=== PATIENT | female | born 1965 | race Hispanic/Latino ===

== ENCOUNTER 2016-09-20 19:29 | Inpatient (IN) | payer MEDICAID ==
[2016-09-20] MEDS ORDERED: DUONEB 0.5 MG-3 MG/3 ML SOLN IH ONE (19:59)
[2016-09-20 21:13] LABS: Basophils % (Auto) 0.8 % (0.0-1.8); Eosinophils % (Auto) 1.1 % (0.0-4.3); Hematocrit 43.7 % (30.3-42.9); Hemoglobin 14.6 gm/dl (10.1-14.3); Mean Corpuscular HGB Conc 33 % (30-34); Mean Corpuscular Hemoglobin 31 pg (28-32); Mean Corpuscular Volume 92 fl (79-97); Platelet Count 194 K/mm3 (140-440); Red Blood Count 4.74 M/mm3 (3.65-5.03); Red Cell Distribution Width 13.8 % (13.2-15.2); White Blood Count 7.8 K/mm3 (4.5-11.0)
[2016-09-20 21:24] LABS: INR 1.07 (0.87-1.13); Partial Thromboplastin Time 26.2 Sec. (24.2-36.6)
[2016-09-20 21:31] LABS: Anion Gap 20 mmol/L; Blood Urea Nitrogen 8 mg/dL (7-17); Calcium 9.1 mg/dL (8.4-10.2); Carbon Dioxide 21 mmol/L (22-30); Chloride 106.7 mmol/L (98-107); Glucose 110 mg/dL (65-100); Potassium 3.6 mmol/L (3.6-5.0); Sodium 144 mmol/L (137-145)
[2016-09-20] MEDS ORDERED: ZOFRAN IV ONE (22:11)
[2016-09-20] MEDS ORDERED: MORPHINE IV ONE ×2 (22:11→22:53)
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
[2016-09-20] MEDS ORDERED: PLAVIX PO ONE (22:37)
[2016-09-20] MEDS ORDERED: MILK OF MAGNESIA PO PRN (23:40)
[2016-09-20] MEDS ORDERED: ZOFRAN IV PRN (23:40)
[2016-09-20] MEDS ORDERED: PROVENTIL IH PRN (23:40)
[2016-09-20] MEDS ORDERED: DULCOLAX PR PRN (23:40)
--- NOTE | 2016-09-20 23:44 | History and Physical Report ---
History of Present Illness Date of examination: 09/20/16 History of present illness: 51-year-old woman with a history of hypertension, coronary artery disease, CHF, COPD, bipolar, history of DVT, PE, seizure comes emergency room with complaints of chest pain pain is in the epigastric area which started yesterday which she describes a tightness, constant, intensity 7/10, radiating to the back, she cannot identify exacerbating or relieving factors. She admits to nausea vomiting, diaphoresis, shortness of breath or palpitation. Also complaining of right leg pain 2 days Patient denies cough, abdominal pain, hematochezia, dysuria, frequency, focal weakness, dysarthria, fever chills, polydipsia polyuria, hot or cold intolerance , easy bruisability, or rash or bleeding from mucosal membrane, rhinorrhea, epistaxis, earache, tinnitus, blurry vision, eye discharge, anxiety, depression. Other review of systems negative PAST SURGICAL HISTORY: Hysterectomy, bowel resection, cholecystectomy, surgery on right thumb and leg SOCIAL HISTORY: Tobacco abuse, no alcohol or drugs FAMILY HISTORY: Hypertension Medications and Allergies Allergies Allergy/AdvReac Type Severity Reaction Status Date / Time acetaminophen [From Vicodin] Allergy Hives Verified 09/20/16 19:50 hydrocodone bitartrate Allergy Hives Verified 09/20/16 19:50 [From Vicodin] metoclopramide HCl Allergy Anaphylaxis Verified 09/20/16 19:50 [From Reglan] Penicillins Allergy Swelling Verified 09/20/16 19:50 naproxen AdvReac Itching Verified 09/20/16 19:50 Home Medications Medication Instructions Recorded Confirmed Last Taken Type Lisinopril [Zestril TAB] 40 mg PO QDAY 03/30/13 09/20/16 09/20/16 History Furosemide [Lasix] 40 mg PO QDAY 06/16/13 09/20/16 09/20/16 History Cyanocobalamin [Vitamin B-12] 1,000 mcg IM 2XW 10/17/13 09/20/16 09/20/16 History Potassium Chloride [K-Dur] 10 meq PO BID 10/17/13 09/20/16 09/20/16 History Simvastatin [Zocor TAB] 40 mg PO QHS 10/17/13 09/20/16 09/20/16 History Fenofibrate [Tricor] 48 mg PO DAILY 03/27/14 09/20/16 09/20/16 History Gabapentin 200 mg PO BID 03/27/14 09/20/16 09/20/16 History Mometasone/Formoterol [Dulera 200 2 puff IH BID 03/27/14 09/20/16 09/20/16 History Mcg/5 Mcg Inhaler] QUEtiapine [SEROquel] 200 mg PO HS 03/27/14 09/20/16 09/20/16 History Albuterol Sulfate [Proventil HFA] 1 - 2 puff IH Q4H PRN #1 hfa.aer.ad 12/27/14 09/20/16 09/20/16 Rx Fluticasone [Flonase] 1 spray NS QDAY #1 bottle 12/27/14 09/20/16 09/20/16 Rx ALPRAZolam [Xanax TAB] 2 mg PO BID PRN 01/21/15 09/20/16 09/20/16 History Quetiapine Fumarate [Seroquel] 100 mg PO QAM 02/06/15 09/20/16 09/20/16 History Ipratropium/Albuterol Sulfate 1 ampul IH TIDRT #120 ampul.neb 03/28/16 09/20/16 09/20/16 Rx [Duoneb 0.5 mg-3 mg/3 ml Soln] Exam - Physical Exam Narrative exam: Gen. appearance: Patient lying in bed, no apparent distress HEENT: Normocephalic, atraumatic, pupils equally round and reactive to light, extraocular movement intact, and no sclericterus,. No JVD or thyromegaly or nodule,neck supple, no carotid bruit ,mucous membranes moist, no exudate or erythema Heart: S1, S2, regular rate and rhythm Lungs: Clear to auscultation bilaterally, breathing comfortable Abdomen: Positive bowel sounds, nontender, nondistended, no organomegaly Extremity: No edema, cyanosis, clubbing Skin: No rash, nodules, warm, dry Neuro: Oriented 3, cranial nerves II-12 intact, speech is fluent, motor and sensory intact - Constitutional Vitals: Temp Pulse Resp BP Pulse Ox 97.9 F 80 13 108/57 92 09/20/16 19:51 09/20/16 22:30 09/20/16 22:30 09/20/16 22:30 09/20/16 22:30 Results - Labs CBC & Chem 7: 09/20/16 20:49 09/20/16 20:49 Labs: Abnormal lab results 09/20/16 09/20/16 Range/Units 20:49 20:49 Hgb 14.6 H (10.1-14.3) gm/dl Hct 43.7 H (30.3-42.9) % [place] % (Auto) 8.2 H (0.0-7.3) % Carbon Dioxide 21 L (22-30) mmol/L Creatinine 0.4 L (0.7-1.2) mg/dL Glucose 110 H (65-100) mg/dL - Imaging and Cardiology EKG: image reviewed Chest x-ray: image reviewed Assessment and Plan Unstable angina Coronary artery disease Right leg pain Hypertension CHF, stable COPD Seizure Admits medicine Check cardiac enzymes, consult cardiology, check Doppler of the lower extremity Continue appropriate outpatient medication, start DVT prophylaxis, IV morphine for pain
--- NOTE | 2016-09-21 00:49 | Admit Criteria Form ---
Admission Criteria Documentation: CHEST PAIN Clinical Indications for Admission to Inpatient Care (Place 'X' for any and all applicable criteria): Admission is indicated for chest pain and ANY ONE of the following(1)(2)(3)(4)(5 ): [ ]I. Angina with acute coronary syndrome (Also use Myocardial Infarction or Angina guideline) [ ]II. Hemodynamic instability [ ]III. Angina needing acute intervention as indicated by ALL of the following( 11)(12): [ ]a) Unstable angina is present as indicated by angina that is ANY ONE of the following: [ ]i) New onset [ ]ii) Nocturnal [ ]iii) Prolonged at rest [ ]iv) Progressive [ ]b) Angina warrants acute intervention as indicated by ANY ONE of the following: [ ]i) Recurrent angina (e.g, not responding as previously to treatment) [ ]ii) Angina at rest or with low-level activities despite initial medical therapy [ ]iii) New or presumably new ST-segment depression on ECG [ ]iv) Signs or symptoms of heart failure (eg, dyspnea, pulmonary edema) [ ]v) New or worsening mitral regurgitation [ ]vi) Hemodynamic instability [ ]vii) Dangerous arrhythmia (eg, sustained ventricular tachycardia) [ ]viii) History of percutaneous coronary intervention within 6 months [ ]ix) History of coronary artery bypass graft surgery [ ]x) VIJI risk score of 2 or greater[A] [ ]xi) History of Diabetes(14) [ ]xii) High-risk cardiac ischemia findings on noninvasive testing (e.g, echocardiogram, treadmill testing, nuclear scan) [ ]xiii) Chronic renal insufficiency (ie, estimated GFR less than 60 mL/min/1.732m) [ ]xiv) Left ventricular ejection fraction less than 40% [ ]IV. Evidence of NV (eg, cardiac biomarkers positive, ST-segment elevation on ECG) also use Myocardial Infarction Criteria Form. [ ]V. Pulmonary edema [ ]. Respiratory distress [ ]VII. Chest pain indicative of serious diagnosis other than coronary artery disease (eg, aortic dissection) [ ]VIII. Contraindications and/or Inappropriate clinical situations for Observational Care in patients with Chest Pain, when ANY ONE of the following is required: [ ]a) Patient with risk factor for pulmonary embolism, acute coronary syndrome and myocardial infarction (18) [ ]b) Patient with Pulmonary embolism require an average LOS of 4.3 days, therefore emergency department observation management is inappropriate 18,23 [ ]c) Painful condition/s in the elderly, have the highest rate of recidivism after emergency department observation management (10.8%) 20,21,22 [ ]d) Elevated cardiac biomarker requires intensive and exhaustive care (19) [X ]IX. General contraindications and/or Inappropriate clinical situations for Observational Care in patients with Chest Pain, when ANY ONE of the following is required: [ X]a) Prediction of prolongation of LOS based on ANY ONE of the following may be considered as a contraindication for observational care 2, 3, 4, 5, 6, 7, 8, 9, 10, 11 [ ]i) Age > 65 yrs. [ ]ii) Patient arriving by ambulance [ ]iii) Patient with high acuity [ ]iv) Patient requiring vital sign monitoring [ X]v) Patient on IV medication [ ]b) Systolic blood pressures 180mmHg 3,12 [ ]c) Patient with altered mental status including delirium and other alteration of consciousness, (3) [ ]d) Patient whose discharge disposition will be to a jail home or rehabilitation home should not be managed in Emergency Department Observation Unit. CMS rule requires 3 days hospital stay before such placement. 3,13 [ ]e) Patient with failure to thrive due to broad array of etiologies 3,16,17 [ ]f) Inability to ambulate 3,14 Extended stay beyond goal length of stay may be needed for (1)(28): [ ]a) Specific condition diagnosed after evaluation (eg, pulmonary embolism, aortic dissection) [ ]b) Unstable angina [ ]c) Continued suspicion of acute coronary syndrome with inability to complete needed cardiac evaluation (eg, patient clinically unable to undergo stress testing) [ ]d) Myocardial infarction (Contents from ANGINA and CHEST PAIN clinical indications for admission to inpatient care have been integrated in this form) The original [email or web address] content created by [email or web address] has been revised. The portions of the content which have been revised are identified through the use of italic text or in bold, and [facility] [employer] has neither reviewed nor approved the modified material. All other unmodified content is copyright [facility] [employer] Please see references footnoted in the original [facility] edition 2016 Admission Criteria Met: Yes
[2016-09-21] MEDS ORDERED: XANAX ONE (00:59)
[2016-09-21] MEDS ORDERED: DILAUDID IV ONE (01:07)
[2016-09-21] MEDS ORDERED: DILAUDID ONE (01:09)
[2016-09-21] MEDS: XANAX PO PRN ×2 (01:09→08:50)
[2016-09-21 02:38] VITALS: BP 128/76
[2016-09-21] MEDS: MORPHINE IV PRN ×3 (04:43→13:30)
[2016-09-21 07:17] LABS: Basophils % (Auto) 0.9 % (0.0-1.8); Eosinophils % (Auto) 1.8 % (0.0-4.3); Hematocrit 41.2 % (30.3-42.9); Hemoglobin 13.7 gm/dl (10.1-14.3); Mean Corpuscular HGB Conc 33 % (30-34); Mean Corpuscular Hemoglobin 31 pg (28-32); Mean Corpuscular Volume 92 fl (79-97); Platelet Count 177 K/mm3 (140-440); Red Blood Count 4.47 M/mm3 (3.65-5.03); Red Cell Distribution Width 13.9 % (13.2-15.2); White Blood Count 7.4 K/mm3 (4.5-11.0)
[2016-09-21 07:35] LABS: Anion Gap 14 mmol/L; Blood Urea Nitrogen 8 mg/dL (7-17); Calcium 8.6 mg/dL (8.4-10.2); Carbon Dioxide 26 mmol/L (22-30); Chloride 105.6 mmol/L (98-107); Glucose 91 mg/dL (65-100); Potassium 3.5 mmol/L (3.6-5.0); Sodium 142 mmol/L (137-145)
[2016-09-21 07:41] LABS: Creatine Kinase 19 units/L (30-135)
[2016-09-21 07:45] LABS: Creatine Kinase MB < 1.0 ng/mL (0.0-4.0)
[2016-09-21] MEDS ORDERED: BROVANA NEBU IH SCH (08:00)
[2016-09-21] MEDS ORDERED: PULMICORT IH SCH (08:00)
--- NOTE | 2016-09-21 08:15 | XRay Report ---
CHEST ONE VIEW INDICATION: Chest pain, cough. COMPARISON: 03/27/2016. FINDINGS: Portable, single, frontal chest radiograph demonstrates stable cardiomediastinal silhouette. Well-expanded lungs with markings again slightly crowded towards the bases. Unremarkable bones. Extrinsic EKG leads. CONCLUSION: No acute disease in the chest. Thank you for the opportunity to participate in this patient's care.
[2016-09-21] MEDS: LOVENOX SUB-Q SCH ×2 (08:50→13:17)
[2016-09-21] MEDS: LASIX PO SCH ×3 (08:51→13:32)
[2016-09-21] MEDS: NEURONTIN PO SCH ×2 (08:51→13:18)
[2016-09-21 09:24] LABS: Creatine Kinase 21 units/L (30-135)
[2016-09-21 09:26] LABS: Creatine Kinase MB < 1.0 ng/mL (0.0-4.0)
[2016-09-21] MEDS ORDERED: NON-FORMULARY (Mometasone/Formoterol [Dulera 200 Mcg/5 Mcg Inhaler] 2 PUFF) IH SCH (10:00)
[2016-09-21] MEDS: ZESTRIL PO SCH ×2 (13:18→13:32)
[2016-09-21] MEDS: TRICOR PO SCH ×2 (13:18→13:32)
--- NOTE | 2016-09-21 14:45 | Discharge Summary ---
Providers - Providers Date of Admission: 09/20/16 23:41 Date of discharge: 09/21/16 Attending physician: CECILIO ELLIS Primary care physician: DOCUMENT CONTROL ASSISTANT Hospitalization Condition: Fair Disposition: DISCHARGED TO HOME OR SELFCARE Time spent for discharge: 35 min Exam - Constitutional Vitals: Temp Pulse Resp BP Pulse Ox 98.1 F 67 16 128/76 96 09/21/16 02:37 09/21/16 09:12 09/21/16 13:30 09/21/16 02:37 09/21/16 08:19 Plan Activity: advance as tolerated Diet: low cholesterol, low salt Additional Instructions: F/u with your mural painter Follow up with: PRIMARY CARE, [Primary Care Provider] - 3-5 Days
[2016-09-21] MEDS ORDERED: ZOCOR PO SCH (22:00)
== END 2016-09-21 15:21 | disposition home or self-care (01) | DRG 303 ==
LOC: ED 19:29 → 4A 23:41
PROVIDERS: ADMIT Internal Medicine; ATTEND Internal Medicine
DX: I25.110 Atherosclerotic heart disease of native coronary artery with unstable angina pectoris (principal); I50.9 Heart failure, unspecified; J44.9 Chronic obstructive pulmonary disease, unspecified; R56.9 Unspecified convulsions; F31.9 Bipolar disorder, unspecified; I11.0 Hypertensive heart disease with heart failure; F17.200 Nicotine dependence, unspecified, uncomplicated; J45.909 Unspecified asthma, uncomplicated; G89.29 Other chronic pain; M19.90 Unspecified osteoarthritis, unspecified site; Z86.718 Personal history of other venous thrombosis and embolism; Z86.711 Personal history of pulmonary embolism; Z90.49 Acquired absence of other specified parts of digestive tract; Z98.61 Coronary angioplasty status; Z90.710 Acquired absence of both cervix and uterus; Z86.14 Personal history of Methicillin resistant Staphylococcus aureus infection; Z82.49 Family history of ischemic heart disease and other diseases of the circulatory system; Z88.8 Allergy status to other drugs, medicaments and biological substances; Z88.0 Allergy status to penicillin
CPT/HCPCS: 36415; 71010; 80048; 82550; 82553; 83880; 84484; 85025; 85379; 85610; 85730; 93005; 93010; 94640; 96374; 96375; 96376; 99406; J1170; J1650; J2270; J2405

== ENCOUNTER 2016-10-18 12:26 | Emergency (ER) | payer MEDICAID ==
[2016-10-18 12:56] VITALS: BP 150/95
[2016-10-18 13:42] LABS: Eosinophils % (Auto) 1.3 % (0.0-4.3); Hematocrit 43.5 % (30.3-42.9); Hemoglobin 14.5 gm/dl (10.1-14.3); Mean Corpuscular HGB Conc 33 % (30-34); Mean Corpuscular Hemoglobin 31 pg (28-32); Mean Corpuscular Volume 93 fl (79-97); Platelet Count 234 K/mm3 (140-440); Red Blood Count 4.69 M/mm3 (3.65-5.03); Red Cell Distribution Width 13.9 % (13.2-15.2); White Blood Count 7.7 K/mm3 (4.5-11.0)
[2016-10-18 14:13] LABS: Anion Gap 21 mmol/L; Blood Urea Nitrogen 9 mg/dL (7-17); Calcium 9.3 mg/dL (8.4-10.2); Carbon Dioxide 20 mmol/L (22-30); Chloride 104.3 mmol/L (98-107); Glucose 101 mg/dL (65-100); Potassium 3.9 mmol/L (3.6-5.0); Sodium 141 mmol/L (137-145)
== END 2016-10-18 14:27 | disposition left against medical advice (07) ==
LOC: ED 12:26
DX: R07.9 Chest pain, unspecified (principal); Z53.21 Procedure and treatment not carried out due to patient leaving prior to being seen by health care provider
CPT/HCPCS: 36415; 80048; 82962; 84484; 85025; 93005; 93010

== ENCOUNTER 2016-12-19 12:51 | Outpatient (CLI) | payer MEDICAID ==
--- NOTE | 2016-12-19 13:56 | XRay Report ---
ROUTINE CHEST, TWO VIEWS: HISTORY: Cough, chest pain. The trachea, heart, mediastinal contour, lung watters and bony thorax are unremarkable. No significant change since 09/20/16. IMPRESSION: Unremarkable chest x-ray.
== END 2016-12-19 12:52 | disposition home or self-care (01) ==
LOC: XRAY 12:51
PROVIDERS: ATTEND Family Medicine
DX: J18.9 Pneumonia, unspecified organism (principal); R07.9 Chest pain, unspecified; I11.0 Hypertensive heart disease with heart failure; I50.9 Heart failure, unspecified; J44.9 Chronic obstructive pulmonary disease, unspecified; J45.909 Unspecified asthma, uncomplicated; D64.9 Anemia, unspecified; F17.200 Nicotine dependence, unspecified, uncomplicated; Z79.899 Other long term (current) drug therapy
CPT/HCPCS: 71020

== ENCOUNTER 2017-08-20 04:56 | Emergency (ER) | payer MEDICAID ==
[2017-08-20 05:37] VITALS: BP 153/84
[2017-08-20 05:56] LABS: Basophils % (Auto) 0.6 % (0.0-1.8); Eosinophils # (Auto) 0.1 K/mm3 (0.0-0.4); Eosinophils % (Auto) 1.5 % (0.0-4.3); Hematocrit 40.2 % (30.3-42.9); Hemoglobin 13.8 gm/dl (10.1-14.3); Lymphocytes # (Auto) 1.4 K/mm3 (1.2-5.4); Lymphocytes % (Auto) 30.8 % (13.4-35.0); Mean Corpuscular HGB Conc 34 % (30-34); Mean Corpuscular Hemoglobin 32 pg (28-32); Mean Corpuscular Volume 93 fl (79-97); Monocytes # (Auto) 0.7 K/mm3 (0.0-0.8); Monocytes % (Auto) 14.5 % (0.0-7.3); Platelet Count 151 K/mm3 (140-440); Red Blood Count 4.34 M/mm3 (3.65-5.03); Red Cell Distribution Width 13.1 % (13.2-15.2)
[2017-08-20 06:11] LABS: INR 0.98 (0.87-1.13)
[2017-08-20 06:12] LABS: BUN/Creatinine Ratio 13; Blood Urea Nitrogen 5 mg/dL (7-17); Calcium 8.8 mg/dL (8.4-10.2); Hemolysis Index 1; Partial Thromboplastin Time 28.3 Sec. (24.2-36.6)
[2017-08-20] MEDS ORDERED: MORPHINE IV ONE (07:02)
[2017-08-20] MEDS ORDERED: ZOFRAN IV ONE (07:02)
[2017-08-20] MEDS ORDERED: MORPHINE ONE (07:04)
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
--- NOTE | 2017-08-20 09:06 | XRay Report ---
AP CHEST :08/20/17 CLINICAL: Hypertension. COMPARISON:05/03/17 FINDINGS: The heart is normal size. Increased central vascular congestion compared to the last exam. The right hilum is prominent due to rotation but this is not significantly changed compared to the last exam. The lungs are relatively clear. No airspace disease or pleural effusion. No tubes or lines. IMPRESSION: Central vascular congestion but otherwise negative.
[2017-08-20] MEDS ORDERED: SODIUM CHLORIDE FLUSH SYRINGE 10 ML IV PRN (09:22)
--- NOTE | 2017-08-20 09:27 | History and Physical Report ---
History of Present Illness Date of examination: 08/20/17 Date of admission: 08/20/17 Chief complaint: chest pain History of present illness: Patient is 52 year old female with past medical hx of chronic pain syndrome, COPD, heart failure, DVT, Bipolar Disorder Presents with chest pain, states that it feels like a 80 pound gorilla on her chest. She proceeded to demand pain medications, stating that she needs something very strong. The patient initially said the pain was just on her chest and rated it a 10 out of 10 but later states that it radiates and is associated with deep breath. Despite multiple reassurances, the Patient decided to leave against medical advise. According to ER physician" She has been admitted to this facility several times for workup of chest pain. She states that she was "supposed to have a cardiac catheterization but never did". She has been admitted here also to rule out pulmonary embolism/DVT. Those tests have been recently negative. She is complaining of right leg pain today but not swelling. She states that she has been off anticoagulation for one year. She does not complain of nausea vomiting diaphoresis or acute dyspnea. She states that she has had chest pain for 2-3 days. This is her first contacted for evaluation thereof." Past Medical History: COPD, DVT, heart failure, hypertension, pulmonary embolism , other (CIRRHOSIS OF THE LIVER,ASTHMA,ANXIETY DISORDER,BIPOLAR DISEASE) Past Surgical History: cholecystectomy, hysterectomy, bowel surgery, Other ( STENT PLACEMENT,RIGHT LEG SURGERY,RIGHT THUMB) Social history: smoking Family history: no significant family history Medications and Allergies Allergies Allergy/AdvReac Type Severity Reaction Status Date / Time acetaminophen [From Vicodin] Allergy Hives Verified 09/20/16 19:50 hydrocodone bitartrate Allergy Hives Verified 09/20/16 19:50 [From Vicodin] metoclopramide HCl Allergy Anaphylaxis Verified 05/03/17 15:25 [From Reglan] Penicillins Allergy Swelling Verified 05/03/17 15:25 naproxen AdvReac Itching Verified 05/03/17 15:25 Home Medications Medication Instructions Recorded Confirmed Last Taken Type Albuterol Sulfate [Ventolin HFA] 2 puff IH QDAY PRN 08/20/17 08/20/17 Unknown History Cyanocobalamin (Vitamin B-12) 250 mcg PO DAILY 08/20/17 08/20/17 Unknown History [Vitamin B-12] Cyanocobalamin [Vitamin B-12] 1,000 mcg IM 2XW 08/20/17 08/20/17 Unknown History Folic Acid [Folvite] 1 mg PO QDAY 08/20/17 08/20/17 Unknown History Furosemide [Lasix] 40 mg PO QDAY 08/20/17 08/20/17 Unknown History Gabapentin [Neurontin] 300 mg PO Q8HR 08/20/17 08/20/17 Unknown History Lisinopril [Zestril] 40 mg PO QDAY 08/20/17 08/20/17 Unknown History Mometasone/Formoterol [Dulera 200 2 puff IH BID 08/20/17 08/20/17 Unknown History Mcg/5 Mcg Inhaler] Naproxen [Naprosyn] 500 mg PO BID 08/20/17 08/20/17 Unknown History Oxycodone HCl [oxyCODONE TAB] 20 mg PO Q6H PRN 08/20/17 08/20/17 Unknown History Promethazine [Phenergan TAB] 25 mg PO Q6HR PRN 08/20/17 08/20/17 Unknown History QUEtiapine [SEROquel] 200 mg PO QHS 08/20/17 08/20/17 Unknown History Simvastatin 40 mg PO QDAY 08/20/17 08/20/17 Unknown History Valacyclovir HCl [Valtrex] 1,000 mg PO QDAY 08/20/17 08/20/17 Unknown History Vitamin D3/Folic Acid [Folixapure 5,000 unit PO QDAY 08/20/17 08/20/17 Unknown History Tablet] Active Meds: Active Medications Nitroglycerin (Nitrostat) 0.4 mg SL Q5M PRN PRN Reason: Chest Pain Sodium Chloride (Sodium Chloride Flush Syringe 10 Ml) 10 ml IV PRN PRN PRN Reason: LINE FLUSH Review of Systems All systems: negative Cardiovascular: chest pain, shortness of breath Respiratory: shortness of breath, dyspnea on exertion Exam - Constitutional Vitals: Temp Pulse Resp BP Pulse Ox 98.3 F 78 20 153/84 94 08/20/17 05:32 08/20/17 05:32 08/20/17 07:10 08/20/17 05:32 08/20/17 05:32 General appearance: Present: mild distress, obese (MORBID) - EENT Eyes: Present: PERRL, EOM intact ENT: clear oral mucosa - Neck Neck: Present: supple, normal ROM - Respiratory Respiratory effort: normal Respiratory: bilateral: CTA - Cardiovascular Rhythm: regular Heart Sounds: Present: S1 & S2 - Extremities Extremities: no ischemia, pulses intact, pulses symmetrical, No edema, normal temperature, normal color, Full ROM Peripheral Pulses: within normal limits - Abdominal General gastrointestinal: Present: soft, non-tender, non-distended, normal bowel sounds - Integumentary Integumentary: Present: clear, warm, dry - Musculoskeletal Musculoskeletal: strength equal bilaterally - Psychiatric Psychiatric: appropriate mood/affect, intact judgment & insight - Neurologic Neurologic: CNII-XII intact, moves all extremities - Allied Health Allied health notes reviewed: nursing Results - Labs CBC & Chem 7: 08/20/17 05:44 08/20/17 09:34 Labs: Laboratory Last Values WBC 4.6 K/mm3 (4.5-11.0) 08/20/17 05:44 RBC 4.34 M/mm3 (3.65-5.03) 08/20/17 05:44 Hgb 13.8 gm/dl (10.1-14.3) 08/20/17 05:44 Hct 40.2 % (30.3-42.9) 08/20/17 05:44 MCV 93 fl (79-97) 08/20/17 05:44 MCH 32 pg (28-32) 08/20/17 05:44 MCHC 34 % (30-34) 08/20/17 05:44 RDW 13.1 % (13.2-15.2) L 08/20/17 05:44 Plt Count 151 K/mm3 (140-440) 08/20/17 05:44 Lymph % (Auto) 30.8 % (13.4-35.0) 08/20/17 05:44 [place] % (Auto) 14.5 % (0.0-7.3) H 08/20/17 05:44 Eos % (Auto) 1.5 % (0.0-4.3) 08/20/17 05:44 Baso % (Auto) 0.6 % (0.0-1.8) 08/20/17 05:44 Lymph # 1.4 K/mm3 (1.2-5.4) 08/20/17 05:44 [place] # 0.7 K/mm3 (0.0-0.8) 08/20/17 05:44 Eos # 0.1 K/mm3 (0.0-0.4) 08/20/17 05:44 Baso # 0.0 K/mm3 (0.0-0.1) 08/20/17 05:44 Seg Neutrophils % 52.6 % (40.0-70.0) 08/20/17 05:44 Seg Neutrophils # 2.4 K/mm3 (1.8-7.7) 08/20/17 05:44 PT 13.5 Sec. (12.2-14.9) 08/20/17 05:44 INR 0.98 (0.87-1.13) 08/20/17 05:44 APTT 28.3 Sec. (24.2-36.6) 08/20/17 05:44 D-Dimer 273.34 ng/mlDDU (0-234) H 08/20/17 05:44 Sodium 142 mmol/L (137-145) 08/20/17 05:44 Potassium 4.2 mmol/L (3.6-5.0) 08/20/17 05:44 Chloride 102.5 mmol/L (98-107) 08/20/17 05:44 Carbon Dioxide 27 mmol/L (22-30) 08/20/17 05:44 Anion Gap 17 mmol/L 08/20/17 05:44 BUN 5 mg/dL (7-17) L 08/20/17 05:44 Creatinine 0.4 mg/dL (0.7-1.2) L 08/20/17 05:44 Estimated GFR > 60 ml/min 08/20/17 05:44 BUN/Creatinine Ratio 13 % 08/20/17 05:44 Glucose 114 mg/dL (65-100) H 08/20/17 05:44 Calcium 8.8 mg/dL (8.4-10.2) 08/20/17 05:44 Troponin T < 0.010 ng/mL (0.00-0.029) 08/20/17 05:44 - Imaging and Cardiology Chest x-ray: image reviewed (Vascular congestion) Assessment and Plan Assessment and plan: Patient is 52 year old female with past medical hx of chronic pain syndrome, COPD, heart failure, DVT, Bipolar Disorder Presents with chest pain, states that it feels like a 80 pound gorilla on her chest. She proceeded to demand pain medications, stating that she needs something very strong. The patient initially said the pain was just on her chest and rated it a 10 out of 10 but later states that it radiates and is associated with deep breath. Despite multiple reassurances, the Patient decided to leave against medical advise. According to ER physician" She has been admitted to this facility several times for workup of chest pain. She states that she was "supposed to have a cardiac catheterization but never did". She has been admitted here also to rule out pulmonary embolism/DVT. Those tests have been recently negative. She is complaining of right leg pain today but not swelling. She states that she has been off anticoagulation for one year. She does not complain of nausea vomiting diaphoresis or acute dyspnea. She states that she has had chest pain for 2-3 days. This is her first contacted for evaluation thereof." Atypical chest pain COPD with acute exacerbation Acute Diastolic Congestive Heart failure Tobacco Use disorder CHRONIC OPIOID DEPENDANCE Morbid obesity Plan patient was admitted, stress test ordered, chest pain protocol started. CT chest with angio was negavtive for PE. Doppler of lower ext was obtained, result pending and appropriate pain medication was ordered but the patient left against medical advise. Advance Directives: Yes Plan of care discussed with patient/family: Yes
[2017-08-20] MEDS ORDERED: NACL ONE (09:31)
[2017-08-20 10:03] LABS: BUN/Creatinine Ratio 13; Blood Urea Nitrogen 5 mg/dL (7-17); Calcium 8.9 mg/dL (8.4-10.2); Hemolysis Index 4
[2017-08-20 10:07] LABS: Chol/HDL Ratio 3.17 %
[2017-08-20] MEDS ORDERED: NITROSTAT SL PRN (10:30)
--- NOTE | 2017-08-20 12:01 | Cat Scan Report ---
CTA CHEST: HISTORY: Pulmonary embolus. COMPARISON: 05/03/17. TECHNIQUE: Helical CT in 1.25mm intervals following IV contrast. Pulmonary embolus protocol. Sagittal and coronal reformatted images. Rotational MIP images. FINDINGS: Contrast bolus is satisfactory. No pulmonary embolus is identified. Thyroid gland: Normal. Tracheobronchial tree: Normal. Esophagus: Normal. Heart: Normal. Pericardium: Normal. Mediastinum: Normal. Lung [place]: normal. Pleural Spaces: Normal. Musculoskeletal: Normal. IMPRESSION: No evidence for pulmonary embolus. Unremarkable CT chest with contrast.
[2017-08-20 12:29] LABS: Creatine Kinase MB < 1.0 ng/mL (0.0-4.0)
[2017-08-20] MEDS ORDERED: PROAIR IH PRN (14:19)
[2017-08-20] MEDS ORDERED: PHENERGAN PO PRN (14:19)
[2017-08-20] MEDS ORDERED: OXYCODONE HCL 20 MG PO PRN (14:19)
[2017-08-20] MEDS ORDERED: PROVENTIL IH PRN (14:27)
[2017-08-20] MEDS ORDERED: ROXICODONE PO PRN (14:59)
[2017-08-20] MEDS ORDERED: PULMICORT IH SCH (20:00)
[2017-08-20] MEDS ORDERED: BROVANA NEBU IH SCH (20:00)
[2017-08-20] MEDS ORDERED: NON-FORMULARY (Mometasone/Formoterol [Dulera 200 Mcg/5 Mcg Inhaler] 2 PUFF) IH SCH (22:00)
[2017-08-20] MEDS ORDERED: NAPROSYN PO SCH (22:00)
[2017-08-20] MEDS ORDERED: NEURONTIN PO SCH (22:00)
[2017-08-20] MEDS ORDERED: PRAVACHOL PO SCH (22:00)
[2017-08-21] MEDS ORDERED: NON-FORMULARY (Simvastatin [Simvastatin] 40 MG) PO SCH (10:00)
[2017-08-21] MEDS ORDERED: ZESTRIL PO SCH (10:00)
[2017-08-21] MEDS ORDERED: FOLVITE PO SCH (10:00)
[2017-08-21] MEDS ORDERED: NON-FORMULARY (Valacyclovir Hcl [Valtrex] 1,000 MG) PO SCH (10:00)
[2017-08-21] MEDS ORDERED: VALTREX PO SCH (10:00)
[2017-08-21] MEDS ORDERED: VITAMIN B-12 PO SCH (10:00)
[2017-08-21] MEDS ORDERED: LASIX PO SCH (10:00)
[2017-08-21] MEDS ORDERED: CYANOCOBALAMIN 250 MCG PO SCH (10:00)
[2017-08-22] MEDS ORDERED: VITAMIN B-12 IM SCH (10:00)
--- NOTE | 2017-08-25 15:11 | Vascular Lab Report ---
LOWER EXTREMITY VENOUS DUPLEX: REASON FOR EXAM: Deep venous thrombosis. COMMENTS ON THE RIGHT: All veins visualized are freely compressible without evidence of internal echogenicity. Flow is spontaneous and phasic throughout. COMMENTS ON THE LEFT: All veins visualized are freely compressible without evidence of internal echogenicity. Flow is spontaneous and phasic throughout. IMPRESSION: No evidence of acute or chronic deep venous thrombosis in either lower extremity.
== END 2017-08-20 18:00 | disposition admitted as inpatient to this hospital (09) ==
LOC: ED 04:56
DX: R07.9 Chest pain, unspecified (principal); M79.604 Pain in right leg; I11.0 Hypertensive heart disease with heart failure; I50.9 Heart failure, unspecified; M19.90 Unspecified osteoarthritis, unspecified site; J44.9 Chronic obstructive pulmonary disease, unspecified; F17.200 Nicotine dependence, unspecified, uncomplicated; Z79.82 Long term (current) use of aspirin; Z88.0 Allergy status to penicillin; Z88.8 Allergy status to other drugs, medicaments and biological substances
CPT/HCPCS: 36415; 71045; 71275; 80048; 80061; 82550; 82553; 84484; 85025; 85379; 85610; 85730; 93005; 93010; 93970; 96374; 96375; 99285; J2270; J2405; Q9967; A9270-GY

== ENCOUNTER 2017-09-09 23:13 | Emergency (ER) | payer MEDICAID ==
[2017-09-09] MEDS ORDERED: ATIVAN ONE (23:32)
[2017-09-09] MEDS ORDERED: ATIVAN IV ONE (23:34)
[2017-09-09] MEDS ORDERED: PROVENTIL IH ONE (23:40)
[2017-09-09] MEDS ORDERED: ATROVENT IH ONE (23:41)
--- NOTE | 2017-09-10 00:06 | XRay Report ---
FINAL REPORT PROCEDURE: XR CHEST 1V AP TECHNIQUE: Chest radiograph anteroposterior view. CPT 41973 HISTORY: difficulty in breathing COMPARISON: 07/08/2015 FINDINGS: Heart: Normal. Mediastinum/Vessels: Normal. Lungs/Pleural space: Normal. Bony thorax: No acute osseous abnormality. Life support devices: None. IMPRESSION: No acute cardiopulmonary abnormality.
[2017-09-10 00:09] LABS: BUN/Creatinine Ratio 13; Blood Urea Nitrogen 4 mg/dL (7-17); Calcium 8.9 mg/dL (8.4-10.2); Hemolysis Index 5
[2017-09-10 00:14] LABS: Basophils % (Auto) 0.5 % (0.0-1.8); Eosinophils # (Auto) 0.1 K/mm3 (0.0-0.4); Eosinophils % (Auto) 0.9 % (0.0-4.3); Hematocrit 40.9 % (30.3-42.9); Hemoglobin 13.7 gm/dl (10.1-14.3); Lymphocytes # (Auto) 1.6 K/mm3 (1.2-5.4); Lymphocytes % (Auto) 19.8 % (13.4-35.0); Mean Corpuscular HGB Conc 33 % (30-34); Mean Corpuscular Hemoglobin 31 pg (28-32); Mean Corpuscular Volume 94 fl (79-97); Monocytes # (Auto) 0.7 K/mm3 (0.0-0.8); Monocytes % (Auto) 8.5 % (0.0-7.3); Platelet Count 209 K/mm3 (140-440); Red Blood Count 4.35 M/mm3 (3.65-5.03); Red Cell Distribution Width 13.2 % (13.2-15.2)
[2017-09-10] MEDS ORDERED: ASPIRIN PO ONE (00:15)
[2017-09-10] MEDS ORDERED: ATIVAN IV ONE (03:39)
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
--- NOTE | 2017-09-10 04:48 | Cat Scan Report ---
FINAL REPORT PROCEDURE: CT ANGIO CHEST TECHNIQUE: Computerized tomographic angiography of the chest was performed after the IV injection of iodinated nonionic contrast including image processing. The image data was postprocessed using 2-dimensional multiplanar reformatted (MPR) and 3-dimensional (MIP and/or volume rendered) techniques. HISTORY: cp COMPARISON: 08/20/2017 FINDINGS: Heart and pericardium: Normal. Thoracic aorta: Normal. Pulmonary vasculature: Normal. Lymph nodes: No enlarged thoracic lymph nodes. Lungs: Normal. Pleural space: No effusion, thickening, or pneumothorax. Musculoskeletal structures: No significant abnormality. Upper abdominal structures: No significant abnormality. IMPRESSION: There is no evidence of pulmonary arterial emboli. The lungs are clear without infiltrate, effusion or pneumothorax
[2017-09-10 05:53] VITALS: BP 150/77
== END 2017-09-10 05:53 | disposition home or self-care (01) ==
LOC: ED 23:13
DX: J44.9 Chronic obstructive pulmonary disease, unspecified (principal); F41.9 Anxiety disorder, unspecified; I11.0 Hypertensive heart disease with heart failure; I50.9 Heart failure, unspecified; I25.2 Old myocardial infarction; M19.90 Unspecified osteoarthritis, unspecified site; F31.9 Bipolar disorder, unspecified; F17.200 Nicotine dependence, unspecified, uncomplicated; G89.29 Other chronic pain; Z95.818 Presence of other cardiac implants and grafts; Z90.49 Acquired absence of other specified parts of digestive tract; Z90.710 Acquired absence of both cervix and uterus; Z88.6 Allergy status to analgesic agent; Z88.5 Allergy status to narcotic agent; Z88.8 Allergy status to other drugs, medicaments and biological substances; Z86.718 Personal history of other venous thrombosis and embolism; Z86.711 Personal history of pulmonary embolism
CPT/HCPCS: 36415; 71045; 71275; 80048; 82803; 85025; 93005; 93010; 94640; 96374; 96376; 99285; J2060; Q9967

== ENCOUNTER 2017-09-15 12:42 | Inpatient (IN) | payer MEDICAID ==
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
[2017-09-15 14:03] LABS: Basophils # (Auto) 0.1 K/mm3 (0.0-0.1); Basophils % (Auto) 0.6 % (0.0-1.8); Eosinophils # (Auto) 0.2 K/mm3 (0.0-0.4); Eosinophils % (Auto) 1.6 % (0.0-4.3); Hematocrit 46.1 % (30.3-42.9); Hemoglobin 15.3 gm/dl (10.1-14.3); Lymphocytes # (Auto) 3.1 K/mm3 (1.2-5.4); Mean Corpuscular HGB Conc 33 % (30-34); Mean Corpuscular Hemoglobin 31 pg (28-32); Mean Corpuscular Volume 94 fl (79-97); Monocytes # (Auto) 0.8 K/mm3 (0.0-0.8); Monocytes % (Auto) 6.4 % (0.0-7.3); Platelet Count 262 K/mm3 (140-440); Red Blood Count 4.91 M/mm3 (3.65-5.03); Red Cell Distribution Width 13.2 % (13.2-15.2)
[2017-09-15 14:11] LABS: INR 0.98 (0.87-1.13)
[2017-09-15 14:12] LABS: Partial Thromboplastin Time 26.2 Sec. (24.2-36.6)
[2017-09-15 14:21] LABS: Creatine Kinase MB 1.2 ng/mL (0.0-4.0)
[2017-09-15] MEDS ORDERED: PERCOCET 5/325 PO ONE (14:23)
[2017-09-15 14:24] LABS: Alanine Aminotransferase 16 units/L (7-56); Albumin 3.7 g/dL (3.9-5); BUN/Creatinine Ratio 37; Blood Urea Nitrogen 11 mg/dL (7-17); Calcium 8.8 mg/dL (8.4-10.2); Hemolysis Index 14
[2017-09-15] MEDS ORDERED: SUBLIMAZE IV ONE (14:24)
--- NOTE | 2017-09-15 15:13 | History and Physical Report ---
History of Present Illness Chief complaint: My chest hurts History of present illness: 52 YO Female with HTN, CA, Diastolic CHF, History of DVT/PE, OA, Seizure DO, Bipolar DO, Asthma, COPD, CAD S/P Stent Placement, Nicotine Dependence, Fibromyalgia, Chronic Pain presents to ED for evaluation. Pt states that she has experienced pain in her chest over the past 1 day with persistent symptoms over the same time period. Pt states that pain is 6-8/10, Constant, Substernal, associated with shortness of breath, nonradiating, not worsened with exertion or relieved with rest. Pt seen and evaluated in ED and found to have symptoms consistent with CHF decompendation. Pt admitted to telemtry. Cardiology consulted in ED. Psychiatry consulted in ED. Pt denies fever, chills, palpitations, NVD, Syncope, trauma, unintentional weight loss, night sweats, productive cough, or recent ill contacts. Past History Past Medical History: acute CA, arthritis, COPD, DVT, heart failure, hypertension, pulmonary embolism, seizures, other (Bipolar DO) Past Surgical History: cholecystectomy, hysterectomy, bowel surgery, Other ( Stent Placement) Social history: , lives with family, smoking, prescription drug abuse. denies: alcohol abuse Family history: CAD, hypertension Medications and Allergies Allergies Allergy/AdvReac Type Severity Reaction Status Date / Time acetaminophen [From Vicodin] Allergy Hives Verified 09/20/16 19:50 hydrocodone bitartrate Allergy Hives Verified 09/20/16 19:50 [From Vicodin] metoclopramide HCl Allergy Anaphylaxis Verified 05/03/17 15:25 [From Reglan] Penicillins Allergy Swelling Verified 05/03/17 15:25 naproxen AdvReac Itching Verified 05/03/17 15:25 Home Medications Medication Instructions Recorded Confirmed Last Taken Type Albuterol Sulfate [Ventolin HFA] 2 puff IH QDAY PRN 08/20/17 08/20/17 Unknown History Cyanocobalamin (Vitamin B-12) 250 mcg PO DAILY 08/20/17 08/20/17 Unknown History [Vitamin B-12] Cyanocobalamin [Vitamin B-12] 1,000 mcg IM 2XW 08/20/17 08/20/17 Unknown History Folic Acid [Folvite] 1 mg PO QDAY 08/20/17 08/20/17 Unknown History Furosemide [Lasix] 40 mg PO QDAY 08/20/17 08/20/17 Unknown History Gabapentin [Neurontin] 300 mg PO Q8HR 08/20/17 08/20/17 Unknown History Lisinopril [Zestril] 40 mg PO QDAY 08/20/17 08/20/17 Unknown History Mometasone/Formoterol [Dulera 200 2 puff IH BID 08/20/17 08/20/17 Unknown History Mcg/5 Mcg Inhaler] Naproxen [Naprosyn] 500 mg PO BID 08/20/17 08/20/17 Unknown History Oxycodone HCl [oxyCODONE TAB] 20 mg PO Q6H PRN 08/20/17 08/20/17 Unknown History Promethazine [Phenergan TAB] 25 mg PO Q6HR PRN 08/20/17 08/20/17 Unknown History QUEtiapine [SEROquel] 200 mg PO QHS 08/20/17 08/20/17 Unknown History Simvastatin 40 mg PO QDAY 08/20/17 08/20/17 Unknown History Valacyclovir HCl [Valtrex] 1,000 mg PO QDAY 08/20/17 08/20/17 Unknown History Vitamin D3/Folic Acid [Folixapure 5,000 unit PO QDAY 08/20/17 08/20/17 Unknown History Tablet] ALBUTEROL Inhaler [ProAir HFA 2 puff IH QID PRN #1 inhalation 09/10/17 Unknown Rx Inhaler] Doxycycline [Vibramycin CAP] 100 mg PO Q12HR #14 capsule 09/10/17 Unknown Rx predniSONE [Deltasone] 50 mg PO QDAY #5 tab 09/10/17 Unknown Rx Review of Systems Constitutional: no weight loss, no weight gain, no fever, no chills, no sweats Ears, nose, mouth and throat: no ear pain, no ear discharge, no tinnitis, no decreased hearing, no nose pain, no nasal congestion, no nasal discharge, no sinus pressure Breasts: no change in shape Cardiovascular: chest pain, no orthopnea, no palpitations, no rapid/irregular heart beat, no edema Respiratory: no cough, no cough with sputum, no excessive sputum, no hemoptysis Gastrointestinal: no abdominal pain, no nausea, no vomiting, no diarrhea Exam - Constitutional Vitals: Temp Pulse Resp BP Pulse Ox 98.7 F 74 22 152/91 97 09/15/17 13:00 09/15/17 13:00 09/15/17 13:00 09/15/17 13:00 09/15/17 13:00 General appearance: Present: mild distress - EENT Eyes: Present: PERRL ENT: hearing intact, clear oral mucosa - Neck Neck: Present: supple, normal ROM - Respiratory Respiratory effort: normal Respiratory: bilateral: CTA - Cardiovascular Heart Sounds: Present: S1 & S2. Absent: rub, click - Extremities Extremities: pulses symmetrical, No edema Peripheral Pulses: within normal limits - Abdominal General gastrointestinal: Present: soft, non-tender, non-distended, normal bowel sounds Female genitourinary: Present: normal - Integumentary Integumentary: Present: clear, warm, dry - Musculoskeletal Musculoskeletal: gait normal, strength equal bilaterally - Psychiatric Psychiatric: appropriate mood/affect, intact judgment & insight - Neurologic Neurologic: CNII-XII intact, moves all extremities Results - Labs CBC & Chem 7: 09/15/17 13:20 09/15/17 13:20 Labs: Abnormal lab results 09/15/17 09/15/17 Range/Units 13:20 13:20 WBC 12.7 H (4.5-11.0) K/mm3 Hgb 15.3 H (10.1-14.3) gm/dl Hct 46.1 H (30.3-42.9) % Seg Neutrophils # 8.5 H (1.8-7.7) K/mm3 Sodium 136 L (137-145) mmol/L Chloride 97.4 L (98-107) mmol/L Creatinine 0.3 L (0.7-1.2) mg/dL Glucose 104 H (65-100) mg/dL Total Creatine Kinase 19 L (30-135) units/L CK-MB (CK-2) Rel Index 6.3 H (0-4) Albumin 3.7 L (3.9-5) g/dL Assessment and Plan - Patient Problems (1) COPD exacerbation Current Visit: No Status: Acute Plan to address problem: Supplemental oxygen, nebulizer therapy, IV steroids, incentive spirometry, IV antibiotics, (2) CHF (congestive heart failure) Current Visit: No Status: Acute Qualifiers: Heart failure type: diastolic Heart failure chronicity: acute Qualified Code(s): I50.31 - Acute diastolic (congestive) heart failure Plan to address problem: Strict I/O, Telemetry monitoring, serial ekg, afterload reduction, supplemental oxygen, cardiology consulted, Echo,monitor uop q shift (3) ACS (acute coronary syndrome) Current Visit: Yes Status: Acute Plan to address problem: Serial cardiac enzymes, ekg, telemetry, echo, morphine, supplemental oxygen, aspirin, nitro tabs. (4) Bipolar 1 disorder Current Visit: No Status: Acute Plan to address problem: Psychiatry consulted, (5) Respiratory failure Current Visit: Yes Status: Acute Qualifiers: Chronicity: acute Respiratory failure complication: hypoxia Qualified Code(s): J96.01 - Acute respiratory failure with hypoxia Plan to address problem: supplemental oxygen, nebulizer therapy, pulse oximetry, Chest X ray, (6) HTN (hypertension) Current Visit: No Status: Chronic Qualifiers: Hypertension type: essential hypertension Qualified Code(s): I10 - Essential (primary) hypertension Plan to address problem: Monitor BP q shift, IV hydralazine PRN (7) DVT prophylaxis Current Visit: No Status: Acute
--- NOTE | 2017-09-15 15:19 | XRay Report ---
FINAL REPORT EXAM: XR CHEST 1V AP HISTORY: Dyspnea TECHNIQUE: Frontal chest radiograph. PRIORS: 09/09/2017. FINDINGS: The cardiac silhouette appears mildly prominent in size. The pulmonary yuridia appear mildly prominent. No focal consolidation. No pleural effusion. No pneumothorax. No acute osseous abnormality. IMPRESSION: Probable mild cardiomegaly. Prominent pulmonary yuridia can be seen in pulmonary arterial hypertension versus lymphadenopathy. Consider further evaluation with chest CT.
[2017-09-15] MEDS ORDERED: MORPHINE IV PRN (15:21)
[2017-09-15] MEDS ORDERED: TYLENOL PO PRN (15:21)
[2017-09-15] MEDS ORDERED: NITROSTAT SL PRN (15:21)
[2017-09-15] MEDS ORDERED: SODIUM CHLORIDE FLUSH SYRINGE 10 ML IV PRN ×2 (15:21)
[2017-09-15] MEDS ORDERED: ZOFRAN IV PRN (15:21)
[2017-09-15] MEDS ORDERED: OXYCODONE HCL 20 MG PO PRN (15:24)
[2017-09-15] MEDS ORDERED: PHENERGAN PO PRN (15:24)
[2017-09-15] MEDS ORDERED: BABY ASPIRIN PO STA (15:30)
[2017-09-15] MEDS ORDERED: CARAFATE PO ONE (16:00)
[2017-09-15 16:03] LABS: Bilirubin,Urine NEG (Negative); Blood,Urine NEG (Negative); Color,Urine Yellow (Yellow); Protein,Urine <15 mg/dL mg/dL (Negative); Urobilinogen,Urine < 2.0 mg/dL (<2.0)
[2017-09-15 17:41] LABS: Basophils # (Auto) 0.1 K/mm3 (0.0-0.1); Basophils % (Auto) 0.8 % (0.0-1.8); Eosinophils # (Auto) 0.1 K/mm3 (0.0-0.4); Eosinophils % (Auto) 0.6 % (0.0-4.3); Hematocrit 44.7 % (30.3-42.9); Hemoglobin 15.1 gm/dl (10.1-14.3); Lymphocytes # (Auto) 1.3 K/mm3 (1.2-5.4); Lymphocytes % (Auto) 11.4 % (13.4-35.0); Mean Corpuscular HGB Conc 34 % (30-34); Mean Corpuscular Hemoglobin 31 pg (28-32); Mean Corpuscular Volume 92 fl (79-97); Monocytes # (Auto) 0.3 K/mm3 (0.0-0.8); Monocytes % (Auto) 2.3 % (0.0-7.3); Platelet Count 232 K/mm3 (140-440); Red Blood Count 4.86 M/mm3 (3.65-5.03); Red Cell Distribution Width 13.3 % (13.2-15.2)
[2017-09-15 17:56] LABS: BUN/Creatinine Ratio 50; Blood Urea Nitrogen 10 mg/dL (7-17); Calcium 8.5 mg/dL (8.4-10.2); Hemolysis Index 5
[2017-09-15 18:16] LABS: Chol/HDL Ratio 2.71 %
[2017-09-15] MEDS: ROXICODONE PO PRN (20:20)
[2017-09-15] MEDS ORDERED: NON-FORMULARY (Mometasone/Formoterol [Dulera 200 Mcg/5 Mcg Inhaler] 2 PUFF) IH SCH (22:00)
[2017-09-15] MEDS: BROVANA NEBU IH SCH (22:14)
[2017-09-15] MEDS: PULMICORT IH SCH (22:14)
[2017-09-15] MEDS: NAPROSYN PO SCH (22:35)
[2017-09-15] MEDS: PEPCID PO SCH (22:35)
[2017-09-15] MEDS: SODIUM CHLORIDE FLUSH SYRINGE 10 ML IV SCH (22:35)
[2017-09-15] MEDS: NEURONTIN PO SCH (22:36)
[2017-09-15] MEDS: ZITHROMAX 500 MG in NACL 0.9% 250ML 250 ML IV SCH (22:36)
[2017-09-16] MEDS: ROXICODONE PO PRN ×4 (02:04→21:05)
[2017-09-16] MEDS: PROVENTIL IH PRN (04:25)
[2017-09-16] MEDS: NEURONTIN PO SCH ×4 (07:03→21:06)
[2017-09-16] MEDS: NAPROSYN PO SCH ×2 (09:12→21:05)
[2017-09-16] MEDS: PEPCID PO SCH ×2 (09:12→21:06)
[2017-09-16] MEDS: ZESTRIL PO SCH (09:12)
[2017-09-16] MEDS: FOLVITE PO SCH (09:13)
[2017-09-16] MEDS: VALTREX PO SCH (09:13)
[2017-09-16] MEDS: VITAMIN B-12 IM SCH (09:14)
[2017-09-16] MEDS: SODIUM CHLORIDE FLUSH SYRINGE 10 ML IV SCH ×2 (09:14→23:16)
[2017-09-16] MEDS ORDERED: NON-FORMULARY (Valacyclovir Hcl [Valtrex] 1,000 MG) PO SCH (10:00)
[2017-09-16] MEDS ORDERED: DELTASONE PO SCH (10:00)
[2017-09-16] MEDS ORDERED: FOLIC ACID PO SCH (10:00)
[2017-09-16] MEDS ORDERED: VITAMIN D3 PO SCH (10:00)
[2017-09-16] MEDS ORDERED: NON-FORMULARY (Simvastatin [Simvastatin] 40 MG) PO SCH (10:00)
[2017-09-16] MEDS ORDERED: CYANOCOBALAMIN 250 MCG PO SCH (10:00)
--- NOTE | 2017-09-16 11:22 | Progress Note ---
Assessment and Plan Assessment and plan: (1) COPD exacerbation Current Visit: No Status: Acute Plan to address problem: Supplemental oxygen, nebulizer therapy, IV steroids, incentive spirometry, IV antibiotics, (2) CHF (congestive heart failure) no acute cardiac issues, cardiology input appreicated acs ruled out had normal MPI in 05/11 (4) Bipolar 1 disorder Current Visit: No Status: Acute Plan to address problem: Psychiatry consulted, (5) acute hypoxic Respiratory failure Current Visit: Yes Status: Acute Qualifiers: Chronicity: acute Respiratory failure complication: hypoxia Qualified Code(s): J96.01 - Acute respiratory failure with hypoxia Plan to address problem: supplemental oxygen, nebulizer therapy, pulse oximetry, Chest X ray, (6) HTN (hypertension) Current Visit: No Status: Chronic Qualifiers: Hypertension type: essential hypertension Qualified Code(s): I10 - Essential (primary) hypertension Plan to address problem: Monitor BP q shift, IV hydralazine PRN (7) DVT prophylaxis Current Visit: No Status: Acute Anxiety disorder/bipolar and schizophrenia resume psych meds, psych consult History Interval history: she is still c/o sob and wheezing she is c/o anxiety and cp no fever, no vomiting, no chills, no seizure, no sputum production Hospitalist Physical - Constitutional Vitals: Temp Pulse Resp BP Pulse Ox 98.4 F 90 22 120/64 96 09/16/17 08:53 09/16/17 09:12 09/16/17 08:53 09/16/17 08:53 09/16/17 08:53 General appearance: Present: mild distress - EENT Eyes: Present: PERRL ENT: hearing intact, clear oral mucosa - Neck Neck: Present: supple - Respiratory Respiratory effort: labored Respiratory: bilateral: diminished, wheezing - Cardiovascular Rhythm: regular Heart Sounds: Present: S1 & S2 - Extremities Extremities: no ischemia Peripheral Pulses: within normal limits - Abdominal General gastrointestinal: soft, non-tender, non-distended, normal bowel sounds - Integumentary Integumentary: Present: clear, warm, dry - Psychiatric Psychiatric: other (anxious) - Neurologic Neurologic: CNII-XII intact, no focal deficits, moves all extremities Results - Labs CBC & Chem 7: 09/15/17 17:30 09/15/17 17:16 Labs: Laboratory Last Values WBC 11.3 K/mm3 (4.5-11.0) H 09/15/17 17:30 RBC 4.86 M/mm3 (3.65-5.03) 09/15/17 17:30 Hgb 15.1 gm/dl (10.1-14.3) H 09/15/17 17:30 Hct 44.7 % (30.3-42.9) H 09/15/17 17:30 MCV 92 fl (79-97) 09/15/17 17:30 MCH 31 pg (28-32) 09/15/17 17:30 MCHC 34 % (30-34) 09/15/17 17:30 RDW 13.3 % (13.2-15.2) 09/15/17 17:30 Plt Count 232 K/mm3 (140-440) 09/15/17 17:30 Lymph % (Auto) 11.4 % (13.4-35.0) L 09/15/17 17:30 [place] % (Auto) 2.3 % (0.0-7.3) 09/15/17 17:30 Eos % (Auto) 0.6 % (0.0-4.3) 09/15/17 17:30 Baso % (Auto) 0.8 % (0.0-1.8) 09/15/17 17:30 Lymph # 1.3 K/mm3 (1.2-5.4) 09/15/17 17:30 [place] # 0.3 K/mm3 (0.0-0.8) 09/15/17 17:30 Eos # 0.1 K/mm3 (0.0-0.4) 09/15/17 17:30 Baso # 0.1 K/mm3 (0.0-0.1) 09/15/17 17:30 Seg Neutrophils % 84.9 % (40.0-70.0) H 09/15/17 17:30 Seg Neutrophils # 9.6 K/mm3 (1.8-7.7) H 09/15/17 17:30 PT 13.5 Sec. (12.2-14.9) 09/15/17 13:20 INR 0.98 (0.87-1.13) 09/15/17 13:20 APTT 26.2 Sec. (24.2-36.6) 09/15/17 13:20 D-Dimer 189.04 ng/mlDDU (0-234) 09/15/17 13:20 Sodium 134 mmol/L (137-145) L 09/15/17 17:16 Potassium 4.0 mmol/L (3.6-5.0) 09/15/17 17:16 Chloride 96.7 mmol/L (98-107) L 09/15/17 17:16 Carbon Dioxide 27 mmol/L (22-30) 09/15/17 17:16 Anion Gap 14 mmol/L 09/15/17 17:16 BUN 10 mg/dL (7-17) 09/15/17 17:16 Creatinine 0.2 mg/dL (0.7-1.2) L 09/15/17 17:16 Estimated GFR > 60 ml/min 09/15/17 17:16 BUN/Creatinine Ratio 50 % 09/15/17 17:16 Glucose 152 mg/dL (65-100) H 09/15/17 17:16 Hemoglobin A1c 5.5 % (4-6) 09/15/17 13:20 Calcium 8.5 mg/dL (8.4-10.2) 09/15/17 17:16 Total Bilirubin 0.40 mg/dL (0.1-1.2) 09/15/17 13:20 AST 15 units/L (5-40) 09/15/17 13:20 ALT 16 units/L (7-56) 09/15/17 13:20 Alkaline Phosphatase 75 units/L (35-129) 09/15/17 13:20 Total Creatine Kinase 19 units/L (30-135) L 09/15/17 13:20 CK-MB (CK-2) 1.2 ng/mL (0.0-4.0) 09/15/17 13:20 CK-MB (CK-2) Rel Index 6.3 (0-4) H 09/15/17 13:20 Troponin T < 0.010 ng/mL (0.00-0.029) 09/15/17 21:50 Total Protein 7.2 g/dL (6.3-8.2) 09/15/17 13:20 Albumin 3.7 g/dL (3.9-5) L 09/15/17 13:20 Albumin/Globulin Ratio 1.1 % 09/15/17 13:20 Triglycerides 102 mg/dL (2-149) 09/15/17 17:30 Cholesterol 144 mg/dL (50-199) 09/15/17 17:30 LDL Cholesterol Direct 76 mg/dL (50-130) 09/15/17 17:30 HDL Cholesterol 53 mg/dL (40-59) 09/15/17 17:30 Cholesterol/HDL Ratio 2.71 % 09/15/17 17:30 Urine Color Yellow (Yellow) 09/15/17 15:45 Urine Turbidity Clear (Clear) 09/15/17 15:45 Urine pH 6.0 (5.0-7.0) 09/15/17 15:45 Ur Specific [place] 1.010 (1.003-1.030) 09/15/17 15:45 Urine Protein <15 mg/dl mg/dL (Negative) 09/15/17 15:45 Urine Glucose (UA) Neg mg/dL (Negative) 09/15/17 15:45 Urine Ketones Neg mg/dL (Negative) 09/15/17 15:45 Urine Blood Neg (Negative) 09/15/17 15:45 Urine Nitrite Neg (Negative) 09/15/17 15:45 Urine Bilirubin Neg (Negative) 09/15/17 15:45 Urine Urobilinogen < 2.0 mg/dL (<2.0) 09/15/17 15:45 Ur Leukocyte Esterase Tr (Negative) 09/15/17 15:45 Urine WBC (Auto) 1.0 /HPF (0.0-6.0) 09/15/17 15:45 Urine RBC (Auto) 2.0 /HPF (0.0-6.0) 09/15/17 15:45 U Epithel Cells (Auto) 2.0 /HPF (0-13.0) 09/15/17 15:45
--- NOTE | 2017-09-16 13:15 | Consultation ---
History of Present Illness Consult date: 09/16/17 Consult reason: shortness of breath History of present illness: The patient is a 52-year-old woman with a history of COPD and chronic asthmatic , who continues to smoke 2 packs of cigarettes a day. She also reports a remote history of pulmonary embolism for which she was on Coumadin in the past. In addition, she has bipolar disease and states that she has been off her medications for several months. She presented to the emergency room at this time with cough and shortness of breath and "congestion". Cardiac consultation was requested for evaluation of possible "CHF". The patient has no anginal chest pain, no lower extremity edema. EKG is normal sinus rhythm with early repolarization changes. Chest x- ray reveals normal cardiac silhouette, with clear lung watters, no evidence of edema or heart failure. On exam, she has scattered rhonchi and wheezes. She has had extensive prior cardiac invasive workup with at least 2 previous heart catheterizations, most recently a year and a half ago in October 2015. I reviewed her angiograms which demonstrated angiographically normal coronary arteries, with normal left ventricle systolic function with ejection fraction 55 -60%. Past History Past Medical History: arthritis, COPD, DVT, hypertension, pulmonary embolism, seizures, other (Bipolar DO) Past Surgical History: cholecystectomy, hysterectomy, bowel surgery, Other ( Stent Placement) Social history: , lives with family, smoking, prescription drug abuse. denies: alcohol abuse Family history: hypertension Medications and Allergies Allergies Allergy/AdvReac Type Severity Reaction Status Date / Time acetaminophen [From Vicodin] Allergy Hives Verified 09/20/16 19:50 hydrocodone bitartrate Allergy Hives Verified 09/20/16 19:50 [From Vicodin] metoclopramide HCl Allergy Anaphylaxis Verified 05/03/17 15:25 [From Reglan] Penicillins Allergy Swelling Verified 05/03/17 15:25 naproxen AdvReac Itching Verified 05/03/17 15:25 Home Medications Medication Instructions Recorded Confirmed Last Taken Type Albuterol Sulfate [Ventolin HFA] 2 puff IH QDAY PRN 08/20/17 08/20/17 Unknown History Cyanocobalamin (Vitamin B-12) 250 mcg PO DAILY 08/20/17 08/20/17 Unknown History [Vitamin B-12] Cyanocobalamin [Vitamin B-12] 1,000 mcg IM 2XW 08/20/17 08/20/17 Unknown History Folic Acid [Folvite] 1 mg PO QDAY 08/20/17 08/20/17 Unknown History Furosemide [Lasix] 40 mg PO QDAY 08/20/17 08/20/17 Unknown History Gabapentin [Neurontin] 300 mg PO Q8HR 08/20/17 08/20/17 Unknown History Lisinopril [Zestril] 40 mg PO QDAY 08/20/17 08/20/17 Unknown History Mometasone/Formoterol [Dulera 200 2 puff IH BID 08/20/17 08/20/17 Unknown History Mcg/5 Mcg Inhaler] Naproxen [Naprosyn] 500 mg PO BID 08/20/17 08/20/17 Unknown History Oxycodone HCl [oxyCODONE TAB] 20 mg PO Q6H PRN 08/20/17 08/20/17 Unknown History Promethazine [Phenergan TAB] 25 mg PO Q6HR PRN 08/20/17 08/20/17 Unknown History QUEtiapine [SEROquel] 200 mg PO QHS 08/20/17 08/20/17 Unknown History Simvastatin 40 mg PO QDAY 08/20/17 08/20/17 Unknown History Valacyclovir HCl [Valtrex] 1,000 mg PO QDAY 08/20/17 08/20/17 Unknown History Vitamin D3/Folic Acid [Folixapure 5,000 unit PO QDAY 08/20/17 08/20/17 Unknown History Tablet] ALBUTEROL Inhaler [ProAir HFA 2 puff IH QID PRN #1 inhalation 09/10/17 Unknown Rx Inhaler] Doxycycline [Vibramycin CAP] 100 mg PO Q12HR #14 capsule 09/10/17 Unknown Rx predniSONE [Deltasone] 50 mg PO QDAY #5 tab 09/10/17 Unknown Rx Active Meds: Active Medications Acetaminophen (Tylenol) 650 mg PO Q4H PRN PRN Reason: Pain MILD(1-3)/Fever >100.5/[place] Albuterol (Proventil) 2.5 mg IH Q4HRT PRN PRN Reason: Shortness Of Breath Last Admin: 09/16/17 04:25 Dose: 2.5 mg Arformoterol Tartrate (Brovana Nebu) 15 mcg IH Q12HRT REPLACED BY [facility] Last Admin: 09/15/17 22:14 Dose: 15 mcg Budesonide (Pulmicort) 1 mg IH Q12HRT REPLACED BY [facility] Last Admin: 09/15/17 22:14 Dose: 1 mg Cyanocobalamin (Vitamin B-12) 1,000 mcg IM SuWe REPLACED BY [facility] Last Admin: 09/16/17 09:14 Dose: 1,000 mcg Famotidine (Pepcid) 10 mg PO BID REPLACED BY [facility] Last Admin: 09/16/17 09:12 Dose: 10 mg Folic Acid (Folvite) 1 mg PO QDAY REPLACED BY [facility] Last Admin: 09/16/17 09:13 Dose: 1 mg Gabapentin (Neurontin) 300 mg PO Q8HR REPLACED BY [facility] Last Admin: 09/16/17 07:04 Dose: Not Given Azithromycin 500 mg/ Sodium (Chloride) 250 mls @ 250 mls/hr IV Q24H REPLACED BY [facility] Last Admin: 09/15/17 22:36 Dose: 250 mls/hr Lisinopril (Zestril) 40 mg PO QDAY REPLACED BY [facility] Last Admin: 09/16/17 09:12 Dose: 40 mg Methylprednisolone Sodium Succinate (Solu-Medrol) 20 mg IV Q24HR REPLACED BY [facility] Last Admin: 09/16/17 09:13 Dose: 20 mg Miscellaneous Medication (Vitamin D3/Folic Acid [Folixapure Tablet]) 5,000 unit PO QDAY REPLACED BY [facility] Morphine Sulfate (Morphine) 2 mg IV Q4H PRN PRN Reason: Pain, Moderate (4-6) Last Admin: 09/15/17 17:06 Dose: 2 mg Naproxen (Naprosyn) 500 mg PO BID REPLACED BY [facility] Last Admin: 09/16/17 09:12 Dose: 500 mg Nitroglycerin (Nitrostat) 0.4 mg SL Q5M PRN PRN Reason: Chest Pain Ondansetron HCl (Zofran) 4 mg IV Q8H PRN PRN Reason: Nausea And Vomiting Oxycodone HCl (Roxicodone) 20 mg PO Q6H PRN PRN Reason: Pain, Moderate (4-6) Last Admin: 09/16/17 09:13 Dose: 20 mg Pravastatin Sodium (Pravachol) 80 mg PO QHS REPLACED BY [facility] Prednisone (Deltasone) 50 mg PO QDAY REPLACED BY [facility] Promethazine HCl (Phenergan) 25 mg PO Q6HR PRN PRN Reason: Nausea Quetiapine Fumarate (Seroquel) 200 mg PO QHS REPLACED BY [facility] Last Admin: 09/15/17 22:36 Dose: 200 mg Sodium Chloride (Sodium Chloride Flush Syringe 10 Ml) 10 ml IV BID REPLACED BY [facility] Last Admin: 09/16/17 09:14 Dose: 10 ml Sodium Chloride (Sodium Chloride Flush Syringe 10 Ml) 10 ml IV PRN PRN PRN Reason: LINE FLUSH Valacyclovir HCl (Valtrex) 1,000 mg PO QDAY REPLACED BY [facility] Last Admin: 09/16/17 09:13 Dose: 1,000 mg Review of Systems Cardiovascular: shortness of breath, no chest pain, no orthopnea, no palpitations, no rapid/irregular heart beat, no edema, no syncope, no lightheadedness Respiratory: cough Physical Examination Vital Signs Pulse Resp Pulse Ox 74 23 97 09/15/17 12:57 09/15/17 12:57 09/15/17 12:57 General appearance: no acute distress HEENT: Positive: PERRL Neck: Positive: neck supple Cardiac: Positive: Reg Rate and Rhythm Lungs: Positive: Decreased Breath Sounds, Wheezes, Rhonchi Neuro: Positive: Grossly Intact Abdomen: Positive: Soft Female genitourinary: deferred Skin: Positive: Clear Extremities: Absent: edema Results 09/15/17 17:30 09/15/17 17:16 Cardiac Enzymes 09/15/17 Range/Units 13:20 AST 15 (5-40) units/L CK-MB (CK-2) 1.2 (0.0-4.0) ng/mL Coagulation 09/15/17 Range/Units 13:20 PT 13.5 (12.2-14.9) Sec. INR 0.98 (0.87-1.13) APTT 26.2 (24.2-36.6) Sec. Lipids 09/15/17 Range/Units 17:30 Triglycerides 102 (2-149) mg/dL Cholesterol 144 (50-199) mg/dL HDL Cholesterol 53 (40-59) mg/dL Cholesterol/HDL Ratio 2.71 % CBC 09/15/17 09/15/17 Range/Units 13:20 17:30 WBC 12.7 H 11.3 H (4.5-11.0) K/mm3 RBC 4.91 4.86 (3.65-5.03) M/mm3 Hgb 15.3 H 15.1 H (10.1-14.3) gm/dl Hct 46.1 H 44.7 H (30.3-42.9) % Plt Count 262 232 (140-440) K/mm3 Lymph # 3.1 1.3 (1.2-5.4) K/mm3 [place] # 0.8 0.3 (0.0-0.8) K/mm3 Eos # 0.2 0.1 (0.0-0.4) K/mm3 Baso # 0.1 0.1 (0.0-0.1) K/mm3 Comprehensive Metabolic Panel 09/15/17 09/15/17 Range/Units 13:20 17:16 Sodium 136 L 134 L (137-145) mmol/L Potassium 3.8 4.0 (3.6-5.0) mmol/L Chloride 97.4 L 96.7 L (98-107) mmol/L Carbon Dioxide 26 27 (22-30) mmol/L BUN 11 10 (7-17) mg/dL Creatinine 0.3 L 0.2 L (0.7-1.2) mg/dL Glucose 104 H 152 H (65-100) mg/dL Calcium 8.8 8.5 (8.4-10.2) mg/dL AST 15 (5-40) units/L ALT 16 (7-56) units/L Alkaline Phosphatase 75 (35-129) units/L Total Protein 7.2 (6.3-8.2) g/dL Albumin 3.7 L (3.9-5) g/dL EKG interpretations - Telemetry EKG Rhythm: Sinus Rhythm Assessment and Plan - Patient Problems (1) Shortness of breath Current Visit: Yes Status: Acute Plan to address problem: Patient's presentation with shortness of breath, history of asthma, chronic tobacco use and clinical findings are consistent with exacerbation of COPD. Recommend pulmonary evaluation and management of COPD exacerbation. Strongly recommend smoking cessation. There are no active cardiac issues at this time. A cardiac catheterization in October 2015 demonstrated angiographically normal coronary arteries and normal left ventricular systolic function. No further cardiac workup is indicated.
[2017-09-16] MEDS: ROBITUSSIN AC PO PRN ×2 (14:53→23:10)
[2017-09-16] MEDS: HABITROL TD SCH ×2 (14:55→16:46)
[2017-09-16] MEDS: XANAX PO PRN ×2 (14:55→21:06)
[2017-09-16] MEDS: BROVANA NEBU IH SCH ×2 (16:45→21:31)
[2017-09-16] MEDS: PULMICORT IH SCH ×2 (16:46→21:29)
[2017-09-16] MEDS: DUONEB *Not for PRN Use IH SCH ×2 (18:23→21:36)
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
[2017-09-16] MEDS: PRAVACHOL PO SCH (21:06)
[2017-09-16] MEDS: ZITHROMAX 500 MG in NACL 0.9% 250ML 250 ML IV SCH (23:11)
[2017-09-17] MEDS: DUONEB *Not for PRN Use IH SCH ×4 (03:16→21:54)
[2017-09-17] MEDS: ROXICODONE PO PRN ×3 (06:29→18:46)
[2017-09-17] MEDS: NEURONTIN PO SCH ×3 (06:30→22:47)
[2017-09-17] MEDS: PULMICORT IH SCH ×2 (07:31→21:53)
[2017-09-17] MEDS: BROVANA NEBU IH SCH ×2 (07:31→21:53)
[2017-09-17] MEDS: XANAX PO PRN ×2 (08:00→18:46)
[2017-09-17] MEDS: ROBITUSSIN AC PO PRN ×4 (08:00→22:48)
--- NOTE | 2017-09-17 08:41 | Cat Scan Report ---
CTA CHEST: HISTORY: chest pain. COMPARISON: 09/10/17. TECHNIQUE: Helical CT in 1.25mm intervals following IV contrast. Pulmonary embolus protocol. Sagittal and coronal reformatted images. Rotational MIP images. FINDINGS: Contrast bolus is satisfactory. No pulmonary embolus is identified. Thyroid gland: Normal. Tracheobronchial tree: Normal. Esophagus: Normal. Heart: Normal. Pericardium: Normal. Mediastinum: Normal. Lung [place]: There were minimal groundglass opacities in the upper lobes and right lower lobe on the previous exam which have resolved. The lung parenchyma is unremarkable. Pleural Spaces: Normal. Musculoskeletal: Mild thoracic spondylosis. No fracture or bone lesion identified. IMPRESSION: No evidence for pulmonary embolus. Unremarkable CT chest with contrast.
--- NOTE | 2017-09-17 11:42 | Progress Note ---
Subjective - Reason for Consult Consult date: 09/17/17 Reason for consult: Psychiatry Follow-up - Chief Complaint Chief complaint: "I want to " 52 year old female presented to the hospital for chest pain. She was seen for psychiatric evaluation on the medical floor. She reports dealing with bipolar and PTSD since childhood. Today the patient is calm and cooperative during the assessment. She stated that she got "rest" last night for the first time in days. She stated that her PCP manage her medication for Bipolar DO. I recommended [facility] to the patient since she resides near that facility for outpatient psy services. She denies SI/HI's and AVH's. She denies any side effects of her medications. Mental Status Exam - Vital signs Last Vital Signs Temp 98.2 F 09/17/17 06:52 Pulse 82 09/17/17 06:52 Resp 22 09/17/17 00:47 BP 138/64 09/17/17 06:52 Pulse Ox 96 09/17/17 00:47 - Exam Narrative exam: MSE: Appearance: calm, cooperative Behavior: regular eye contact Speech: regular rate and tone Mood: "okay" Affect: congruent to mood Thought Process: linear Thought Content: denies SI/HI's and AVH's Motor Activity: sitting up in bed Cognition: A/O x3 Insight: fair Judgment: fair Assessment and Plan Impression: Hx of PTSD and Bipolar DO. Today the patient is calm and cooperative during the assessment. Recommendation/Plan: Continue Seroquel 100mg qam and 200mg hs for bipolar do and this can reduce hyperarousal symptoms. The medical team has continued Xanax. Discontinuing it may precipitate withdrawal. The patient was given outpatient psy services for [facility]. Discusses possible metabolic side effects of Seroquel with patient.
[2017-09-17] MEDS: ZESTRIL PO SCH (11:45)
[2017-09-17] MEDS: FOLVITE PO SCH (11:45)
[2017-09-17] MEDS: PEPCID PO SCH ×2 (11:45→22:46)
[2017-09-17] MEDS: NAPROSYN PO SCH ×2 (11:46→22:47)
[2017-09-17] MEDS: VALTREX PO SCH (11:46)
[2017-09-17] MEDS: SODIUM CHLORIDE FLUSH SYRINGE 10 ML IV SCH ×2 (11:47→22:53)
--- NOTE | 2017-09-17 14:01 | Progress Note ---
Assessment and Plan - Patient Problems (1) Shortness of breath Current Visit: Yes Status: Acute Plan to address problem: Patient's presentation with shortness of breath, history of asthma, chronic tobacco use and clinical findings are consistent with exacerbation of COPD. Recommend pulmonary evaluation and management of COPD exacerbation. Strongly recommend smoking cessation. There are no active cardiac issues at this time. A cardiac catheterization in October 2015 demonstrated angiographically normal coronary arteries and normal left ventricular systolic function. No further cardiac workup is indicated. Subjective Date of service: 09/17/17 Interval history: Patient has no cardiac complaints, and her shortness of breath has improved on pulmonary therapy. Objective Vital Signs Temp Pulse Pulse Resp Resp BP BP 09/17/17 11:41 97.7 F 18 155/78 09/17/17 07:35 97.6 F 76 18 152/85 09/17/17 07:31 09/17/17 06:52 98.2 F 82 138/64 09/17/17 00:47 -98.1 F L 22 09/17/17 00:22 22 127/59 09/16/17 22:05 87 18 09/16/17 22:00 20 09/16/17 21:33 09/16/17 19:44 98.1 F 78 22 139/74 09/16/17 18:27 60 16 09/16/17 18:21 09/16/17 18:19 69 17 09/16/17 16:42 98.4 F 76 22 149/83 Pulse Ox 09/17/17 11:41 09/17/17 07:35 95 09/17/17 07:31 93 09/17/17 06:52 09/17/17 00:47 96 09/17/17 00:22 09/16/17 22:05 09/16/17 22:00 09/16/17 21:33 97 09/16/17 19:44 95 09/16/17 18:27 09/16/17 18:21 96 09/16/17 18:19 09/16/17 16:42 93 - Physical Examination General: No Apparent Distress HEENT: Positive: PERRL Neck: Positive: neck supple Cardiac: Positive: Reg Rate and Rhythm Lungs: Positive: Decreased Breath Sounds Neuro: Positive: Grossly Intact Abdomen: Positive: Soft Skin: Positive: Clear Extremities: Absent: edema
[2017-09-17] MEDS: ZITHROMAX PO SCH (14:44)
--- NOTE | 2017-09-17 17:29 | Progress Note ---
Assessment and Plan Assessment and plan: (1) COPD exacerbation Current Visit: No Status: Acute Plan to address problem: Supplemental oxygen, nebulizer therapy, IV steroids, incentive spirometry, IV antibiotics, (2) CHF (congestive heart failure), chronic no acute cardiac issues, cardiology input appreicated acs ruled out had normal MPI in 05/11 (4) Bipolar 1 disorder and ALCIDES Current Visit: No Status: Acute Plan to address problem: Psychiatry consulted, continue home meds continue xanax as needed (5) acute hypoxic Respiratory failure Current Visit: Yes Status: Acute Qualifiers: Chronicity: acute Respiratory failure complication: hypoxia Qualified Code(s): J96.01 - Acute respiratory failure with hypoxia Plan to address problem: supplemental oxygen, nebulizer therapy, pulse oximetry, Chest X ray, (6) HTN (hypertension) Current Visit: No Status: Chronic Qualifiers: Hypertension type: essential hypertension Qualified Code(s): I10 - Essential (primary) hypertension Plan to address problem: Monitor BP q shift, IV hydralazine PRN (7) DVT prophylaxis Current Visit: No Status: Acute Chronic pain syndrome continue home dose of roxicodone History Interval history: she is still c/o sob and wheezing she is c/o anxiety and cp no fever, no vomiting, no chills, no seizure, no sputum production Hospitalist Physical - Physical exam Narrative exam: General appearance: Present: mild distress - EENT Eyes: Present: PERRL ENT: hearing intact, clear oral mucosa - Neck Neck: Present: supple - Respiratory Respiratory effort: labored Respiratory: bilateral: diminished, wheezing - Cardiovascular Rhythm: regular Heart Sounds: Present: S1 & S2 - Extremities Extremities: no ischemia Peripheral Pulses: within normal limits - Abdominal General gastrointestinal: soft, non-tender, non-distended, normal bowel sounds - Integumentary Integumentary: Present: clear, warm, dry - Psychiatric Psychiatric: other (anxious) - Neurologic Neurologic: CNII-XII intact, no focal deficits, moves all extremities - Constitutional Vitals: Temp Pulse Resp BP Pulse Ox 98.3 F 86 18 144/69 95 09/17/17 17:06 09/17/17 17:06 09/17/17 17:06 09/17/17 17:06 09/17/17 17:06 General appearance: Present: mild distress Results - Labs CBC & Chem 7: 09/15/17 17:30 09/15/17 17:16 Labs: Laboratory Last Values WBC 11.3 K/mm3 (4.5-11.0) H 09/15/17 17:30 RBC 4.86 M/mm3 (3.65-5.03) 09/15/17 17:30 Hgb 15.1 gm/dl (10.1-14.3) H 09/15/17 17:30 Hct 44.7 % (30.3-42.9) H 09/15/17 17:30 MCV 92 fl (79-97) 09/15/17 17:30 MCH 31 pg (28-32) 09/15/17 17:30 MCHC 34 % (30-34) 09/15/17 17:30 RDW 13.3 % (13.2-15.2) 09/15/17 17:30 Plt Count 232 K/mm3 (140-440) 09/15/17 17:30 Lymph % (Auto) 11.4 % (13.4-35.0) L 09/15/17 17:30 [place] % (Auto) 2.3 % (0.0-7.3) 09/15/17 17:30 Eos % (Auto) 0.6 % (0.0-4.3) 09/15/17 17:30 Baso % (Auto) 0.8 % (0.0-1.8) 09/15/17 17:30 Lymph # 1.3 K/mm3 (1.2-5.4) 09/15/17 17:30 [place] # 0.3 K/mm3 (0.0-0.8) 09/15/17 17:30 Eos # 0.1 K/mm3 (0.0-0.4) 09/15/17 17:30 Baso # 0.1 K/mm3 (0.0-0.1) 09/15/17 17:30 Seg Neutrophils % 84.9 % (40.0-70.0) H 09/15/17 17:30 Seg Neutrophils # 9.6 K/mm3 (1.8-7.7) H 09/15/17 17:30 PT 13.5 Sec. (12.2-14.9) 09/15/17 13:20 INR 0.98 (0.87-1.13) 09/15/17 13:20 APTT 26.2 Sec. (24.2-36.6) 09/15/17 13:20 D-Dimer 189.04 ng/mlDDU (0-234) 09/15/17 13:20 Sodium 134 mmol/L (137-145) L 09/15/17 17:16 Potassium 4.0 mmol/L (3.6-5.0) 09/15/17 17:16 Chloride 96.7 mmol/L (98-107) L 09/15/17 17:16 Carbon Dioxide 27 mmol/L (22-30) 09/15/17 17:16 Anion Gap 14 mmol/L 09/15/17 17:16 BUN 10 mg/dL (7-17) 09/15/17 17:16 Creatinine 0.2 mg/dL (0.7-1.2) L 09/15/17 17:16 Estimated GFR > 60 ml/min 09/15/17 17:16 BUN/Creatinine Ratio 50 % 09/15/17 17:16 Glucose 152 mg/dL (65-100) H 09/15/17 17:16 POC Glucose 115 (70-105) H 09/17/17 06:19 Hemoglobin A1c 5.5 % (4-6) 09/15/17 13:20 Calcium 8.5 mg/dL (8.4-10.2) 09/15/17 17:16 Total Bilirubin 0.40 mg/dL (0.1-1.2) 09/15/17 13:20 AST 15 units/L (5-40) 09/15/17 13:20 ALT 16 units/L (7-56) 09/15/17 13:20 Alkaline Phosphatase 75 units/L (35-129) 09/15/17 13:20 Total Creatine Kinase 19 units/L (30-135) L 09/15/17 13:20 CK-MB (CK-2) 1.2 ng/mL (0.0-4.0) 09/15/17 13:20 CK-MB (CK-2) Rel Index 6.3 (0-4) H 09/15/17 13:20 Troponin T < 0.010 ng/mL (0.00-0.029) 09/15/17 21:50 Total Protein 7.2 g/dL (6.3-8.2) 09/15/17 13:20 Albumin 3.7 g/dL (3.9-5) L 09/15/17 13:20 Albumin/Globulin Ratio 1.1 % 09/15/17 13:20 Triglycerides 102 mg/dL (2-149) 09/15/17 17:30 Cholesterol 144 mg/dL (50-199) 09/15/17 17:30 LDL Cholesterol Direct 76 mg/dL (50-130) 09/15/17 17:30 HDL Cholesterol 53 mg/dL (40-59) 09/15/17 17:30 Cholesterol/HDL Ratio 2.71 % 09/15/17 17:30 Urine Color Yellow (Yellow) 09/15/17 15:45 Urine Turbidity Clear (Clear) 09/15/17 15:45 Urine pH 6.0 (5.0-7.0) 09/15/17 15:45 Ur Specific [place] 1.010 (1.003-1.030) 09/15/17 15:45 Urine Protein <15 mg/dl mg/dL (Negative) 09/15/17 15:45 Urine Glucose (UA) Neg mg/dL (Negative) 09/15/17 15:45 Urine Ketones Neg mg/dL (Negative) 09/15/17 15:45 Urine Blood Neg (Negative) 09/15/17 15:45 Urine Nitrite Neg (Negative) 09/15/17 15:45 Urine Bilirubin Neg (Negative) 09/15/17 15:45 Urine Urobilinogen < 2.0 mg/dL (<2.0) 09/15/17 15:45 Ur Leukocyte Esterase Tr (Negative) 09/15/17 15:45 Urine WBC (Auto) 1.0 /HPF (0.0-6.0) 09/15/17 15:45 Urine RBC (Auto) 2.0 /HPF (0.0-6.0) 09/15/17 15:45 U Epithel Cells (Auto) 2.0 /HPF (0-13.0) 09/15/17 15:45
[2017-09-17] MEDS ORDERED: XANAX PO PRN (17:48)
[2017-09-17] MEDS: HABITROL TD SCH (18:46)
[2017-09-17] MEDS: PRAVACHOL PO SCH (22:47)
[2017-09-18] MEDS: XANAX PO PRN ×4 (00:44→18:33)
[2017-09-18] MEDS: ROXICODONE PO PRN ×4 (00:44→18:33)
[2017-09-18] MEDS: DUONEB *Not for PRN Use IH SCH ×4 (02:38→19:50)
[2017-09-18] MEDS: ROBITUSSIN AC PO PRN ×4 (04:31→23:18)
[2017-09-18] MEDS: PROVENTIL IH PRN (04:47)
[2017-09-18] MEDS: NEURONTIN PO SCH ×3 (06:25→23:06)
[2017-09-18] MEDS: BROVANA NEBU IH SCH ×2 (07:48→19:50)
[2017-09-18] MEDS: PULMICORT IH SCH ×2 (07:48→19:50)
[2017-09-18] MEDS: PEPCID PO SCH ×2 (09:14→23:09)
[2017-09-18] MEDS: VALTREX PO SCH (09:14)
[2017-09-18] MEDS: FOLVITE PO SCH (09:15)
[2017-09-18] MEDS: NAPROSYN PO SCH ×2 (09:15→23:06)
[2017-09-18] MEDS: ZITHROMAX PO SCH (09:15)
[2017-09-18] MEDS: ZESTRIL PO SCH (09:15)
[2017-09-18] MEDS: SODIUM CHLORIDE FLUSH SYRINGE 10 ML IV SCH ×2 (09:16→23:08)
--- NOTE | 2017-09-18 09:37 | Progress Note ---
Assessment and Plan COPD exacerbation History of asthma Chronic tobacco use Cardiac catheterization in October 2015 demonstrated angiographically normal coronary arteries and normal left ventricular systolic function. Normal MPI 04/2017. Normal LV systolic function, EF 50-55% on echocardiogram this admission. Recommendations: Pulmonary evaluation and management of COPD exacerbation. Strongly recommend smoking cessation. Otherwise, conservative cardiac management. Subjective Date of service: 09/18/17 Interval history: Patient is still with shortness of breath on minimal exertion. Objective Vital Signs Temp Pulse Pulse Resp Resp BP Pulse Ox 09/18/17 09:15 78 137/67 09/18/17 07:52 94 09/18/17 07:51 81 18 09/18/17 07:50 78 18 09/18/17 07:28 97.3 F L 78 22 137/67 94 09/18/17 05:05 94 H 20 09/18/17 04:48 85 20 09/18/17 04:18 97.2 F L 73 24 134/45 94 09/17/17 23:53 97.9 F 89 21 129/69 87 09/17/17 22:00 74 22 09/17/17 21:57 96 09/17/17 21:55 95 H 17 09/17/17 19:38 97.4 F L 81 24 151/60 95 09/17/17 17:06 98.3 F 86 18 144/69 95 09/17/17 14:25 91 H 20 09/17/17 14:15 92 H 20 09/17/17 11:41 97.7 F 18 155/78 09/17/17 10:00 86 - Physical Examination General: No Apparent Distress HEENT: Positive: PERRL Neck: Positive: trachea midline Cardiac: Positive: Reg Rate and Rhythm Lungs: Positive: Decreased Breath Sounds Neuro: Positive: Grossly Intact Extremities: Absent: edema
--- NOTE | 2017-09-18 10:42 | Progress Note ---
Subjective - Reason for Consult Consult date: 09/18/17 Reason for consult: Psychiatry Follow-up - Chief Complaint Chief complaint: "I got sleep last night" 52 year old female presented to the hospital for chest pain. She was seen for psychiatric evaluation on the medical floor. She reports dealing with bipolar and PTSD since childhood. Today the patient is calm and cooperative during the assessment. She stated getting sleep last night. She is concerned about having a good psychiatrist and therapist for outpatient psy services. She stated that she plan to be compliant with her appts. She stated that she is ready to be discharged, but is aware that she need treatment for her current medical concerns. She denies SI/HI's and AVH's. She denies any side effects of her medication. Mental Status Exam - Vital signs Last Vital Signs Temp 97.3 F L 09/18/17 07:28 Pulse 78 09/18/17 09:15 Resp 18 09/18/17 07:51 BP 137/67 09/18/17 09:15 Pulse Ox 94 09/18/17 07:52 - Exam Narrative exam: MSE: Appearance: calm, cooperative Behavior: regular eye contact Speech: regular rate and tone Mood: "okay" Affect: congruent to mood Thought Process: linear Thought Content: denies SI/HI's and AVH's Motor Activity: sitting up in bed Cognition: A/O x3 Insight: fair Judgment: fair Assessment and Plan Impression: Hx of PTSD and Bipolar DO. Today the patient is calm and cooperative during the assessment. Recommendation/Plan: Continue Seroquel 100mg qam and 200mg hs for bipolar do and this can reduce hyperarousal symptoms. The medical team has continued Xanax. Discontinuing it may precipitate withdrawal. The patient was given outpatient psy services for [facility]. Discusses possible metabolic side effects of Seroquel with patient.
[2017-09-18] MEDS ORDERED: MORPHINE IV PRN (11:23)
[2017-09-18] MEDS: ACYCLOVIR TP SCH ×3 (13:21→23:08)
--- NOTE | 2017-09-18 14:49 | Consultation ---
History of Present Illness Consult date: 09/18/17 Requesting physician: BISI RASCON Past History Past Medical History: COPD, other (She reports having PEs and CHF) Past Surgical History: Other (see internal med note. multiple surgeries and medical diagnoses) Social history: other (lives in a motel.) Family history: hypertension Medications and Allergies Allergies Allergy/AdvReac Type Severity Reaction Status Date / Time acetaminophen [From Vicodin] Allergy Hives Verified 09/20/16 19:50 hydrocodone bitartrate Allergy Hives Verified 09/20/16 19:50 [From Vicodin] metoclopramide HCl Allergy Anaphylaxis Verified 05/03/17 15:25 [From Reglan] Penicillins Allergy Swelling Verified 05/03/17 15:25 naproxen AdvReac Itching Verified 05/03/17 15:25 Home Medications Medication Instructions Recorded Confirmed Last Taken Type Albuterol Sulfate [Ventolin HFA] 2 puff IH QDAY PRN 08/20/17 09/16/17 1 Day Ago History ~09/15/17 Cyanocobalamin [Vitamin B-12] 1,000 mcg IM 2XW 08/20/17 09/16/17 Unknown History Folic Acid [Folvite] 1 mg PO QDAY 08/20/17 09/16/17 1 Day Ago History ~09/15/17 Furosemide [Lasix] 40 mg PO QDAY 08/20/17 09/16/17 Unknown History Gabapentin [Neurontin] 300 mg PO Q8HR 08/20/17 09/16/17 1 Day Ago History ~09/15/17 Lisinopril [Zestril] 40 mg PO QDAY 08/20/17 09/16/17 1 Day Ago History ~09/15/17 Mometasone/Formoterol [Dulera 200 2 puff IH BID 08/20/17 09/16/17 1 Day Ago History Mcg/5 Mcg Inhaler] ~09/15/17 Naproxen [Naprosyn] 500 mg PO BID 08/20/17 09/16/17 1 Day Ago History ~09/15/17 Oxycodone HCl [oxyCODONE TAB] 20 mg PO Q6H PRN 08/20/17 09/16/17 1 Day Ago History ~09/15/17 Promethazine [Phenergan TAB] 25 mg PO Q6HR PRN 08/20/17 09/16/17 Unknown History QUEtiapine [SEROquel] 200 mg PO QHS 08/20/17 09/16/17 1 Day Ago History ~09/15/17 Simvastatin 40 mg PO QDAY 08/20/17 09/16/17 Unknown History Valacyclovir HCl [Valtrex] 1,000 mg PO QDAY 08/20/17 09/16/17 Unknown History ALBUTEROL Inhaler [ProAir HFA 2 puff IH QID PRN #1 inhalation 09/10/17 09/16/17 1 Day Ago Rx Inhaler] ~09/15/17 Active Meds: Active Medications Acetaminophen (Tylenol) 650 mg PO Q4H PRN PRN Reason: Pain MILD(1-3)/Fever >100.5/[place] Last Admin: 09/17/17 22:47 Dose: 650 mg Acyclovir (Acyclovir) 1 applic TP 5XD [facility] Last Admin: 09/18/17 13:21 Dose: 1 applic Albuterol (Proventil) 2.5 mg IH Q4HRT PRN PRN Reason: Shortness Of Breath Last Admin: 09/18/17 04:47 Dose: 2.5 mg Albuterol/Ipratropium (Duoneb *Not For Prn Use*) 1 ampul IH Q6HRT [facility] Last Admin: 09/18/17 07:48 Dose: 1 ampul Alprazolam (Xanax) 1 mg PO Q6H PRN PRN Reason: Anxiety Last Admin: 09/18/17 13:01 Dose: 1 mg Arformoterol Tartrate (Brovana Nebu) 15 mcg IH Q12HRT [facility] Last Admin: 09/18/17 07:48 Dose: 15 mcg Azithromycin (Zithromax) 500 mg PO DAILY [facility] Last Admin: 09/18/17 09:15 Dose: 500 mg Budesonide (Pulmicort) 1 mg IH Q12HRT [facility] Last Admin: 09/18/17 07:48 Dose: 0.5 mg Cyanocobalamin (Vitamin B-12) 1,000 mcg IM SuWe [facility] Last Admin: 09/16/17 09:14 Dose: 1,000 mcg Famotidine (Pepcid) 10 mg PO BID [facility] Last Admin: 09/18/17 09:14 Dose: 10 mg Folic Acid (Folvite) 1 mg PO QDAY [facility] Last Admin: 09/18/17 09:15 Dose: 1 mg Gabapentin (Neurontin) 300 mg PO Q8HR [facility] Last Admin: 09/18/17 13:22 Dose: 300 mg Lisinopril (Zestril) 40 mg PO QDAY [facility] Last Admin: 09/18/17 09:15 Dose: 40 mg Methylprednisolone Sodium Succinate (Solu-Medrol) 125 mg IV Q6H [facility] Last Admin: 09/18/17 11:55 Dose: 125 mg Miconazole (Monistat) 100 mg VG QHS [facility] Stop: 09/24/17 22:01 Morphine Sulfate (Morphine) 2 mg IV Q4H PRN PRN Reason: Pain, Moderate (4-6) Naproxen (Naprosyn) 500 mg PO BID [facility] Last Admin: 09/18/17 09:15 Dose: 500 mg Nicotine (Habitrol) 21 mg TD Q24H [facility] Last Admin: 09/17/17 18:46 Dose: 21 mg Nitroglycerin (Nitrostat) 0.4 mg SL Q5M PRN PRN Reason: Chest Pain Ondansetron HCl (Zofran) 4 mg IV Q8H PRN PRN Reason: Nausea And Vomiting Oxycodone HCl (Roxicodone) 20 mg PO Q6H PRN PRN Reason: Pain, Moderate (4-6) Last Admin: 09/18/17 13:01 Dose: 20 mg Pravastatin Sodium (Pravachol) 80 mg PO QHS [facility] Last Admin: 09/17/17 22:47 Dose: 80 mg Promethazine HCl (Phenergan) 25 mg PO Q6HR PRN PRN Reason: Nausea Last Admin: 09/16/17 14:54 Dose: 25 mg Pseudoephedrine/Acetam/Chlorphenir (Robitussin Ac) 10 ml PO Q4H PRN PRN Reason: Cough Last Admin: 09/18/17 13:38 Dose: 10 ml Quetiapine Fumarate (Seroquel) 200 mg PO QHS [facility] Last Admin: 09/17/17 22:47 Dose: 200 mg Quetiapine Fumarate (Seroquel) 100 mg PO DAILY [facility] Last Admin: 09/18/17 09:15 Dose: 100 mg Sodium Chloride (Sodium Chloride Flush Syringe 10 Ml) 10 ml IV BID [facility] Last Admin: 09/18/17 09:16 Dose: 10 ml Sodium Chloride (Sodium Chloride Flush Syringe 10 Ml) 10 ml IV PRN PRN PRN Reason: LINE FLUSH Valacyclovir HCl (Valtrex) 1,000 mg PO QDAY [facility] Last Admin: 09/18/17 09:14 Dose: 1,000 mg Physical Examination Vital signs: Vital Signs Pulse Resp Pulse Ox 74 23 97 09/15/17 12:57 09/15/17 12:57 09/15/17 12:57 Results - Laboratory Findings CBC and BMP: 09/15/17 17:30 09/15/17 17:16 PT/INR, D-dimer PT 13.5 Sec. (12.2-14.9) 09/15/17 13:20 INR 0.98 (0.87-1.13) 09/15/17 13:20 D-Dimer 189.04 ng/mlDDU (0-234) 09/15/17 13:20 Abnormal lab findings: Abnormal Labs 09/15/17 09/15/17 09/15/17 13:20 13:20 17:16 WBC 12.7 H Hgb 15.3 H Hct 46.1 H Lymph % (Auto) Seg Neutrophils % Seg Neutrophils # 8.5 H Sodium 136 L 134 L Chloride 97.4 L 96.7 L Creatinine 0.3 L 0.2 L Glucose 104 H 152 H POC Glucose Total Creatine Kinase 19 L CK-MB (CK-2) Rel Index 6.3 H Albumin 3.7 L 09/15/17 09/17/17 09/18/17 17:30 06:19 08:16 WBC 11.3 H Hgb 15.1 H Hct 44.7 H Lymph % (Auto) 11.4 L Seg Neutrophils % 84.9 H Seg Neutrophils # 9.6 H Sodium Chloride Creatinine Glucose POC Glucose 115 H 157 H Total Creatine Kinase CK-MB (CK-2) Rel Index Albumin
[2017-09-18] MEDS: HABITROL TD SCH (16:05)
--- NOTE | 2017-09-18 20:31 | Progress Note ---
Assessment and Plan Assessment and plan: (1) COPD exacerbation Current Visit: No Status: Acute Plan to address problem: Supplemental oxygen, nebulizer therapy, IV steroids, incentive spirometry, IV antibiotics, (2) CHF (congestive heart failure), chronic no acute cardiac issues, cardiology input appreicated acs ruled out had normal MPI in 05/11 (4) Bipolar 1 disorder and ALCIDES Current Visit: No Status: Acute Plan to address problem: Psychiatry consulted, continue home meds continue xanax as needed (5) acute hypoxic Respiratory failure Current Visit: Yes Status: Acute Qualifiers: Chronicity: acute Respiratory failure complication: hypoxia Qualified Code(s): J96.01 - Acute respiratory failure with hypoxia Plan to address problem: supplemental oxygen, nebulizer therapy, pulse oximetry, Chest X ray, (6) HTN (hypertension) Current Visit: No Status: Chronic Qualifiers: Hypertension type: essential hypertension Qualified Code(s): I10 - Essential (primary) hypertension Plan to address problem: Monitor BP q shift, IV hydralazine PRN (7) DVT prophylaxis Current Visit: No Status: Acute Chronic pain syndrome continue home dose of roxicodone History Interval history: she is still c/o sob and wheezing she is c/o anxiety and cp no fever, no vomiting, no chills, no seizure, no sputum production Hospitalist Physical - Physical exam Narrative exam: General appearance: Present: mild distress - EENT Eyes: Present: PERRL ENT: hearing intact, clear oral mucosa - Neck Neck: Present: supple - Respiratory Respiratory effort: labored Respiratory: bilateral: diminished, wheezing - Cardiovascular Rhythm: regular Heart Sounds: Present: S1 & S2 - Extremities Extremities: no ischemia Peripheral Pulses: within normal limits - Abdominal General gastrointestinal: soft, non-tender, non-distended, normal bowel sounds - Integumentary Integumentary: Present: clear, warm, dry - Psychiatric Psychiatric: other (anxious) - Neurologic Neurologic: CNII-XII intact, no focal deficits, moves all extremities - Constitutional Vitals: Temp Pulse Resp BP Pulse Ox 98.1 F 92 H 20 155/89 95 09/18/17 15:58 09/18/17 15:58 09/18/17 15:58 09/18/17 15:58 09/18/17 15:58 General appearance: Present: mild distress Results - Labs CBC & Chem 7: 09/15/17 17:30 03/24/18 17:16 Labs: Laboratory Last Values WBC 11.3 K/mm3 (4.5-11.0) H 09/15/17 17:30 RBC 4.86 M/mm3 (3.65-5.03) 09/15/17 17:30 Hgb 15.1 gm/dl (10.1-14.3) H 09/15/17 17:30 Hct 44.7 % (30.3-42.9) H 09/15/17 17:30 MCV 92 fl (79-97) 09/15/17 17:30 MCH 31 pg (28-32) 09/15/17 17:30 MCHC 34 % (30-34) 09/15/17 17:30 RDW 13.3 % (13.2-15.2) 09/15/17 17:30 Plt Count 232 K/mm3 (140-440) 09/15/17 17:30 Lymph % (Auto) 11.4 % (13.4-35.0) L 09/15/17 17:30 [place] % (Auto) 2.3 % (0.0-7.3) 09/15/17 17:30 Eos % (Auto) 0.6 % (0.0-4.3) 09/15/17 17:30 Baso % (Auto) 0.8 % (0.0-1.8) 09/15/17 17:30 Lymph # 1.3 K/mm3 (1.2-5.4) 09/15/17 17:30 [place] # 0.3 K/mm3 (0.0-0.8) 09/15/17 17:30 Eos # 0.1 K/mm3 (0.0-0.4) 09/15/17 17:30 Baso # 0.1 K/mm3 (0.0-0.1) 09/15/17 17:30 Seg Neutrophils % 84.9 % (40.0-70.0) H 09/15/17 17:30 Seg Neutrophils # 9.6 K/mm3 (1.8-7.7) H 09/15/17 17:30 PT 13.5 Sec. (12.2-14.9) 09/15/17 13:20 INR 0.98 (0.87-1.13) 09/15/17 13:20 APTT 26.2 Sec. (24.2-36.6) 09/15/17 13:20 D-Dimer 189.04 ng/mlDDU (0-234) 09/15/17 13:20 Sodium 134 mmol/L (137-145) L 09/15/17 17:16 Potassium 4.0 mmol/L (3.6-5.0) 09/15/17 17:16 Chloride 96.7 mmol/L (98-107) L 09/15/17 17:16 Carbon Dioxide 27 mmol/L (22-30) 09/15/17 17:16 Anion Gap 14 mmol/L 09/15/17 17:16 BUN 10 mg/dL (7-17) 09/15/17 17:16 Creatinine 0.2 mg/dL (0.7-1.2) L 09/15/17 17:16 Estimated GFR > 60 ml/min 09/15/17 17:16 BUN/Creatinine Ratio 50 % 09/15/17 17:16 Glucose 152 mg/dL (65-100) H 09/15/17 17:16 POC Glucose 168 (70-105) H 09/18/17 16:05 Hemoglobin A1c 5.5 % (4-6) 09/15/17 13:20 Calcium 8.5 mg/dL (8.4-10.2) 09/15/17 17:16 Total Bilirubin 0.40 mg/dL (0.1-1.2) 09/15/17 13:20 AST 15 units/L (5-40) 09/15/17 13:20 ALT 16 units/L (7-56) 09/15/17 13:20 Alkaline Phosphatase 75 units/L (35-129) 09/15/17 13:20 Total Creatine Kinase 19 units/L (30-135) L 09/15/17 13:20 CK-MB (CK-2) 1.2 ng/mL (0.0-4.0) 09/15/17 13:20 CK-MB (CK-2) Rel Index 6.3 (0-4) H 09/15/17 13:20 Troponin T < 0.010 ng/mL (0.00-0.029) 09/15/17 21:50 Total Protein 7.2 g/dL (6.3-8.2) 09/15/17 13:20 Albumin 3.7 g/dL (3.9-5) L 09/15/17 13:20 Albumin/Globulin Ratio 1.1 % 09/15/17 13:20 Triglycerides 102 mg/dL (2-149) 09/15/17 17:30 Cholesterol 144 mg/dL (50-199) 09/15/17 17:30 LDL Cholesterol Direct 76 mg/dL (50-130) 09/15/17 17:30 HDL Cholesterol 53 mg/dL (40-59) 09/15/17 17:30 Cholesterol/HDL Ratio 2.71 % 09/15/17 17:30 Urine Color Yellow (Yellow) 09/15/17 15:45 Urine Turbidity Clear (Clear) 09/15/17 15:45 Urine pH 6.0 (5.0-7.0) 09/15/17 15:45 Ur Specific [place] 1.010 (1.003-1.030) 09/15/17 15:45 Urine Protein <15 mg/dl mg/dL (Negative) 09/15/17 15:45 Urine Glucose (UA) Neg mg/dL (Negative) 09/15/17 15:45 Urine Ketones Neg mg/dL (Negative) 09/15/17 15:45 Urine Blood Neg (Negative) 09/15/17 15:45 Urine Nitrite Neg (Negative) 09/15/17 15:45 Urine Bilirubin Neg (Negative) 09/15/17 15:45 Urine Urobilinogen < 2.0 mg/dL (<2.0) 09/15/17 15:45 Ur Leukocyte Esterase Tr (Negative) 09/15/17 15:45 Urine WBC (Auto) 1.0 /HPF (0.0-6.0) 09/15/17 15:45 Urine RBC (Auto) 2.0 /HPF (0.0-6.0) 09/15/17 15:45 U Epithel Cells (Auto) 2.0 /HPF (0-13.0) 09/15/17 15:45
[2017-09-18] MEDS ORDERED: MONISTAT VG SCH (22:00)
[2017-09-18] MEDS: PRAVACHOL PO SCH (23:06)
[2017-09-19] MEDS: XANAX PO PRN ×3 (00:41→16:10)
[2017-09-19] MEDS: ROXICODONE PO PRN ×4 (00:41→19:51)
[2017-09-19] MEDS: DUONEB *Not for PRN Use IH SCH ×3 (02:32→15:09)
[2017-09-19] MEDS: ACYCLOVIR TP SCH ×4 (06:05→17:00)
[2017-09-19] MEDS: NEURONTIN PO SCH ×2 (06:05→14:30)
[2017-09-19] MEDS: ROBITUSSIN AC PO PRN ×2 (06:48→16:10)
[2017-09-19] MEDS: PULMICORT IH SCH ×2 (09:26→19:57)
[2017-09-19] MEDS: BROVANA NEBU IH SCH ×2 (09:26→19:57)
[2017-09-19] MEDS: ZESTRIL PO SCH (10:13)
[2017-09-19] MEDS: VALTREX PO SCH (10:13)
[2017-09-19] MEDS: ZITHROMAX PO SCH (10:13)
[2017-09-19] MEDS: FOLVITE PO SCH (10:13)
[2017-09-19] MEDS: NAPROSYN PO SCH (10:13)
[2017-09-19] MEDS: PEPCID PO SCH (10:13)
[2017-09-19] MEDS: SODIUM CHLORIDE FLUSH SYRINGE 10 ML IV SCH (10:14)
[2017-09-19] MEDS: VITAMIN B-12 IM SCH (10:16)
--- NOTE | 2017-09-19 12:51 | Discharge Summary ---
Providers - Providers Date of Admission: 09/15/17 15:21 Date of discharge: 09/19/17 Attending physician: KADE GARCIA MD 09/15/17 Consult to Cardiac Rehabilitation [CONS] Routine Reason For Exam: Phase I 09/15/17 16:26 psychiatry consult [Consult to Mental Health] [CONS] Routine Reason For Exam: bipolar disorder Place consult to:: psych Notified:: Dara DORINDA Phone number called:: Was contact made?: Yes If yes, spoke with:: Carlos-mental health Time called:: 16:51 09/17/17 17:21 Consult to Physician [CONS] Routine Comment: Consulting Provider: ABDIAS PALOMINO Physician Instructions: Reason For Exam: copd Primary care physician: [employer] Hospitalization Reason for admission: COPD exacerbation, acute on chronic respiratory failure Condition: Stable Pertinent studies: CTA negative for PE Hospital course: History of present illness: 52 YO Female with HTN, [place], Diastolic CHF, History of DVT/PE, OA, Seizure DO, Bipolar DO, Asthma, COPD, CAD S/P Stent Placement, Nicotine Dependence, Fibromyalgia, Chronic Pain presents to ED for evaluation. Pt states that she has experienced pain in her chest over the past 1 day with persistent symptoms over the same time period. Pt states that pain is 6-8/10, Constant, Substernal, associated with shortness of breath, nonradiating, not worsened with exertion or relieved with rest. Pt seen and evaluated in ED and found to have symptoms consistent with CHF decompendation. Pt admitted to telemtry. Cardiology consulted in ED. Psychiatry consulted in ED. Pt denies fever, chills, palpitations, NVD, Syncope, trauma, unintentional weight loss, night sweats, productive cough, or recent ill contacts. Patient was admitted to the floor and was monitored for acute on chronic hypoxic/hypercapnic respiratory failure and noted to COPD exacerbation. Cardiology consulted and recommended no further cardiac workup at this time. CTA was done and managed for PE. Home O2 evaluation was done and patient was saturating well at rest and on ambulation without oxygen. Patient's main concern was to get pain medicine and benzos for anxiety. Patient was recently given a month's supply of [place] so the patient should have enough supply this time and I didn't give her. Patient was given few xanax pills until she see her PCP to prevent withdrawal seizure. All other medications were refilled. Patient still continue to smoke and I have extensively counseled about cessation of smoking. Patient was given nicotine patch at the time of discharge. Disposition: DC-01 TO HOME OR SELFCARE Time spent for discharge: 31 minutes - Discharge Diagnoses (1) COPD exacerbation Status: Acute (2) Respiratory failure Status: Acute Qualifiers: Chronicity: acute Respiratory failure complication: hypoxia Qualified Code(s): J96.01 - Acute respiratory failure with hypoxia (3) Anxiety Status: Chronic (4) HTN (hypertension) Status: Chronic Qualifiers: Hypertension type: essential hypertension Qualified Code(s): I10 - Essential (primary) hypertension (5) Acute exacerbation of chronic obstructive pulmonary disease (COPD) Status: Acute Core Measure Documentation - Palliative Care Palliative Care/ Comfort Measures: Not Applicable - Core Measures Any of the following diagnoses?: history only (PE) Exam - Physical Exam Narrative exam: Not in cardiopulmonary distress. The patient is morbidly obese. Vital signs as documented. Head exam is unremarkable. No scleral icterus . Neck is without jugular venous distension, thyromegaly, or carotid bruits. Lungs scattered wheezing all over the chest, good air entry. Cardiac exam reveals regular rate and Rhythm. First and second heart sounds normal. No murmurs, rubs or gallops. Abdominal exam reveals normal bowel sounds, no masses, no organomegaly and no aortic enlargement. Extremities are nonedematous and both femoral and pedal pulses are normal. SALT MAKER: Alert and oriented 3. No focal weakness. - Constitutional Vitals: Temp Pulse Resp BP Pulse Ox 97.6 F 96 H 20 145/79 96 09/19/17 09:37 09/19/17 10:00 09/19/17 10:00 09/19/17 09:37 09/19/17 10:00 Plan Activity: no restrictions Weight Bearing Status: Full Weight Bearing Diet: low cholesterol, low salt Follow up with: PRIMARY CAREMD [Primary Care Provider] - 7 Days Forms: Discharge Signature Page Prescriptions: QUEtiapine [SEROquel] 200 mg PO QHS #10 tablet ALBUTEROL Inhaler [ProAir HFA Inhaler] 2 puff IH QID PRN #1 inhalation PRN Reason: Shortness Of Breath ALPRAZolam [Xanax TAB] 1 mg PO BID PRN #6 tablet PRN Reason: Anxiety Arformoterol Nebu [Brovana Nebu] 15 mcg IH Q12HRT #5 ml Furosemide [Lasix] 40 mg PO QDAY #60 tablet Gabapentin [Neurontin] 300 mg PO Q8HR #30 capsule Lisinopril [Zestril] 40 mg PO QDAY #30 tablet Mometasone/Formoterol [Dulera 200 Mcg/5 Mcg Inhaler] 2 puff IH BID #1 hfa.aer.ad Nicotine [Habitrol] 21 mg TD Q24H #7 patch Prednisone [predniSONE 10 mg (6-Day Pack, 21 Tabs)] 10 mg PO .TAPER #1 tab.ds.pk Promethazine [Phenergan TAB] 25 mg PO Q6HR PRN #15 tablet PRN Reason: Nausea Simvastatin 40 mg PO QDAY #30 tablet
--- NOTE | 2017-09-19 13:12 | Progress Note ---
Assessment and Plan Acute Hypoxemic Respiratory Failure Acute COPD exacerbation H/O CHF Bipolar Disorder HTN - taper off systemic steroids - continue bronchodilators with pulmonary hygiene per RT - supplemental oxygen to keep sats > 90% - VTE w/up negative - prn anxiolytics and analgesics per attending ...d/c planning ok respiratory-shanks Subjective Date of service: 09/19/17 Principal diagnosis: Acute Hypoxemic Respiratory Failure; Acute COPD exacerbation Interval history: Patient seen today for: Acute Hypoxemic Respiratory Failure; Acute COPD exacerbation Seen and examined at bedside; 24-hour events reviewed; nursing and respiratory care staff consulted; no adverse overnight events reported to me; resting peacefully; pain control better; denies acute chest pains or increased SOB Objective Vital Signs - 12hr 09/19/17 09/19/17 09/19/17 02:30 02:42 06:06 Temperature 97.6 F Pulse Rate 96 H Pulse Rate [ 78 80 Anterior Bilateral Throughout] Respiratory 22 Rate Respiratory 20 16 Rate [Anterior Bilateral Throughout] Blood Pressure 146/87 O2 Sat by Pulse 94 Oximetry 09/19/17 09/19/17 09/19/17 09:28 09:35 09:37 Temperature 97.6 F Pulse Rate 102 H Pulse Rate [ 96 H Anterior Bilateral Throughout] Respiratory 26 H Rate Respiratory 18 Rate [Anterior Bilateral Throughout] Blood Pressure 145/79 O2 Sat by Pulse 98 94 Oximetry 09/19/17 09/19/17 09:38 10:00 Temperature Pulse Rate 96 H Pulse Rate [ 94 H Anterior Bilateral Throughout] Respiratory 20 Rate Respiratory 20 Rate [Anterior Bilateral Throughout] Blood Pressure O2 Sat by Pulse 96 Oximetry Constitutional: no acute distress, alert Eyes: non-icteric ENT: oropharynx moist Neck: supple, no lymphadenopathy, no JVD Effort: normal Ascultation: Bilateral: clear, diminished breath sounds Percussion: Bilateral: not dull Cardiovascular: regular rate and rhythm Gastrointestinal: normoactive bowel sounds, soft, non-tender, non-distended Integumentary: normal Extremities: no cyanosis, no edema, pulses normal, no ischemia or petechiae Neurologic: normal mental status, non-focal exam, pupils equal and round, motor strength normal and Psychiatric: mood appropriate, affect normal CBC and BMP: 09/15/17 17:30 09/15/17 17:16 ABG, PT/INR, D-dimer: PT/INR, D-dimer PT 13.5 Sec. (12.2-14.9) 09/15/17 13:20 INR 0.98 (0.87-1.13) 09/15/17 13:20 D-Dimer 189.04 ng/mlDDU (0-234) 09/15/17 13:20 Abnormal lab findings: Abnormal Labs 09/15/17 09/15/17 09/15/17 13:20 13:20 17:16 WBC 12.7 H Hgb 15.3 H Hct 46.1 H Lymph % (Auto) Seg Neutrophils % Seg Neutrophils # 8.5 H Sodium 136 L 134 L Chloride 97.4 L 96.7 L Creatinine 0.3 L 0.2 L Glucose 104 H 152 H POC Glucose Total Creatine Kinase 19 L CK-MB (CK-2) Rel Index 6.3 H Albumin 3.7 L 09/15/17 09/17/17 09/18/17 17:30 06:19 08:16 WBC 11.3 H Hgb 15.1 H Hct 44.7 H Lymph % (Auto) 11.4 L Seg Neutrophils % 84.9 H Seg Neutrophils # 9.6 H Sodium Chloride Creatinine Glucose POC Glucose 115 H 157 H Total Creatine Kinase CK-MB (CK-2) Rel Index Albumin 09/18/17 09/18/17 09/19/17 16:05 22:25 06:12 WBC Hgb Hct Lymph % (Auto) Seg Neutrophils % Seg Neutrophils # Sodium Chloride Creatinine Glucose POC Glucose 168 H 161 H 167 H Total Creatine Kinase CK-MB (CK-2) Rel Index Albumin CT scan - chest: image reviewed Allied health notes reviewed: nursing
[2017-09-19] MEDS: HABITROL TD SCH (17:01)
[2017-09-19 20:12] VITALS: BP 145/80
== END 2017-09-19 20:50 | disposition home or self-care (01) | DRG 291 ==
LOC: ED 12:42 → 4A 15:21
PROVIDERS: ADMIT Internal Medicine; ATTEND Internal Medicine
DX: I11.0 Hypertensive heart disease with heart failure (principal); J96.21 Acute and chronic respiratory failure with hypoxia; J96.22 Acute and chronic respiratory failure with hypercapnia; J44.1 Chronic obstructive pulmonary disease with (acute) exacerbation; I50.33 Acute on chronic diastolic (congestive) heart failure; F41.9 Anxiety disorder, unspecified; I25.2 Old myocardial infarction; Z86.718 Personal history of other venous thrombosis and embolism; Z86.711 Personal history of pulmonary embolism; M19.90 Unspecified osteoarthritis, unspecified site; G40.909 Epilepsy, unspecified, not intractable, without status epilepticus; J45.909 Unspecified asthma, uncomplicated; I25.10 Atherosclerotic heart disease of native coronary artery without angina pectoris; Z95.5 Presence of coronary angioplasty implant and graft; M79.7 Fibromyalgia; G89.29 Other chronic pain; Z71.6 Tobacco abuse counseling; Z90.49 Acquired absence of other specified parts of digestive tract; Z90.710 Acquired absence of both cervix and uterus; Z82.49 Family history of ischemic heart disease and other diseases of the circulatory system; Z88.6 Allergy status to analgesic agent; Z88.0 Allergy status to penicillin; Z79.899 Other long term (current) drug therapy; I24.9 Acute ischemic heart disease, unspecified; F17.210 Nicotine dependence, cigarettes, uncomplicated; F43.10 Post-traumatic stress disorder, unspecified; F31.2 Bipolar disorder, current episode manic severe with psychotic features; R45.851 Suicidal ideations
CPT/HCPCS: 36415; 71045; 71275; 80048; 80053; 80061; 81001; 82550; 82553; 82962; 83036; 84484; 85025; 85379; 85610; 85730; 93005; 93010; 93306; 94640; 94760; 96374; 96375; 99406; A9270-GY; J0456; J2270; J2920; J2930; J3010; J3420; J7050; J7512; Q0169; Q9967

== ENCOUNTER 2017-11-23 18:52 | Emergency (ER) | payer MEDICAID ==
[2017-11-23] MEDS ORDERED: ASPIRIN PO ONE (19:48)
[2017-11-23 20:16] LABS: Basophils # (Auto) 0.1 K/mm3 (0.0-0.1); Basophils % (Auto) 0.6 % (0.0-1.8); Eosinophils # (Auto) 0.1 K/mm3 (0.0-0.4); Eosinophils % (Auto) 1.5 % (0.0-4.3); Hematocrit 40.5 % (30.3-42.9); Hemoglobin 13.9 gm/dl (10.1-14.3); Lymphocytes # (Auto) 1.9 K/mm3 (1.2-5.4); Lymphocytes % (Auto) 20.2 % (13.4-35.0); Mean Corpuscular HGB Conc 34 % (30-34); Mean Corpuscular Hemoglobin 31 pg (28-32); Mean Corpuscular Volume 91 fl (79-97); Monocytes # (Auto) 1.1 K/mm3 (0.0-0.8); Monocytes % (Auto) 11.7 % (0.0-7.3); Platelet Count 265 K/mm3 (140-440); Red Blood Count 4.48 M/mm3 (3.65-5.03); Red Cell Distribution Width 14.4 % (13.2-15.2)
[2017-11-23 20:25] LABS: BUN/Creatinine Ratio 43; Blood Urea Nitrogen 13 mg/dL (7-17); Calcium 9.2 mg/dL (8.4-10.2); Hemolysis Index 4
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
[2017-11-23] MEDS ORDERED: ULTRAM PO ONE (20:55)
[2017-11-23] MEDS ORDERED: PERCOCET 5/325 PO ONE (23:13)
[2017-11-23] MEDS ORDERED: ZOFRAN ODT PO ONE (23:14)
[2017-11-23] MEDS ORDERED: ZITHROMAX PO ONE (23:16)
[2017-11-24 00:25] VITALS: BP 118/60
--- NOTE | 2017-11-26 14:25 | XRay Report ---
FINAL REPORT EXAM: XR CHEST 1V AP HISTORY: productive yellowish green sputum TECHNIQUE: Single, portable chest x-ray. PRIORS: 15 Nov 2017. FINDINGS: Cardiac silhouette prominent, which may be due in part to portable technique, but stable. Lungs are normally expanded, with probable bibasilar atelectasis or scarring. No significant vascular congestion, focal consolidation or apparent pneumothorax. Bony thorax grossly unremarkable. IMPRESSION: 1. No acute consolidation.
== END 2017-11-24 00:28 | disposition home or self-care (01) ==
LOC: ED 18:52
DX: J41.8 Mixed simple and mucopurulent chronic bronchitis (principal); F17.200 Nicotine dependence, unspecified, uncomplicated; I10 Essential (primary) hypertension
CPT/HCPCS: 36415; 71045; 80048; 84484; 84703; 85025; 93005; 93010; Q0162

== ENCOUNTER 2017-12-11 00:12 | Emergency (ER) | payer MEDICAID ==
[2017-12-11 01:17] VITALS: BP 137/87
[2017-12-11] MEDS ORDERED: ASPIRIN PO ONE (01:17)
[2017-12-11 02:07] LABS: Basophils # (Auto) 0.1 K/mm3 (0.0-0.1); Basophils % (Auto) 1.2 % (0.0-1.8); Eosinophils # (Auto) 0.1 K/mm3 (0.0-0.4); Eosinophils % (Auto) 1.4 % (0.0-4.3); Hematocrit 40.3 % (30.3-42.9); Hemoglobin 13.3 gm/dl (10.1-14.3); Lymphocytes # (Auto) 1.9 K/mm3 (1.2-5.4); Lymphocytes % (Auto) 34.2 % (13.4-35.0); Mean Corpuscular HGB Conc 33 % (30-34); Mean Corpuscular Hemoglobin 31 pg (28-32); Mean Corpuscular Volume 93 fl (79-97); Monocytes # (Auto) 0.5 K/mm3 (0.0-0.8); Monocytes % (Auto) 9.8 % (0.0-7.3); Platelet Count 200 K/mm3 (140-440); Red Blood Count 4.32 M/mm3 (3.65-5.03); Red Cell Distribution Width 14.5 % (13.2-15.2)
[2017-12-11 04:55] LABS: BUN/Creatinine Ratio 17; Blood Urea Nitrogen 5 mg/dL (7-17); Calcium 9.1 mg/dL (8.4-10.2); Hemolysis Index 3
== END 2017-12-11 04:20 | disposition other institution (70) ==
LOC: ED 00:12
DX: R07.9 Chest pain, unspecified (principal); Z53.21 Procedure and treatment not carried out due to patient leaving prior to being seen by health care provider
CPT/HCPCS: 36415; 80048; 84484; 85025; 93005; 93010

== ENCOUNTER 2017-12-16 15:48 | Emergency (ER) | payer MEDICAID ==
[2017-12-16] MEDS ORDERED: ASPIRIN PO ONE (16:34)
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
[2017-12-16] MEDS ORDERED: DUONEB *Not for PRN Use IH ONE (16:50)
[2017-12-16] MEDS ORDERED: MORPHINE IV ONE (16:53)
[2017-12-16] MEDS ORDERED: ZOFRAN IV ONE (16:53)
[2017-12-16 16:59] LABS: Basophils # (Auto) 0.1 K/mm3 (0.0-0.1); Basophils % (Auto) 0.9 % (0.0-1.8); Eosinophils % (Auto) 0.7 % (0.0-4.3); Hematocrit 38.9 % (30.3-42.9); Lymphocytes # (Auto) 1.9 K/mm3 (1.2-5.4); Lymphocytes % (Auto) 31.4 % (13.4-35.0); Mean Corpuscular HGB Conc 34 % (30-34); Mean Corpuscular Hemoglobin 31 pg (28-32); Mean Corpuscular Volume 93 fl (79-97); Monocytes # (Auto) 0.6 K/mm3 (0.0-0.8); Monocytes % (Auto) 9.9 % (0.0-7.3); Platelet Count 176 K/mm3 (140-440); Red Blood Count 4.19 M/mm3 (3.65-5.03); Red Cell Distribution Width 14.7 % (13.2-15.2)
[2017-12-16 17:04] LABS: BUN/Creatinine Ratio 20; Blood Urea Nitrogen 8 mg/dL (7-17); Hemolysis Index 4
--- NOTE | 2017-12-16 18:11 | XRay Report ---
FINAL REPORT EXAM: XR CHEST 1V AP HISTORY: cp COMPARISON: November 23, 2017. FINDINGS: Frontal view(s) of the chest obtained. Heart upper limits of normal in size. No gross consolidation or effusion. No pneumothorax. IMPRESSION: No grossly acute findings.
[2017-12-16] MEDS ORDERED: NITRO-BID 2% TP ONE (18:24)
[2017-12-16] MEDS ORDERED: ATIVAN IV ONE (18:24)
[2017-12-16 20:32] VITALS: BP 120/61
--- NOTE | 2017-12-16 21:13 | Event Note ---
Date: 12/16/17 Chest pain similar to past ones Extensive work up done Recent Cath and MPI normal Old records reviewed. Dx Costochondritis Percocet 5/325 po bid prn #14
== END 2017-12-16 21:30 | disposition admitted as inpatient to this hospital (09) ==
LOC: ED 15:48
DX: R07.89 Other chest pain (principal); I10 Essential (primary) hypertension; I50.9 Heart failure, unspecified; M19.90 Unspecified osteoarthritis, unspecified site; F31.9 Bipolar disorder, unspecified; F41.9 Anxiety disorder, unspecified; J45.909 Unspecified asthma, uncomplicated; G89.29 Other chronic pain; F17.200 Nicotine dependence, unspecified, uncomplicated; Z90.710 Acquired absence of both cervix and uterus; Z88.0 Allergy status to penicillin; Z86.711 Personal history of pulmonary embolism; Z88.8 Allergy status to other drugs, medicaments and biological substances
CPT/HCPCS: 36415; 71045; 80048; 83880; 84484; 85025; 85379; 93005; 93010; 94640; 96374; 96375; 99285; J2060; J2270; J2405

== ENCOUNTER 2017-12-20 12:47 | Emergency (ER) | payer MEDICAID ==
[2017-12-20 13:18] VITALS: BP 167/101
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
[2017-12-20] MEDS ORDERED: PERCOCET 5/325 PO ONE (16:04)
[2017-12-20] MEDS ORDERED: CLEOCIN PO ONE (16:06)
== END 2017-12-20 16:28 | disposition home or self-care (01) ==
LOC: ED 12:47
DX: K02.9 Dental caries, unspecified (principal); K04.7 Periapical abscess without sinus; I10 Essential (primary) hypertension; I50.9 Heart failure, unspecified; M19.90 Unspecified osteoarthritis, unspecified site; F31.9 Bipolar disorder, unspecified; J44.9 Chronic obstructive pulmonary disease, unspecified; G89.29 Other chronic pain; F17.200 Nicotine dependence, unspecified, uncomplicated; Z86.718 Personal history of other venous thrombosis and embolism; Z86.711 Personal history of pulmonary embolism; Z90.710 Acquired absence of both cervix and uterus; Z90.49 Acquired absence of other specified parts of digestive tract; Z88.0 Allergy status to penicillin; Z88.8 Allergy status to other drugs, medicaments and biological substances
CPT/HCPCS: 99282

== ENCOUNTER 2018-07-09 14:00 | Inpatient (IN) | payer MEDICAID, SELFPAY ==
[2018-07-09] MEDS ORDERED: NACL 0.9% 1000 ML IV ONE (15:08)
[2018-07-09] MEDS ORDERED: MORPHINE IV ONE ×2 (15:13→16:28)
[2018-07-09] MEDS ORDERED: ZOFRAN IV ONE (15:13)
[2018-07-09 15:25] LABS: Basophils # (Auto) 0.1 K/mm3 (0.0-0.1); Basophils % (Auto) 0.8 % (0.0-1.8); Eosinophils # (Auto) 0.1 K/mm3 (0.0-0.4); Eosinophils % (Auto) 1.1 % (0.0-4.3); Hematocrit 44.1 % (30.3-42.9); Hemoglobin 14.9 gm/dl (10.1-14.3); Lymphocytes # (Auto) 1.9 K/mm3 (1.2-5.4); Lymphocytes % (Auto) 16.9 % (13.4-35.0); Mean Corpuscular HGB Conc 34 % (30-34); Mean Corpuscular Volume 94 fl (79-97); Monocytes # (Auto) 1.1 K/mm3 (0.0-0.8); Monocytes % (Auto) 9.6 % (0.0-7.3); Platelet Count 168 K/mm3 (140-440); Red Blood Count 4.68 M/mm3 (3.65-5.03); Red Cell Distribution Width 13.3 % (13.2-15.2)
[2018-07-09] MEDS ORDERED: NACL 0.9% 500 ML 0 ML ONE (15:26)
[2018-07-09] MEDS ORDERED: NACL 0.9% 1000 ML 1,000 ML IV ONE (15:32)
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
[2018-07-09 15:36] LABS: INR 1.11 (0.87-1.13); Partial Thromboplastin Time 24.6 Sec. (24.2-36.6)
[2018-07-09] MEDS ORDERED: LIDOCAINE VISCOUS 2% PO ONE (15:41)
[2018-07-09] MEDS ORDERED: ALUM-MAG HYDROX-SIMETH 200-200-20MG/5ML PO ONE (15:42)
[2018-07-09 15:48] LABS: Creatine Kinase MB 1.3 ng/mL (0.0-4.0)
[2018-07-09 15:50] LABS: Alanine Aminotransferase 36 units/L (7-56); Albumin 3.8 g/dL (3.9-5); BUN/Creatinine Ratio 15; Blood Urea Nitrogen 6 mg/dL (7-17); Calcium 9.3 mg/dL (8.4-10.2); Hemolysis Index 66
[2018-07-09 15:54] LABS: Bilirubin,Direct < 0.2 mg/dL (0-0.2)
--- NOTE | 2018-07-09 15:57 | XRay Report ---
FINAL REPORT EXAM: XR CHEST 1V AP HISTORY: HTN COMPARISON: Chest radiograph performed on 03/13/2018 TECHNIQUE: Single frontal view of the chest FINDINGS: The cardiomediastinal silhouette is normal in appearance. The lungs are clear without focal consolidation. There is no pleural effusion or pneumothorax. There is no acute soft tissue or osseous abnormality. IMPRESSION: No acute cardiopulmonary disease.
[2018-07-09] MEDS ORDERED: VANCOMYCIN PHARMACY TO DOSE IV SCH (16:00)
[2018-07-09] MEDS ORDERED: VANCOMYCIN 2,000 MG in NACL 0.9% 500 ML 500 ML IV ONE (16:00)
[2018-07-09] MEDS ORDERED: MORPHINE IV PRN (16:49)
[2018-07-09 17:09] LABS: Bilirubin,Urine NEG (Negative); Blood,Urine NEG (Negative); Color,Urine Yellow (Yellow); Mucus,Urine FEW /HPF; Protein,Urine <15 mg/dL mg/dL (Negative)
[2018-07-09 17:30] LABS: Amphetamine Screen,Urine PRESUMPTIVE NEGATIVE; Benzodiazepines Screen,Urine PRESUMPTIVE NEGATIVE; Cocaine Screen,Urine PRESUMPTIVE NEGATIVE; Methadone Screen,Urine PRESUMPTIVE NEGATIVE; Opiate Screen,Urine PRESUMPTIVE NEGATIVE
[2018-07-09 17:51] LABS: Cannabinoid Screen,Urine PRESUMPTIVE POSITIVE
[2018-07-09] MEDS ORDERED: DILAUDID IV ONE (18:39)
[2018-07-09] MEDS ORDERED: BENADRYL IV ONE (18:40)
[2018-07-09] MEDS ORDERED: DILAUDID ONE (18:43)
[2018-07-09] MEDS ORDERED: BENADRYL ONE (19:28)
[2018-07-09] MEDS: HABITROL TD SCH (22:32)
[2018-07-09] MEDS: DILAUDID IV PRN (22:37)
[2018-07-09] MEDS ORDERED: SODIUM CHLORIDE FLUSH SYRINGE 10 ML IV PRN (22:47)
[2018-07-09] MEDS ORDERED: ZOFRAN IV PRN (22:47)
[2018-07-09] MEDS ORDERED: TYLENOL PO PRN (22:47)
[2018-07-09] MEDS ORDERED: PHENERGAN PO PRN (22:49)
[2018-07-09] MEDS ORDERED: PROAIR IH PRN (22:49)
[2018-07-09] MEDS ORDERED: ZOFRAN ODT PO PRN (22:49)
[2018-07-09] MEDS ORDERED: PROVENTIL IH PRN (23:10)
[2018-07-10] MEDS ORDERED: UNASYN/NS 3 GM/100 ML 3 GM/100 ML BAG IV SCH
[2018-07-10 04:19] LABS: Basophils % (Auto) 0.2 % (0.0-1.8); Eosinophils # (Auto) 0.2 K/mm3 (0.0-0.4); Eosinophils % (Auto) 2.8 % (0.0-4.3); Hematocrit 39.5 % (30.3-42.9); Hemoglobin 13.4 gm/dl (10.1-14.3); Lymphocytes % (Auto) 24.1 % (13.4-35.0); Mean Corpuscular HGB Conc 34 % (30-34); Mean Corpuscular Volume 95 fl (79-97); Monocytes # (Auto) 0.9 K/mm3 (0.0-0.8); Monocytes % (Auto) 11.1 % (0.0-7.3); Platelet Count 150 K/mm3 (140-440); Red Blood Count 4.18 M/mm3 (3.65-5.03); Red Cell Distribution Width 13.6 % (13.2-15.2)
[2018-07-10 04:38] LABS: Alanine Aminotransferase 27 units/L (7-56); Albumin 3.5 g/dL (3.9-5); BUN/Creatinine Ratio 17; Blood Urea Nitrogen 5 mg/dL (7-17); Calcium 8.4 mg/dL (8.4-10.2); Hemolysis Index 21
[2018-07-10] MEDS: NEURONTIN PO SCH ×3 (06:04→21:31)
[2018-07-10] MEDS: PERCOCET 5/325 PO PRN ×2 (06:04→21:03)
[2018-07-10] MEDS: VANCOMYCIN 1,500 MG in NACL 0.9% 500 ML 500 ML IV SCH ×2 (06:07→18:40)
--- NOTE | 2018-07-10 06:45 | Event Note ---
Date: 07/09/18 See dictated H/p in reports Cellulitis/Abscess l upper thigh
[2018-07-10] MEDS: BROVANA NEBU IH SCH ×2 (08:04→21:29)
[2018-07-10] MEDS: PULMICORT IH SCH ×2 (08:04→21:29)
[2018-07-10] MEDS: FOLVITE PO SCH (09:08)
[2018-07-10] MEDS: ZESTRIL PO SCH (09:08)
[2018-07-10] MEDS: DILAUDID IV PRN ×2 (09:09→18:37)
[2018-07-10] MEDS: PEPCID IV SCH ×2 (09:09→21:31)
[2018-07-10] MEDS: LASIX PO SCH (09:11)
[2018-07-10] MEDS: SODIUM CHLORIDE FLUSH SYRINGE 10 ML IV SCH ×2 (09:12→21:32)
--- NOTE | 2018-07-10 09:17 | History and Physical Report ---
CHIEF COMPLAINT: Left thigh redness and swelling and pain. HISTORY OF PRESENT ILLNESS: A 53-year-old female comes in for left groin and left upper thigh redness and swelling and pain. Also, low-grade fever and some chills. Pain is about 10 on a scale of 1-10. No precipitating factors. PAST MEDICAL HISTORY: Significant for hypertension, coronary artery disease, 4 stents. Deep vein thrombosis, congestive heart failure, arthritis, seizures as a child, bipolar disorder, COPD. Apparent cardiac arrest in the hospital 10 days ago. PAST SURGICAL HISTORY: Coronary stents, cholecystectomy, right thumb surgery, right leg surgery in 1985, hysterectomy, bowel resection, neck surgery. SOCIAL HISTORY: Smokes over a pack a day. FAMILY HISTORY: Hypertension. CURRENT MEDICATIONS: On chart. PHYSICAL EXAMINATION: GENERAL: Middle-aged female, obese. VITAL SIGNS: Blood pressure is 144/87, temperature is 97.7, pulse is 76, respirations 20. HEENT: Unremarkable. Pupils equal and reactive. NECK: Supple, no lymphadenopathy, no thyromegaly. LUNGS: Clear to auscultation and percussion. Good air entry. CARDIOVASCULAR: S1, S2 heard. No gallop, no murmur, no rub. Apical impulse in left fifth intercostal space and midclavicular line. ABDOMEN: Soft and benign. No hepatosplenomegaly. No guarding, no rigidity. Hernial orifices are normal. EXTREMITIES: Good pedal pulses. No pedal edema. Has severe swelling of the left upper thigh and groin present, about 12 x 12 cm redness, fluctuance, and swelling. CENTRAL NERVOUS SYSTEM: Alert and oriented x 4, nonfocal exam. LABORATORY DATA: Significant for white count of 11,600, hemoglobin of 14.9, hematocrit of 44.1, platelet count of 168,000. Sodium is 136, potassium is 4.0, BUN and creatinine 6 and 0.4, glucose is 119. Urine wbc's 38. Urine drug screen is positive for marijuana. IMAGING: Chest x-ray shows no acute cardiopulmonary process. ASSESSMENT AND PLAN: 1. Left lower extremity cellulitis/abscess present, in the upper thigh region. Induration present. Left fluctuation present. The patient initiated on Unasyn and vancomycin. Also, Surgery consult requested. Wound care initiated. 2. Hypertension. Continue lisinopril. 3. Nicotine dependence. Continue Nicoderm patch. 4. Bipolar disorder. Continue Seroquel. 5. Peripheral neuropathy. Continue gabapentin. 6. Coronary artery disease. Continue aspirin and simvastatin. 7. Chronic pain. Continue Percocet at 5 mg q. 12. 8. Deep venous thrombosis prophylaxis, Lovenox 40 mg subcutaneous daily. JOB# [id number] VSM/NTS MTDD
[2018-07-10] MEDS ORDERED: NON-FORMULARY (Mometasone/Formoterol [Dulera 200 Mcg/5 Mcg Inhaler] 2 PUFF) IH SCH (10:00)
[2018-07-10] MEDS: XANAX PO PRN ×2 (10:59→19:39)
[2018-07-10] MEDS ORDERED: XYLOCAINE 1% 20 mL INFILTRATI ONE (12:44)
[2018-07-10] MEDS ORDERED: ATIVAN IV ONE ×2 (13:06→21:40)
[2018-07-10] MEDS ORDERED: DILAUDID IV ONE (13:07)
--- NOTE | 2018-07-10 15:54 | Procedure Note ---
Date of procedure: 07/10/18 Pre-op diagnosis: left groin abscess Post-op diagnosis: same Procedure: incision and drainage of left groin abscess Findings: Consent obtained. Time out performed. The skin was prepped with betadine. Local anesthetic was injected into the skin and subcutaneous tissue over the site of fluctuance. An incision was made using an 11 blade an the cavity probed with a cotton tip applicator. There was drainage of pus. Cultures obtained. All loculations were broken up using blunt dissection with a cotton tip applicator and gloved finger. The abscess cavity probed to 6 cm deep. Once all purulent fluid was expressed, the wound was irrigated with saline. The wound was packed with one piece of mesalt packing. This was covered with 4x4 gauze and coversite dressing The patient tolerated the procedure well. All sharps were disposed of appropriately. Anesthesia: local Surgeon: OMAIRA GATICA Estimated blood loss: minimal Pathology: list (wound cultures) Specimen disposition: to lab Condition: stable Disposition: floor
--- NOTE | 2018-07-10 16:01 | Consultation ---
History of Present Illness Consult date: 07/10/18 Chief complaint: abscess - History of present illness History of present illness: 53 yo F with hx of bipolar disorder and remote hx of MRSA infection in buttock wound presents to hospital with 4 days of left groin pain. This started as a small boil and quickly spread and became a large area of redness. No drainage. She had subjective fevers. She states the pain radiates from the groin to the back and to the thigh. She has not been feeling well overall. Several years ago she had a boil of her buttock lanced and states she had a staph infection. Past History Past Medical History: other (bipolar d/o, chronic neck and back pain, narcotic dependence) Past Surgical History: bowel surgery, Other (L wrist surgery, R leg surgery, I&D buttock abscess) Social history: no significant social history Family history: no significant family history Medications and Allergies Allergies Allergy/AdvReac Type Severity Reaction Status Date / Time acetaminophen [From Vicodin] Allergy Hives Verified 09/20/16 19:50 hydrocodone bitartrate Allergy Hives Verified 09/20/16 19:50 [From Vicodin] metoclopramide HCl Allergy Anaphylaxis Verified 05/03/17 15:25 [From Reglan] Penicillins Allergy Swelling Verified 05/03/17 15:25 naproxen AdvReac Itching Verified 05/03/17 15:25 Home Medications Medication Instructions Recorded Confirmed Last Taken Type Cyanocobalamin [Vitamin B-12] 1,000 mcg IM 2XW 08/20/17 03/14/18 1 Day Ago History ~11/07/17 Folic Acid [Folvite] 1 mg PO QDAY 08/20/17 03/14/18 1 Day Ago History ~11/07/17 Naproxen [Naprosyn TAB] 500 mg PO BID 08/20/17 03/14/18 1 Day Ago History ~09/15/17 Valacyclovir HCl [Valtrex] 1,000 mg PO QDAY 08/20/17 03/14/18 1 Day Ago History ~11/07/17 Furosemide [Lasix] 40 mg PO QDAY #60 tablet 09/19/17 03/14/18 1 Day Ago Rx ~11/07/17 Gabapentin [Neurontin] 300 mg PO Q8HR #30 capsule 09/19/17 03/14/18 1 Day Ago Rx ~11/07/17 Lisinopril [Zestril] 40 mg PO QDAY #30 tablet 09/19/17 03/14/18 1 Day Ago Rx ~11/07/17 Promethazine [Phenergan TAB] 25 mg PO Q6HR PRN #15 tablet 09/19/17 03/14/18 Unknown Rx Simvastatin 40 mg PO QDAY #30 tablet 09/19/17 03/14/18 1 Day Ago Rx ~11/07/17 Ondansetron [Zofran ODT TAB] 8 mg PO Q8HR PRN #10 tab.rapdis 11/23/17 03/14/18 Unknown Rx oxyCODONE /ACETAMINOPHEN [Percocet 1 tab PO Q12H PRN #14 tablet 12/16/17 03/14/18 Unknown Rx 5/325 mg] ALPRAZolam [Xanax TAB] 1 mg PO BID PRN #6 tablet 03/15/18 Unknown Rx Albuterol Sulfate [Ventolin HFA] 2 puff IH QDAY PRN #1 hfa.aer.ad 03/15/18 Unknown Rx Arformoterol Nebu [Brovana Nebu] 15 mcg IH Q12HRT #60 neb 03/15/18 Unknown Rx Mometasone/Formoterol [Dulera 200 2 puff IH BID #1 hfa.aer.ad 03/15/18 Unknown Rx Mcg/5 Mcg Inhaler] Nicotine [Habitrol] 21 mg TD Q24H #30 patch 03/15/18 Unknown Rx Pantoprazole [Protonix] 40 mg PO QDAY #30 tablet 03/15/18 Unknown Rx QUEtiapine [SEROquel] 200 mg PO QHS #30 tablet 03/15/18 Unknown Rx Active Meds: Active Medications Acetaminophen (Tylenol) 650 mg PO Q4H PRN PRN Reason: Pain MILD(1-3)/Fever >100.5/[place] Last Admin: 07/10/18 14:52 Dose: 650 mg Documented by: Albuterol (Proventil) 2.5 mg IH QDAY PRN PRN Reason: Shortness Of Breath Alprazolam (Xanax) 1 mg PO BID PRN PRN Reason: Anxiety Last Admin: 07/10/18 10:59 Dose: 1 mg Documented by: Arformoterol Tartrate (Brovana Nebu) 15 mcg IH Q12HRT [facility] Last Admin: 07/10/18 08:04 Dose: Not Given Documented by: Budesonide (Pulmicort) 1 mg IH Q12HRT [facility] Last Admin: 07/10/18 08:04 Dose: Not Given Documented by: Famotidine (Pepcid) 20 mg IV BID [facility] Last Admin: 07/10/18 09:09 Dose: 20 mg Documented by: Folic Acid (Folvite) 1 mg PO QDAY [facility] Last Admin: 07/10/18 09:08 Dose: 1 mg Documented by: Furosemide (Lasix) 40 mg PO QDAY [facility] Last Admin: 07/10/18 09:11 Dose: Not Given Documented by: Gabapentin (Neurontin) 300 mg PO Q8HR [facility] Last Admin: 07/10/18 06:04 Dose: 300 mg Documented by: Hydromorphone HCl (Dilaudid) 1 mg IV Q3H PRN PRN Reason: Pain , Severe (7-10) Last Admin: 07/10/18 09:09 Dose: 1 mg Documented by: Vancomycin HCl 1,500 mg/ (Sodium Chloride) 530 mls @ 333.333 mls/hr IV Q12H [facility] Last Admin: 07/10/18 06:07 Dose: 333.333 mls/hr Documented by: Lisinopril (Zestril) 40 mg PO QDAY [facility] Last Admin: 07/10/18 09:08 Dose: Not Given Documented by: Morphine Sulfate (Morphine) 2 mg IV ONCE.ED PRN PRN Reason: Pain , Severe (7-10) Nicotine (Habitrol) 21 mg TD Q24HR [facility] Last Admin: 07/09/18 22:32 Dose: 21 mg Documented by: Ondansetron HCl (Zofran) 4 mg IV Q8H PRN PRN Reason: Nausea And Vomiting Ondansetron HCl (Zofran Odt) 8 mg PO Q8H PRN PRN Reason: Nausea Oxycodone/Acetaminophen (Percocet 5/325) 1 tab PO Q6H PRN PRN Reason: Pain, Moderate (4-6) Last Admin: 07/10/18 06:04 Dose: 1 tab Documented by: Promethazine HCl (Phenergan) 25 mg PO Q6HR PRN PRN Reason: Nausea Quetiapine Fumarate (Seroquel) 200 mg PO QHS [facility] Last Admin: 07/09/18 22:31 Dose: 200 mg Documented by: Sodium Chloride (Sodium Chloride Flush Syringe 10 Ml) 10 ml IV BID [facility] Last Admin: 07/10/18 09:12 Dose: 10 ml Documented by: Sodium Chloride (Sodium Chloride Flush Syringe 10 Ml) 10 ml IV PRN PRN PRN Reason: LINE FLUSH Review of Systems All systems: negative (10 pt ROS performed and neg except for that listed in HPI) Exam Vital Signs Temp Pulse Resp BP Pulse Ox 98 F 97 H 16 155/90 97 07/09/18 14:06 07/09/18 14:06 07/09/18 14:06 07/09/18 14:06 07/09/18 14:06 Narrative exam: Gen: AAOx3. NAD CV: s1, S2+ resp: even and unlabored Abd: soft Ext: large area of cellulitis of left groin with area of fluctuance and induration. No drainage Results - Labs 07/10/18 04:04 07/10/18 04:04 Abnormal lab results 07/09/18 07/10/18 07/10/18 Range/Units 16:40 04:04 04:04 Haskell % (Auto) 11.1 H (0.0-7.3) % [place] # 0.9 H (0.0-0.8) K/mm3 Chloride 107.7 H (98-107) mmol/L BUN 5 L (7-17) mg/dL Creatinine 0.3 L (0.7-1.2) mg/dL Glucose 105 H (65-100) mg/dL Total Protein 5.5 L D (6.3-8.2) g/dL Albumin 3.5 L (3.9-5) g/dL Urine WBC (Auto) 38.0 H (0.0-6.0) /HPF Diabetes panel 07/09/18 07/10/18 Range/Units 23:05 04:04 Sodium 141 (137-145) mmol/L Potassium 3.8 (3.6-5.0) mmol/L Chloride 107.7 H (98-107) mmol/L Carbon Dioxide 24 (22-30) mmol/L BUN 5 L (7-17) mg/dL Creatinine 0.3 L (0.7-1.2) mg/dL Glucose 105 H (65-100) mg/dL Hemoglobin A1c 5.7 (4-6) % Calcium 8.4 (8.4-10.2) mg/dL AST 19 (5-40) units/L ALT 27 (7-56) units/L Alkaline Phosphatase 64 (35-129) units/L Total Protein 5.5 L D (6.3-8.2) g/dL Albumin 3.5 L (3.9-5) g/dL Calcium panel 07/10/18 Range/Units 04:04 Calcium 8.4 (8.4-10.2) mg/dL Albumin 3.5 L (3.9-5) g/dL Pituitary panel 07/10/18 Range/Units 04:04 Sodium 141 (137-145) mmol/L Potassium 3.8 (3.6-5.0) mmol/L Chloride 107.7 H (98-107) mmol/L Carbon Dioxide 24 (22-30) mmol/L BUN 5 L (7-17) mg/dL Creatinine 0.3 L (0.7-1.2) mg/dL Glucose 105 H (65-100) mg/dL Calcium 8.4 (8.4-10.2) mg/dL Adrenal panel 07/10/18 Range/Units 04:04 Sodium 141 (137-145) mmol/L Potassium 3.8 (3.6-5.0) mmol/L Chloride 107.7 H (98-107) mmol/L Carbon Dioxide 24 (22-30) mmol/L BUN 5 L (7-17) mg/dL Creatinine 0.3 L (0.7-1.2) mg/dL Glucose 105 H (65-100) mg/dL Calcium 8.4 (8.4-10.2) mg/dL Total Bilirubin 0.40 (0.1-1.2) mg/dL AST 19 (5-40) units/L ALT 27 (7-56) units/L Alkaline Phosphatase 64 (35-129) units/L Total Protein 5.5 L D (6.3-8.2) g/dL Albumin 3.5 L (3.9-5) g/dL Assessment and Plan 53 yo F with left groin abscess, cellulitis Plan: 1. will need incision and drainage of left groin abscess, consent obtained. See separate procedure note 2. wound cultures pending 3. c/w IV abx per 1' 4. wound care consult - d/w personnel security assistant. Dressing will be changed by personnel security assistant tomorrow 5. patient to follow up in wound care center as outpatient Will s/o. Thank you, please call with questions. D/W Dr. Rodriges
--- NOTE | 2018-07-10 17:39 | Progress Note ---
Assessment and Plan Assessment and plan: Patient is 53 yo White Woman with a history of bipolar disorder who presents with left groin pains and found to have cellulitis with abscess -Left groin cellulitis and abscess: s/p excisional I-n-D by GS, follow ctx, continue abx -Sepsis, suspected early sepsis due to the above -Bipolar disorder: continue home medication History Interval history: Patient was seen and examined. Follow-up on current diagnosis of severe left groin pains, still present. Overnight uneventful. Patient denies any chest pain, shortness breath, nausea/vomiting or severe headaches. Imaging, nursing note, ch art, labs and old chart reviewed. Discussed with patient. Hospitalist Physical - Physical exam Narrative exam: Gen: WDWN, NAD, Awake, Alert, Orientated x 3, bmi 41.1 HEENT: NCAT, EOMI, PERRL, OP Clear Neck: supple, no adenopathy, no thyromegaly, no JVD CVS/Heart: RRR, normal S1S2, pulses present bilaterally Chest/Lungs: CTA B, Symmetrical chest expansion, good air entry bilaterally GI/Abdomen: soft, NTND, good bowel sounds, no guarding or rebound /Bladder: no suprapubic tenderness, no CVA or paraspinal tenderness Extermity/Skin: left inner thigh near groin is large red, tender, warm erythematous area with moveable mass MSK: FROM x 4 Neuro: CN 2-12 grossly intact, no new focal deficits Psych: calm - Constitutional Vitals: Temp Pulse Resp BP Pulse Ox 97.7 F 78 18 134/75 93 07/10/18 11:01 07/10/18 11:01 07/10/18 11:01 07/10/18 11:01 07/10/18 11:01 Results - Labs CBC & Chem 7: 07/10/18 04:04 07/10/18 04:04 Labs: Laboratory Last Values WBC 8.2 K/mm3 (4.5-11.0) 07/10/18 04:04 RBC 4.18 M/mm3 (3.65-5.03) 07/10/18 04:04 Hgb 13.4 gm/dl (10.1-14.3) 07/10/18 04:04 Hct 39.5 % (30.3-42.9) 07/10/18 04:04 MCV 95 fl (79-97) 07/10/18 04:04 MCH 32 pg (28-32) 07/10/18 04:04 MCHC 34 % (30-34) 07/10/18 04:04 RDW 13.6 % (13.2-15.2) 07/10/18 04:04 Plt Count 150 K/mm3 (140-440) 07/10/18 04:04 Lymph % (Auto) 24.1 % (13.4-35.0) 07/10/18 04:04 [place] % (Auto) 11.1 % (0.0-7.3) H 07/10/18 04:04 Eos % (Auto) 2.8 % (0.0-4.3) 07/10/18 04:04 Baso % (Auto) 0.2 % (0.0-1.8) 07/10/18 04:04 Lymph # 2.0 K/mm3 (1.2-5.4) 07/10/18 04:04 [place] # 0.9 K/mm3 (0.0-0.8) H 07/10/18 04:04 Eos # 0.2 K/mm3 (0.0-0.4) 07/10/18 04:04 Baso # 0.0 K/mm3 (0.0-0.1) 07/10/18 04:04 Seg Neutrophils % 61.8 % (40.0-70.0) 07/10/18 04:04 Seg Neutrophils # 5.0 K/mm3 (1.8-7.7) 07/10/18 04:04 PT 14.7 Sec. (12.2-14.9) 07/09/18 15:14 INR 1.11 (0.87-1.13) 07/09/18 15:14 APTT 24.6 Sec. (24.2-36.6) 07/09/18 15:14 Sodium 141 mmol/L (137-145) 07/10/18 04:04 Potassium 3.8 mmol/L (3.6-5.0) 07/10/18 04:04 Chloride 107.7 mmol/L (98-107) H 07/10/18 04:04 Carbon Dioxide 24 mmol/L (22-30) 07/10/18 04:04 Anion Gap 13 mmol/L 07/10/18 04:04 BUN 5 mg/dL (7-17) L 07/10/18 04:04 Creatinine 0.3 mg/dL (0.7-1.2) L 07/10/18 04:04 Estimated GFR > 60 ml/min 07/10/18 04:04 BUN/Creatinine Ratio 17 % 07/10/18 04:04 Glucose 105 mg/dL (65-100) H 07/10/18 04:04 Hemoglobin A1c 5.7 % (4-6) 07/09/18 23:05 Lactic Acid 0.70 mmol/L (0.7-2.0) 07/09/18 17:54 Calcium 8.4 mg/dL (8.4-10.2) 07/10/18 04:04 Total Bilirubin 0.40 mg/dL (0.1-1.2) 07/10/18 04:04 Direct Bilirubin < 0.2 mg/dL (0-0.2) 07/09/18 15:14 Indirect Bilirubin 0.5 mg/dL 07/09/18 15:14 AST 19 units/L (5-40) 07/10/18 04:04 ALT 27 units/L (7-56) 07/10/18 04:04 Alkaline Phosphatase 64 units/L (35-129) 07/10/18 04:04 Total Creatine Kinase 29 units/L (30-135) L 07/09/18 15:14 CK-MB (CK-2) 1.3 ng/mL (0.0-4.0) 07/09/18 15:14 CK-MB (CK-2) Rel Index 4.4 (0-4) H 07/09/18 15:14 NT-Pro-B Natriuret Pep 120.0 pg/mL (0-900) 07/09/18 15:14 Total Protein 5.5 g/dL (6.3-8.2) L D 07/10/18 04:04 Albumin 3.5 g/dL (3.9-5) L 07/10/18 04:04 Albumin/Globulin Ratio 1.8 % 07/10/18 04:04 Urine Color Yellow (Yellow) 07/09/18 16:40 Urine Turbidity Clear (Clear) 07/09/18 16:40 Urine pH 7.0 (5.0-7.0) 07/09/18 16:40 Ur Specific [place] 1.012 (1.003-1.030) 07/09/18 16:40 Urine Protein <15 mg/dl mg/dL (Negative) 07/09/18 16:40 Urine Glucose (UA) Neg mg/dL (Negative) 07/09/18 16:40 Urine Ketones Neg mg/dL (Negative) 07/09/18 16:40 Urine Blood Neg (Negative) 07/09/18 16:40 Urine Nitrite Neg (Negative) 07/09/18 16:40 Urine Bilirubin Neg (Negative) 07/09/18 16:40 Urine Urobilinogen 2.0 mg/dL (<2.0) 07/09/18 16:40 Ur Leukocyte Esterase Lg (Negative) 07/09/18 16:40 Urine WBC (Auto) 38.0 /HPF (0.0-6.0) H 07/09/18 16:40 Urine RBC (Auto) 11.0 /HPF (0.0-6.0) 07/09/18 16:40 U Epithel Cells (Auto) 7.0 /HPF (0-13.0) 07/09/18 16:40 Urine Mucus Few /HPF 07/09/18 16:40 Urine Yeast (Budding) 1+ /HPF 07/09/18 16:40 Urine Opiates Screen Presumptive negative 07/09/18 16:40 Urine Methadone Screen Presumptive negative 07/09/18 16:40 Ur Barbiturates Screen Presumptive negative 07/09/18 16:40 Ur Phencyclidine Scrn Presumptive negative 07/09/18 16:40 Ur Amphetamines Screen Presumptive negative 07/09/18 16:40 U Benzodiazepines Scrn Presumptive negative 07/09/18 16:40 Urine Cocaine Screen Presumptive negative 07/09/18 16:40 U Marijuana (THC) Screen Presumptive positive 07/09/18 16:40 Drugs of Abuse Note Disclamer 07/09/18 16:40 Nutrition/Malnutrition Assess - Dietary Evaluation Nutrition/Malnutrition Findings: Nutrition Notes Start: 07/10/18 14:17 Freq: Status: Active Protocol: Document 07/10/18 14:17 LM (Rec: 07/10/18 14:36 LM [id number]) Co-Sign 07/10/18 14:17 OL Nutrition Notes Need for Assessment generated from: senior sql server developer Initial or Follow up Brief Note Current Diagnosis COPD Hypertension Heart Failure Other Pertinent Diagnosis Thigh abcess/cellulitis, DVT, PE Current Diet Consistent CHO/cardiac Subjective/Other Information Consult for skin risk. No eunice score in chart. Attempted to vist pt twice but pt unavailable for each visit . Nutrition Intervention Follow-Up By: 07/11/18 Additional Comments F/U for assessment
[2018-07-10] MEDS: HABITROL TD SCH (21:04)
[2018-07-11] MEDS: VANCOMYCIN 1,500 MG in NACL 0.9% 500 ML 500 ML IV SCH ×2 (05:31→19:33)
[2018-07-11] MEDS: NEURONTIN PO SCH ×3 (05:50→21:05)
[2018-07-11] MEDS: BROVANA NEBU IH SCH ×2 (08:06→20:25)
[2018-07-11] MEDS: PULMICORT IH SCH ×2 (08:07→20:25)
[2018-07-11] MEDS: DILAUDID IV PRN ×5 (08:42→23:44)
[2018-07-11] MEDS: LASIX PO SCH (10:03)
[2018-07-11] MEDS: ZESTRIL PO SCH (10:03)
[2018-07-11] MEDS: FOLVITE PO SCH (10:03)
[2018-07-11] MEDS: PEPCID IV SCH ×2 (10:04→21:05)
[2018-07-11] MEDS: PERCOCET 5/325 PO PRN (10:04)
[2018-07-11] MEDS: HABITROL TD SCH (10:05)
[2018-07-11] MEDS: XANAX PO PRN ×2 (10:05→17:22)
[2018-07-11] MEDS: SODIUM CHLORIDE FLUSH SYRINGE 10 ML IV SCH ×2 (10:09→21:06)
--- NOTE | 2018-07-11 12:27 | Query- General ---
Kajal Duncan Felix Date:___07/11/18 Taker Off Braker Machine/CDS:___tena Phone#:____[phone] Exercise your independent professional judgment when responding to this query. Questions asked do not imply a particular answer is desired or expected. We greatly appreciate your clarification on this issue. Clinical Documentation States: Date of procedure: 07/10/18 Pre-op diagnosis: left groin abscess Post-op diagnosis: same Procedure: incision and drainage of left groin abscess Surgeon: OMAIRA GATICA Clinical Findings Show (include reference to source document): Given the above clinical scenario can you please provide an appropriate diagnosis based on your knowledge of the patient: PHYSICIAN RESPONSE: Please can you clarify the approach and depth of the incision and drainage Approach [ x ] Open [ ] Percutaneous Depth [ ] Skin [ x] Subcutaneous tissue [ ] Fascia Present on Admission: [x ] Yes (Y) [ ] Clinically undeterminable (W) [ ]No(N) Please also document response in your Progress Notes and/or Discharge Summary and indicate if the condition was present on admission. MTDD
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
[2018-07-11] MEDS ORDERED: BENADRYL IV PRN (13:25)
[2018-07-12] MEDS: NEURONTIN PO SCH ×2 (05:13→14:34)
[2018-07-12] MEDS: DILAUDID IV PRN ×3 (05:14→12:41)
[2018-07-12] MEDS: VANCOMYCIN 1,500 MG in NACL 0.9% 500 ML 500 ML IV SCH (05:16)
[2018-07-12] MEDS: XANAX PO PRN ×2 (05:38→12:40)
[2018-07-12 06:16] LABS: Hematocrit 37.4 % (30.3-42.9); Hemoglobin 12.5 gm/dl (10.1-14.3); Mean Corpuscular HGB Conc 33 % (30-34); Mean Corpuscular Volume 95 fl (79-97); Platelet Count 171 K/mm3 (140-440); Red Blood Count 3.93 M/mm3 (3.65-5.03); Red Cell Distribution Width 13.1 % (13.2-15.2)
[2018-07-12] MEDS: BROVANA NEBU IH SCH (07:27)
[2018-07-12] MEDS: PULMICORT IH SCH (07:27)
[2018-07-12 07:40] LABS: BUN/Creatinine Ratio 23; Blood Urea Nitrogen 7 mg/dL (7-17); Calcium 8.9 mg/dL (8.4-10.2); Hemolysis Index 7
[2018-07-12] MEDS: ZESTRIL PO SCH (09:21)
[2018-07-12] MEDS: LASIX PO SCH (09:21)
[2018-07-12] MEDS: HABITROL TD SCH (09:21)
[2018-07-12] MEDS: FOLVITE PO SCH (09:21)
[2018-07-12] MEDS: PEPCID IV SCH (09:23)
[2018-07-12 11:54] VITALS: BP 140/90
--- NOTE | 2018-07-12 12:12 | Consultation ---
History of Present Illness - Reason for Consult Consult date: 07/12/18 Reason for consult: Mental Health Evaluation Requesting physician: MACK GALE - Chief Complaint Chief complaint: "I'm okay today"" - History of Present Psychiatric Illness 53 yo white female who presented to the ER for groin pain. Psychiatry was consulted to see the patient for medication mgmt (Bipolar DO). Today the patient is calm and cooperative during the assessment. She stated that she has a hx of Bipolar DO/Anxiety and take Seroquel and Xanax PRN. She stated that her PCP manage her mental health, but would like to see a psychiatrist for outpatient psy services. She stated that she is compliant with her medications. She denies SI/HI's and AVH's. She denies any manic episodes recently. She denies alcohol cosnumption (etoh), but acknowledged smoking marijuana. Medications and Allergies Allergies Allergy/AdvReac Type Severity Reaction Status Date / Time acetaminophen [From Vicodin] Allergy Hives Verified 09/20/16 19:50 hydrocodone bitartrate Allergy Hives Verified 09/20/16 19:50 [From Vicodin] metoclopramide HCl Allergy Anaphylaxis Verified 05/03/17 15:25 [From Reglan] Penicillins Allergy Swelling Verified 05/03/17 15:25 naproxen AdvReac Itching Verified 05/03/17 15:25 Home Medications Medication Instructions Recorded Confirmed Last Taken Type Cyanocobalamin [Vitamin B-12] 1,000 mcg IM 2XW 08/20/17 03/14/18 1 Day Ago History ~11/07/17 Folic Acid [Folvite] 1 mg PO QDAY 08/20/17 03/14/18 1 Day Ago History ~11/07/17 Valacyclovir HCl [Valtrex] 1,000 mg PO QDAY 08/20/17 03/14/18 1 Day Ago History ~11/07/17 Gabapentin [Neurontin] 300 mg PO Q8HR #30 capsule 09/19/17 03/14/18 1 Day Ago Rx ~11/07/17 Simvastatin 40 mg PO QDAY #30 tablet 09/19/17 03/14/18 1 Day Ago Rx ~11/07/17 Ondansetron [Zofran ODT TAB] 8 mg PO Q8HR PRN #10 tab.rapdis 11/23/17 03/14/18 Unknown Rx Mometasone/Formoterol [Dulera 200 2 puff IH BID #1 hfa.aer.ad 03/15/18 Unknown Rx Mcg/5 Mcg Inhaler] Pantoprazole [Protonix TAB] 40 mg PO QDAY #30 tablet 03/15/18 Unknown Rx ALPRAZolam [Xanax TAB] 1 mg PO BID PRN #6 tablet 07/12/18 Unknown Rx Albuterol Sulfate [Ventolin HFA] 2 puff IH QDAY PRN #1 hfa.aer.ad 07/12/18 Unknown Rx Furosemide [Lasix] 40 mg PO QDAY #60 tablet 07/12/18 Unknown Rx Lisinopril [Zestril] 40 mg PO QDAY #30 tablet 07/12/18 Unknown Rx Nicotine [Habitrol] 21 mg TD Q24H #30 patch 07/12/18 Unknown Rx QUEtiapine [SEROquel] 200 mg PO QHS #30 tablet 07/12/18 Unknown Rx Sulfamethoxazole/Trimethoprim 1 each PO BID #14 tablet 07/12/18 Unknown Rx [Bactrim Ds Tablet] Active Meds: Active Medications Acetaminophen (Tylenol) 650 mg PO Q4H PRN PRN Reason: Pain MILD(1-3)/Fever >100.5/FETNON Last Admin: 07/10/18 14:52 Dose: 650 mg Documented by: Albuterol (Proventil) 2.5 mg IH QDAY PRN PRN Reason: Shortness Of Breath Alprazolam (Xanax) 1 mg PO BID PRN PRN Reason: Anxiety Last Admin: 07/12/18 05:38 Dose: 1 mg Documented by: Arformoterol Tartrate (Brovana Nebu) 15 mcg IH Q12HRT [facility] Last Admin: 07/12/18 07:27 Dose: Not Given Documented by: Budesonide (Pulmicort) 1 mg IH Q12HRT [facility] Last Admin: 07/12/18 07:27 Dose: Not Given Documented by: Diphenhydramine HCl (Benadryl) 25 mg IV Q6H PRN PRN Reason: Itching Last Admin: 07/11/18 23:43 Dose: 25 mg Documented by: Famotidine (Pepcid) 20 mg IV BID [facility] Last Admin: 07/12/18 09:23 Dose: 20 mg Documented by: Folic Acid (Folvite) 1 mg PO QDAY [facility] Last Admin: 07/12/18 09:21 Dose: 1 mg Documented by: Furosemide (Lasix) 40 mg PO QDAY [facility] Last Admin: 07/12/18 09:21 Dose: 40 mg Documented by: Gabapentin (Neurontin) 300 mg PO Q8HR [facility] Last Admin: 07/12/18 05:13 Dose: 300 mg Documented by: Hydromorphone HCl (Dilaudid) 1 mg IV Q3H PRN PRN Reason: Pain , Severe (7-10) Last Admin: 07/12/18 09:22 Dose: 1 mg Documented by: Vancomycin HCl 1,500 mg/ (Sodium Chloride) 530 mls @ 333.333 mls/hr IV Q12H [facility] Last Admin: 07/12/18 05:16 Dose: 333.333 mls/hr Documented by: Lisinopril (Zestril) 40 mg PO QDAY [facility] Last Admin: 07/12/18 09:21 Dose: 40 mg Documented by: Nicotine (Habitrol) 21 mg TD Q24HR [facility] Last Admin: 07/12/18 09:21 Dose: 21 mg Documented by: Ondansetron HCl (Zofran) 4 mg IV Q8H PRN PRN Reason: Nausea And Vomiting Last Admin: 07/12/18 09:22 Dose: 4 mg Documented by: Ondansetron HCl (Zofran Odt) 8 mg PO Q8H PRN PRN Reason: Nausea Last Admin: 07/11/18 23:46 Dose: 8 mg Documented by: Oxycodone/Acetaminophen (Percocet 5/325) 1 tab PO Q6H PRN PRN Reason: Pain, Moderate (4-6) Last Admin: 07/11/18 10:04 Dose: 1 tab Documented by: Promethazine HCl (Phenergan) 25 mg PO Q6HR PRN PRN Reason: Nausea Quetiapine Fumarate (Seroquel) 200 mg PO QHS [facility] Last Admin: 07/11/18 21:05 Dose: 200 mg Documented by: Sodium Chloride (Sodium Chloride Flush Syringe 10 Ml) 10 ml IV BID [facility] Last Admin: 07/11/18 21:06 Dose: 10 ml Documented by: Sodium Chloride (Sodium Chloride Flush Syringe 10 Ml) 10 ml IV PRN PRN PRN Reason: LINE FLUSH Mental Status Exam - Vital signs Last Vital Signs Temp 98.1 F 07/12/18 11:52 Pulse 90 07/12/18 11:52 Resp 20 07/12/18 11:52 BP 140/90 07/12/18 11:52 Pulse Ox 90 07/12/18 11:53 - Exam Narrative exam: MSE: Appearance: calm, cooperative Behavior: regular eye contact Speech: regular rate and tone Mood: "okay" Affect: Congruent to mood Thought Process: circumstantial Thought Content: denies SI/HI's and AVH's Motor Activity: sitting up in bed Cognition: A/O x3 Insight: appropriate Judgment: appropriate Results Result Diagrams: 07/12/18 05:38 07/12/18 05:38 Abnormal lab results 07/12/18 07/12/18 Range/Units 05:38 05:38 WBC 4.1 L (4.5-11.0) K/mm3 RDW 13.1 L (13.2-15.2) % Creatinine 0.3 L (0.7-1.2) mg/dL Glucose 116 H (65-100) mg/dL All other labs normal. Assessment and Plan Assessment and plan: Impression: Hx of Bipolar DO and Anxiety. Cannabis Use DO. Today the patient is calm and cooperative during the assessment. Recommendation/Plan: Continue Seroquel 200 mg PO HS for mood and Xanax 1 mg PO BID PRN for acute anxiety. Discussed SSRI's treatment for anxiety, the patient declined. Discussed possible metabolic side effects of Seroquel with the patient. Psy sign off. Dipso: The patient can follow up with her PCP or [facility] for outpatient psy services. Will staff with Dr Wallace.
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
--- NOTE | 2018-07-12 12:30 | Discharge Summary ---
Providers - Providers Date of Admission: 07/09/18 17:03 Date of discharge: 07/12/18 Attending physician: MACK GALE 07/09/18 17:05 Consult to Physician [CONS] Routine Comment: Consulting Provider: OMAIRA GATICA Physician Instructions: Reason For Exam: thigh abscess 07/10/18 13:43 Consult to Wound/ET Nurse [CONS] Routine Reason For Exam: left groin wound, s/p I&D 07/11/18 13:52 Consult to Mental Health [CONS] Urgent Reason For Exam: psych Place consult to:: retail advertising sales manager energy consultant Notified:: awaiting call back Comment:: fax to [phone] 07/12/18 11:18 Physical Therapy Evaluation and Treat [CONS] Routine Comment: Reason For Exam: difficulty in ambulation Primary care physician: DRYWALL INSTALLER Hospitalization Condition: Stable Hospital course: Patient is 53 yo White Woman with a history of bipolar disorder and chronic pain syndrome who presents with left groin pains and found to have cellulitis with abscess -Left groin MRSA cellulitis and abscess: s/p excisional I-n-D by GS, follow ctx(see below), continue abx -Sepsis, suspected early sepsis due to the above -Bipolar disorder: continue home medication, psych consulted, continue seroquel -Tobacco dependency: advise to stop, offered nicotine patch Disposition: wound culture growing st. aureus, MRSA but already on vanc and in mrsa isolation thanks to the fortuitous thinking of Dr. Gaitca==>home with bactrim [employer] aware: patient received 120 tablets of oxycontin on 07/10/[address] Michell Almonte. Disposition: [id number] HOME UNDER HOME HLTH Time spent for discharge: 35 mintues Core Measure Documentation - Palliative Care Palliative Care/ Comfort Measures: Not Applicable - Core Measures Any of the following diagnoses?: none - VTE Discharge Requirements Deep Vein Thrombosis/Pulmonary Embolism Present on Admission: No Has pt received <5 days of overlap therapy or INR<2.0: No Anticoagulant overlap therapy prescribed at discharge: No Contraindication No Overlap Therapy order at DC: Not Indicated Exam - Physical Exam Narrative exam: Gen: WDWN, NAD, Awake, Alert, Orientated x 3, bmi 41.1 HEENT: NCAT, EOMI, PERRL, OP Clear Neck: supple, no adenopathy, no thyromegaly, no JVD CVS/Heart: RRR, normal S1S2, pulses present bilaterally Chest/Lungs: CTA B, Symmetrical chest expansion, good air entry bilaterally GI/Abdomen: soft, NTND, good bowel sounds, no guarding or rebound /Bladder: no suprapubic tenderness, no CVA or paraspinal tenderness Extermity/Skin: left inner thigh near incision is draining, surrounding erythema is resolving, pt refuses my advise for baths. MSK: FROM x 4 Neuro: CN 2-12 grossly intact, no new focal deficits Psych: calm - Constitutional Vitals: Temp Pulse Resp BP Pulse Ox 98.1 F 90 20 140/90 90 07/12/18 11:52 07/12/18 11:52 07/12/18 11:52 07/12/18 11:52 07/12/18 11:53 Plan Activity: other (no strenous acitivity) Diet: low salt Wound: change dressing, per your surgeon's advice, per wound nurse instructions (CLEANSED WITH WOUND CLEANSER. PACKED WITH MESALT ROPE. COVERED WITH ADHESIVE FOAM. ) Special Instructions: record daily BP diary, smoking cessation, home health RN Additional Instructions: Restart Lisinopril after Bactrim, keep track of bp daily, call PCP if systolic (top) number over 180 Follow up with: PRIMARY CARE,MD [Primary Care Provider] - 3-5 Days OMAIRA GATICA DO [Staff Physician] - 7 Days [facility] Facility [Other] - 3 Days Prescriptions: QUEtiapine [SEROquel] 200 mg PO QHS #30 tablet Albuterol Sulfate [Ventolin HFA] 2 puff IH QDAY PRN #1 hfa.aer.ad PRN Reason: Shortness Of Breath ALPRAZolam [Xanax TAB] 1 mg PO BID PRN #6 tablet PRN Reason: Anxiety Nicotine [Habitrol] 21 mg TD Q24H #30 patch Sulfamethoxazole/Trimethoprim [Bactrim Ds Tablet] 1 each PO BID #14 tablet
[2018-07-12] MEDS: SODIUM CHLORIDE FLUSH SYRINGE 10 ML IV SCH (13:52)
[2018-07-12] MEDS: PERCOCET 5/325 PO PRN (14:34)
[2018-07-12] MEDS ORDERED: VANCOMYCIN 1,500 MG in NACL 0.9% 500 ML 500 ML IV SCH (16:00)
== END 2018-07-12 15:00 | disposition home health service (06) | DRG 854 ==
LOC: ED 14:00 → 3A 17:03
PROVIDERS: ADMIT Internal Medicine; ATTEND Internal Medicine
PROC: 0J9C0ZZ Drainage of Pelvic Region Subcutaneous Tissue and Fascia, Open Approach (ICD-10-PCS; principal; 2018-07-10)
DX: A41.9 Sepsis, unspecified organism (principal); L03.116 Cellulitis of left lower limb; Z68.41 Body mass index [BMI] 40.0-44.9, adult; L02.416 Cutaneous abscess of left lower limb; L02.214 Cutaneous abscess of groin; E66.01 Morbid (severe) obesity due to excess calories; F31.9 Bipolar disorder, unspecified; I10 Essential (primary) hypertension; J44.9 Chronic obstructive pulmonary disease, unspecified; F17.210 Nicotine dependence, cigarettes, uncomplicated; I25.2 Old myocardial infarction; M19.90 Unspecified osteoarthritis, unspecified site; F12.90 Cannabis use, unspecified, uncomplicated; G89.4 Chronic pain syndrome; Z88.0 Allergy status to penicillin; Z95.5 Presence of coronary angioplasty implant and graft; Z90.49 Acquired absence of other specified parts of digestive tract; Z90.710 Acquired absence of both cervix and uterus; Z86.718 Personal history of other venous thrombosis and embolism; Z86.711 Personal history of pulmonary embolism; Z88.8 Allergy status to other drugs, medicaments and biological substances
CPT/HCPCS: 36415; 71045; 80048; 80053; 80076; 80202; 80307; 81001; 82140; 82550; 82553; 83036; 83880; 85025; 85027; 85610; 85730; 87040; 87076; 87086; 87116; 87186; 93005; 93010; 96361; 96374; 96375; 96376; G0378; J1170; J1200; J2060; J2270; J2405; J3370; J7030; J7040; Q0162

== ENCOUNTER 2018-07-15 08:08 | Outpatient (CLI) | payer MEDICAID ==
[2018-07-15] MEDS ORDERED: XYLOCAINE TOPICAL 4% TP ONE (08:11)
== END 2018-07-15 08:09 | disposition home or self-care (01) ==
LOC: WOUND 08:08
PROVIDERS: ATTEND Surgery
DX: S31.104A Unspecified open wound of abdominal wall, left lower quadrant without penetration into peritoneal cavity, initial encounter (principal); L03.314 Cellulitis of groin; I11.0 Hypertensive heart disease with heart failure; I50.9 Heart failure, unspecified; K21.9 Gastro-esophageal reflux disease without esophagitis; J43.9 Emphysema, unspecified; F20.9 Schizophrenia, unspecified; X58.XXXA Exposure to other specified factors, initial encounter; Y93.89 Activity, other specified; Y92.89 Other specified places as the place of occurrence of the external cause; Y99.8 Other external cause status
CPT/HCPCS: 99215; G0463

== ENCOUNTER 2018-08-01 13:11 | Emergency (ER) | payer MEDICAID ==
--- NOTE | 2018-08-01 13:22 | Emergency Department Report ---
Blank Doc - Documentation Documentation: This is a 53-year-old female chest pain in left side radiates to left arm and back. Patient also stated has SOB. Started yesterday. PMH includes NH x2 in 2018, PE, DVT, CHF, asthma, bronchitis Labs, EKG, CXR to be ordered Aspirin given in EMT Sent to Main ED for further evaluation and treatment
--- NOTE | 2018-08-01 13:59 | XRay Report ---
ROUTINE CHEST, TWO VIEWS: HISTORY: chest pain. The trachea, heart, mediastinal contour, lung watters and bony thorax are unremarkable. No significant change since 07/09/18. IMPRESSION: Unremarkable chest x-ray.
[2018-08-01 14:00] LABS: Basophils # (Auto) 0.1 K/mm3 (0.0-0.1); Eosinophils # (Auto) 0.1 K/mm3 (0.0-0.4); Eosinophils % (Auto) 1.8 % (0.0-4.3); Lymphocytes % (Auto) 24.4 % (13.4-35.0); Mean Corpuscular HGB Conc 34 % (30-34); Mean Corpuscular Volume 94 fl (79-97); Monocytes # (Auto) 0.7 K/mm3 (0.0-0.8); Monocytes % (Auto) 8.3 % (0.0-7.3); Platelet Count 233 K/mm3 (140-440); Red Blood Count 4.67 M/mm3 (3.65-5.03); Red Cell Distribution Width 13.4 % (13.2-15.2)
[2018-08-01 14:11] LABS: INR 0.93 (0.87-1.13); Partial Thromboplastin Time 24.7 Sec. (24.2-36.6)
[2018-08-01 14:21] LABS: BUN/Creatinine Ratio 30; Blood Urea Nitrogen 9 mg/dL (7-17); Calcium 9.3 mg/dL (8.4-10.2); Hemolysis Index 8
[2018-08-01] MEDS ORDERED: MORPHINE IV ONE (14:33)
[2018-08-01 15:12] VITALS: BP 120/92
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
[2018-08-01] MEDS ORDERED: DILAUDID IV PRN (15:31)
--- NOTE | 2018-08-01 15:31 | Event Note ---
Date: 08/01/18 Chest pain similar to past ones Extensive work up done Recent Cath and MPI normal Old records reviewed. Chest wall tenderness present Had rtecent fall 5 weeks ago Pain Rt Hip Dx Costochondritis Percocet 7.5/325 po bid prn #14
[2018-08-01] MEDS ORDERED: DILAUDID ONE (15:43)
== END 2018-08-01 15:49 | disposition admitted as inpatient to this hospital (09) ==
LOC: ED 13:11
DX: R07.89 Other chest pain (principal); R06.02 Shortness of breath; I11.0 Hypertensive heart disease with heart failure; I50.9 Heart failure, unspecified; I25.2 Old myocardial infarction; M19.90 Unspecified osteoarthritis, unspecified site; F31.9 Bipolar disorder, unspecified; J44.9 Chronic obstructive pulmonary disease, unspecified; G89.29 Other chronic pain; Z86.718 Personal history of other venous thrombosis and embolism; Z86.711 Personal history of pulmonary embolism; Z90.49 Acquired absence of other specified parts of digestive tract; Z95.5 Presence of coronary angioplasty implant and graft; Z79.899 Other long term (current) drug therapy; Z88.0 Allergy status to penicillin; Z88.1 Allergy status to other antibiotic agents; Z88.6 Allergy status to analgesic agent; Z88.8 Allergy status to other drugs, medicaments and biological substances
CPT/HCPCS: 36415; 71046; 80048; 84484; 85025; 85379; 85610; 85730; 93005; 93010; 96374; 96375; 99284; J1170; J2270

== ENCOUNTER 2018-09-01 11:31 | Inpatient (IN) | payer MEDICAID ==
[2018-09-01] MEDS ORDERED: ASPIRIN PO ONE (12:09)
[2018-09-01] MEDS ORDERED: ZOFRAN IV ONE (12:23)
[2018-09-01] MEDS ORDERED: SUBLIMAZE IV ONE ×2 (12:23→13:18)
[2018-09-01] MEDS ORDERED: NITRO-BID 2% TP ONE (12:23)
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
[2018-09-01] MEDS ORDERED: BENADRYL ONE (12:37)
[2018-09-01 12:52] LABS: Basophils % (Auto) 0.6 % (0.0-1.8); Eosinophils # (Auto) 0.1 K/mm3 (0.0-0.4); Eosinophils % (Auto) 1.4 % (0.0-4.3); Hematocrit 41.3 % (30.3-42.9); Hemoglobin 14.2 gm/dl (10.1-14.3); Lymphocytes # (Auto) 1.6 K/mm3 (1.2-5.4); Lymphocytes % (Auto) 26.7 % (13.4-35.0); Mean Corpuscular HGB Conc 34 % (30-34); Mean Corpuscular Volume 94 fl (79-97); Monocytes # (Auto) 0.5 K/mm3 (0.0-0.8); Platelet Count 195 K/mm3 (140-440); Red Cell Distribution Width 13.7 % (13.2-15.2)
--- NOTE | 2018-09-01 13:01 | XRay Report ---
EXAM: XR CHEST 1V AP HISTORY: Chest Pain TECHNIQUE: AP chest x-ray dated 09/01/2018 at 12:28 PM. COMPARISON: Chest x-ray dated 08/01/2018 FINDINGS: The heart size and mediastinum are within normal limits. The lung watters and costophrenic angles are clear. There is no acute parenchymal infiltrate, pleural effusion, or pneumothorax seen. The visua lized bony structures are within normal limits. IMPRESSION: 1. No evidence for acute cardiopulmonary disease seen. 2. No significant interval change from the previous exam. This document is electronically signed by Gavin Cline MD., September 01 2018 12:59:08 PM ET
[2018-09-01 13:07] LABS: BUN/Creatinine Ratio 30; Blood Urea Nitrogen 9 mg/dL (7-17); Calcium 9.4 mg/dL (8.4-10.2); Hemolysis Index 7
--- NOTE | 2018-09-01 13:19 | History and Physical Report ---
History of Present Illness Chief complaint: Im having pain in my chest History of present illness: 53 YO Female with HTN, MD, Diastolic CHF, DVT/PE not currently on Therapeutic Anticoagulation, OA, Obesity, Seizure DO, Bipolar DO, Asthma, COPD, CAD S/P Stent Placement, Nicotine Dependence, Fibromyalgia, Chronic Pain presents to ED for evaluation. Pt states that she has experienced pain in her chest over the past 1 day with persistent symptoms over the same time period. Pt states that pain is 10/10, Constant, Substernal, Sharp, associated with shortness of breath, associated with nausea and diaphoresis, nonradiating, not worsened with exertion or relieved with rest. Pt acknowledges Orthopnea/PND, Decreased exercise tolerance, Dypsnea on exertion. Pt seen and evaluated in ED and found to have symptoms consistent with CHF Decompensation. Pt admitted to telemetry. Cardiology consulted in ED. Pt denies fever, chills, palpitations, NVD, Syncope, trauma, unintentional weight loss, night sweats, productive cough, or recent ill contacts, prolonged travel/immobility, hemoptysis, or skin rash. Past History Past Medical History: acute MD, arthritis, CAD, COPD, DVT, heart failure, hypertension, pulmonary embolism Past Surgical History: cholecystectomy, hysterectomy, bowel surgery, Other ((Stent Placement)) Social history: single. denies: smoking, alcohol abuse, prescription drug abuse Family history: CAD, diabetes, hypertension Medications and Allergies Allergies Allergy/AdvReac Type Severity Reaction Status Date / Time acetaminophen [From Vicodin] Allergy Hives Verified 08/01/18 13:12 hydrocodone bitartrate Allergy Hives Verified 08/01/18 13:12 [From Vicodin] metoclopramide HCl Allergy Anaphylaxis Verified 08/01/18 13:12 [From Reglan] Penicillins Allergy Swelling Verified 08/01/18 13:12 hydrocodone AdvReac Itching Verified 09/01/18 12:08 naproxen AdvReac Itching Verified 08/01/18 13:12 Home Medications Medication Instructions Recorded Confirmed Last Taken Type Cyanocobalamin [Vitamin B-12] 1,000 mcg IM 2XW 08/20/17 09/01/18 09/01/18 History Folic Acid [Folvite] 1 mg PO DAILY 08/20/17 09/01/18 09/01/18 History Valacyclovir HCl [Valtrex] 1,000 mg PO DAILY 08/20/17 09/01/18 09/01/18 History Gabapentin [Neurontin] 300 mg PO Q8HR #30 capsule 09/19/17 09/01/18 09/01/18 Rx Simvastatin 40 mg PO QDAY #30 tablet 09/19/17 09/01/18 09/01/18 Rx Ondansetron [Zofran ODT TAB] 8 mg PO Q8HR PRN #10 tab.rapdis 11/23/17 09/01/18 09/01/18 Rx Mometasone/Formoterol [Dulera 200 2 puff IH BID #1 hfa.aer.ad 03/15/18 09/01/18 09/01/18 Rx Mcg/5 Mcg Inhaler] ALPRAZolam [Xanax TAB] 1 mg PO BID PRN #6 tablet 07/12/18 09/01/18 09/01/18 Rx Nicotine [Habitrol] 21 mg TD Q24H #30 patch 07/12/18 09/01/18 09/01/18 Rx QUEtiapine [SEROquel] 200 mg PO QHS #30 tablet 07/12/18 09/01/18 09/01/18 Rx Albuterol Sulfate [Ventolin HFA] 2 puff IH DAILY PRN 08/01/18 09/01/18 09/01/18 History Furosemide [Lasix] 40 mg PO DAILY 08/01/18 09/01/18 09/01/18 History Lisinopril [Zestril] 40 mg PO DAILY 08/01/18 09/01/18 09/01/18 History Oxycodone HCl/Acetaminophen 1 each PO Q12H PRN #14 tablet 08/01/18 09/01/18 09/01/18 Rx [Percocet 7.5/325 mg] Pantoprazole [Protonix TAB] 40 mg PO DAILY 08/01/18 09/01/18 09/01/18 History Active Meds: Active Medications Fentanyl (Sublimaze) 50 mcg IV ONCE ONE Stop: 09/01/18 13:19 Review of Systems Cardiovascular: chest pain, orthopnea, shortness of breath, dyspnea on exertion, paroxysmal nocturnal dyspnea, decreased exercise tolerance Respiratory: no cough, no cough with sputum, no excessive sputum, no hemoptysis Gastrointestinal: no abdominal pain, no nausea, no vomiting, no diarrhea Genitourinary Female: no pelvic pain, no flank pain, no menorrhagia, no dysuria, no urinary frequency Rectal: no pain, no incontinence, no bleeding Musculoskeletal: no neck stiffness, no neck pain, no shooting arm pain, no arm numbness/tingling, no low back pain, no shooting leg pain Integumentary: no rash, no pruritis, no redness, no sores, no wounds Neurological: no head injury, no transient paralysis, no paralysis, no weakness, no parathesias, no numbness, no tingling Psychiatric: no anxiety, no memory loss, no change in sleep habits, no sleep dis turbances, no insomnia, no hypersomnia, no change in appetite Endocrine: no cold intolerance, no heat intolerance, no polyphagia, no excessive thirst, no polydipsia, no polyuria Hematologic/Lymphatic: no easy bruising, no easy bleeding, no lymphadenopathy, no lymphedema Allergic/Immunologic: no urticaria, no allergic rhinitis, no wheezing, no persistent infections, no anaphylaxis, no angioedema Exam - Constitutional Vitals: Temp Pulse Resp BP Pulse Ox 98.4 F 102 H 18 153/115 100 09/01/18 12:37 09/01/18 13:02 09/01/18 13:03 09/01/18 13:02 09/01/18 12:37 General appearance: Present: mild distress, obese - EENT Eyes: Present: PERRL ENT: hearing intact, clear oral mucosa - Neck Neck: Present: supple, normal ROM - Respiratory Respiratory effort: labored Respiratory: bilateral: diminished, rhonchi - Cardiovascular Heart Sounds: Present: S1 & S2. Absent: rub, click - Extremities Extremity abnormal: edema Peripheral Pulses: within normal limits - Abdominal General gastrointestinal: Present: soft, non-tender, non-distended, normal bowel sounds Female genitourinary: Present: normal - Integumentary Integumentary: Present: clear, warm, dry - Musculoskeletal Musculoskeletal: gait normal, strength equal bilaterally - Psychiatric Psychiatric: appropriate mood/affect, intact judgment & insight - Neurologic Neurologic: CNII-XII intact, moves all extremities Results - Labs CBC & Chem 7: 09/01/18 12:41 09/01/18 12:41 Labs: Abnormal lab results 09/01/18 09/01/18 Range/Units 12:41 12:41 [place] % (Auto) 9.0 H (0.0-7.3) % Creatinine 0.3 L (0.7-1.2) mg/dL Assessment and Plan - Patient Problems (1) CHF (congestive heart failure) Current Visit: No Status: Acute Qualifiers: Heart failure type: diastolic Heart failure chronicity: acute Qualified Code(s): I50.31 - Acute diastolic (congestive) heart failure Plan to address problem: Admit to telemetry, thyroid panel, strict I/O, daily weight, monitor uop q shift, afterload reduction, monitor bp q shift, chest x ray, bnp, d dimer, cardiology consulted. (2) CAD (coronary artery disease) Current Visit: Yes Status: Acute Qualifiers: Associated angina: with stable angina Plan to address problem: Lipid panel, low cholesterol diet, risk factor reduction, statin therapy (3) Bipolar 1 disorder Current Visit: No Status: Acute Plan to address problem: continue current therapy, supportive care, mental health consult. (4) HTN (hypertension) Current Visit: Yes Status: Acute Qualifiers: Hypertension type: essential hypertension Qualified Code(s): I10 - Essential (primary) hypertension Plan to address problem: Monitor bp q shift, continue medical management. (5) COPD (chronic obstructive pulmonary disease) Current Visit: Yes Status: Acute Plan to address problem: supplemental oxygen, nebulizer therapy, pulse oximetry, early ambulation (6) DVT prophylaxis Current Visit: No Status: Acute Plan to address problem: SCD to BLE while in bed.
[2018-09-01] MEDS ORDERED: NITROSTAT SL PRN (13:21)
[2018-09-01] MEDS ORDERED: TYLENOL PO PRN (13:21)
[2018-09-01] MEDS ORDERED: SODIUM CHLORIDE FLUSH SYRINGE 10 ML IV PRN ×2 (13:21)
[2018-09-01] MEDS ORDERED: ZOFRAN IV PRN (13:21)
[2018-09-01] MEDS ORDERED: BABY ASPIRIN PO STA (13:21)
[2018-09-01] MEDS ORDERED: PROVENTIL IH PRN (13:21)
[2018-09-01 14:02] LABS: Chol/HDL Ratio 3.15 %
[2018-09-01] MEDS ORDERED: BENADRYL IV ONE (15:00)
[2018-09-01] MEDS ORDERED: DILAUDID ONE (15:22)
[2018-09-01] MEDS ORDERED: DILAUDID IV ONE (16:03)
[2018-09-01] MEDS: MORPHINE IV PRN (21:06)
[2018-09-01] MEDS ORDERED: SODIUM CHLORIDE FLUSH SYRINGE 10 ML IV SCH (22:00)
[2018-09-02] MEDS: MORPHINE IV PRN ×2 (01:57→06:55)
[2018-09-02 06:31] LABS: BUN/Creatinine Ratio 37; Blood Urea Nitrogen 11 mg/dL (7-17); Calcium 8.9 mg/dL (8.4-10.2); Hemolysis Index 5
--- NOTE | 2018-09-02 08:01 | Progress Note ---
Assessment and Plan (1) CHF (congestive heart failure) Current Visit: No Status: Acute Qualifiers: Heart failure type: diastolic Heart failure chronicity: acute Qualified Code(s): I50.31 - Acute diastolic (congestive) heart failure Plan to address problem: Continue with strict I/O, daily weight, monitor uop q shift, afterload reduction, monitor bp q shift, chest x ray, bnp, d dimer, Follow-up with TSH cardiology consulted. (2) CAD (coronary artery disease) Current Visit: Yes Status: Acute Qualifiers: Associated angina: with stable angina Plan to address problem: Lipid panel, low cholesterol diet, risk factor reduction, statin therapy (3) Bipolar 1 disorder Current Visit: No Status: Acute Plan to address problem: continue current therapy, supportive care, mental health consult. (4) HTN (hypertension) Current Visit: Yes Status: Acute Qualifiers: Hypertension type: essential hypertension Qualified Code(s): I10 - Essential (primary) hypertension Plan to address problem: Monitor bp q shift, continue medical management. (5) COPD (chronic obstructive pulmonary disease) Current Visit: Yes Status: Acute Plan to address problem: supplemental oxygen, nebulizer therapy, pulse oximetry, early ambulation (6) DVT prophylaxis Current Visit: No Status: Acute Plan to address problem: SCD to BLE while in bed. [employer] Subjective Date of service: 09/02/18 Principal diagnosis: acute on chronic systolic heart failure, COPD exacerbation, CAD, HTN. Interval history: Patient seen and examined. Complains of occasional chest shortness of breath Objective - Exam Narrative Exam: Constitutional: Well-nourished well-developed. In no distress Head: Normocephalic atraumatic Eyes: Pupils are equal round and reactive to light Nose: No enlarged turbinates, no septal deviation. Mouth: Moist mucous membranes. Neck: Supple no thyromegaly. No bruit. No JVD Heart: Regular rate and rhythm, S1-S2 normal. No rubs murmurs or gallop Lungs: Decreased breath sounds bilaterally. no rales or rhonchi Abdomen: Soft, nontender. Bowel sound are present. Extremities: No edema, no cyanosis, no clubbing. Neuro: Alert oriented Oriented x3. No focal sensory or motor deficit. Skin: No rashes or hyperpigmented spots Musculoskeletal system: No joint pain or swelling Hematological: No petechia or subcutanous hemorrhages. Immunological: No multiple septic spots on the skin Lymphatic: No generalized lymphadenopathy Psychiatry: Euthymic. Calm. - Constitutional Vitals: Vital Signs - 12hr 09/01/18 09/01/18 09/01/18 22:00 23:05 23:21 Temperature 97.5 F L Pulse Rate 76 Respiratory 20 18 Rate Blood Pressure 100/52 O2 Sat by Pulse 98 97 95 Oximetry 09/02/18 09/02/18 04:10 04:11 Temperature 97.7 F Pulse Rate 73 77 Respiratory 18 Rate Blood Pressure 131/69 O2 Sat by Pulse 93 Oximetry - Labs CBC & Chem 7: 09/01/18 12:41 09/02/18 05:02 Labs: Abnormal lab results 09/01/18 09/01/18 09/02/18 Range/Units 12:41 12:41 05:02 [place] % (Auto) 9.0 H (0.0-7.3) % Creatinine 0.3 L 0.3 L (0.7-1.2) mg/dL Glucose 107 H (65-100) mg/dL
[2018-09-02 08:28] VITALS: BP 119/59
--- NOTE | 2018-09-02 10:12 | Consultation ---
History of Present Illness Consult date: 09/02/18 Consult reason: chest pain History of present illness: Patient is a 53 year old woman who is admitted with atypical chest pain. Chest x-ray is negative. Cardiac enzymes are normal and her ECG is benign. Patient has had extensive cardiac workup in the past including 2 cardiac cath in 2010 and in 2015 showing normal coronaries. April 2017, she underwent a thallium stress test that documents a normal myocardial perfusion. An echocardiogram a year ago showed a normal left ventricular systolic function with an ejection fraction 55- 60%. Past History Social history: single. denies: smoking, alcohol abuse, prescription drug abuse Family history: CAD, diabetes, hypertension Medications and Allergies Allergies Allergy/AdvReac Type Severity Reaction Status Date / Time acetaminophen [From Vicodin] Allergy Hives Verified 08/01/18 13:12 hydrocodone bitartrate Allergy Hives Verified 08/01/18 13:12 [From Vicodin] metoclopramide HCl Allergy Anaphylaxis Verified 08/01/18 13:12 [From Reglan] Penicillins Allergy Swelling Verified 08/01/18 13:12 hydrocodone AdvReac Itching Verified 09/01/18 12:08 naproxen AdvReac Itching Verified 08/01/18 13:12 Home Medications Medication Instructions Recorded Confirmed Last Taken Type Cyanocobalamin [Vitamin B-12] 1,000 mcg IM 2XW 08/20/17 09/01/18 09/01/18 History Folic Acid [Folvite] 1 mg PO DAILY 08/20/17 09/01/18 09/01/18 History Valacyclovir HCl [Valtrex] 1,000 mg PO DAILY 08/20/17 09/01/18 09/01/18 History Gabapentin [Neurontin] 300 mg PO Q8HR #30 capsule 09/19/17 09/01/18 09/01/18 Rx Simvastatin 40 mg PO QDAY #30 tablet 09/19/17 09/01/18 09/01/18 Rx Ondansetron [Zofran ODT TAB] 8 mg PO Q8HR PRN #10 tab.rapdis 11/23/17 09/01/18 09/01/18 Rx Mometasone/Formoterol [Dulera 200 2 puff IH BID #1 hfa.aer.ad 03/15/18 09/01/18 09/01/18 Rx Mcg/5 Mcg Inhaler] ALPRAZolam [Xanax TAB] 1 mg PO BID PRN #6 tablet 07/12/18 09/01/18 09/01/18 Rx Nicotine [Habitrol] 21 mg TD Q24H #30 patch 07/12/18 09/01/18 09/01/18 Rx QUEtiapine [SEROquel] 200 mg PO QHS #30 tablet 07/12/18 09/01/18 09/01/18 Rx Albuterol Sulfate [Ventolin HFA] 2 puff IH DAILY PRN 08/01/18 09/01/18 09/01/18 History Furosemide [Lasix] 40 mg PO DAILY 08/01/18 09/01/18 09/01/18 History Lisinopril [Zestril] 40 mg PO DAILY 08/01/18 09/01/18 09/01/18 History Oxycodone HCl/Acetaminophen 1 each PO Q12H PRN #14 tablet 08/01/18 09/01/18 09/01/18 Rx [Percocet 7.5/325 mg] Pantoprazole [Protonix TAB] 40 mg PO DAILY 08/01/18 09/01/18 09/01/18 History Active Meds: Active Medications Acetaminophen (Tylenol) 650 mg PO Q4H PRN PRN Reason: Pain MILD(1-3)/Fever >100.5/[place] Last Admin: 09/02/18 04:49 Dose: 650 mg Documented by: Albuterol (Proventil) 2.5 mg IH Q4HRT PRN PRN Reason: Shortness Of Breath Enoxaparin Sodium (Lovenox) 40 mg SUB-Q QDAY@2200 [facility] Morphine Sulfate (Morphine) 2 mg IV Q4H PRN PRN Reason: Pain, Moderate (4-6) Last Admin: 09/02/18 06:55 Dose: 2 mg Documented by: Nitroglycerin (Nitrostat) 0.4 mg SL Q5M PRN PRN Reason: Chest Pain Ondansetron HCl (Zofran) 4 mg IV Q8H PRN PRN Reason: Nausea And Vomiting Sodium Chloride (Sodium Chloride Flush Syringe 10 Ml) 10 ml IV BID [facility] Last Admin: 09/01/18 21:08 Dose: 10 ml Documented by: Sodium Chloride (Sodium Chloride Flush Syringe 10 Ml) 10 ml IV PRN PRN PRN Reason: LINE FLUSH Sodium Chloride (Sodium Chloride Flush Syringe 10 Ml) 10 ml IV PRN PRN PRN Reason: LINE FLUSH Physical Examination Vital Signs Temp Pulse Resp BP Pulse Ox 98.4 F 102 H 18 153/115 100 09/01/18 12:37 09/01/18 12:37 09/01/18 12:37 09/01/18 12:37 09/01/18 12:37 Results 09/01/18 12:41 09/02/18 05:02 Lipids 09/01/18 Range/Units 12:41 Triglycerides 90 (2-149) mg/dL Cholesterol 142 (50-199) mg/dL HDL Cholesterol 45 (40-59) mg/dL Cholesterol/HDL Ratio 3.15 % CBC 09/01/18 Range/Units 12:41 WBC 5.9 (4.5-11.0) K/mm3 RBC 4.40 (3.65-5.03) M/mm3 Hgb 14.2 (10.1-14.3) gm/dl Hct 41.3 (30.3-42.9) % Plt Count 195 (140-440) K/mm3 Lymph # 1.6 (1.2-5.4) K/mm3 [place] # 0.5 (0.0-0.8) K/mm3 Eos # 0.1 (0.0-0.4) K/mm3 Baso # 0.0 (0.0-0.1) K/mm3 Comprehensive Metabolic Panel 09/01/18 09/02/18 Range/Units 12:41 05:02 Sodium 139 140 (137-145) mmol/L Potassium 4.2 4.2 (3.6-5.0) mmol/L Chloride 101.5 102.4 (98-107) mmol/L Carbon Dioxide 25 24 (22-30) mmol/L BUN 9 11 (7-17) mg/dL Creatinine 0.3 L 0.3 L (0.7-1.2) mg/dL Glucose 92 107 H (65-100) mg/dL Calcium 9.4 8.9 (8.4-10.2) mg/dL Assessment and Plan Atypical chest pain COPD
[2018-09-02] MEDS ORDERED: LOVENOX SUB-Q SCH (22:00)
--- NOTE | 2018-11-01 15:43 | Discharge Summary ---
Date of leaving against medical advice was 09/02/2018. HISTORY OF PRESENT ILLNESS: The patient is a 53-year-old female, who has a history of diastolic heart failure, hypertension, myocardial infarction, DVT, PE and has been off anticoagulation; osteoarthritis, obesity, seizure disorder, bipolar disorder, asthma, COPD, coronary artery disease, status post stents placement, nicotine dependence, fibromyalgia, and chronic pain, presented to the Emergency Department on 09/01/2018, for chest pain of 1 day duration. The pain was noted to be a 10/10. On admission, the patient was commenced oxygen, nitroglycerin, aspirin, and morphine. Serial cardiac enzymes were ordered. The report was 2 sets were normal. Chest x-ray and EKG were unremarkable for any acute event. The patient was scheduled for stress test given her past history. However, the patient left against medical advice from the Emergency Department. DIAGNOSES: At time of discharge and has left against medical advice were: 1. Diastolic heart failure. 2. Coronary artery disease. 3. Bipolar disorder. 4. Hypertension. 5. Chronic obstructive pulmonary disease. JOB# [id number] OO/NTS
== END 2018-09-02 08:00 | disposition home or self-care (01) | DRG 292 ==
LOC: ED 11:31 → 4A 14:51
PROVIDERS: ADMIT Internal Medicine; ATTEND Family Medicine
DX: I11.0 Hypertensive heart disease with heart failure (principal); Z68.41 Body mass index [BMI] 40.0-44.9, adult; I50.31 Acute diastolic (congestive) heart failure; I25.118 Atherosclerotic heart disease of native coronary artery with other forms of angina pectoris; F31.9 Bipolar disorder, unspecified; J44.9 Chronic obstructive pulmonary disease, unspecified; M19.90 Unspecified osteoarthritis, unspecified site; E66.9 Obesity, unspecified; G40.909 Epilepsy, unspecified, not intractable, without status epilepticus; M79.7 Fibromyalgia; G89.29 Other chronic pain; I25.2 Old myocardial infarction; Z86.718 Personal history of other venous thrombosis and embolism; Z86.711 Personal history of pulmonary embolism; Z95.5 Presence of coronary angioplasty implant and graft; Z90.710 Acquired absence of both cervix and uterus; Z90.49 Acquired absence of other specified parts of digestive tract; Z83.3 Family history of diabetes mellitus; Z82.49 Family history of ischemic heart disease and other diseases of the circulatory system; Z88.0 Allergy status to penicillin; Z88.5 Allergy status to narcotic agent; Z79.899 Other long term (current) drug therapy
CPT/HCPCS: 36415; 71045; 80048; 80061; 83880; 84484; 85025; 85379; 93005; 93010; 96374; 96375; 99285; G0378; J1170; J1200; J2270; J2405; J3010

== ENCOUNTER 2018-10-15 10:56 | Emergency (ER) | payer MEDICAID ==
[2018-10-15] MEDS ORDERED: DUONEB *Not for PRN Use IH ONE ×2 (13:07→15:54)
--- NOTE | 2018-10-15 13:36 | XRay Report ---
AP CHEST: HISTORY: Dyspnea Borderline heart size and central pulmonary veins are identified. The lungs are clear. No evidence for pneumonia, CHF or pneumothorax. The bony structures are grossly intact. IMPRESSION: Borderline heart size and pulmonary vessels.
[2018-10-15 13:45] LABS: Basophils % (Auto) 0.6 % (0.0-1.8); Eosinophils # (Auto) 0.1 K/mm3 (0.0-0.4); Eosinophils % (Auto) 2.2 % (0.0-4.3); Hematocrit 41.1 % (30.3-42.9); Hemoglobin 13.7 gm/dl (10.1-14.3); Lymphocytes # (Auto) 1.2 K/mm3 (1.2-5.4); Lymphocytes % (Auto) 22.4 % (13.4-35.0); Mean Corpuscular HGB Conc 33 % (30-34); Mean Corpuscular Volume 96 fl (79-97); Monocytes # (Auto) 0.4 K/mm3 (0.0-0.8); Monocytes % (Auto) 7.4 % (0.0-7.3); Platelet Count 191 K/mm3 (140-440); Red Blood Count 4.28 M/mm3 (3.65-5.03); Red Cell Distribution Width 13.8 % (13.2-15.2)
[2018-10-15 14:08] LABS: Alanine Aminotransferase 37 units/L (7-56); Albumin 3.5 g/dL (3.9-5); BUN/Creatinine Ratio 37; Blood Urea Nitrogen 11 mg/dL (7-17); Calcium 9.1 mg/dL (8.4-10.2); Hemolysis Index 56
[2018-10-15] MEDS ORDERED: KIONEX PR ONE (14:22)
[2018-10-15] MEDS ORDERED: HumuLIN R IV ONE (14:22)
[2018-10-15] MEDS ORDERED: D50W (25GM) Syringe IV ONE (14:23)
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
[2018-10-15] MEDS ORDERED: MORPHINE ONE (14:45)
[2018-10-15] MEDS ORDERED: MORPHINE IV ONE (14:45)
[2018-10-15] MEDS ORDERED: CALCIUM GLUCONATE 1,000 MG in NACL 0.9% 100 ML IV ONE (15:22)
[2018-10-15 16:30] VITALS: BP 155/84
== END 2018-10-15 16:25 | disposition home or self-care (01) ==
LOC: ED 10:56
DX: J40 Bronchitis, not specified as acute or chronic (principal); E87.5 Hyperkalemia; I11.0 Hypertensive heart disease with heart failure; I50.9 Heart failure, unspecified; M19.90 Unspecified osteoarthritis, unspecified site; F31.9 Bipolar disorder, unspecified; F41.9 Anxiety disorder, unspecified; G89.29 Other chronic pain; J44.9 Chronic obstructive pulmonary disease, unspecified; F17.200 Nicotine dependence, unspecified, uncomplicated; Z86.718 Personal history of other venous thrombosis and embolism; Z86.711 Personal history of pulmonary embolism; Z95.5 Presence of coronary angioplasty implant and graft; Z90.49 Acquired absence of other specified parts of digestive tract; Z98.890 Other specified postprocedural states; Z90.710 Acquired absence of both cervix and uterus; Z88.6 Allergy status to analgesic agent; Z88.5 Allergy status to narcotic agent; Z88.8 Allergy status to other drugs, medicaments and biological substances; Z88.0 Allergy status to penicillin
CPT/HCPCS: 36415; 71045; 80053; 84132; 85025; 93005; 93010; 96374; 96375; 99285; J0610; J2270; J1815

== ENCOUNTER 2018-11-24 12:43 | Inpatient (IN) | payer MEDICAID ==
[2018-11-24] MEDS ORDERED: NACL 0.9% 250ML 250 ML IV ONE (13:20)
[2018-11-24] MEDS ORDERED: HALDOL IM ONE (13:20)
[2018-11-24] MEDS ORDERED: HALDOL ONE (13:22)
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
[2018-11-24 13:37] LABS: BUN/Creatinine Ratio 30; Blood Urea Nitrogen 9 mg/dL (7-17); Calcium 9.6 mg/dL (8.4-10.2); Hemolysis Index 7
[2018-11-24] MEDS ORDERED: DILAUDID IM ONE (13:45)
--- NOTE | 2018-11-24 14:01 | XRay Report ---
PROCEDURE: XR CHEST 1V AP TECHNIQUE: Frontal chest radiograph. HISTORY: Chest Pain COMPARISONS: 10/13/2018. FINDINGS: The cardiomediastinal silhouette is normal. No consolidation. No pleural effusion. No pneumothorax. No acute osseous abnormality. IMPRESSION: No acute process in the chest. This document is electronically signed by Swati Pittman., November 24 2018 02:58:22 PM ET
[2018-11-24 14:03] LABS: Basophils # (Auto) 0.1 K/mm3 (0.0-0.1); Basophils % (Auto) 0.7 % (0.0-1.8); Eosinophils % (Auto) 0.1 % (0.0-4.3); Hematocrit 43.2 % (30.3-42.9); Hemoglobin 14.7 gm/dl (10.1-14.3); Lymphocytes # (Auto) 1.4 K/mm3 (1.2-5.4); Lymphocytes % (Auto) 8.6 % (13.4-35.0); Mean Corpuscular HGB Conc 34 % (30-34); Mean Corpuscular Volume 94 fl (79-97); Monocytes # (Auto) 1.3 K/mm3 (0.0-0.8); Platelet Count 247 K/mm3 (140-440); Red Cell Distribution Width 13.5 % (13.2-15.2)
[2018-11-24 14:12] LABS: INR 1.05 (0.87-1.13)
[2018-11-24 14:13] LABS: Partial Thromboplastin Time 26.8 Sec. (24.2-36.6)
[2018-11-24] MEDS ORDERED: NACL 0.9% 1000 ML IV ONE (14:29)
[2018-11-24] MEDS ORDERED: GEODON IM ONE ×2 (14:43→14:50)
[2018-11-24] MEDS ORDERED: DILAUDID IV ONE (14:57)
[2018-11-24] MEDS ORDERED: CLEOCIN 600 MG/50 mL 600 MG/50 ML BAG IV SCH (15:00)
--- NOTE | 2018-11-24 15:10 | Vascular Lab Report ---
PROCEDURE: VL VENOUS DUPLEX UE LT TECHNIQUE: Duplex Doppler sonography of the left upper extremity . Calero scale imaging with and witho ut compression, spectral waveform analysis with and without augmentation, and color flow Doppler were employed. HISTORY: lue pain swelling COMPARISONS: None FINDINGS: Today's study is limited due to motion artifact. Patient was unable to cooperate fully with the exam. Deep Venous Thrombus: None Superficial Venous Thrombus: None Venous valvular incompetence: None Soft tissue abnormality: None IMPRESSION: No evidence of deep venous thrombosis This document is electronically signed by Angel Murillo MD., November 24 2018 04:08:11 PM ET
--- NOTE | 2018-11-24 15:16 | XRay Report ---
PROCEDURE: XR FOREARM LT, XR HUMERUS 2+V LT TECHNIQUE: 2 views left humerus. 2 views left forearm. Combined dictation. HISTORY: left arm pain include elbow COMPARISONS: None FINDINGS: Glenohumeral joint demonstrates normal alignment. Humerus is intact without acute abnormality. No fracture. No periosteal reaction Elbow demonstrates normal joint space. Normal alignment. The radius and ulna are intact without acute abnormality No radiopaque foreign body. No soft tissue gas IMPRESSION: No acute bony abnormality No soft tissue radiopaque foreign body or gas.. This document is electronically signed by Reji Reyna MD., November 24 2018 04:14:27 PM ET
[2018-11-24] MEDS ORDERED: CARAFATE PO ONE (16:31)
[2018-11-24] MEDS ORDERED: TORADOL IV ONE (16:39)
[2018-11-24] MEDS ORDERED: BENTYL PO ONE (17:00)
[2018-11-24] MEDS ORDERED: LIDODERM 5% TD STA (18:30)
--- NOTE | 2018-11-24 21:29 | Cat Scan Report ---
PROCEDURE: CT ABDOMEN PELVIS W CON TECHNIQUE: Computerized axial tomography of the abdomen and pelvis was performed after the IV inject ion of iodinated nonionic contrast. CT DOSE LENGTH PRODUCT: 3088.1 mGycm HISTORY: abd pain n/v/d COMPARISONS: None . FINDINGS: Visualized lower thorax: No significant abnormality. Liver: Normal size and attenuation. Spleen: Normal size and attenuation. Gallbladder and biliary system: There has been a cholecystectomy. The common bile duct is dilated.. Pancreas: Normal. Adrenals: Normal. Kidneys: Normal. GI tract: There is no bowel obstruction, colitis or enteritis. The appendix is not identified. There is no indirect evidence of appendicitis. . Lymph nodes and mesentery: Normal. Vasculature: There is calcified plaque in the abdominal aorta. There is no aneurysm.. Bladder: Normal. Reproductive organs: There has been a hysterectomy. Peritoneum: There is no ascites or free air, abscess or adenopathy. There has been ventral hernia repair surgery. There is a residual or recurrent hernia without bowel i ncarceration. The hernia mesh is intact. Musculoskeletal structures: No significant abnormality. IMPRESSION: There has been a cholecystectomy. The common bile duct is dilated. There is no bowel obstruction, colitis or enteritis. The appendix is not identified. There is no tian rect evidence of appendicitis. There has been a hysterectomy. There is no ascites or free air, abscess or adenopathy. There has been ventral hernia repair surgery. There is a residual or recurrent hernia without bowel i ncarceration. The hernia mesh is intact. This document is electronically signed by Shaka Smith MD., November 24 2018 10:27:09 PM ET
--- NOTE | 2018-11-24 21:34 | Cat Scan Report ---
PROCEDURE: CT UPPER EXTREMITY WITH AND WITHOUT CONTRAST TECHNIQUE: Computerized axial tomography was performed of the LEFT upper extremity before and after the IV injection of iodinated nonionic contrast. Automated exposure control, adjustment of mA and/or kV according to patient size, or iterative reconstruction dose optimization techniques were utilized . CPT G9637, 27426 HISTORY: Pain and swelling COMPARISONS: None . FINDINGS: Bony structures including marrow spaces: Normal . Neurovascular structures: Normal . Soft tissues: There is nonspecific subcutaneous induration of the proximal and distal portions of th e extremity suggesting cellulitis. There is swelling of the muscles of the upper arm which could be d ue to myositis. There is no discrete subcutaneous or intramuscular mass or fluid collection to sugges t hematoma or abscess. . IMPRESSION: There is nonspecific subcutaneous induration of the proximal and distal portions of the extremity sug gesting cellulitis. There is swelling of the muscles of the upper arm which could be due to myositis. There is no discrete subcutaneous or intramuscular mass or fluid collection to suggest hematoma or a bscess. . There is no bony or vascular abnormality.. This document is electronically signed by Shaka Smith MD., November 24 2018 10:32:19 PM ET
[2018-11-24] MEDS: PERCOCET 5/325 PO PRN (22:25)
[2018-11-24] MEDS ORDERED: ZOFRAN IV PRN (22:50)
[2018-11-24] MEDS ORDERED: TYLENOL PO PRN (22:50)
[2018-11-24] MEDS ORDERED: PROVENTIL IH PRN (22:50)
--- NOTE | 2018-11-24 22:50 | History and Physical Report ---
History of Present Illness Chief complaint: My arm hurts History of present illness: 53 YO Female with HTN, MD, Diastolic CHF, DVT/PE not currently on Therapeutic Anticoagulation, OA, Obesity, Seizure DO, Bipolar DO, Asthma, COPD, CAD S/P Stent Placement, Nicotine Dependence, Fibromyalgia, Chronic Pain presents to ED for evaluation. Pt states that she has experienced redness, and pain to her left arm over the past 1 day with persistent symptoms over the same time period. Pt states that pain is 10/10, Constant, worsened with movement, and palpation. EMS notified, and upon arrival the patient found to be in distress. Pt transported to [facility]. Pt seen and evaluated in ED and found to have symptoms LUE Cellulitis co mplicated by SIRS. Pt admitted to medical floor and initiated on IV antibiotic therapy. Pt denies fever, chills, palpitations, NVD, Syncope, trauma, unintentional weight loss, night sweats, productive cough, or recent ill contacts, prolonged travel/immobility, hemoptysis, or skin rash. Prior admission on 10/02/18 reviewed. All listed medication reconciled at time of admission. Past History Past Medical History: acute MD, arthritis, CAD, COPD, DVT, hypertension, pulmonary embolism Past Surgical History: hysterectomy, bowel surgery, Other (Right Thumb, Right Leg) Social history: single, smoking. denies: alcohol abuse, prescription drug abuse Family history: CAD, hypertension Medications and Allergies Allergies Allergy/AdvReac Type Severity Reaction Status Date / Time hydrocodone bitartrate Allergy Hives Verified 08/01/18 13:12 [From Vicodin] metoclopramide HCl Allergy Anaphylaxis Verified 08/01/18 13:12 [From Reglan] Penicillins Allergy Swelling Verified 08/01/18 13:12 hydrocodone AdvReac Itching Verified 09/01/18 12:08 naproxen AdvReac Itching Verified 08/01/18 13:12 Home Medications Medication Instructions Recorded Confirmed Last Taken Type Gabapentin [Neurontin] 300 mg PO Q8HR #30 capsule 09/19/17 11/25/18 09/01/18 Rx Simvastatin 40 mg PO QDAY #30 tablet 09/19/17 11/25/18 09/01/18 Rx Nicotine [Habitrol] 21 mg TD Q24H #30 patch 07/12/18 11/25/18 09/01/18 Rx ALBUTEROL Inhaler (OR & NICU) 2 puff IH Q4HR PRN #1 inhalation 10/15/18 11/25/18 Unknown Rx [ProAir HFA Inhaler] Benzonatate [Tessalon Perles] 100 mg PO Q8HR PRN #20 capsule 10/15/18 11/25/18 Unknown Rx Fluticasone [Flonase] 1 spray NS QDAY #1 bottle 10/15/18 11/25/18 Unknown Rx Ondansetron [Zofran Odt] 4 mg PO Q8HR PRN #20 tab.rapdis 11/24/18 Unknown Rx ALBUTEROL NEB's [Proventil 0.083% 2.5 mg IH Q4HRT PRN #15 nebu 11/30/18 Unknown Rx NEBS] ALPRAZolam [Xanax TAB] 1 mg PO TID PRN #15 tablet 11/30/18 Unknown Rx Cyanocobalamin [Vitamin B-12] 1,000 mcg IM Fr #4 vial 11/30/18 Unknown Rx Doxycycline Monohydrate 100 mg PO BID #10 capsule 11/30/18 Unknown Rx [Doxycycline Monohydrate CAP] Folic Acid [Folvite] 1 mg PO DAILY #30 11/30/18 11/25/18 09/01/18 Rx Furosemide [Lasix TAB] 40 mg PO DAILY #30 tablet 11/30/18 Unknown Rx Lisinopril [Zestril TAB] 40 mg PO DAILY #30 tablet 11/30/18 Unknown Rx Melatonin [Melatonin 5MG TAB] 5 mg PO QHS PRN #30 tablet 11/30/18 Unknown Rx Mometasone/Formoterol [Dulera 200 2 puff IH BID #1 hfa.aer.ad 11/30/18 Unknown Rx Mcg/5 Mcg Inhaler] Nystatin Oint [Mycostatin Oint] 1 applic TP TID 7 Days #1 tube 11/30/18 Unknown Rx Pantoprazole [Protonix TAB] 40 mg PO DAILY #30 11/30/18 11/25/18 09/01/18 Rx QUEtiapine [SEROquel] 200 mg PO QHS #30 tablet 11/30/18 Unknown Rx Valacyclovir HCl [Valtrex] 1,000 mg PO DAILY #30 06/08/19 06/03/19 03/10/19 Rx Warfarin [Coumadin] 5 mg PO DAILY@1700 #30 tablet 11/30/18 Unknown Rx buPROPion SR [Wellbutrin SR] 150 mg PO DAILY #30 tablet 11/30/18 Unknown Rx cephALEXin [Keflex] 500 mg PO QID #20 capsule 11/30/18 Unknown Rx oxyCODONE /ACETAMINOPHEN [Percocet 2 tab PO Q4H PRN #4 tablet 11/30/18 Unknown Rx 5/325 mg] Active Meds: Active Medications Oxycodone/Acetaminophen (Percocet 5/325) 1 tab PO Q6H PRN PRN Reason: Pain, Moderate (4-6) Last Admin: 11/24/18 22:25 Dose: 1 tab Documented by: Review of Systems Constitutional: no weight loss, no weight gain, no fever, no chills Ears, nose, mouth and throat: no ear pain, no ear discharge, no tinnitis, no decreased hearing, no nose pain, no nasal congestion, no sinus pressure Breasts: no change in shape, no swelling, no mass Cardiovascular: no chest pain, no orthopnea, no rapid/irregular heart beat Respiratory: no cough, no cough with sputum, no excessive sputum, no hemoptysis, no shortness of breath Gastrointestinal: no abdominal pain, no nausea, no vomiting, no diarrhea, no constipation, no hematemesis Genitourinary Female: no pelvic pain, no flank pain, no menorrhagia, no dysuria, no urinary frequency Rectal: no pain, no incontinence, no bleeding Musculoskeletal: no neck stiffness, no neck pain, no shooting arm pain, no arm numbness/tingling, no low back pain, no shooting leg pain Integumentary: no rash, no pruritis, no sores, no wounds, no jaundice Neurological: no head injury, no paralysis, no weakness, no parathesias, no numbness, no tingling, no seizures, no tremors Psychiatric: no anxiety, no hypersomnia, no change in libido, no disorientation, no hallucinations Endocrine: no cold intolerance, no heat intolerance, no polyphagia, no excessive thirst, no nocturia Hematologic/Lymphatic: no easy bruising, no easy bleeding Allergic/Immunologic: no urticaria, no allergic rhinitis, no wheezing Exam - Constitutional Vitals: Temp Pulse Resp BP Pulse Ox 99.5 F 103 H 14 157/97 95 06/02/19 12:55 11/24/18 20:30 11/24/18 20:30 11/24/18 20:30 11/24/18 20:30 General appearance: Present: mild distress, obese - EENT Eyes: Present: PERRL ENT: hearing intact, clear oral mucosa - Neck Neck: Present: supple, normal ROM - Respiratory Respiratory effort: normal Respiratory: bilateral: CTA - Cardiovascular Heart Sounds: Present: S1 & S2. Absent: rub, click - Extremities Extremities: pulses symmetrical, No edema Peripheral Pulses: within normal limits - Abdominal General gastrointestinal: Present: soft, non-tender, non-distended, normal bowel sounds Female genitourinary: Present: normal - Integumentary Integumentary: Present: warm, erythema (LUE) - Musculoskeletal Musculoskeletal: gait normal, strength equal bilaterally - Psychiatric Psychiatric: appropriate mood/affect, intact judgment & insight, agitated, depressed - Neurologic Neurologic: CNII-XII intact, moves all extremities Results - Labs CBC & Chem 7: 11/27/18 Unknown 11/27/18 Unknown Labs: Abnormal lab results 11/24/18 11/24/18 Range/Units 13:05 13:05 WBC 16.5 H (4.5-11.0) K/mm3 Hgb 14.7 H (10.1-14.3) gm/dl Hct 43.2 H (30.3-42.9) % Lymph % (Auto) 8.6 L (13.4-35.0) % [place] % (Auto) 8.0 H (0.0-7.3) % [place] # 1.3 H (0.0-0.8) K/mm3 Seg Neutrophils % 82.6 H (40.0-70.0) % Seg Neutrophils # 13.6 H (1.8-7.7) K/mm3 Creatinine 0.3 L (0.7-1.2) mg/dL Glucose 153 H (65-100) mg/dL Assessment and Plan - Patient Problems (1) Left arm cellulitis Status: Acute Plan to address problem: IV antibiotic therpay, CBC, CT LUE, pain control, (2) SIRS (systemic inflammatory response syndrome) Status: Acute Plan to address problem: IV antibiotic therapy, CBC, CMP, Urinalysis, chest x ray, IVF resuscitation therapy. (3) Psychosis Status: Acute Qualifiers: Schizoaffective disorder type: bipolar Plan to address problem: Mental health consulted, (4) History of DVT (deep vein thrombosis) Status: Acute Plan to address problem: Continue therapeutic anticoagulation. Pt noncompliant with coumadin therapy. (5) Bipolar 1 disorder Status: Acute (6) DVT prophylaxis Status: Acute Plan to address problem: SCD to BLE while in bed, therapeutic anticoagulation
[2018-11-24] MEDS ORDERED: XANAX PO PRN (22:52)
[2018-11-24] MEDS ORDERED: TESSALON PERLES PO PRN (22:52)
[2018-11-24] MEDS ORDERED: ZOFRAN ODT PO PRN ×2 (22:52→23:45)
[2018-11-24] MEDS: HABITROL TD SCH (23:00)
[2018-11-25] MEDS: PERCOCET 5/325 PO PRN ×5 (04:31→23:16)
[2018-11-25] MEDS: IBUPROFEN PO PRN ×2 (05:08→16:38)
[2018-11-25] MEDS: NEURONTIN PO SCH ×3 (05:08→22:04)
[2018-11-25] MEDS: CLEOCIN 300 MG/50 mL 300 MG/50 ML BAG IV SCH ×2 (05:09)
[2018-11-25 06:29] LABS: Basophils # (Auto) 0.1 K/mm3 (0.0-0.1); Basophils % (Auto) 0.4 % (0.0-1.8); Eosinophils % (Auto) 0.2 % (0.0-4.3); Hemoglobin 13.7 gm/dl (10.1-14.3); Lymphocytes # (Auto) 1.3 K/mm3 (1.2-5.4); Lymphocytes % (Auto) 6.7 % (13.4-35.0); Mean Corpuscular HGB Conc 34 % (30-34); Mean Corpuscular Volume 94 fl (79-97); Monocytes # (Auto) 1.2 K/mm3 (0.0-0.8); Monocytes % (Auto) 6.3 % (0.0-7.3); Platelet Count 189 K/mm3 (140-440); Red Blood Count 4.24 M/mm3 (3.65-5.03); Red Cell Distribution Width 13.6 % (13.2-15.2)
[2018-11-25 06:50] LABS: Alanine Aminotransferase 17 units/L (7-56); Albumin 3.5 g/dL (3.9-5); BUN/Creatinine Ratio 20; Blood Urea Nitrogen 6 mg/dL (7-17); Calcium 8.7 mg/dL (8.4-10.2); Hemolysis Index 14
--- NOTE | 2018-11-25 09:03 | Progress Note ---
Assessment and Plan Assessment and plan: Sepsis. Patient meets criteria given the leukocytosis, tachycardia and diagnosis of cellulitis. Continue IV antibiotics and follow-up blood cultures. Left arm cellulitis. CT scan of the left upper extremity reveals subcutaneous induration of the proximal and distal portions of the left extremity suggesting cellulitis. There is swelling of the muscles of the upper arm which could be due to myositis. There is no discrete subcutaneous or intramuscular mass or fluid collection to suggest hematoma or abscess. Upper extremity Doppler negative for DVT. Continue IV antibiotics and consider ID consultation. Psychosis/bipolar 1 disorder. Mental health evaluation pending. History of DVT/PE. Continue anticoagulation. Patient has been noncompliant with Coumadin therapy. Patient was started on Lovenox twice a day on admission. Coumadin per pharmacy. Obesity. Patient will need to be counseled on diet and exercise prior to discharge. Seizure disorder. Seizure precautions. History CAD status post stent placement. Diastolic CHF. Compensated. Continue lisinopril and Lasix. History Interval history: No new issues overnight. Hospitalist Physical - Constitutional Vitals: Temp Pulse Resp BP Pulse Ox 98.5 F 89 22 128/69 96 11/25/18 06:31 11/25/18 06:31 11/25/18 06:31 11/25/18 06:31 11/25/18 08:05 General appearance: Present: no acute distress, obese - EENT Eyes: Present: PERRL, EOM intact ENT: hearing intact, clear oral mucosa, dentition normal - Neck Neck: Present: supple, normal ROM - Respiratory Respiratory effort: normal Respiratory: bilateral: CTA - Cardiovascular Rhythm: regular Heart Sounds: Present: S1 & S2. Absent: gallop, rub - Extremities Extremities: no ischemia, Full ROM Extremity abnormal: edema (left upper extremity), erythema (left upper extremity), tenderness (left upper extremity) - Abdominal General gastrointestinal: soft, non-tender, non-distended, normal bowel sounds - Integumentary Integumentary: Present: clear, warm, dry - Neurologic Neurologic: CNII-XII intact, moves all extremities Results - Labs CBC & Chem 7: 11/25/18 06:02 11/25/18 06:02 Labs: Laboratory Last Values WBC 19.3 K/mm3 (4.5-11.0) H 11/25/18 06:02 RBC 4.24 M/mm3 (3.65-5.03) 11/25/18 06:02 Hgb 13.7 gm/dl (10.1-14.3) 11/25/18 06:02 Hct 40.0 % (30.3-42.9) 11/25/18 06:02 MCV 94 fl (79-97) 11/25/18 06:02 MCH 32 pg (28-32) 11/25/18 06:02 MCHC 34 % (30-34) 11/25/18 06:02 RDW 13.6 % (13.2-15.2) 11/25/18 06:02 Plt Count 189 K/mm3 (140-440) 11/25/18 06:02 Lymph % (Auto) 6.7 % (13.4-35.0) L 11/25/18 06:02 [place] % (Auto) 6.3 % (0.0-7.3) 11/25/18 06:02 Eos % (Auto) 0.2 % (0.0-4.3) 11/25/18 06:02 Baso % (Auto) 0.4 % (0.0-1.8) 11/25/18 06:02 Lymph # 1.3 K/mm3 (1.2-5.4) 11/25/18 06:02 [place] # 1.2 K/mm3 (0.0-0.8) H 11/25/18 06:02 Eos # 0.0 K/mm3 (0.0-0.4) 11/25/18 06:02 Baso # 0.1 K/mm3 (0.0-0.1) 11/25/18 06:02 Seg Neutrophils % 86.4 % (40.0-70.0) H 11/25/18 06:02 Seg Neutrophils # 16.7 K/mm3 (1.8-7.7) H 11/25/18 06:02 PT 14.4 Sec. (12.2-14.9) 11/24/18 13:05 INR 1.05 (0.87-1.13) 11/24/18 13:05 APTT 26.8 Sec. (24.2-36.6) 11/24/18 13:05 193.21 ng/mlDDU (0-234) 11/24/18 13:05 Sodium 141 mmol/L (137-145) 11/25/18 06:02 Potassium 3.7 mmol/L (3.6-5.0) 11/25/18 06:02 Chloride 105.1 mmol/L (98-107) 11/25/18 06:02 Carbon Dioxide 24 mmol/L (22-30) 11/25/18 06:02 16 mmol/L 11/25/18 06:02 BUN 6 mg/dL (7-17) L 11/25/18 06:02 0.3 mg/dL (0.7-1.2) L 11/25/18 06:02 Estimated GFR > 60 ml/min 11/25/18 06:02 20 % 11/25/18 06:02 Glucose 170 mg/dL (65-100) H 11/25/18 06:02 Lactic Acid 1.80 mmol/L (0.7-2.0) 11/24/18 17:05 Calcium 8.7 mg/dL (8.4-10.2) 11/25/18 06:02 1.00 mg/dL (0.1-1.2) 11/25/18 06:02 AST 16 units/L (5-40) 11/25/18 06:02 ALT 17 units/L (7-56) 11/25/18 06:02 82 units/L (35-129) 11/25/18 06:02 40 units/L (30-135) 11/24/18 13:26 < 0.010 ng/mL (0.00-0.029) 11/24/18 17:05 6.7 g/dL (6.3-8.2) 11/25/18 06:02 3.5 g/dL (3.9-5) L 11/25/18 06:02 1.1 % 11/25/18 06:02 Active Medications - Current Medications Current Medications: Generic Name Dose Route Start Last Admin Trade Name Freq PRN Reason Stop Dose Admin Acetaminophen 650 mg 11/24/18 22:50 Tylenol PO Q4H PRN Pain MILD(1-3)/Fever >100.5/[place] Albuterol 2.5 mg 11/24/18 22:50 Proventil IH Q4HRT PRN Shortness Of Breath Alprazolam 1 mg 11/24/18 22:52 Xanax PO BID PRN Anxiety Benzonatate 100 mg 11/24/18 22:52 Tessalon Perles PO Q8H PRN Cough Cyanocobalamin 1,000 mcg 11/26/18 10:00 Vitamin B-12 IM Tu [facility] Cyanocobalamin 1,000 mcg 11/29/18 10:00 Vitamin B-12 IM Fr [facility] Enoxaparin Sodium 80 mg 11/25/18 10:00 Lovenox SUB-Q Q12HR [place] Enoxaparin Sodium 30 mg 11/25/18 10:00 Lovenox SUB-Q Q12HR [facility] Fluticasone Propionate 50 mcg 11/25/18 10:00 Flonase NS QDAY [facility] Folic Acid 1 mg 11/25/18 10:00 Folvite PO DAILY [facility] Furosemide 40 mg 11/25/18 10:00 Lasix PO DAILY [facility] Gabapentin 300 mg 11/25/18 06:00 11/25/18 05:08 Neurontin PO 300 mg Q8HR [facility] Administration Clindamycin HCl 300 mg in 50 mls @ 100 mls/hr 11/25/18 00:00 11/25/18 05:09 Cleocin 300 Mg/50 Ml IV 100 mls/hr Q6HR [facility] Administration Protocol Ibuprofen 800 mg 11/24/18 22:52 11/25/18 05:08 Ibuprofen PO 800 mg Q8H PRN Administration Pain (1-3) Lisinopril 40 mg 11/25/18 10:00 Zestril PO DAILY [facility] Nicotine 21 mg 11/24/18 23:00 11/24/18 23:00 Habitrol TD 21 mg Q24H [facility] Administration Ondansetron HCl 4 mg 11/24/18 22:50 Zofran IV Q8H PRN Nausea And Vomiting Ondansetron HCl 8 mg 11/24/18 23:45 Zofran Odt PO Q8H PRN Nausea Oxycodone/Acetaminophen 1 tab 11/24/18 22:15 11/25/18 04:31 Percocet 5/325 PO 1 tab Q6H PRN Administration Pain, Moderate (4-6) Pantoprazole Sodium 40 mg 11/25/18 10:00 Protonix PO DAILY [facility] Pravastatin Sodium 80 mg 11/25/18 22:00 Pravachol PO QHS [facility] Quetiapine Fumarate 200 mg 11/25/18 22:00 Seroquel PO QHS [facility] Quetiapine Fumarate 100 mg 11/25/18 22:00 Seroquel PO QHS [facility] Sodium Chloride 10 ml 11/25/18 10:00 Sodium Chloride Flush Syringe 10 Ml IV BID [facility] Sodium Chloride 10 ml 11/24/18 22:50 Sodium Chloride Flush Syringe 10 Ml IV PRN PRN LINE FLUSH Valacyclovir HCl 1,000 mg 11/25/18 10:00 Valtrex PO DAILY [facility] Warfarin Sodium 5 mg 11/25/18 17:00 Coumadin PO QDAY@1700 [facility] Protocol
[2018-11-25] MEDS: LOVENOX SUB-Q SCH ×4 (09:35→22:04)
[2018-11-25] MEDS: ZESTRIL PO SCH (09:35)
[2018-11-25] MEDS: PROTONIX PO SCH (09:35)
[2018-11-25] MEDS: VALTREX PO SCH (09:35)
[2018-11-25] MEDS: FOLVITE PO SCH (09:36)
[2018-11-25] MEDS: SODIUM CHLORIDE FLUSH SYRINGE 10 ML IV SCH ×2 (09:36→22:39)
[2018-11-25] MEDS: LASIX PO SCH (09:36)
[2018-11-25] MEDS: CLEOCIN 600 MG/50 mL 600 MG/50 ML BAG IV SCH ×2 (13:44→22:03)
--- NOTE | 2018-11-25 14:59 | Consultation ---
History of Present Illness - Reason for Consult Consult date: 11/25/18 Reason for consult: Mental Health EValuation Requesting physician: LINH QUEEN - Chief Complaint Chief complaint: "I will be okay" - History of Present Psychiatric Illness 53 y.o. white female who presented to the ER for several complaints. Psychiatry was consulted to see the patient for possible psychosis. Today the patient is calm and cooperative during the assessment. She stated that her daughter was murdered last month and its been tough for her. She denies being depressed, but stated that its really hard dealing with her daughter's' . She stated that she do not have a psychiatrist nor a therapist at this time. She stated that she was dx with a mood dx in the past. She stated that her PCP manage her Seroquel and Xanax. She stated that she take 6 mg of Xanax a day. She was asked if she would like to be detoxed off Xanax, she declined. She denies SI/HI's and AVH's. She denies erratic sleep and a poor appetite. She denies recreational drug use and alcohol consumption (etoh). Medications and Allergies Allergies Allergy/AdvReac Type Severity Reaction Status Date / Time hydrocodone bitartrate Allergy Hives Verified 08/01/18 13:12 [From Vicodin] metoclopramide HCl Allergy Anaphylaxis Verified 08/01/18 13:12 [From Reglan] Penicillins Allergy Swelling Verified 08/01/18 13:12 hydrocodone AdvReac Itching Verified 09/01/18 12:08 naproxen AdvReac Itching Verified 08/01/18 13:12 Home Medications Medication Instructions Recorded Confirmed Last Taken Type Cyanocobalamin [Vitamin B-12] 1,000 mcg IM 2XW 08/20/17 11/25/18 09/01/18 History Folic Acid [Folvite] 1 mg PO DAILY 08/20/17 11/25/18 09/01/18 History Valacyclovir HCl [Valtrex] 1,000 mg PO DAILY 08/20/17 11/25/18 09/01/18 History Gabapentin [Neurontin] 300 mg PO Q8HR #30 capsule 09/19/17 11/25/18 09/01/18 Rx Simvastatin 40 mg PO QDAY #30 tablet 09/19/17 11/25/18 09/01/18 Rx Ondansetron [Zofran ODT TAB] 8 mg PO Q8HR PRN #10 tab.rapdis 11/23/17 11/25/18 09/01/18 Rx Mometasone/Formoterol [Dulera 200 2 puff IH BID #1 hfa.aer.ad 03/15/18 11/25/18 09/01/18 Rx Mcg/5 Mcg Inhaler] ALPRAZolam [Xanax TAB] 1 mg PO BID PRN #6 tablet 07/12/18 11/25/18 09/01/18 Rx Nicotine [Habitrol] 21 mg TD Q24H #30 patch 07/12/18 11/25/18 09/01/18 Rx Albuterol Sulfate [Ventolin HFA] 2 puff IH DAILY PRN 08/01/18 11/25/18 09/01/18 History Furosemide [Lasix] 40 mg PO DAILY 08/01/18 11/25/18 09/01/18 History Lisinopril [Zestril] 40 mg PO DAILY 08/01/18 11/25/18 09/01/18 History Oxycodone HCl/Acetaminophen 1 each PO Q12H PRN #14 tablet 08/01/18 11/25/18 09/01/18 Rx [Percocet 7.5/325 mg] Pantoprazole [Protonix TAB] 40 mg PO DAILY 08/01/18 11/25/18 09/01/18 History QUEtiapine [SEROquel] 300 mg PO QHS 10/10/18 11/25/18 Unknown History Warfarin [Coumadin] 5 mg PO QDAY 10/10/18 11/25/18 Unknown History ALBUTEROL Inhaler (OR & NICU) 2 puff IH Q4HR PRN #1 inhalation 10/15/18 11/25/18 Unknown Rx [ProAir HFA Inhaler] Azithromycin [Zithromax Z-LUCIO] 250 mg PO DAILY #6 tablet 10/15/18 11/25/18 Unknown Rx Benzonatate [Tessalon Perles] 100 mg PO Q8HR PRN #20 capsule 10/15/18 11/25/18 Unknown Rx Fluticasone [Flonase] 1 spray NS QDAY #1 bottle 10/15/18 11/25/18 Unknown Rx Ibuprofen [Motrin] 800 mg PO Q8HR PRN #30 tablet 10/15/18 11/25/18 Unknown Rx Clindamycin [Clindamycin CAP] 300 mg PO Q6H #28 capsule 11/24/18 Unknown Rx Ibuprofen [Motrin] 600 mg PO Q8H PRN #30 tablet 11/24/18 Unknown Rx Ondansetron [Zofran Odt] 4 mg PO Q8HR PRN #20 tab.rapdis 11/24/18 Unknown Rx Active Meds: Active Medications Acetaminophen (Tylenol) 650 mg PO Q4H PRN PRN Reason: Pain MILD(1-3)/Fever >100.5/[place] Albuterol (Proventil) 2.5 mg IH Q4HRT PRN PRN Reason: Shortness Of Breath Alprazolam (Xanax) 1 mg PO TID [facility] Benzonatate (Tessalon Perles) 100 mg PO Q8H PRN PRN Reason: Cough Cyanocobalamin (Vitamin B-12) 1,000 mcg IM Tu [facility] Cyanocobalamin (Vitamin B-12) 1,000 mcg IM Fr [facility] Enoxaparin Sodium (Lovenox) 80 mg SUB-Q Q12HR [facility] Last Admin: 11/25/18 09:35 Dose: 80 mg Documented by: Enoxaparin Sodium (Lovenox) 30 mg SUB-Q Q12HR [facility] Last Admin: 11/25/18 09:35 Dose: 30 mg Documented by: Fluticasone Propionate (Flonase) 50 mcg NS QDAY [facility] Folic Acid (Folvite) 1 mg PO DAILY [facility] Last Admin: 11/25/18 09:36 Dose: 1 mg Documented by: Furosemide (Lasix) 40 mg PO DAILY [facility] Last Admin: 11/25/18 09:36 Dose: 40 mg Documented by: Gabapentin (Neurontin) 300 mg PO Q8HR [facility] Last Admin: 11/25/18 13:37 Dose: 300 mg Documented by: Clindamycin HCl (Cleocin 600 Mg/50 Ml) 600 mg in 50 mls @ 100 mls/hr IV Q8HR [facility] Last Admin: 11/25/18 13:44 Dose: 100 mls/hr Documented by: Ibuprofen (Ibuprofen) 800 mg PO Q8H PRN PRN Reason: Pain (1-3) Last Admin: 11/25/18 05:08 Dose: 800 mg Documented by: Lisinopril (Zestril) 40 mg PO DAILY [facility] Last Admin: 11/25/18 09:35 Dose: 40 mg Documented by: Nicotine (Habitrol) 21 mg TD Q24H [facility] Last Admin: 11/24/18 23:00 Dose: 21 mg Documented by: Ondansetron HCl (Zofran) 4 mg IV Q8H PRN PRN Reason: Nausea And Vomiting Ondansetron HCl (Zofran Odt) 8 mg PO Q8H PRN PRN Reason: Nausea Oxycodone/Acetaminophen (Percocet 5/325) 1 tab PO Q4H PRN PRN Reason: Pain, Moderate (4-6) Last Admin: 11/25/18 13:37 Dose: 1 tab Documented by: Pantoprazole Sodium (Protonix) 40 mg PO DAILY [facility] Last Admin: 11/25/18 09:35 Dose: 40 mg Documented by: Pravastatin Sodium (Pravachol) 80 mg PO QHS [facility] Quetiapine Fumarate (Seroquel) 200 mg PO QHS [facility] Sodium Chloride (Sodium Chloride Flush Syringe 10 Ml) 10 ml IV BID [facility] Last Admin: 11/25/18 09:36 Dose: 10 ml Documented by: Sodium Chloride (Sodium Chloride Flush Syringe 10 Ml) 10 ml IV PRN PRN PRN Reason: LINE FLUSH Valacyclovir HCl (Valtrex) 1,000 mg PO DAILY [facility] Last Admin: 11/25/18 09:35 Dose: 1,000 mg Documented by: Warfarin Sodium (Coumadin) 7.5 mg PO DAILY@1700 [facility] Past psychiatric history - Past Medical History Past Medical History: COPD, DVT Past Surgical History: cholecystectomy, Other (Coronary stents) - past Psychiatric treatment and history psychiatric treatment history: Hx of Mood DO. denies a fam psy hx. - Social History Social history: lives with family Mental Status Exam - Vital signs Last Vital Signs Temp 98.2 F 11/25/18 12:16 Pulse 100 H 11/25/18 12:16 Resp 20 11/25/18 12:16 BP 138/78 11/25/18 12:16 Pulse Ox 93 11/25/18 12:16 - Exam Narrative exam: MSE: Appearance: duglas, cooperative Behavior: poor eye contact Speech: regular rate and tone Mood: "okay" Affect: congruent to mood Thought Process: linear Thought Content: denies SI/HI's and AVH's Motor Activity: sitting up in bed Cognition: A/O x3 Insight: appropriate Judgment: appropriate Results Result Diagrams: 11/26/18 06:40 11/25/18 06:02 Abnormal lab results 11/25/18 11/25/18 Range/Units 06:02 06:02 WBC 19.3 H (4.5-11.0) K/mm3 Lymph % (Auto) 6.7 L (13.4-35.0) % [place] # 1.2 H (0.0-0.8) K/mm3 Seg Neutrophils % 86.4 H (40.0-70.0) % Seg Neutrophils # 16.7 H (1.8-7.7) K/mm3 BUN 6 L (7-17) mg/dL Creatinine 0.3 L (0.7-1.2) mg/dL Glucose 170 H (65-100) mg/dL Albumin 3.5 L (3.9-5) g/dL All other labs normal. Assessment and Plan Assessment and plan: Impression: No overt psychosis with the patient. Adjustment DO. Unspecified Anxiety DO. Hx of Mood DO. Today the patient was calm and cooperative during the assessment. DDx: R/O MDD Recommendation/Plan: Modified home medications Seroquel and Xanax. Start Seroquel 200 mg PO HS for mood and Xanax 1 mg PO TID for anxiety. Discussed possible metabolic side effects of Seroquel with the patient. she verbalized understanding. Educated the patient on risks/benefits of benzos, she verbalized understanding. Do not admin Xanax and Percocet concurrently. Will follow up with the patient in 24 hours. Dispo: The patient can follow up with [facility] for outpatient psy services when discharged. Staffed with Dr Felicita Donaldson.
[2018-11-25] MEDS: FLONASE NS SCH (15:57)
[2018-11-25] MEDS: COUMADIN PO SCH (16:39)
[2018-11-25] MEDS ORDERED: COUMADIN PO SCH (17:00)
[2018-11-25] MEDS: PRAVACHOL PO SCH (22:06)
[2018-11-25] MEDS: HABITROL TD SCH (22:38)
[2018-11-25] MEDS: XANAX PO SCH (22:38)
[2018-11-26] MEDS: CLEOCIN 600 MG/50 mL 600 MG/50 ML BAG IV SCH ×2 (05:59→14:30)
[2018-11-26] MEDS: NEURONTIN PO SCH ×3 (05:59→22:40)
[2018-11-26] MEDS: PERCOCET 5/325 PO PRN ×4 (06:03→20:23)
[2018-11-26] MEDS: XANAX PO SCH ×3 (07:00→20:23)
[2018-11-26 07:21] LABS: Basophils # (Auto) 0.1 K/mm3 (0.0-0.1); Basophils % (Auto) 1.1 % (0.0-1.8); Eosinophils # (Auto) 0.3 K/mm3 (0.0-0.4); Eosinophils % (Auto) 2.8 % (0.0-4.3); Hematocrit 37.9 % (30.3-42.9); Hemoglobin 12.8 gm/dl (10.1-14.3); Lymphocytes # (Auto) 1.5 K/mm3 (1.2-5.4); Lymphocytes % (Auto) 13.7 % (13.4-35.0); Mean Corpuscular HGB Conc 34 % (30-34); Mean Corpuscular Volume 95 fl (79-97); Monocytes # (Auto) 0.8 K/mm3 (0.0-0.8); Monocytes % (Auto) 7.8 % (0.0-7.3); Platelet Count 178 K/mm3 (140-440); Red Blood Count 4.01 M/mm3 (3.65-5.03); Red Cell Distribution Width 13.7 % (13.2-15.2)
[2018-11-26 07:31] LABS: INR 1.22 (0.87-1.13)
[2018-11-26 07:46] LABS: BUN/Creatinine Ratio 20; Blood Urea Nitrogen 8 mg/dL (7-17); Calcium 8.3 mg/dL (8.4-10.2); Hemolysis Index 0
[2018-11-26] MEDS: VITAMIN B-12 IM SCH (09:25)
[2018-11-26] MEDS: LOVENOX SUB-Q SCH ×4 (09:26→22:39)
[2018-11-26] MEDS: VALTREX PO SCH (09:27)
[2018-11-26] MEDS: ZESTRIL PO SCH (09:27)
[2018-11-26] MEDS: SODIUM CHLORIDE FLUSH SYRINGE 10 ML IV SCH ×2 (09:27→22:40)
[2018-11-26] MEDS: FOLVITE PO SCH (09:27)
[2018-11-26] MEDS: LASIX PO SCH (09:27)
[2018-11-26] MEDS: PROTONIX PO SCH (09:27)
[2018-11-26] MEDS: FLONASE NS SCH (10:00)
[2018-11-26] MEDS ORDERED: VANCOMYCIN PHARMACY TO DOSE IV SCH (10:00)
[2018-11-26] MEDS ORDERED: VANCOMYCIN 2,000 MG in NACL 0.9% 500 ML 500 ML IV ONE (11:30)
--- NOTE | 2018-11-26 13:51 | Progress Note ---
Subjective - Reason for Consult Consult date: 11/26/18 Reason for consult: Psychiatry Follow-up - Chief Complaint Chief complaint: "I am depressed" 53 y.o. white female who presented to the ER for several complaints. Psychiatry was consulted to see the patient for possible psychosis. Today the patient is calm and cooperative during the assessment. She stated that she is "depressed" about the the of her daughter. Also, she stated that she lack "energy." She rate her depression 6/10, with 10 being the worse. She denies SI/HI's and AVH's. She denies any side effects of medications. Mental Status Exam - Vital signs Last Vital Signs Temp 99.0 F 11/26/18 12:21 Pulse 92 H 11/26/18 12:21 Resp 16 11/26/18 12:21 BP 114/60 11/26/18 12:21 Pulse Ox 91 11/26/18 12:21 - Exam Narrative exam: MSE: Appearance: calm, cooperative Behavior: regular eye contact Speech: regular rate and tone Mood: "sad, depressed" Affect: congruent to mood Thought Process: linear Thought Content: denies SI/HI's and AVH's Motor Activity: sitting up in bed Cognition: A/O x3 Insight: appropriate Judgment: appropriate Assessment and Plan Impression: Unspecified Anxiety DO. Hx of Mood DO. Today the patient was calm and cooperative during the assessment. DDx: MDD Recommendation/Plan: Continue home medications Seroquel 200 mg PO HS for mood and Xanax 1 mg PO TID for anxiety. Start Wellbutrin 150 mg POO daily for depression. Discussed possible metabolic side effects of Seroquel with the patient. she verbalized understanding. Discussed possible suicidality/medication induiced emery with the patient reference Wellbutrin, she verbalized understandi ng. Educated the patient on risks/benefits of benzos, she verbalized understanding. Do not admin Xanax and Percocet concurrently. Will follow up with the patient in 24 hours. Dispo: The patient can follow up with [facility] for outpatient psy services when discharged. Staffed with Dr Felicita Donaldson.
--- NOTE | 2018-11-26 15:05 | Progress Note ---
Assessment and Plan Assessment and plan: Patient is a 53 yo woman with a history of HTN, MA, Diastolic CHF, DVT/PE not currently on Therapeutic Anticoagulation, OA, Obesity, Seizure DO, Bipolar DO, Asthma, COPD, CAD S/P Stent Placement, Nicotine Dependence, Fibromyalgia, Chronic Pain presents to ED with left arm cellulitis. Sepsis, poa. Patient meets criteria given the leukocytosis, tachycardia and diagnosis of cellulitis. Continue IV antibiotics and follow-up blood cultures. Left arm cellulitis. CT scan of the left upper extremity reveals subcutaneous induration of the proximal and distal portions of the left extremity suggesting cellulitis. There is swelling of the muscles of the upper arm which could be due to myositis. There is no discrete subcutaneous or intramuscular mass or fluid collection to suggest hematoma or abscess. Upper extremity Doppler negative for DVT. Continue IV antibiotics and consider ID consultation. Not improving, change iv clinda to iv vancomycin and consult ID Psychosis/bipolar 1 disorder. Mental health evaluation pending. History of DVT/PE. Continue anticoagulation. Patient has been noncompliant with Coumadin therapy. Patient was started on Lovenox twice a day on admission. Coumadin per pharmacy. Obesity. Patient will need to be counseled on diet and exercise prior to discharge. Seizure disorder. Seizure precautions. History CAD status post stent placement. Diastolic CHF. Compensated. Continue lisinopril and Lasix. History Interval history: Patient was seen and examined. Follow-up on current diagnosis of Left Upper cellulitis. No overnight events reported to me. Patient denies any chest pain, shortness breath, nausea/vomiting or severe headaches. Imaging, nursing note, chart, labs and old chart reviewed. Discussed with patient. Hospitalist Physical - Physical exam Narrative exam: Gen: WDWN, NAD, Awake, Alert, Orientated x 3, BMI 40.3 HEENT: NCAT, EOMI, PERRL, OP Clear Neck: supple, no adenopathy, no thyromegaly, no JVD CVS/Heart: RRR, normal S1S2, pulses present bilaterally Chest/Lungs: CTA B, Symmetrical chest exddfpansion, good air entry bilaterally GI/Abdomen: soft, NTND, good bowel sounds, no guarding or rebound /Bladder: no suprapubic tenderness, no CVA or paraspinal tenderness Extermity/Skin: left circumferential bicep to wrist red, tender, warm and erythematous MSK: FROM x 4 Neuro: CN 2-12 grossly intact, no new focal deficits Psych: calm - Constitutional Vitals: Temp Pulse Resp BP Pulse Ox 99.0 F 92 H 16 114/60 91 11/26/18 12:21 11/26/18 12:21 11/26/18 12:21 11/26/18 12:21 11/26/18 12:21 General appearance: Present: no acute distress, obese Results - Labs CBC & Chem 7: 11/26/18 06:40 11/26/18 06:40 Labs: Laboratory Last Values WBC 10.8 K/mm3 (4.5-11.0) 11/26/18 06:40 RBC 4.01 M/mm3 (3.65-5.03) 11/26/18 06:40 Hgb 12.8 gm/dl (10.1-14.3) 11/26/18 06:40 Hct 37.9 % (30.3-42.9) 11/26/18 06:40 MCV 95 fl (79-97) 11/26/18 06:40 MCH 32 pg (28-32) 11/26/18 06:40 MCHC 34 % (30-34) 11/26/18 06:40 RDW 13.7 % (13.2-15.2) 11/26/18 06:40 Plt Count 178 K/mm3 (140-440) 11/26/18 06:40 Lymph % (Auto) 13.7 % (13.4-35.0) 11/26/18 06:40 [place] % (Auto) 7.8 % (0.0-7.3) H 11/26/18 06:40 Eos % (Auto) 2.8 % (0.0-4.3) 11/26/18 06:40 Baso % (Auto) 1.1 % (0.0-1.8) 11/26/18 06:40 Lymph # 1.5 K/mm3 (1.2-5.4) 11/26/18 06:40 [place] # 0.8 K/mm3 (0.0-0.8) 11/26/18 06:40 Eos # 0.3 K/mm3 (0.0-0.4) 11/26/18 06:40 Baso # 0.1 K/mm3 (0.0-0.1) 11/26/18 06:40 Seg Neutrophils % 74.6 % (40.0-70.0) H 11/26/18 06:40 Seg Neutrophils # 8.0 K/mm3 (1.8-7.7) H 11/26/18 06:40 PT 16.2 Sec. (12.2-14.9) H 11/26/18 06:40 INR 1.22 (0.87-1.13) H 11/26/18 06:40 APTT 26.8 Sec. (24.2-36.6) 11/24/18 13:05 193.21 ng/mlDDU (0-234) 11/24/18 13:05 Sodium 138 mmol/L (137-145) 11/26/18 06:40 Potassium 3.1 mmol/L (3.6-5.0) L 11/26/18 06:40 Chloride 102.8 mmol/L (98-107) 11/26/18 06:40 Carbon Dioxide 22 mmol/L (22-30) 11/26/18 06:40 16 mmol/L 11/26/18 06:40 BUN 8 mg/dL (7-17) 11/26/18 06:40 0.4 mg/dL (0.7-1.2) L 11/26/18 06:40 Estimated GFR > 60 ml/min 11/26/18 06:40 20 % 11/26/18 06:40 Glucose 188 mg/dL (65-100) H 11/26/18 06:40 Lactic Acid 1.80 mmol/L (0.7-2.0) 11/24/18 17:05 Calcium 8.3 mg/dL (8.4-10.2) L 11/26/18 06:40 1.00 mg/dL (0.1-1.2) 11/25/18 06:02 AST 16 units/L (5-40) 11/25/18 06:02 ALT 17 units/L (7-56) 11/25/18 06:02 82 units/L (35-129) 11/25/18 06:02 40 units/L (30-135) 11/24/18 13:26 < 0.010 ng/mL (0.00-0.029) 11/24/18 17:05 6.7 g/dL (6.3-8.2) 11/25/18 06:02 3.5 g/dL (3.9-5) L 11/25/18 06:02 1.1 % 11/25/18 06:02 Active Medications - Current Medications Current Medications: Generic Name Dose Route Start Last Admin Trade Name Freq PRN Reason Stop Dose Admin Albuterol 2.5 mg 11/24/18 22:50 Proventil IH Q4HRT PRN Shortness Of Breath Alprazolam 1 mg 11/25/18 22:00 11/26/18 14:33 Xanax PO 1 mg TID ANGELINA Administration Benzonatate 100 mg 11/24/18 22:52 Tessalon Perles PO Q8H PRN Cough Bupropion HCl 150 mg 11/26/18 15:30 Wellbutrin Sr PO DAILY ANGELINA Cyanocobalamin 1,000 mcg 11/26/18 10:00 11/26/18 09:25 Vitamin B-12 IM 1,000 mcg Tu ANGELINA Administration Cyanocobalamin 1,000 mcg 11/29/18 10:00 Vitamin B-12 IM [facility] Enoxaparin Sodium 80 mg 11/25/18 10:00 11/26/18 09:28 Lovenox SUB-Q 80 mg Q12HR ANGELINA Administration Enoxaparin Sodium 30 mg 11/25/18 10:00 11/26/18 09:26 Lovenox SUB-Q 30 mg Q12HR ANGELINA Administration Fluticasone Propionate 50 mcg 11/25/18 10:00 11/26/18 10:00 Flonase NS 50 mcg QDAY ANGELINA Administration Folic Acid 1 mg 11/25/18 10:00 11/26/18 09:27 Folvite PO 1 mg DAILY ANGELINA Administration Furosemide 40 mg 11/25/18 10:00 11/26/18 09:27 Lasix PO 40 mg DAILY ANGELINA Administration Gabapentin 300 mg 11/25/18 06:00 11/26/18 14:33 Neurontin PO 300 mg Q8HR ANGELINA Administration Vancomycin HCl 1,500 mg/ 530 mls @ 333.333 mls/hr 11/27/18 00:00 Sodium Chloride IV Q12H ANGELINA Lisinopril 40 mg 11/25/18 10:00 11/26/18 09:27 Zestril PO 40 mg DAILY ANGELINA Administration Nicotine 21 mg 11/24/18 23:00 11/25/18 22:38 Habitrol TD 21 mg Q24H ANGELINA Administration Ondansetron HCl 4 mg 11/24/18 22:50 Zofran IV Q8H PRN Nausea And Vomiting Ondansetron HCl 8 mg 11/24/18 23:45 Zofran Odt PO Q8H PRN Nausea Pantoprazole Sodium 40 mg 11/25/18 10:00 11/26/18 09:27 Protonix PO 40 mg DAILY ANGELINA Administration Pravastatin Sodium 80 mg 11/25/18 22:00 11/25/18 22:06 Pravachol PO 80 mg QHS ANGELINA Administration Quetiapine Fumarate 200 mg 11/25/18 22:00 11/25/18 22:05 Seroquel PO 200 mg QHS ANGELINA Administration Sodium Chloride 10 ml 11/25/18 10:00 11/26/18 09:27 Sodium Chloride Flush Syringe 10 Ml IV 10 ml BID ANGELINA Administration Sodium Chloride 10 ml 11/24/18 22:50 Sodium Chloride Flush Syringe 10 Ml IV PRN PRN LINE FLUSH Valacyclovir HCl 1,000 mg 11/25/18 10:00 11/26/18 09:27 Valtrex PO 1,000 mg DAILY ANGELINA Administration Warfarin Sodium 7.5 mg 11/25/18 17:00 11/25/18 16:39 Coumadin PO 7.5 mg DAILY@1700 ANGELINA Administration Nutrition/Malnutrition Assess - Dietary Evaluation Nutrition/Malnutrition Findings: Nutrition Notes Start: 11/25/18 12:34 Freq: Status: Active Protocol: Document 11/25/18 12:34 LP (Rec: 11/25/18 12:36 LP [email or web address]) Nutrition Notes Initial or Follow up Brief Note Current Diagnosis COPD,Hypertension,Heart Failure Other Pertinent Diagnosis SIRS, Psychosis Current Diet No diet Pertinent Medications Coumadin Subjective/Other Information Screen for Coumadin. Pt states she has been on Coumadin and aware of diet. Wanted handout. Pt states eating well and denies wt changes. Nutrition Intervention Teaching Methods Handout Revisit per MD consult or patient Sign Off request:
[2018-11-26] MEDS: WELLBUTRIN SR PO SCH (15:56)
--- NOTE | 2018-11-26 16:29 | Consultation ---
History of Present Illness - Reason for Consult Consult date: 11/26/18 Left arm cellulitis Requesting physician: MACK RODRIGES - History of Present Illness The patient is a 53-year-old female with morbid obesity, hypertension, coronary artery disease status post stents, obstructive sleep apnea, seizure disorder, bipolar disorder, COPD, h/o DVT/PE but non compliant with anticoagulation presented to the hospital on 11/24/2018 with complaints of left arm pain and swe lling. Labs showed leukocytosis concerning for sepsis. CT was done on admission which showed findings consistent with cellulitis and possible myositis. Her chest diseases was consulted for additional recommendations. She was empirically started on IV clindamycin and later switched to IV vancomycin. She has otherwise been afebrile. Continues to complain of pain in her left arm. WBC has been trending down. Review of Systems: General: no fevers,chills or rigors HEENT: no new visual disturbance Respiratory: No cough, sputum, hemoptysis or shortness of breath Cardiovascular: No chest pain, syncope Gastrointestinal: No nausea, vomiting or diarrhea Genitourinary: No dysuria or hematuria Musculoskeletal: No new or worsening neck pain or back pain Neurologic: No headaches, seizures Hematologic: No easy bruising or bleeding Endocrine: No night sweats or acute weight loss Skin: negative for rash, jaundice Past History Past Medical History: COPD, DVT Past Surgical History: cholecystectomy, Other (Coronary stents) Social history: lives with family Family history: CAD, hypertension Medications and Allergies Allergies Allergy/AdvReac Type Severity Reaction Status Date / Time hydrocodone bitartrate Allergy Hives Verified 08/01/18 13:12 [From Vicodin] metoclopramide HCl Allergy Anaphylaxis Verified 08/01/18 13:12 [From Reglan] Penicillins Allergy Swelling Verified 08/01/18 13:12 hydrocodone AdvReac Itching Verified 09/01/18 12:08 naproxen AdvReac Itching Verified 08/01/18 13:12 Home Medications Medication Instructions Recorded Confirmed Last Taken Type Cyanocobalamin [Vitamin B-12] 1,000 mcg IM 2XW 08/20/17 11/25/18 09/01/18 History Folic Acid [Folvite] 1 mg PO DAILY 08/20/17 11/25/18 09/01/18 History Valacyclovir HCl [Valtrex] 1,000 mg PO DAILY 08/20/17 11/25/18 09/01/18 History Gabapentin [Neurontin] 300 mg PO Q8HR #30 capsule 09/19/17 11/25/18 09/01/18 Rx Simvastatin 40 mg PO QDAY #30 tablet 09/19/17 11/25/18 09/01/18 Rx Ondansetron [Zofran ODT TAB] 8 mg PO Q8HR PRN #10 tab.rapdis 11/23/17 11/25/18 09/01/18 Rx Mometasone/Formoterol [Dulera 200 2 puff IH BID #1 hfa.aer.ad 03/15/18 11/25/18 09/01/18 Rx Mcg/5 Mcg Inhaler] ALPRAZolam [Xanax TAB] 1 mg PO BID PRN #6 tablet 07/12/18 11/25/18 09/01/18 Rx Nicotine [Habitrol] 21 mg TD Q24H #30 patch 07/12/18 11/25/18 09/01/18 Rx Albuterol Sulfate [Ventolin HFA] 2 puff IH DAILY PRN 08/01/18 11/25/18 09/01/18 History Furosemide [Lasix] 40 mg PO DAILY 08/01/18 11/25/18 09/01/18 History Lisinopril [Zestril] 40 mg PO DAILY 08/01/18 11/25/18 09/01/18 History Oxycodone HCl/Acetaminophen 1 each PO Q12H PRN #14 tablet 08/01/18 11/25/18 09/01/18 Rx [Percocet 7.5/325 mg] Pantoprazole [Protonix TAB] 40 mg PO DAILY 08/01/18 11/25/18 09/01/18 History QUEtiapine [SEROquel] 300 mg PO QHS 10/10/18 11/25/18 Unknown History Warfarin [Coumadin] 5 mg PO QDAY 10/10/18 11/25/18 Unknown History ALBUTEROL Inhaler (OR & NICU) 2 puff IH Q4HR PRN #1 inhalation 10/15/18 11/25/18 Unknown Rx [ProAir HFA Inhaler] Azithromycin [Zithromax Z-LUCIO] 250 mg PO DAILY #6 tablet 10/15/18 11/25/18 Unknown Rx Benzonatate [Tessalon Perles] 100 mg PO Q8HR PRN #20 capsule 10/15/18 11/25/18 Unknown Rx Fluticasone [Flonase] 1 spray NS QDAY #1 bottle 10/15/18 11/25/18 Unknown Rx Ibuprofen [Motrin] 800 mg PO Q8HR PRN #30 tablet 10/15/18 11/25/18 Unknown Rx Clindamycin [Clindamycin CAP] 300 mg PO Q6H #28 capsule 11/24/18 Unknown Rx Ibuprofen [Motrin] 600 mg PO Q8H PRN #30 tablet 11/24/18 Unknown Rx Ondansetron [Zofran Odt] 4 mg PO Q8HR PRN #20 tab.rapdis 11/24/18 Unknown Rx Active Meds: Active Medications Albuterol (Proventil) 2.5 mg IH Q4HRT PRN PRN Reason: Shortness Of Breath Alprazolam (Xanax) 1 mg PO TID [facility] Last Admin: 11/26/18 14:33 Dose: 1 mg Documented by: Benzonatate (Tessalon Perles) 100 mg PO Q8H PRN PRN Reason: Cough Bupropion HCl (Wellbutrin Sr) 150 mg PO DAILY [facility] Last Admin: 11/26/18 15:56 Dose: 150 mg Documented by: Cyanocobalamin (Vitamin B-12) 1,000 mcg IM Tu [facility] Last Admin: 11/26/18 09:25 Dose: 1,000 mcg Documented by: Cyanocobalamin (Vitamin B-12) 1,000 mcg IM [facility] Enoxaparin Sodium (Lovenox) 80 mg SUB-Q Q12HR [facility] Last Admin: 11/26/18 09:28 Dose: 80 mg Documented by: Enoxaparin Sodium (Lovenox) 30 mg SUB-Q Q12HR [facility] Last Admin: 11/26/18 09:26 Dose: 30 mg Documented by: Fluticasone Propionate (Flonase) 50 mcg NS QDAY [facility] Last Admin: 11/26/18 10:00 Dose: 50 mcg Documented by: Folic Acid (Folvite) 1 mg PO DAILY [facility] Last Admin: 11/26/18 09:27 Dose: 1 mg Documented by: Furosemide (Lasix) 40 mg PO DAILY [facility] Last Admin: 11/26/18 09:27 Dose: 40 mg Documented by: Gabapentin (Neurontin) 300 mg PO Q8HR [facility] Last Admin: 11/26/18 14:33 Dose: 300 mg Documented by: Vancomycin HCl 1,500 mg/ (Sodium Chloride) 530 mls @ 333.333 mls/hr IV Q12H [facility] Lisinopril (Zestril) 40 mg PO DAILY [facility] Last Admin: 11/26/18 09:27 Dose: 40 mg Documented by: Morphine Sulfate (Morphine) 2 mg IV Q4H PRN PRN Reason: Pain , Severe (7-10) Nicotine (Habitrol) 21 mg TD Q24H [facility] Last Admin: 11/25/18 22:38 Dose: 21 mg Documented by: Ondansetron HCl (Zofran) 4 mg IV Q8H PRN PRN Reason: Nausea And Vomiting Ondansetron HCl (Zofran Odt) 8 mg PO Q8H PRN PRN Reason: Nausea Oxycodone/Acetaminophen (Percocet 5/325) 2 tab PO Q4H PRN PRN Reason: Pain , Severe (7-10) Pantoprazole Sodium (Protonix) 40 mg PO DAILY [facility] Last Admin: 11/26/18 09:27 Dose: 40 mg Documented by: Pravastatin Sodium (Pravachol) 80 mg PO QHS [facility] Last Admin: 11/25/18 22:06 Dose: 80 mg Documented by: Quetiapine Fumarate (Seroquel) 200 mg PO QHS [facility] Last Admin: 11/25/18 22:05 Dose: 200 mg Documented by: Sodium Chloride (Sodium Chloride Flush Syringe 10 Ml) 10 ml IV BID [facility] Last Admin: 11/26/18 09:27 Dose: 10 ml Documented by: Sodium Chloride (Sodium Chloride Flush Syringe 10 Ml) 10 ml IV PRN PRN PRN Reason: LINE FLUSH Valacyclovir HCl (Valtrex) 1,000 mg PO DAILY [facility] Last Admin: 11/26/18 09:27 Dose: 1,000 mg Documented by: Warfarin Sodium (Coumadin) 7.5 mg PO DAILY@1700 [facility] Last Admin: 11/25/18 16:39 Dose: 7.5 mg Documented by: Physical Examination - Physical Exam Narrative exam: Physical Exam: Constitutional: Alert, cooperative. No respiratory distress. Morbidly obese Head, Ears, Nose: Normocephalic, atraumatic. External ears, nose normal Eyes: Conjunctivae/corneas clear. No icterus. No ptosis. Neck: Supple, no meningeal signs Oral: no thrush, no ulcers Cardiovascular: S1, S2 normal. Respiratory: Good air entry, clear to auscultation bilaterally GI: Soft, non-tender; bowel sounds normal. No peritoneal signs Musculoskeletal: left arm swelling, redness and tenderness with warmth, no open wound, no purulence. Has previous scars on wrist. Skin: No rash or abscess Hem/Lymphatic: No palpable cervical or supraclavicular nodes. No lymphangitis Psych: upset, asking for pain medications Neurological: Awake, alert, oriented. No gross abnormality - Constitutional Vitals: Vital Signs Temp Pulse Resp BP Pulse Ox 99.0 F 92 H 16 114/60 91 11/26/18 12:21 11/26/18 12:21 11/26/18 12:21 11/26/18 12:21 11/26/18 12:21 Temperature -Last 24 Hours Temperature 99.0 F Temperature 98.2 F Temperature 97.8 F Results - Labs CBC & Chem 7: 11/26/18 06:40 11/26/18 06:40 Labs: Abnormal lab results 11/26/18 11/26/18 11/26/18 Range/Units 06:40 06:40 06:40 [place] % (Auto) 7.8 H (0.0-7.3) % Seg Neutrophils % 74.6 H (40.0-70.0) % Seg Neutrophils # 8.0 H (1.8-7.7) K/mm3 PT 16.2 H (12.2-14.9) Sec. INR 1.22 H (0.87-1.13) Potassium 3.1 L (3.6-5.0) mmol/L Creatinine 0.4 L (0.7-1.2) mg/dL Glucose 188 H (65-100) mg/dL Calcium 8.3 L (8.4-10.2) mg/dL Imaging reviewed personally: Chest x-ray showed no acute cardiopulmonary etiology Venous duplex negative for DVT CT of the upper extremity with and without contrast showed no abscess or hematoma. No bony abnormality. There is nonspecific subcutaneous induration suggestive of cellulitis as well as possibility of myositis given swelling of the muscles. CT abdomen showed no acute intra-abdominal pathology. s/p cholecystectomy. - Imaging and Cardiology Chest x-ray: report reviewed, image reviewed CT scan - abdomen: report reviewed, image reviewed Assessment and Plan Cultures: 11/24/2018 blood culture: No growth A/P: 53-year-old female with morbid obesity, hypertension, coronary artery disease st atus post stents, obstructive sleep apnea, seizure disorder, bipolar disorder, COPD, h/o DVT/PE but non compliant with anticoagulation presented to the hospital on 11/24/2018 with complaints of left arm pain and swelling. 1) Sepsis, likely secondary to left arm cellulitis: Diffuse cellulitis with CT evidence of some myositis. Sensation appears intact, no anesthesia, hypo or hyperesthesia, clinically does not seem to be concerning for compartment syndrome or necrotizing fasciitis. No fever, no tachycardia. WBC has been improving. CK on admission was normal. Continue empiric IV antibiotics, agree with switch to vancomycin. Recommend limb elevation. 2) Morbid obesity Recs: Agree with switch to vancomycin, target vancomycin trough between 10-15 g per mL Limb elevation, discussed with RN d/w Dr. Rodriges. Alicia Bueno MD [facility] C: [phone] O: [phone] F: [phone]
[2018-11-26] MEDS: COUMADIN PO SCH (17:00)
[2018-11-26] MEDS: MORPHINE IV PRN ×2 (18:18→23:47)
[2018-11-26] MEDS: PRAVACHOL PO SCH (22:37)
[2018-11-26] MEDS: HABITROL TD SCH (23:46)
[2018-11-27] MEDS: VANCOMYCIN 1,500 MG in NACL 0.9% 500 ML 500 ML IV SCH ×2 (01:08→12:33)
[2018-11-27] MEDS: NEURONTIN PO SCH ×3 (06:30→21:16)
[2018-11-27] MEDS: MORPHINE IV PRN ×4 (06:30→20:18)
[2018-11-27] MEDS: XANAX PO SCH ×3 (08:06→21:16)
[2018-11-27] MEDS: PERCOCET 5/325 PO PRN ×4 (08:07→23:02)
[2018-11-27 09:17] LABS: Hematocrit 36.7 % (30.3-42.9); Hemoglobin 12.6 gm/dl (10.1-14.3); Mean Corpuscular HGB Conc 34 % (30-34); Mean Corpuscular Volume 94 fl (79-97); Platelet Count 191 K/mm3 (140-440); Red Cell Distribution Width 13.7 % (13.2-15.2)
[2018-11-27 09:23] LABS: INR 1.36 (0.87-1.13)
[2018-11-27 09:30] LABS: Alanine Aminotransferase 12 units/L (7-56); BUN/Creatinine Ratio 15; Blood Urea Nitrogen 6 mg/dL (7-17); Calcium 8.2 mg/dL (8.4-10.2); Hemolysis Index 10
--- NOTE | 2018-11-27 09:41 | Progress Note ---
Assessment and Plan Cultures: 11/24/2018 blood culture: No growth A/P: 53-year-old female with morbid obesity, hypertension, coronary artery disease status post stents, obstructive sleep apnea, seizure disorder, bipolar disorder, COPD, h/o DVT/PE but non compliant with anticoagulation presented to [facility] on 11/24/2018 with complaints of left arm pain and swelling. 1) Sepsis, Resolved. likely secondary to left arm cellulitis: Diffuse cellulitis with CT evidence of some myositis. Sensation appears intact, no anesthesia, hypo or hyperesthesia, clinically does not seem to be concerning for compartment syndrome or necrotizing fasciitis. No fever, no tachycardia.. CK on admission was normal. Continue empiric IV antibiotics, agree with switch to vancomycin. 2) Morbid obesity Recs: Continue vancomycin, target vancomycin trough between 10-15 g per mL Continue Limb elevation [facility] M: [phone] O:[phone] Subjective Date of service: 11/27/18 Interval history: Patient seen and examined. Reports increased pain sensation in upper left arm. No fevers. Objective - Exam Narrative Exam: Constitutional: Alert, cooperative. Tearful. Morbidly obese Head, Ears, Nose: Normocephalic, atraumatic. External ears, nose normal Eyes: Conjunctivae/corneas clear. No icterus. No ptosis. Neck: Supple, no meningeal signs Oral: no thrush, no ulcers Cardiovascular: S1, S2 normal. Respiratory: Good air entry, clear to auscultation bilaterally GI: Soft, non-tender; bowel sounds normal. No peritoneal signs Musculoskeletal: left arm swelling, redness and tenderness with warmth, no open wound, no purulence. Has previous scars on wrist. Skin: No rash or abscess Hem/Lymphatic: No palpable cervical or supraclavicular nodes. No lymphangitis Psych: upset, asking for pain medications Neurological: Awake, alert, oriented. No gross abnormality - Constitutional Vitals: Vital Signs Temp Pulse Resp BP Pulse Ox 98.0 F 88 20 127/69 93 11/27/18 05:07 11/27/18 07:57 11/27/18 07:57 11/27/18 05:07 11/27/18 05:07 Temperature -Last 24 Hours Temperature 98.0 F Temperature 98.5 F Temperature 97.5 F Temperature 99.0 F - Labs CBC & Chem 7: 11/27/18 Unknown 11/27/18 Unknown Labs: Abnormal lab results 11/27/18 11/27/18 Range/Units Unknown Unknown PT 17.7 H (12.2-14.9) Sec. INR 1.36 H (0.87-1.13) BUN 6 L (7-17) mg/dL Creatinine 0.4 L (0.7-1.2) mg/dL Glucose 161 H (65-100) mg/dL Calcium 8.2 L (8.4-10.2) mg/dL Total Protein 6.2 L (6.3-8.2) g/dL Albumin 3.0 L (3.9-5) g/dL
[2018-11-27] MEDS: LOVENOX SUB-Q SCH ×4 (11:06→21:17)
[2018-11-27] MEDS: VALTREX PO SCH (11:07)
[2018-11-27] MEDS: FOLVITE PO SCH (11:07)
[2018-11-27] MEDS: FLONASE NS SCH (11:08)
[2018-11-27] MEDS: LASIX PO SCH (11:08)
[2018-11-27] MEDS: PROTONIX PO SCH (11:08)
[2018-11-27] MEDS: WELLBUTRIN SR PO SCH (11:09)
[2018-11-27] MEDS: SODIUM CHLORIDE FLUSH SYRINGE 10 ML IV SCH ×2 (11:09→21:18)
[2018-11-27] MEDS: ZESTRIL PO SCH (11:14)
[2018-11-27 12:38] LABS: Bacteria,Urine 1+ /HPF (Negative); Bilirubin,Urine NEG (Negative); Blood,Urine NEG (Negative); Color,Urine Yellow (Yellow); Mucus,Urine FEW /HPF; Protein,Urine <15 mg/dL mg/dL (Negative); Urobilinogen,Urine < 2.0 mg/dL (<2.0)
--- NOTE | 2018-11-27 15:00 | Progress Note ---
Assessment and Plan Assessment and plan: Patient is a 53 yo woman with a history of HTN, [place], Diastolic CHF, DVT/PE not currently on Therapeutic Anticoagulation, OA, Obesity, Seizure DO, Bipolar DO, Asthma, COPD, CAD S/P Stent Placement, Nicotine Dependence, Fibromyalgia, Chronic Pain presents to ED with left arm cellulitis. Sepsis, poa. Patient meets criteria given the leukocytosis, tachycardia and diagnosis of cellulitis. Continue IV antibiotics and follow-up blood cultures. Left arm cellulitis. CT scan of the left upper extremity reveals subcutaneous induration of the proximal and distal portions of the left extremity suggesting cellulitis. There is swelling of the muscles of the upper arm which could be due to myositis. There is no discrete subcutaneous or intramuscular mass or fluid collection to suggest hematoma or abscess. Upper extremity Doppler negative for DVT. Continue IV antibiotics and consider ID consultation. Improved with the change iv clinda to iv vancomycin and consulted ID, input noted Psychosis/bipolar 1 disorder. Mental health evaluation pending. History of DVT/PE. Continue anticoagulation. Patient has been noncompliant with Coumadin therapy. Patient was started on Lovenox twice a day on admission. Coumadin per pharmacy. Obesity. Patient will need to be counseled on diet and exercise prior to discharge. Seizure disorder. Seizure precautions. History CAD status post stent placement. Diastolic CHF. Compensated. Continue lisinopril and Lasix. According to GA sheet tester aware she 11/04/18 Oxycodone 20 mg quantity of [address] Michell Almonte; and 10/02/18 Oxycodone 20 mg quantity of [address] Michell Almonte History Interval history: Patient was seen and examined. Follow-up on current diagnosis of Left Upper cellulitis. No overnight events reported to me. Patient denies any chest pain, shortness breath, nausea/vomiting or severe headaches. Imaging, nursing note, chart, labs and old chart reviewed. Discussed with patient. Hospitalist Physical - Physical exam Narrative exam: Gen: WDWN, NAD, Awake, Alert, Orientated x 3, BMI 40.3 HEENT: NCAT, EOMI, PERRL, OP Clear Neck: supple, no adenopathy, no thyromegaly, no JVD CVS/Heart: RRR, normal S1S2, pulses present bilaterally Chest/Lungs: CTA B, Symmetrical chest exddfpansion, good air entry bilaterally GI/Abdomen: soft, NTND, good bowel sounds, no guarding or rebound /Bladder: no suprapubic tenderness, no CVA or paraspinal tenderness Extermity/Skin: left circumferential bicep to wrist red, tender, warm and erythematous MSK: FROM x 4 Neuro: CN 2-12 grossly intact, no new focal deficits Psych: calm - Constitutional Vitals: Temp Pulse Resp BP Pulse Ox 98.0 F 85 18 147/75 96 11/27/18 12:08 11/27/18 12:08 11/27/18 12:08 11/27/18 12:08 11/27/18 12:08 General appearance: Present: no acute distress, obese Results - Labs CBC & Chem 7: 11/27/18 Unknown 11/27/18 Unknown Labs: Laboratory Last Values WBC 5.8 K/mm3 (4.5-11.0) 11/27/18 Unknown RBC 3.90 M/mm3 (3.65-5.03) 11/27/18 Unknown Hgb 12.6 gm/dl (10.1-14.3) 11/27/18 Unknown Hct 36.7 % (30.3-42.9) 11/27/18 Unknown MCV 94 fl (79-97) 11/27/18 Unknown MCH 32 pg (28-32) 11/27/18 Unknown MCHC 34 % (30-34) 11/27/18 Unknown RDW 13.7 % (13.2-15.2) 11/27/18 Unknown Plt Count 191 K/mm3 (140-440) 11/27/18 Unknown Lymph % (Auto) 13.7 % (13.4-35.0) 11/26/18 06:40 [place] % (Auto) 7.8 % (0.0-7.3) H 11/26/18 06:40 Eos % (Auto) 2.8 % (0.0-4.3) 11/26/18 06:40 Baso % (Auto) 1.1 % (0.0-1.8) 11/26/18 06:40 Lymph # 1.5 K/mm3 (1.2-5.4) 11/26/18 06:40 [place] # 0.8 K/mm3 (0.0-0.8) 11/26/18 06:40 Eos # 0.3 K/mm3 (0.0-0.4) 11/26/18 06:40 Baso # 0.1 K/mm3 (0.0-0.1) 11/26/18 06:40 Seg Neutrophils % 74.6 % (40.0-70.0) H 11/26/18 06:40 Seg Neutrophils # 8.0 K/mm3 (1.8-7.7) H 11/26/18 06:40 PT 17.7 Sec. (12.2-14.9) H 11/27/18 Unknown INR 1.36 (0.87-1.13) H 11/27/18 Unknown APTT 26.8 Sec. (24.2-36.6) 11/24/18 13:05 193.21 ng/mlDDU (0-234) 11/24/18 13:05 Sodium 139 mmol/L (137-145) 11/27/18 Unknown Potassium 3.6 mmol/L (3.6-5.0) 11/27/18 Unknown Chloride 102.8 mmol/L (98-107) 11/27/18 Unknown Carbon Dioxide 24 mmol/L (22-30) 11/27/18 Unknown 16 mmol/L 11/27/18 Unknown BUN 6 mg/dL (7-17) L 11/27/18 Unknown 0.4 mg/dL (0.7-1.2) L 11/27/18 Unknown Estimated GFR > 60 ml/min 11/27/18 Unknown 15 % 11/27/18 Unknown Glucose 161 mg/dL (65-100) H 11/27/18 Unknown Lactic Acid 1.80 mmol/L (0.7-2.0) 11/24/18 17:05 Calcium 8.2 mg/dL (8.4-10.2) L 11/27/18 Unknown < 0.20 mg/dL (0.1-1.2) 11/27/18 Unknown AST 13 units/L (5-40) 11/27/18 Unknown ALT 12 units/L (7-56) 11/27/18 Unknown 76 units/L (35-129) 11/27/18 Unknown 40 units/L (30-135) 11/24/18 13:26 < 0.010 ng/mL (0.00-0.029) 11/24/18 17:05 6.2 g/dL (6.3-8.2) L 11/27/18 Unknown 3.0 g/dL (3.9-5) L 11/27/18 Unknown 0.9 % 11/27/18 Unknown Yellow (Yellow) 11/27/18 12:30 Slightly-cloudy (Clear) 11/27/18 12:30 6.0 (5.0-7.0) 11/27/18 12:30 Ur Specific [place] 1.005 (1.003-1.030) 11/27/18 12:30 <15 mg/dl mg/dL (Negative) 11/27/18 12:30 Neg mg/dL (Negative) 11/27/18 12:30 Neg mg/dL (Negative) 11/27/18 12:30 Neg (Negative) 11/27/18 12:30 Neg (Negative) 11/27/18 12:30 Neg (Negative) 11/27/18 12:30 < 2.0 mg/dL (<2.0) 11/27/18 12:30 Ur Leukocyte Esterase Tr (Negative) 11/27/18 12:30 2.0 /HPF (0.0-6.0) 11/27/18 12:30 1.0 /HPF (0.0-6.0) 11/27/18 12:30 U Epithel Cells (Auto) 11.0 /HPF (0-13.0) 11/27/18 12:30 1+ /HPF (Negative) 11/27/18 12:30 Few /HPF 11/27/18 12:30 Active Medications - Current Medications Current Medications: Generic Name Dose Route Start Last Admin Trade Name Freq PRN Reason Stop Dose Admin Albuterol 2.5 mg 11/24/18 22:50 11/27/18 07:49 Proventil IH 2.5 mg Q4HRT PRN Administration Shortness Of Breath Alprazolam 1 mg 11/25/18 22:00 11/27/18 13:25 Xanax PO 1 mg TID ANGELINA Administration Benzonatate 100 mg 11/24/18 22:52 Tessalon Perles PO Q8H PRN Cough Bupropion HCl 150 mg 11/26/18 15:30 11/27/18 11:09 Wellbutrin Sr PO 150 mg DAILY ANGELINA Administration Cyanocobalamin 1,000 mcg 11/26/18 10:00 11/26/18 09:25 Vitamin B-12 IM 1,000 mcg Tu ANGELINA Administration Cyanocobalamin 1,000 mcg 11/29/18 10:00 Vitamin B-12 IM Fr [facility] Enoxaparin Sodium 80 mg 11/25/18 10:00 11/27/18 11:06 Lovenox SUB-Q 80 mg Q12HR ANGELINA Administration Enoxaparin Sodium 30 mg 11/25/18 10:00 11/27/18 11:06 Lovenox SUB-Q 30 mg Q12HR ANGELINA Administration Fluticasone Propionate 50 mcg 11/25/18 10:00 11/27/18 11:08 Flonase NS 50 mcg QDAY ANGELINA Administration Folic Acid 1 mg 11/25/18 10:00 11/27/18 11:07 Folvite PO 1 mg DAILY ANGELINA Administration Furosemide 40 mg 11/25/18 10:00 11/27/18 11:08 Lasix PO 40 mg DAILY ANGELINA Administration Gabapentin 300 mg 11/25/18 06:00 11/27/18 13:25 Neurontin PO 300 mg Q8HR ANGELINA Administration Vancomycin HCl 1,500 mg/ 530 mls @ 333.333 mls/hr 11/27/18 00:00 11/27/18 12:33 Sodium Chloride IV 333.333 mls/hr Q12H ANGELINA Administration Lisinopril 40 mg 11/25/18 10:00 11/27/18 11:14 Zestril PO 40 mg DAILY ANGELINA Administration Morphine Sulfate 2 mg 11/26/18 15:12 11/27/18 11:01 Morphine IV 2 mg Q4H PRN Administration Pain , Severe (7-10) Nicotine 21 mg 11/24/18 23:00 11/26/18 23:46 Habitrol TD 21 mg Q24H ANGELINA Administration Ondansetron HCl 4 mg 11/24/18 22:50 Zofran IV Q8H PRN Nausea And Vomiting Ondansetron HCl 8 mg 11/24/18 23:45 Zofran Odt PO Q8H PRN Nausea Oxycodone/Acetaminophen 2 tab 11/26/18 15:11 11/27/18 13:25 Percocet 5/325 PO 2 tab Q4H PRN Administration Pain , Severe (7-10) Pantoprazole Sodium 40 mg 11/25/18 10:00 11/27/18 11:08 Protonix PO 40 mg DAILY ANGELINA Administration Pravastatin Sodium 80 mg 11/25/18 22:00 11/26/18 22:37 Pravachol PO 80 mg QHS ANGELINA Administration Quetiapine Fumarate 200 mg 11/25/18 22:00 11/26/18 22:40 Seroquel PO 200 mg QHS ANGELINA Administration Sodium Chloride 10 ml 11/25/18 10:00 11/27/18 11:09 Sodium Chloride Flush Syringe 10 Ml IV 10 ml BID ANGELINA Administration Sodium Chloride 10 ml 11/24/18 22:50 Sodium Chloride Flush Syringe 10 Ml IV PRN PRN LINE FLUSH Valacyclovir HCl 1,000 mg 11/25/18 10:00 11/27/18 11:07 Valtrex PO 1,000 mg DAILY ANGELINA Administration Warfarin Sodium 7.5 mg 11/25/18 17:00 11/26/18 17:00 Coumadin PO 7.5 mg DAILY@1700 ANGELINA Administration Nutrition/Malnutrition Assess - Dietary Evaluation Nutrition/Malnutrition Findings: Nutrition Notes Start: 11/25/18 12:34 Freq: Status: Active Protocol: Document 11/25/18 12:34 LP (Rec: 11/25/18 12:36 LP [id number]) Nutrition Notes Initial or Follow up Brief Note Current Diagnosis COPD,Hypertension,Heart Failure Other Pertinent Diagnosis SIRS, Psychosis Current Diet No diet Pertinent Medications Coumadin Subjective/Other Information Screen for Coumadin. Pt states she has been on Coumadin and aware of diet. Wanted handout. Pt states eating well and denies wt changes. Nutrition Intervention Teaching Methods Handout Revisit per MD consult or patient Sign Off request:
[2018-11-27] MEDS: COUMADIN PO SCH (16:27)
[2018-11-27] MEDS: PRAVACHOL PO SCH (21:16)
[2018-11-27] MEDS: HABITROL TD SCH (23:03)
[2018-11-28] MEDS: VANCOMYCIN 1,500 MG in NACL 0.9% 500 ML 500 ML IV SCH (02:06)
[2018-11-28] MEDS: MORPHINE IV PRN ×5 (02:06→19:59)
[2018-11-28] MEDS: PERCOCET 5/325 PO PRN ×5 (03:53→22:02)
[2018-11-28] MEDS: NEURONTIN PO SCH ×3 (05:29→22:02)
[2018-11-28 06:42] LABS: INR 2.04 (0.87-1.13)
--- NOTE | 2018-11-28 08:49 | Progress Note ---
Assessment and Plan Cultures: 11/24/2018 blood culture: No growth A/P: 53-year-old female with morbid obesity, hypertension, coronary artery disease status post stents, obstructive sleep apnea, seizure disorder, bipolar disorder, COPD, h/o DVT/PE but non compliant with anticoagulation presented [facility] on 11/24/2018 with complaints of left arm pain and swelling. 1) Sepsis, Resolved. likely secondary to left arm cellulitis: Diffuse cellulitis with CT evidence of some myositis. Sensation appears intact, no anesthesia, hypo or hyperesthesia, clinically does not seem to be concerning for compartment syndrome or necrotizing fasciitis. No fever, no tachycardia.. CK on admission was normal. Continue empiric IV antibiotics, agree with switch to vancomycin. 2) Morbid obesity Recs: Continue vancomycin, target vancomycin trough between 10-15 g per mL Continue Limb elevation [facility] M: [phone] O:[phone] Subjective Date of service: 11/28/18 Interval history: Patient seen and examined. Continues to complain of left arm pain. No fevers. Currently on a 1013. Objective - Exam Narrative Exam: Constitutional: Alert, cooperative.Morbidly obese Head, Ears, Nose: Normocephalic, atraumatic. External ears, nose normal Eyes: Conjunctivae/corneas clear. No icterus. No ptosis. Neck: Supple, no meningeal signs Oral: no thrush, no ulcers Cardiovascular: S1, S2 normal. Respiratory: Good air entry, clear to auscultation bilaterally GI: Soft, non-tender; bowel sounds normal. No peritoneal signs Musculoskeletal: left arm swelling, redness and tenderness with warmth, no open wound, no purulence. Has previous scars on wrist. Skin: No rash or abscess Hem/Lymphatic: No palpable cervical or supraclavicular nodes. No lymphangitis Psych: mood good, requesting to go home with a PICC line. Neurological: Awake, alert, oriented. No gross abnormality - Constitutional Vitals: Vital Signs Temp Pulse Resp BP Pulse Ox 97.6 F 87 24 132/70 92 11/28/18 05:02 11/28/18 05:02 11/28/18 05:02 11/28/18 05:02 11/28/18 05:02 Temperature -Last 24 Hours Temperature 97.6 F Temperature 98.0 F Temperature 98.3 F Temperature 98.0 F - Labs CBC & Chem 7: 11/27/18 Unknown 11/27/18 Unknown Labs: Abnormal lab results 11/27/18 11/27/18 11/28/18 Range/Units Unknown Unknown 06:14 PT 17.7 H 24.4 H (12.2-14.9) Sec. INR 1.36 H 2.04 H (0.87-1.13) BUN 6 L (7-17) mg/dL Creatinine 0.4 L (0.7-1.2) mg/dL Glucose 161 H (65-100) mg/dL Calcium 8.2 L (8.4-10.2) mg/dL Total Protein 6.2 L (6.3-8.2) g/dL Albumin 3.0 L (3.9-5) g/dL
[2018-11-28] MEDS: XANAX PO SCH ×3 (09:05→20:01)
--- NOTE | 2018-11-28 10:22 | Progress Note ---
Subjective - Reason for Consult Consult date: 11/28/18 Reason for consult: Psychiatty Follow-up - Chief Complaint Chief complaint: "I don't want to live"" 53 y.o. white female who presented to the ER for several complaints. Psychiatry was consulted to see the patient for possible psychosis. Today the patient is calm, but withdrawn during the assessment. She is adamant that she want to and join her daughter. She was asked if she was suicidal, she would not confirm or deny. She stated that she is hearing voices telling her to do "unsafe things" to herself. The patient would not contract for safety. She stated that her sleep is "off." She denies HI's and VH's. She denies any side effects of her medications. She stated, "I need inpatient mental health." Mental Status Exam - Vital signs Last Vital Signs Temp 97.6 F 11/28/18 05:02 Pulse 87 11/28/18 05:02 Resp 24 11/28/18 05:02 BP 132/70 11/28/18 05:02 Pulse Ox 92 11/28/18 05:02 - Exam Narrative exam: MSE: Appearance: calm Behavior: regular eye contact Speech: regular rate and tone Mood: "depressed" withdrawn Affect: congruent to mood Thought Process: circumstantial Thought Content: denies HI's and AVH's Motor Activity: sitting up in bed Cognition: A/O x3 Insight: variable Judgment: variable Assessment and Plan Impression: Unspecified Anxiety DO. Hx of Mood DO. Complicated Grieving. Today the patient was calm during the assessment. The patient would not contract for safety (SI's). The patient is not at her baseline (mental health). DDx: MDD Recommendation/Plan: Initiate 1013. Continue Seroquel 200 mg PO HS for mood, Xanax 1 mg PO TID for anxiety, and Wellbutrin 150 mg POO daily for depression. Start Meatonin 5 mg PO HS for sleep. Discussed possible metabolic side effects of Seroquel with the patient. she verbalized understanding. Discussed possible suicidality/medication induiced emery with the patient reference Wellbutrin, she verbalized understanding. Educated the patient on risks/benefits of benzos, she verbalized understanding. Do not admin Xanax and Percocet concurrently. Dispo: Once the patient is medically clear, proper dispo will be determined. Staffed with Dr Felicita Donaldson.
[2018-11-28] MEDS: LOVENOX SUB-Q SCH ×4 (11:33→22:04)
[2018-11-28] MEDS: LASIX PO SCH (11:34)
[2018-11-28] MEDS: VALTREX PO SCH (11:34)
[2018-11-28] MEDS: WELLBUTRIN SR PO SCH (11:34)
[2018-11-28] MEDS: ZESTRIL PO SCH (11:34)
[2018-11-28] MEDS: PROTONIX PO SCH (11:35)
[2018-11-28] MEDS: FOLVITE PO SCH (11:35)
[2018-11-28] MEDS: FLONASE NS SCH (11:35)
[2018-11-28] MEDS: SODIUM CHLORIDE FLUSH SYRINGE 10 ML IV SCH (11:36)
[2018-11-28] MEDS: VANCOMYCIN/NS 1 GM/250 ML 1 GM/250 ML BAG IV SCH ×2 (14:00→22:02)
--- NOTE | 2018-11-28 15:57 | Progress Note ---
Assessment and Plan Assessment and plan: Patient is a 53 yo woman with a history of HTN, MS, Diastolic CHF, DVT/PE not currently on Therapeutic Anticoagulation, OA, Obesity, Seizure DO, Bipolar DO, Asthma, COPD, CAD S/P Stent Placement, Nicotine Dependence, Fibromyalgia, Chronic Pain presents to ED with left arm cellulitis. Sepsis, poa. Patient meets criteria given the leukocytosis, tachycardia and diagnosis of cellulitis. Continue IV antibiotics and follow-up blood cultures. Left arm cellulitis. CT scan of the left upper extremity reveals subcutaneous induration of the proximal and distal portions of the left extremity suggesting cellulitis. There is swelling of the muscles of the upper arm which could be due to myositis. There is no discrete subcutaneous or intramuscular mass or fluid collection to suggest hematoma or abscess. Upper extremity Doppler negative for DVT. Continue IV antibiotics and consider ID consultation. Improved with the change iv clinda to iv vancomycin and consulted ID, input noted Psychosis/bipolar 1 disorder. Mental health evaluation pending. History of DVT/PE. Continue anticoagulation. Patient has been noncompliant with Coumadin therapy. Patient was started on Lovenox twice a day on admission. Coumadin per pharmacy. Obesity. Patient will need to be counseled on diet and exercise prior to discharge. Seizure disorder. Seizure precautions. History CAD status post stent placement. Diastolic CHF. Compensated. Continue lisinopril and Lasix. According to [place] [facility] aware she 11/04/18 Oxycodone 20 mg quantity of [address] Michell Almonte; and 10/02/18 Oxycodone 20 mg quantity of [address] Michell Almonte Patient expressed SI and hallucinations to Mental health and was put on a 1013. When I sat down and spoke with patient, with GABBY Echavarria present, she denies SI when I told her that I may have to stop IV narcotic due to potential side effects of confusion and hallucinations. She denies having hallucination. She is very manipulative and narcotic seeking. Once ID transition to oral antibiotics then she can be discharge to Psych. History Interval history: Patient was seen and examined. Follow-up on current diagnosis of Left Upper cellulitis. No overnight events reported to me. Patient denies any chest pain, shortness breath, nausea/vomiting or severe headaches. Imaging, nursing note, chart, labs and old chart reviewed. Discussed with patient. Hospitalist Physical - Physical exam Narrative exam: Gen: WDWN, NAD, Awake, Alert, Orientated x 3, BMI 40.3 HEENT: NCAT, EOMI, PERRL, OP Clear Neck: supple, no adenopathy, no thyromegaly, no JVD CVS/Heart: RRR, normal S1S2, pulses present bilaterally Chest/Lungs: CTA B, Symmetrical chest exddfpansion, good air entry bilaterally GI/Abdomen: soft, NTND, good bowel sounds, no guarding or rebound /Bladder: no suprapubic tenderness, no CVA or paraspinal tenderness Extermity/Skin: left circumferential bicep to wrist red, tender, warm and erythematous MSK: FROM x 4 Neuro: CN 2-12 grossly intact, no new focal deficits Psych: calm - Constitutional Vitals: Temp Pulse Resp BP Pulse Ox 97.6 F 87 24 132/70 92 11/28/18 05:02 11/28/18 11:34 11/28/18 05:02 11/28/18 11:34 11/28/18 05:02 General appearance: Present: no acute distress, obese Results - Labs CBC & Chem 7: 11/27/18 Unknown 11/27/18 Unknown Labs: Laboratory Last Values WBC 5.8 K/mm3 (4.5-11.0) 11/27/18 Unknown RBC 3.90 M/mm3 (3.65-5.03) 11/27/18 Unknown Hgb 12.6 gm/dl (10.1-14.3) 11/27/18 Unknown Hct 36.7 % (30.3-42.9) 11/27/18 Unknown MCV 94 fl (79-97) 11/27/18 Unknown MCH 32 pg (28-32) 11/27/18 Unknown MCHC 34 % (30-34) 11/27/18 Unknown RDW 13.7 % (13.2-15.2) 11/27/18 Unknown Plt Count 191 K/mm3 (140-440) 11/27/18 Unknown Lymph % (Auto) 13.7 % (13.4-35.0) 11/26/18 06:40 [place] % (Auto) 7.8 % (0.0-7.3) H 11/26/18 06:40 Eos % (Auto) 2.8 % (0.0-4.3) 11/26/18 06:40 Baso % (Auto) 1.1 % (0.0-1.8) 11/26/18 06:40 Lymph # 1.5 K/mm3 (1.2-5.4) 11/26/18 06:40 [place] # 0.8 K/mm3 (0.0-0.8) 11/26/18 06:40 Eos # 0.3 K/mm3 (0.0-0.4) 11/26/18 06:40 Baso # 0.1 K/mm3 (0.0-0.1) 11/26/18 06:40 Seg Neutrophils % 74.6 % (40.0-70.0) H 11/26/18 06:40 Seg Neutrophils # 8.0 K/mm3 (1.8-7.7) H 11/26/18 06:40 PT 24.4 Sec. (12.2-14.9) H 11/28/18 06:14 INR 2.04 (0.87-1.13) H 11/28/18 06:14 APTT 26.8 Sec. (24.2-36.6) 11/24/18 13:05 193.21 ng/mlDDU (0-234) 11/24/18 13:05 Sodium 139 mmol/L (137-145) 11/27/18 Unknown Potassium 3.6 mmol/L (3.6-5.0) 11/27/18 Unknown Chloride 102.8 mmol/L (98-107) 11/27/18 Unknown Carbon Dioxide 24 mmol/L (22-30) 11/27/18 Unknown 16 mmol/L 11/27/18 Unknown BUN 6 mg/dL (7-17) L 11/27/18 Unknown 0.4 mg/dL (0.7-1.2) L 11/27/18 Unknown Estimated GFR > 60 ml/min 11/27/18 Unknown 15 % 11/27/18 Unknown Glucose 161 mg/dL (65-100) H 11/27/18 Unknown Lactic Acid 1.80 mmol/L (0.7-2.0) 11/24/18 17:05 Calcium 8.2 mg/dL (8.4-10.2) L 11/27/18 Unknown < 0.20 mg/dL (0.1-1.2) 11/27/18 Unknown AST 13 units/L (5-40) 11/27/18 Unknown ALT 12 units/L (7-56) 11/27/18 Unknown 76 units/L (35-129) 11/27/18 Unknown 40 units/L (30-135) 11/24/18 13:26 < 0.010 ng/mL (0.00-0.029) 11/24/18 17:05 6.2 g/dL (6.3-8.2) L 11/27/18 Unknown 3.0 g/dL (3.9-5) L 11/27/18 Unknown 0.9 % 11/27/18 Unknown Yellow (Yellow) 11/27/18 12:30 Slightly-cloudy (Clear) 11/27/18 12:30 6.0 (5.0-7.0) 11/27/18 12:30 Ur Specific [place] 1.005 (1.003-1.030) 11/27/18 12:30 <15 mg/dl mg/dL (Negative) 11/27/18 12:30 Neg mg/dL (Negative) 11/27/18 12:30 Neg mg/dL (Negative) 11/27/18 12:30 Neg (Negative) 11/27/18 12:30 Neg (Negative) 11/27/18 12:30 Neg (Negative) 11/27/18 12:30 < 2.0 mg/dL (<2.0) 11/27/18 12:30 Ur Leukocyte Esterase Tr (Negative) 11/27/18 12:30 2.0 /HPF (0.0-6.0) 11/27/18 12:30 1.0 /HPF (0.0-6.0) 11/27/18 12:30 U Epithel Cells (Auto) 11.0 /HPF (0-13.0) 11/27/18 12:30 1+ /HPF (Negative) 11/27/18 12:30 Few /HPF 11/27/18 12:30 Vancomycin Trough 8.5 ug/mL (5.0-20.0) 11/27/18 23:02 Active Medications - Current Medications Current Medications: Generic Name Dose Route Start Last Admin Trade Name Freq PRN Reason Stop Dose Admin Albuterol 2.5 mg 11/24/18 22:50 11/27/18 07:49 Proventil IH 2.5 mg Q4HRT PRN Administration Shortness Of Breath Alprazolam 1 mg 11/25/18 22:00 11/28/18 14:29 Xanax PO 1 mg TID ANGELINA Administration Benzonatate 100 mg 11/24/18 22:52 Tessalon Perles PO Q8H PRN Cough Bupropion HCl 150 mg 11/26/18 15:30 11/28/18 11:34 Wellbutrin Sr PO 150 mg DAILY ANGELINA Administration Cyanocobalamin 1,000 mcg 11/26/18 10:00 11/26/18 09:25 Vitamin B-12 IM 1,000 mcg Tu ANGELINA Administration Cyanocobalamin 1,000 mcg 11/29/18 10:00 Vitamin B-12 IM Fr ANGELINA Enoxaparin Sodium 80 mg 11/25/18 10:00 11/28/18 11:33 Lovenox SUB-Q 80 mg Q12HR ANGELINA Administration Enoxaparin Sodium 30 mg 11/25/18 10:00 11/28/18 11:33 Lovenox SUB-Q 30 mg Q12HR ANGELINA Administration Fluticasone Propionate 50 mcg 11/25/18 10:00 11/28/18 11:35 Flonase NS 50 mcg QDAY ANGELINA Administration Folic Acid 1 mg 11/25/18 10:00 11/28/18 11:35 Folvite PO 1 mg DAILY ANGELINA Administration Furosemide 40 mg 11/25/18 10:00 11/28/18 11:34 Lasix PO 40 mg DAILY ANGELINA Administration Gabapentin 300 mg 11/25/18 06:00 11/28/18 14:29 Neurontin PO 300 mg Q8HR ANGELINA Administration Vancomycin HCl 1 gm in 250 mls @ 167.007 mls/hr 11/28/18 14:00 11/28/18 14:00 Vancomycin/Ns 1 Gm/250 Ml IV 167.007 mls/hr Q8H ANGELINA Administration Lisinopril 40 mg 11/25/18 10:00 11/28/18 11:34 Zestril PO 40 mg DAILY ANGELINA Administration Melatonin 5 mg 11/28/18 10:15 Melatonin PO QHS PRN Sleep Morphine Sulfate 2 mg 11/26/18 15:12 11/28/18 14:28 Morphine IV 2 mg Q4H PRN Administration Pain , Severe (7-10) Nicotine 21 mg 11/24/18 23:00 11/27/18 23:03 Habitrol TD 21 mg Q24H ANGELINA Administration Ondansetron HCl 4 mg 11/24/18 22:50 Zofran IV Q8H PRN Nausea And Vomiting Ondansetron HCl 8 mg 11/24/18 23:45 Zofran Odt PO Q8H PRN Nausea Oxycodone/Acetaminophen 2 tab 11/26/18 15:11 11/28/18 12:30 Percocet 5/325 PO 2 tab Q4H PRN Administration Pain , Severe (7-10) Pantoprazole Sodium 40 mg 11/25/18 10:00 11/28/18 11:35 Protonix PO 40 mg DAILY ANGELINA Administration Pravastatin Sodium 80 mg 11/25/18 22:00 11/27/18 21:16 Pravachol PO 80 mg QHS ANGELINA Administration Quetiapine Fumarate 200 mg 11/25/18 22:00 11/27/18 21:16 Seroquel PO 200 mg QHS ANGELINA Administration Sodium Chloride 10 ml 11/25/18 10:00 11/28/18 11:36 Sodium Chloride Flush Syringe 10 Ml IV 10 ml BID ANGELINA Administration Sodium Chloride 10 ml 11/24/18 22:50 Sodium Chloride Flush Syringe 10 Ml IV PRN PRN LINE FLUSH Valacyclovir HCl 1,000 mg 11/25/18 10:00 11/28/18 11:34 Valtrex PO 1,000 mg DAILY ANGELINA Administration Warfarin Sodium 7.5 mg 11/25/18 17:00 11/27/18 16:27 Coumadin PO 7.5 mg DAILY@1700 ANGELINA Administration Nutrition/Malnutrition Assess - Dietary Evaluation Nutrition/Malnutrition Findings: Nutrition Notes Start: 11/25/18 12:34 Freq: Status: Active Protocol: Document 11/25/18 12:34 LP (Rec: 11/25/18 12:36 LP [id number]) Nutrition Notes Initial or Follow up Brief Note Current Diagnosis COPD,Hypertension,Heart Failure Other Pertinent Diagnosis SIRS, Psychosis Current Diet No diet Pertinent Medications Coumadin Subjective/Other Information Screen for Coumadin. Pt states she has been on Coumadin and aware of diet. Wanted handout. Pt states eating well and denies wt changes. Nutrition Intervention Teaching Methods Handout Revisit per MD consult or patient Sign Off request:
[2018-11-28] MEDS: COUMADIN PO SCH (17:24)
[2018-11-28] MEDS: MELATONIN PO PRN (22:01)
[2018-11-28] MEDS: PRAVACHOL PO SCH (22:02)
[2018-11-29] MEDS: HABITROL TD SCH ×2 (00:50→22:05)
[2018-11-29] MEDS: MORPHINE IV PRN ×5 (04:10→22:17)
[2018-11-29] MEDS: SODIUM CHLORIDE FLUSH SYRINGE 10 ML IV PRN ×3 (04:18→23:19)
[2018-11-29] MEDS: VANCOMYCIN/NS 1 GM/250 ML 1 GM/250 ML BAG IV SCH ×3 (05:36→23:09)
[2018-11-29] MEDS: NEURONTIN PO SCH ×3 (05:36→22:06)
[2018-11-29] MEDS: XANAX PO SCH ×3 (08:07→20:26)
[2018-11-29 08:19] LABS: INR 2.75 (0.87-1.13)
--- NOTE | 2018-11-29 09:17 | Progress Note ---
Assessment and Plan Cultures: 11/24/2018 blood culture: No growth A/P: 53-year-old female with morbid obesity, hypertension, coronary artery disease status post stents, obstructive sleep apnea, seizure disorder, bipolar disorder, COPD, h/o DVT/PE but non compliant with anticoagulation presented to the [facility] on 11/24/2018 with complaints of left arm pain and swelling. 1) Sepsis, Resolved. likely secondary to left arm cellulitis: Diffuse cellulitis with CT evidence of some myositis. Sensation appears intact, no anesthesia, hypo or hyperesthesia, clinically does not seem to be concerning for compartment syndrome or necrotizing fasciitis. Increased left upper extremity swelling today. Will order ultrasound to evaluate for abscess. No fever, no tachycardia.. CK on admission was normal. Continue empiric IV antibiotics, agree with switch to vancomycin. 2) Morbid obesity Recs: Continue vancomycin, target vancomycin trough between 10-15 g per mL Increased left upper extremity swelling. ultrasound ordered to evaluate for abscess Continue Limb elevation Dr. Lincoln is transitional nurse this weekend [phone], please call for questions. [facility] M: [id number] O:[phone] Subjective Date of service: 11/29/18 Interval history: Patient seen and examined. Continues to complain of left arm pain. No fevers. 1013 . Objective - Exam Narrative Exam: Constitutional: Alert, cooperative. Morbidly obese Head, Ears, Nose: Normocephalic, atraumatic. External ears, nose normal Eyes: Conjunctivae/corneas clear. No icterus. No ptosis. Neck: Supple, no meningeal signs Oral: no thrush, no ulcers Cardiovascular: S1, S2 normal. Respiratory: Good air entry, clear to auscultation bilaterally GI: Soft, non-tender; bowel sounds normal. No peritoneal signs Musculoskeletal: Increased left upper arm swelling, redness and tenderness with warmth, no open wound, no purulence. Has previous scars on wrist. Skin: No rash or abscess Hem/Lymphatic: No palpable cervical or supraclavicular nodes. No lymphangitis Psych: mood good, Neurological: Awake, alert, oriented. No gross abnormality - Constitutional Vitals: Vital Signs Temp Pulse Resp BP Pulse Ox 97.6 F 85 20 135/82 92 11/29/18 05:54 11/29/18 05:54 11/29/18 05:54 11/29/18 05:54 11/29/18 05:54 Temperature -Last 24 Hours Temperature 97.6 F Temperature 98.0 F Temperature 98.4 F Temperature 98.3 F - Labs CBC & Chem 7: 11/27/18 Unknown 11/27/18 Unknown Labs: Abnormal lab results 11/29/18 Range/Units 07:19 PT 31.0 H (12.2-14.9) Sec. INR 2.75 H (0.87-1.13)
[2018-11-29] MEDS ORDERED: VITAMIN B-12 IM SCH (10:00)
[2018-11-29] MEDS: PERCOCET 5/325 PO PRN ×3 (10:47→20:24)
--- NOTE | 2018-11-29 11:29 | Progress Note ---
Subjective - Reason for Consult Consult date: 11/29/18 Reason for consult: Psychiatry Follow-up - Chief Complaint Chief complaint: "I am okay" 53 y.o. white female who presented to the ER for several complaints. Psychiatry was consulted to see the patient for possible psychosis. Today the patient was emotional during the assessment. She stated that things are not good in her life. She stated that she wasn't allowed to attend her daughter's . She stated, "I didn't have closure." Throughout the interview, the patient was emotional. She denies SI/HI's and AVH's. She denies any side effects of her medications. She was explained the 1013/referral process to a mental health facility once medically clear, she verbalized understanding. Mental Status Exam - Vital signs Last Vital Signs Temp 97.6 F 11/29/18 05:54 Pulse 85 11/29/18 05:54 Resp 20 11/29/18 05:54 BP 135/82 11/29/18 05:54 Pulse Ox 92 11/29/18 05:54 - Exam Narrative exam: MSE: Appearance: calm Behavior: regular eye contact Speech: regular rate and tone Mood: emotional Affect: congruent to mood Thought Process: circumstantial Thought Content: denies SI/HI's and AVH's Motor Activity: sitting up in bed Cognition: A/O x3 Insight: variable Judgment: variable Assessment and Plan Impression: Unspecified Anxiety DO. Hx of Mood DO. Complicated Grieving. Today the patient was emotional during the assessment. The patient is not at her baseline (mental health). The patient isn't safe at this time secondary to stressors. DDx: MDD Recommendation/Plan: Continue 1013, Seroquel 200 mg PO HS for mood, Xanax 1 mg PO TID for anxiety, Wellbutrin 150 mg POO daily for depression., and Melatonin 5 mg PO HS for sleep. Discussed possible metabolic side effects of Seroquel with the patient. she verbalized understanding. Discussed possible suicidality/medication induiced emery with the patient reference Wellbutrin, she verbalized understanding. Educated the patient on risks/benefits of benzos, she verbalized understanding. Do not admin Xanax and Percocet concurrently. Dispo: Once the patient is medically clear, she will be referred to inpatient psy services. Staffed with Dr Felicita Donaldson.
[2018-11-29] MEDS: WELLBUTRIN SR PO SCH (12:03)
[2018-11-29] MEDS: VALTREX PO SCH (12:03)
[2018-11-29] MEDS: ZESTRIL PO SCH (12:03)
[2018-11-29] MEDS: PROTONIX PO SCH (12:04)
[2018-11-29] MEDS: SODIUM CHLORIDE FLUSH SYRINGE 10 ML IV SCH (12:04)
[2018-11-29] MEDS: FOLVITE PO SCH (12:04)
[2018-11-29] MEDS: FLONASE NS SCH (12:05)
[2018-11-29] MEDS: LASIX PO SCH (12:09)
[2018-11-29] MEDS ORDERED: KEFLEX PO ONE (12:19)
--- NOTE | 2018-11-29 13:44 | Progress Note ---
Assessment and Plan Assessment and plan: Patient is a 53 yo woman with a history of HTN, IL, Diastolic CHF, DVT/PE not currently on Therapeutic Anticoagulation, OA, Obesity, Seizure DO, Bipolar DO, Asthma, COPD, CAD S/P Stent Placement, Nicotine Dependence, Fibromyalgia, Chronic Pain presents to ED with left arm cellulitis. Sepsis, poa. Patient meets criteria given the leukocytosis, tachycardia and diagnosis of cellulitis. Continue IV antibiotics and follow-up blood cultures. Left arm cellulitis. CT scan of the left upper extremity reveals subcutaneous induration of the proximal and distal portions of the left extremity suggesting cellulitis. There is swelling of the muscles of the upper arm which could be due to myositis. There is no discrete subcutaneous or intramuscular mass or fluid collection to suggest hematoma or abscess. Upper extremity Doppler negative for DVT. Continue IV antibiotics and consider ID consultation. Improved with the change iv clinda to iv vancomycin and consulted ID, input noted Psychosis/bipolar 1 disorder. Mental health evaluation pending. History of DVT/PE. Continue anticoagulation. Patient has been noncompliant with Coumadin therapy. Patient was started on Lovenox twice a day on admission. Coumadin per pharmacy. Obesity. Patient will need to be counseled on diet and exercise prior to discharge. Seizure disorder. Seizure precautions. History CAD status post stent placement. Diastolic CHF. Compensated. Continue lisinopril and Lasix. According to GA matrix repairer aware she 11/04/18 Oxycodone 20 mg quantity of [address] Michell Almonte; and 10/02/18 Oxycodone 20 mg quantity of [address] Michell Almonte Patient expressed SI and hallucinations to Mental health and was put on a 1013. When I sat down and spoke with patient, with GABBY Echavarria present, she denies SI when I told her that I may have to stop IV narcotic due to potential side effects of confusion and hallucinations. She denies having hallucination. She is very manipulative and narcotic seeking. Once ID transition to oral antibiotics then she can be discharge to Psych. The left antecubital swelling is not improved, d/w ID, will consult Gen. Surgery, U/S arm pending. The left arm redness is remarkably better History Interval history: Patient was seen and examined. Follow-up on current diagnosis of Left Upper cellulitis. No overnight events reported to me. Patient denies any chest pain, shortness breath, nausea/vomiting or severe headaches. Imaging, nursing note, chart, labs and old chart reviewed. Discussed with patient. Hospitalist Physical - Physical exam Narrative exam: Gen: WDWN, NAD, Awake, Alert, Orientated x 3, BMI 40.3 HEENT: NCAT, EOMI, PERRL, OP Clear Neck: supple, no adenopathy, no thyromegaly, no JVD CVS/Heart: RRR, normal S1S2, pulses present bilaterally Chest/Lungs: CTA B, Symmetrical chest exddfpansion, good air entry bilaterally GI/Abdomen: soft, NTND, good bowel sounds, no guarding or rebound /Bladder: no suprapubic tenderness, no CVA or paraspinal tenderness Extermity/Skin: left circumferential bicep to wrist red, tender, warm and erythematous, still with formed swelling left antecubital area MSK: FROM x 4 Neuro: CN 2-12 grossly intact, no new focal deficits Psych: anxious - Constitutional Vitals: Temp Pulse Resp BP Pulse Ox 97.6 F 85 20 135/82 92 11/29/18 05:54 11/29/18 05:54 11/29/18 05:54 11/29/18 05:54 11/29/18 05:54 General appearance: Present: no acute distress, obese Results - Labs CBC & Chem 7: 11/27/18 Unknown 11/27/18 Unknown Labs: Laboratory Last Values WBC 5.8 K/mm3 (4.5-11.0) 11/27/18 Unknown RBC 3.90 M/mm3 (3.65-5.03) 11/27/18 Unknown Hgb 12.6 gm/dl (10.1-14.3) 11/27/18 Unknown Hct 36.7 % (30.3-42.9) 11/27/18 Unknown MCV 94 fl (79-97) 11/27/18 Unknown MCH 32 pg (28-32) 11/27/18 Unknown MCHC 34 % (30-34) 11/27/18 Unknown RDW 13.7 % (13.2-15.2) 11/27/18 Unknown Plt Count 191 K/mm3 (140-440) 11/27/18 Unknown Lymph % (Auto) 13.7 % (13.4-35.0) 11/26/18 06:40 [place] % (Auto) 7.8 % (0.0-7.3) H 11/26/18 06:40 Eos % (Auto) 2.8 % (0.0-4.3) 11/26/18 06:40 Baso % (Auto) 1.1 % (0.0-1.8) 11/26/18 06:40 Lymph # 1.5 K/mm3 (1.2-5.4) 11/26/18 06:40 [place] # 0.8 K/mm3 (0.0-0.8) 11/26/18 06:40 Eos # 0.3 K/mm3 (0.0-0.4) 11/26/18 06:40 Baso # 0.1 K/mm3 (0.0-0.1) 11/26/18 06:40 Seg Neutrophils % 74.6 % (40.0-70.0) H 11/26/18 06:40 Seg Neutrophils # 8.0 K/mm3 (1.8-7.7) H 11/26/18 06:40 PT 31.0 Sec. (12.2-14.9) H 11/29/18 07:19 INR 2.75 (0.87-1.13) H 11/29/18 07:19 APTT 26.8 Sec. (24.2-36.6) 11/24/18 13:05 193.21 ng/mlDDU (0-234) 11/24/18 13:05 Sodium 139 mmol/L (137-145) 11/27/18 Unknown Potassium 3.6 mmol/L (3.6-5.0) 11/27/18 Unknown Chloride 102.8 mmol/L (98-107) 11/27/18 Unknown Carbon Dioxide 24 mmol/L (22-30) 11/27/18 Unknown 16 mmol/L 11/27/18 Unknown BUN 6 mg/dL (7-17) L 11/27/18 Unknown 0.4 mg/dL (0.7-1.2) L 11/27/18 Unknown Estimated GFR > 60 ml/min 11/27/18 Unknown 15 % 11/27/18 Unknown Glucose 161 mg/dL (65-100) H 11/27/18 Unknown Lactic Acid 1.80 mmol/L (0.7-2.0) 11/24/18 17:05 Calcium 8.2 mg/dL (8.4-10.2) L 11/27/18 Unknown < 0.20 mg/dL (0.1-1.2) 11/27/18 Unknown AST 13 units/L (5-40) 11/27/18 Unknown ALT 12 units/L (7-56) 11/27/18 Unknown 76 units/L (35-129) 11/27/18 Unknown 40 units/L (30-135) 11/24/18 13:26 < 0.010 ng/mL (0.00-0.029) 11/24/18 17:05 6.2 g/dL (6.3-8.2) L 11/27/18 Unknown 3.0 g/dL (3.9-5) L 11/27/18 Unknown 0.9 % 11/27/18 Unknown Yellow (Yellow) 11/27/18 12:30 Slightly-cloudy (Clear) 11/27/18 12:30 6.0 (5.0-7.0) 11/27/18 12:30 Ur Specific [place] 1.005 (1.003-1.030) 11/27/18 12:30 <15 mg/dl mg/dL (Negative) 11/27/18 12:30 Neg mg/dL (Negative) 11/27/18 12:30 Neg mg/dL (Negative) 11/27/18 12:30 Neg (Negative) 11/27/18 12:30 Neg (Negative) 11/27/18 12:30 Neg (Negative) 11/27/18 12:30 < 2.0 mg/dL (<2.0) 11/27/18 12:30 Ur Leukocyte Esterase Tr (Negative) 11/27/18 12:30 2.0 /HPF (0.0-6.0) 11/27/18 12:30 1.0 /HPF (0.0-6.0) 11/27/18 12:30 U Epithel Cells (Auto) 11.0 /HPF (0-13.0) 11/27/18 12:30 1+ /HPF (Negative) 11/27/18 12:30 Few /HPF 11/27/18 12:30 Vancomycin Trough 8.5 ug/mL (5.0-20.0) 11/27/18 23:02 Active Medications - Current Medications Current Medications: Generic Name Dose Route Start Last Admin Trade Name Freq PRN Reason Stop Dose Admin Albuterol 2.5 mg 11/24/18 22:50 11/27/18 07:49 Proventil IH 2.5 mg Q4HRT PRN Administration Shortness Of Breath Alprazolam 1 mg 11/25/18 22:00 11/29/18 08:07 Xanax PO 1 mg TID ANGELINA Administration Benzonatate 100 mg 11/24/18 22:52 Tessalon Perles PO Q8H PRN Cough Bupropion HCl 150 mg 11/26/18 15:30 11/29/18 12:03 Wellbutrin Sr PO 150 mg DAILY ANGELINA Administration Cyanocobalamin 1,000 mcg 11/26/18 10:00 11/26/18 09:25 Vitamin B-12 IM 1,000 mcg Tu ANGELINA Administration Cyanocobalamin 1,000 mcg 11/29/18 10:00 Vitamin B-12 IM Fr ANGELINA Fluticasone Propionate 50 mcg 11/25/18 10:00 11/29/18 12:05 Flonase NS 50 mcg QDAY ANGELINA Administration Folic Acid 1 mg 11/25/18 10:00 11/29/18 12:04 Folvite PO 1 mg DAILY ANGELINA Administration Furosemide 40 mg 11/25/18 10:00 11/29/18 12:09 Lasix PO 40 mg DAILY ANGELINA Administration Gabapentin 300 mg 11/25/18 06:00 11/29/18 05:36 Neurontin PO 300 mg Q8HR ANGELINA Administration Vancomycin HCl 1 gm in 250 mls @ 167.007 mls/hr 11/28/18 14:00 11/29/18 05:36 Vancomycin/Ns 1 Gm/250 Ml IV 167.007 mls/hr Q8H ANGELINA Administration Lisinopril 40 mg 11/25/18 10:00 11/29/18 12:03 Zestril PO 40 mg DAILY ANGELINA Administration Melatonin 5 mg 11/28/18 10:15 11/28/18 22:01 Melatonin PO 5 mg QHS PRN Administration Sleep Morphine Sulfate 2 mg 11/26/18 15:12 11/29/18 08:07 Morphine IV 2 mg Q4H PRN Administration Pain , Severe (7-10) Nicotine 21 mg 11/24/18 23:00 11/29/18 00:50 Habitrol TD 21 mg Q24H ANGELINA Administration Ondansetron HCl 4 mg 11/24/18 22:50 Zofran IV Q8H PRN Nausea And Vomiting Ondansetron HCl 8 mg 11/24/18 23:45 Zofran Odt PO Q8H PRN Nausea Oxycodone/Acetaminophen 2 tab 11/26/18 15:11 11/29/18 10:47 Percocet 5/325 PO 2 tab Q4H PRN Administration Pain , Severe (7-10) Pantoprazole Sodium 40 mg 11/25/18 10:00 11/29/18 12:04 Protonix PO 40 mg DAILY ANGELINA Administration Pravastatin Sodium 80 mg 11/25/18 22:00 11/28/18 22:02 Pravachol PO 80 mg QHS ANGELINA Administration Quetiapine Fumarate 200 mg 11/25/18 22:00 11/28/18 22:02 Seroquel PO 200 mg QHS ANGELINA Administration Sodium Chloride 10 ml 11/25/18 10:00 11/29/18 12:04 Sodium Chloride Flush Syringe 10 Ml IV 10 ml BID ANGELINA Administration Sodium Chloride 10 ml 11/24/18 22:50 11/29/18 04:18 Sodium Chloride Flush Syringe 10 Ml IV 10 ml PRN PRN Administration LINE FLUSH Valacyclovir HCl 1,000 mg 11/25/18 10:00 11/29/18 12:03 Valtrex PO 1,000 mg DAILY ANGELINA Administration Warfarin Sodium 5 mg 11/29/18 17:00 Coumadin PO DAILY@1700 [facility] Nutrition/Malnutrition Assess - Dietary Evaluation Nutrition/Malnutrition Findings: Nutrition Notes Start: 11/25/18 12:34 Freq: Status: Active Protocol: Document 11/25/18 12:34 LP (Rec: 11/25/18 12:36 LP [id number]) Nutrition Notes Initial or Follow up Brief Note Current Diagnosis COPD,Hypertension,Heart Failure Other Pertinent Diagnosis SIRS, Psychosis Current Diet No diet Pertinent Medications Coumadin Subjective/Other Information Screen for Coumadin. Pt states she has been on Coumadin and aware of diet. Wanted handout. Pt states eating well and denies wt changes. Nutrition Intervention Teaching Methods Handout Revisit per MD consult or patient Sign Off request:
[2018-11-29] MEDS: VITAMIN B-12 IM SCH (14:51)
--- NOTE | 2018-11-29 16:09 | Consultation ---
History of Present Illness Consult date: 11/29/18 Reason for consult: other (left arm swelling) Requesting physician: MACK GALE Chief complaint: fell on left arm - History of present illness History of present illness: 53yo F with multiple medical problems was admitted with left chest pressure and pain. She was noted to have cellulitis that was treated with antibiotics. It has been improving. However she has persistent left antecubital swelling and pain. We are asked to see her for possible abscess. Patient reports that left arm redness is much improved but she continues to have pain and swelling. She has been using ice pack. She reports that in the [place] where she lives, she fell in the bathtub and landed on her left arm. Her body weight fell against left arm. It has been hurting ever since that time. She is on chronic pain management by Dr. Almonte. She normally takes Percocets at home. She is wanting more narcotics for the pain. Past History Past Medical History: COPD, DVT Past Surgical History: cholecystectomy, Other (Coronary stents) Social history: lives with family Family history: CAD, hypertension Medications and Allergies Allergies Allergy/AdvReac Type Severity Reaction Status Date / Time hydrocodone bitartrate Allergy Hives Verified 08/01/18 13:12 [From Vicodin] metoclopramide HCl Allergy Anaphylaxis Verified 08/01/18 13:12 [From Reglan] Penicillins Allergy Swelling Verified 08/01/18 13:12 hydrocodone AdvReac Itching Verified 09/01/18 12:08 naproxen AdvReac Itching Verified 08/01/18 13:12 Home Medications Medication Instructions Recorded Confirmed Last Taken Type Cyanocobalamin [Vitamin B-12] 1,000 mcg IM 2XW 08/20/17 11/25/18 09/01/18 History Folic Acid [Folvite] 1 mg PO DAILY 08/20/17 11/25/18 09/01/18 History Valacyclovir HCl [Valtrex] 1,000 mg PO DAILY 08/20/17 11/25/18 09/01/18 History Gabapentin [Neurontin] 300 mg PO Q8HR #30 capsule 09/19/17 11/25/18 09/01/18 Rx Simvastatin 40 mg PO QDAY #30 tablet 09/19/17 11/25/18 09/01/18 Rx Ondansetron [Zofran ODT TAB] 8 mg PO Q8HR PRN #10 tab.rapdis 11/23/17 11/25/18 09/01/18 Rx Mometasone/Formoterol [Dulera 200 2 puff IH BID #1 hfa.aer.ad 03/15/18 11/25/18 09/01/18 Rx Mcg/5 Mcg Inhaler] ALPRAZolam [Xanax TAB] 1 mg PO BID PRN #6 tablet 07/12/18 11/25/18 09/01/18 Rx Nicotine [Habitrol] 21 mg TD Q24H #30 patch 07/12/18 11/25/18 09/01/18 Rx Albuterol Sulfate [Ventolin HFA] 2 puff IH DAILY PRN 08/01/18 11/25/18 09/01/18 History Furosemide [Lasix] 40 mg PO DAILY 08/01/18 11/25/18 09/01/18 History Lisinopril [Zestril] 40 mg PO DAILY 08/01/18 11/25/18 09/01/18 History Oxycodone HCl/Acetaminophen 1 each PO Q12H PRN #14 tablet 08/01/18 11/25/18 09/01/18 Rx [Percocet 7.5/325 mg] Pantoprazole [Protonix TAB] 40 mg PO DAILY 08/01/18 11/25/18 09/01/18 History QUEtiapine [SEROquel] 300 mg PO QHS 10/10/18 11/25/18 Unknown History Warfarin [Coumadin] 5 mg PO QDAY 10/10/18 11/25/18 Unknown History ALBUTEROL Inhaler (OR & NICU) 2 puff IH Q4HR PRN #1 inhalation 10/15/18 11/25/18 Unknown Rx [ProAir HFA Inhaler] Azithromycin [Zithromax Z-LUCIO] 250 mg PO DAILY #6 tablet 10/15/18 11/25/18 Unknown Rx Benzonatate [Tessalon Perles] 100 mg PO Q8HR PRN #20 capsule 10/15/18 11/25/18 Unknown Rx Fluticasone [Flonase] 1 spray NS QDAY #1 bottle 10/15/18 11/25/18 Unknown Rx Ibuprofen [Motrin] 800 mg PO Q8HR PRN #30 tablet 10/15/18 11/25/18 Unknown Rx Clindamycin [Clindamycin CAP] 300 mg PO Q6H #28 capsule 11/24/18 Unknown Rx Ibuprofen [Motrin] 600 mg PO Q8H PRN #30 tablet 11/24/18 Unknown Rx Ondansetron [Zofran Odt] 4 mg PO Q8HR PRN #20 tab.rapdis 11/24/18 Unknown Rx Active Meds: Active Medications Albuterol (Proventil) 2.5 mg IH Q4HRT PRN PRN Reason: Shortness Of Breath Last Admin: 11/27/18 07:49 Dose: 2.5 mg Documented by: Alprazolam (Xanax) 1 mg PO TID [facility] Last Admin: 11/29/18 14:00 Dose: 1 mg Documented by: Benzonatate (Tessalon Perles) 100 mg PO Q8H PRN PRN Reason: Cough Bupropion HCl (Wellbutrin Sr) 150 mg PO DAILY [facility] Last Admin: 11/29/18 12:03 Dose: 150 mg Documented by: Cyanocobalamin (Vitamin B-12) 1,000 mcg IM Tu [facility] Last Admin: 11/29/18 14:51 Dose: 1,000 mcg Documented by: Cyanocobalamin (Vitamin B-12) 1,000 mcg IM Fr [facility] Last Admin: 11/29/18 14:00 Dose: 1,000 mcg Documented by: Fluticasone Propionate (Flonase) 50 mcg NS QDAY [facility] Last Admin: 11/29/18 12:05 Dose: 50 mcg Documented by: Folic Acid (Folvite) 1 mg PO DAILY [facility] Last Admin: 11/29/18 12:04 Dose: 1 mg Documented by: Furosemide (Lasix) 40 mg PO DAILY [facility] Last Admin: 11/29/18 12:09 Dose: 40 mg Documented by: Gabapentin (Neurontin) 300 mg PO Q8HR [facility] Last Admin: 11/29/18 14:00 Dose: 300 mg Documented by: Vancomycin HCl (Vancomycin/Ns 1 Gm/250 Ml) 1 gm in 250 mls @ 167.007 mls/hr IV Q8H [facility] Last Admin: 11/29/18 05:36 Dose: 167.007 mls/hr Documented by: Lisinopril (Zestril) 40 mg PO DAILY [facility] Last Admin: 11/29/18 12:03 Dose: 40 mg Documented by: Melatonin (Melatonin) 5 mg PO QHS PRN PRN Reason: Sleep Last Admin: 11/28/18 22:01 Dose: 5 mg Documented by: Morphine Sulfate (Morphine) 2 mg IV Q4H PRN PRN Reason: Pain , Severe (7-10) Last Admin: 11/29/18 14:13 Dose: 2 mg Documented by: Nicotine (Habitrol) 21 mg TD Q24H [facility] Last Admin: 11/29/18 00:50 Dose: 21 mg Documented by: Ondansetron HCl (Zofran) 4 mg IV Q8H PRN PRN Reason: Nausea And Vomiting Ondansetron HCl (Zofran Odt) 8 mg PO Q8H PRN PRN Reason: Nausea Oxycodone/Acetaminophen (Percocet 5/325) 2 tab PO Q4H PRN PRN Reason: Pain , Severe (7-10) Last Admin: 11/29/18 10:47 Dose: 2 tab Documented by: Pantoprazole Sodium (Protonix) 40 mg PO DAILY [facility] Last Admin: 11/29/18 12:04 Dose: 40 mg Documented by: Pravastatin Sodium (Pravachol) 80 mg PO QHS [facility] Last Admin: 11/28/18 22:02 Dose: 80 mg Documented by: Quetiapine Fumarate (Seroquel) 200 mg PO QHS [facility] Last Admin: 11/28/18 22:02 Dose: 200 mg Documented by: Sodium Chloride (Sodium Chloride Flush Syringe 10 Ml) 10 ml IV BID [facility] Last Admin: 11/29/18 12:04 Dose: 10 ml Documented by: Sodium Chloride (Sodium Chloride Flush Syringe 10 Ml) 10 ml IV PRN PRN PRN Reason: LINE FLUSH Last Admin: 11/29/18 04:18 Dose: 10 ml Documented by: Valacyclovir HCl (Valtrex) 1,000 mg PO DAILY [facility] Last Admin: 11/29/18 12:03 Dose: 1,000 mg Documented by: Warfarin Sodium (Coumadin) 5 mg PO DAILY@1700 [facility] Review of Systems - Constitutional chronic pain - Cardiovascular chest pain, shortness of breath - Respiratory no cough - Gastrointestinal no abdominal pain, no nausea, no vomiting - Genitourinary Genitourinary: no dysuria - Muskuloskeletal redness of joints, limitation of motion left: elbow pain, elbow swelling - Integumentary redness Exam Vital Signs Pulse Resp Pulse Ox 102 H 28 H 97 11/24/18 12:52 11/24/18 12:52 11/24/18 12:52 - General physical appearance Positive: no distress, no pain, obese - Eyes Positive: normal occular movement - Respiratory Positive: normal expansion, normal respiratory effort - Extremities Extremity abnormal: erythema (around the antecubital area), tenderness (around the antecubital area. ), other (limited ROM. no fluctuance noted. +induration. firm mass tracking along the biceps and medial arm. posterior arm hurts as well. ) - Neurologic Neurologic: alert and oriented to time, place and person - Psychiatric Psychiatric: agitated Results - Labs 11/27/18 Unknown 11/27/18 Unknown Abnormal lab results 11/29/18 Range/Units 07:19 PT 31.0 H (12.2-14.9) Sec. INR 2.75 H (0.87-1.13) - Imaging Additional studies: CT arm reviewed Assessment and Plan - Patient Problems (1) Myositis of left upper arm Current Visit: Yes Status: Acute Qualifiers: Myositis type: other type Qualified Code(s): M60.822 - Other myositis, left upper arm Plan to address problem: Pt stable. I do not see anything on exam or on CT scan to suggest an abscess in the soft tissue space. Based on her history I think she traumatizes the left arm by falling on it. I think the firm mass in the antecubital area is induration from the trauma. There is no fluctuance. There is no blanching erythema. She has tenderness in that area plus the rest of the arm. Despite her recurrent requests for opioids, I kept redirecting her towards anti- inflammatories. As she has used ice for a week now, I recommend mild heat and NSAIDs, if she is allowed to have him. I will follow-up on the ultrasound results. Please call with any questions. No surgical intervention is recommended at this time. time=30min
--- NOTE | 2018-11-29 17:48 | Ultrasound Report ---
PROCEDURE: US EXTREM NONVASCULAR LTD LT TECHNIQUE: Limited ultrasound over the left arm near the elbow in the area of clinical concern was p erformed HISTORY: eval for left arm abscess COMPARISONS: None FINDINGS: Examination in the proximal left arm extending to the elbow was performed in the area of clinical con cern. There is generalized subcutaneous edema throughout this region. Normal vessels are present in t his region. There is no focal solid or cystic abnormality identified. IMPRESSION: Subcutaneous edema. No focal solid or cystic abnormality identified. This document is electronically signed by Kayce Su MD., November 29 2018 05:46:37 PM ET
[2018-11-29] MEDS: COUMADIN PO SCH (18:04)
[2018-11-29] MEDS: PRAVACHOL PO SCH (22:06)
[2018-11-29] MEDS: MELATONIN PO PRN (22:17)
[2018-11-30] MEDS: PERCOCET 5/325 PO PRN ×4 (03:45→19:56)
[2018-11-30] MEDS: VANCOMYCIN/NS 1 GM/250 ML 1 GM/250 ML BAG IV SCH ×2 (05:23→14:27)
[2018-11-30] MEDS: NEURONTIN PO SCH ×3 (05:23→22:06)
[2018-11-30 05:56] LABS: INR 2.86 (0.87-1.13)
[2018-11-30] MEDS: MORPHINE IV PRN ×3 (08:06→22:51)
[2018-11-30] MEDS: XANAX PO SCH ×3 (08:06→19:56)
[2018-11-30] MEDS: PROTONIX PO SCH (11:05)
[2018-11-30] MEDS: WELLBUTRIN SR PO SCH (11:06)
[2018-11-30] MEDS: FOLVITE PO SCH (11:06)
[2018-11-30] MEDS: VALTREX PO SCH (11:07)
[2018-11-30] MEDS: FLONASE NS SCH (11:08)
[2018-11-30] MEDS: SODIUM CHLORIDE FLUSH SYRINGE 10 ML IV SCH ×2 (11:08→22:07)
[2018-11-30] MEDS: LASIX PO SCH (11:09)
--- NOTE | 2018-11-30 11:27 | Progress Note ---
Assessment and Plan - Patient Problems (1) Myositis of left upper arm Current Visit: Yes Status: Acute Qualifiers: Myositis type: other type Qualified Code(s): M60.822 - Other myositis, left upper arm Plan to address problem: Pt stable. Ultrasound confirmed that there is no fluid collection consistent with an abscess. I think she just has soft tissue trauma and cellulitis from her fall. Conservative care recommended at this time with mild heating compresses and NSAIDs. Will probably take a few months to resolve. Ok to d/c at anytime from my standpoint. Please call with any questions. No surgical intervention is recommended at this time. mj=10min Subjective Date of service: 11/30/18 Patient Reports: Positive: no new complaints, still having pain (in left arm) Objective Vital Signs - 12hr 11/30/18 11/30/18 04:41 05:00 Temperature 98.1 F 98.1 F Pulse Rate 81 Respiratory 20 20 Rate Blood Pressure 147/85 Blood Pressure 147/85 [Right] O2 Sat by Pulse 96 Oximetry - General physical appearance no distress, no pain, obese, other (sitting on edge of bed) - Respiratory normal expansion, normal respiratory effort - Musculoskeletal other (left antecubital swollen and tender (no change)) - Psychiatric oriented to time, oriented to person, oriented to place, speech is normal, memory intact - Labs 11/27/18 Unknown 11/27/18 Unknown
[2018-11-30] MEDS: ZESTRIL PO SCH (13:10)
[2018-11-30] MEDS ORDERED: DIFLUCAN PO ONE (15:02)
--- NOTE | 2018-11-30 15:08 | Progress Note ---
Assessment and Plan Assessment and plan: Patient is a 53 yo woman with a history of HTN, NM, Diastolic CHF, DVT/PE not currently on Therapeutic Anticoagulation, OA, Obesity, Seizure DO, Bipolar DO, Asthma, COPD, CAD S/P Stent Placement, Nicotine Dependence, Fibromyalgia, Chronic Pain presents to ED with left arm cellulitis. Patient expressed SI and hallucinations to Mental health staff and was put on a 1013. When I sat down and spoke with patient, with RN Italia present, she denies SI when I told her that I may have to stop IV narcotic due to potential side effects of confusion and hallucinations. She retracted ever having hallucination or suicidal ideations. She is very manipulative and narcotic seeking. Once ID transition to oral anti biotics then she can be discharge to Psych. The left antecubital swelling is not improved, d/w ID, consulted Gen. Surgery, Dr. Yip on 11/29/18 and U/S arm did not show abscess. Sepsis, poa. Patient meets criteria given the leukocytosis, tachycardia and diagnosis of cellulitis. Continue IV antibiotics and follow-up blood cultures. Left arm cellulitis. CT scan of the left upper extremity reveals subcutaneous induration of the proximal and distal portions of the left extremity suggesting cellulitis. There is swelling of the muscles of the upper arm which could be due to myositis. There is no discrete subcutaneous or intramuscular mass or fluid collection to suggest hematoma or abscess. Upper extremity Doppler negative for DVT. Continue IV antibiotics and consider ID consultation. Improved with the change iv clinda to iv vancomycin and consulted ID, input noted Psychosis/bipolar 1 disorder. Mental health evaluation pending. History of DVT/PE. Continue anticoagulation. Patient has been noncompliant with Coumadin therapy. Patient was started on Lovenox twice a day on admission. Coumadin per pharmacy. Obesity. Patient will need to be counseled on diet and exercise prior to discharge. Seizure disorder. Seizure precautions. History CAD status post stent placement. Diastolic CHF. Compensated. Continue lisinopril and Lasix. Vaginal discharge, yeast per patient: use mycostatin instead of diflucan due to side effects with other medication According to [place] pharmacovigilance scientist aware she 11/04/18 Oxycodone 20 mg quantity of [address] Michell Almonte; and 10/02/18 Oxycodone 20 mg quantity of [address] Michell Almonte Disposition: Medical stable to be discharge to Psych unit. History Interval history: Patient was seen and examined. Follow-up on current diagnosis of Left Upper cellulitis. No overnight events reported to me. Patient denies any chest pain, shortness breath, nausea/vomiting or severe headaches. Imaging, nursing note, chart, labs and old chart reviewed. Discussed with patient. Hospitalist Physical - Physical exam Narrative exam: Gen: WDWN, NAD, Awake, Alert, Orientated x 3, BMI 40.3 HEENT: NCAT, EOMI, PERRL, OP Clear Neck: supple, no adenopathy, no thyromegaly, no JVD CVS/Heart: RRR, normal S1S2, pulses present bilaterally Chest/Lungs: CTA B, Symmetrical chest exddfpansion, good air entry bilaterally GI/Abdomen: soft, NTND, good bowel sounds, no guarding or rebound /Bladder: no suprapubic tenderness, no CVA or paraspinal tenderness Extermity/Skin: left circumferential bicep to wrist red, tender, warm and erythe matous, still with formed swelling left antecubital area MSK: FROM x 4 Neuro: CN 2-12 grossly intact, no new focal deficits Psych: anxious - Constitutional Vitals: Temp Pulse Resp BP Pulse Ox 98.3 F 91 H 16 166/96 91 11/30/18 12:53 11/30/18 12:53 11/30/18 12:53 11/30/18 12:53 11/30/18 12:53 General appearance: Present: no acute distress, obese Results - Labs CBC & Chem 7: 11/27/18 Unknown 11/27/18 Unknown Labs: Laboratory Last Values WBC 5.8 K/mm3 (4.5-11.0) 11/27/18 Unknown RBC 3.90 M/mm3 (3.65-5.03) 11/27/18 Unknown Hgb 12.6 gm/dl (10.1-14.3) 11/27/18 Unknown Hct 36.7 % (30.3-42.9) 11/27/18 Unknown MCV 94 fl (79-97) 11/27/18 Unknown MCH 32 pg (28-32) 11/27/18 Unknown MCHC 34 % (30-34) 11/27/18 Unknown RDW 13.7 % (13.2-15.2) 11/27/18 Unknown Plt Count 191 K/mm3 (140-440) 11/27/18 Unknown Lymph % (Auto) 13.7 % (13.4-35.0) 11/26/18 06:40 [place] % (Auto) 7.8 % (0.0-7.3) H 11/26/18 06:40 Eos % (Auto) 2.8 % (0.0-4.3) 11/26/18 06:40 Baso % (Auto) 1.1 % (0.0-1.8) 11/26/18 06:40 Lymph # 1.5 K/mm3 (1.2-5.4) 11/26/18 06:40 [place] # 0.8 K/mm3 (0.0-0.8) 11/26/18 06:40 Eos # 0.3 K/mm3 (0.0-0.4) 11/26/18 06:40 Baso # 0.1 K/mm3 (0.0-0.1) 11/26/18 06:40 Seg Neutrophils % 74.6 % (40.0-70.0) H 11/26/18 06:40 Seg Neutrophils # 8.0 K/mm3 (1.8-7.7) H 11/26/18 06:40 PT 32.0 Sec. (12.2-14.9) H 11/30/18 05:26 INR 2.86 (0.87-1.13) H 11/30/18 05:26 APTT 26.8 Sec. (24.2-36.6) 11/24/18 13:05 193.21 ng/mlDDU (0-234) 11/24/18 13:05 Sodium 139 mmol/L (137-145) 11/27/18 Unknown Potassium 3.6 mmol/L (3.6-5.0) 11/27/18 Unknown Chloride 102.8 mmol/L (98-107) 11/27/18 Unknown Carbon Dioxide 24 mmol/L (22-30) 11/27/18 Unknown 16 mmol/L 11/27/18 Unknown BUN 6 mg/dL (7-17) L 11/27/18 Unknown 0.4 mg/dL (0.7-1.2) L 11/27/18 Unknown Estimated GFR > 60 ml/min 11/27/18 Unknown 15 % 11/27/18 Unknown Glucose 161 mg/dL (65-100) H 11/27/18 Unknown Lactic Acid 1.80 mmol/L (0.7-2.0) 11/24/18 17:05 Calcium 8.2 mg/dL (8.4-10.2) L 11/27/18 Unknown < 0.20 mg/dL (0.1-1.2) 11/27/18 Unknown AST 13 units/L (5-40) 11/27/18 Unknown ALT 12 units/L (7-56) 11/27/18 Unknown 76 units/L (35-129) 11/27/18 Unknown 40 units/L (30-135) 11/24/18 13:26 < 0.010 ng/mL (0.00-0.029) 11/24/18 17:05 6.2 g/dL (6.3-8.2) L 11/27/18 Unknown 3.0 g/dL (3.9-5) L 11/27/18 Unknown 0.9 % 11/27/18 Unknown Yellow (Yellow) 11/27/18 12:30 Slightly-cloudy (Clear) 11/27/18 12:30 6.0 (5.0-7.0) 11/27/18 12:30 Ur Specific [place] 1.005 (1.003-1.030) 11/27/18 12:30 <15 mg/dl mg/dL (Negative) 11/27/18 12:30 Neg mg/dL (Negative) 11/27/18 12:30 Neg mg/dL (Negative) 11/27/18 12:30 Neg (Negative) 11/27/18 12:30 Neg (Negative) 11/27/18 12:30 Neg (Negative) 11/27/18 12:30 < 2.0 mg/dL (<2.0) 11/27/18 12:30 Ur Leukocyte Esterase Tr (Negative) 11/27/18 12:30 2.0 /HPF (0.0-6.0) 11/27/18 12:30 1.0 /HPF (0.0-6.0) 11/27/18 12:30 U Epithel Cells (Auto) 11.0 /HPF (0-13.0) 11/27/18 12:30 1+ /HPF (Negative) 11/27/18 12:30 Few /HPF 11/27/18 12:30 Vancomycin Trough 9.3 ug/mL (5.0-20.0) 11/29/18 13:15 Active Medications - Current Medications Current Medications: Generic Name Dose Route Start Last Admin Trade Name Freq PRN Reason Stop Dose Admin Albuterol 2.5 mg 11/24/18 22:50 11/27/18 07:49 Proventil IH 2.5 mg Q4HRT PRN Administration Shortness Of Breath Alprazolam 1 mg 11/25/18 22:00 11/30/18 13:07 Xanax PO 1 mg TID ANGELINA Administration Benzonatate 100 mg 11/24/18 22:52 Tessalon Perles PO Q8H PRN Cough Bupropion HCl 150 mg 11/26/18 15:30 11/30/18 11:06 Wellbutrin Sr PO 150 mg DAILY ANGELINA Administration Cyanocobalamin 1,000 mcg 11/26/18 10:00 11/29/18 14:51 Vitamin B-12 IM 1,000 mcg Tu ANGELINA Administration Cyanocobalamin 1,000 mcg 11/29/18 10:00 11/29/18 14:00 Vitamin B-12 IM 1,000 mcg Fr ANGELINA Administration Fluticasone Propionate 50 mcg 11/25/18 10:00 11/30/18 11:08 Flonase NS 50 mcg QDAY ANGELINA Administration Folic Acid 1 mg 11/25/18 10:00 11/30/18 11:06 Folvite PO 1 mg DAILY ANGELINA Administration Furosemide 40 mg 11/25/18 10:00 11/30/18 11:09 Lasix PO 40 mg DAILY ANGELINA Administration Gabapentin 300 mg 11/25/18 06:00 11/30/18 13:07 Neurontin PO 300 mg Q8HR ANGELINA Administration Vancomycin HCl 1 gm in 250 mls @ 167.007 mls/hr 11/28/18 14:00 11/30/18 14:27 Vancomycin/Ns 1 Gm/250 Ml IV 11/30/18 20:59 167.007 mls/hr Q8H ANGELINA Administration Vancomycin HCl 1,250 mg/ 275 mls @ 166.667 mls/hr 11/30/18 22:00 Sodium Chloride IV Q8H ANGELINA Lisinopril 40 mg 11/25/18 10:00 11/30/18 13:10 Zestril PO 40 mg DAILY ANGELINA Administration Melatonin 5 mg 11/28/18 10:15 11/29/18 22:17 Melatonin PO 5 mg QHS PRN Administration Sleep Morphine Sulfate 2 mg 11/26/18 15:12 11/30/18 13:06 Morphine IV 2 mg Q4H PRN Administration Pain , Severe (7-10) Nicotine 21 mg 11/24/18 23:00 11/29/18 22:05 Habitrol TD 21 mg Q24H ANGELINA Administration Nystatin 1 applic 11/30/18 20:00 Mycostatin TP 12/06/18 20:01 TID ANGELINA Ondansetron HCl 4 mg 11/24/18 22:50 Zofran IV Q8H PRN Nausea And Vomiting Ondansetron HCl 8 mg 11/24/18 23:45 Zofran Odt PO Q8H PRN Nausea Oxycodone/Acetaminophen 2 tab 11/26/18 15:11 11/30/18 11:05 Percocet 5/325 PO 2 tab Q4H PRN Administration Pain , Severe (7-10) Pantoprazole Sodium 40 mg 11/25/18 10:00 11/30/18 11:05 Protonix PO 40 mg DAILY ANGELINA Administration Pravastatin Sodium 80 mg 11/25/18 22:00 11/29/18 22:06 Pravachol PO 80 mg QHS ANGELINA Administration Quetiapine Fumarate 200 mg 11/25/18 22:00 11/29/18 22:06 Seroquel PO 200 mg QHS ANGELINA Administration Sodium Chloride 10 ml 11/25/18 10:00 11/30/18 11:08 Sodium Chloride Flush Syringe 10 Ml IV 10 ml BID ANGELINA Administration Sodium Chloride 10 ml 11/24/18 22:50 11/29/18 23:19 Sodium Chloride Flush Syringe 10 Ml IV 10 ml PRN PRN Administration LINE FLUSH Valacyclovir HCl 1,000 mg 11/25/18 10:00 11/30/18 11:07 Valtrex PO 1,000 mg DAILY ANGELINA Administration Warfarin Sodium 5 mg 11/29/18 17:00 11/29/18 18:04 Coumadin PO 5 mg DAILY@1700 ANGELINA Administration Nutrition/Malnutrition Assess - Dietary Evaluation Nutrition/Malnutrition Findings: Nutrition Notes Start: 11/25/18 12:34 Freq: Status: Active Protocol: Document 11/29/18 17:06 RM (Rec: 11/29/18 17:07 RM [id number]) Nutrition Notes Initial or Follow up Brief Note Current Diagnosis COPD,Hypertension,Heart Failure Other Pertinent Diagnosis SIRS, Psychosis Current Diet Regular Height 5 ft 5 in Weight 116.6 kg [place] Body Weight (kg) 56.81 BMI 42.7 Subjective/Other Information Recorded PO intake 100% X 4 meals. Nutrition Intervention Revisit per MD consult or patient Sign Off request:
--- NOTE | 2018-11-30 15:09 | Discharge Summary ---
Providers - Providers Date of Admission: 11/24/18 22:51 Date of discharge: 12/02/18 Attending physician: MACK GALE 11/25/18 08:00 Consult to Mental Health [CONS] Routine Reason For Exam: psychosis Place consult to:: psych Notified:: TORIE Phone number called:: [phone] Was contact made?: Yes If yes, spoke with:: TORIE Time called:: 09:44 11/26/18 15:37 Consult to Physician [CONS] Routine Comment: Consulting Provider: MISTY CALL Physician Instructions: I notified Reason For Exam: left arm cellulitis 11/29/18 13:40 Consult to Physician [CONS] Routine Comment: Consulting Provider: MASON YIP Physician Instructions: I notified Reason For Exam: left arm infection, eval for abscess vs hematoma Primary care physician: [facility] Hospitalization Condition: Stable Hospital course: Patient is a 53 yo woman with a history of HTN, AR, Diastolic CHF, DVT/PE not currently on Therapeutic Anticoagulation, OA, Obesity, Seizure DO, Bipolar DO, Asthma, COPD, CAD S/P Stent Placement, Nicotine Dependence, Fibromyalgia, Chronic Pain presents to ED with left arm cellulitis. Patient expressed SI and hallucinations to Mental health staff and was put on a 1013. When I sat down and spoke with patient, with GABBY Echavarria present, she denies SI when I told her that I may have to stop IV narcotic due to potential side effects of confusion and hallucinations. She retracted ever having hallucination or suicidal ideations. She is very manipulative and narcotic seeking. Once ID transition to oral anti biotics then she can be discharge to Psych. The left antecubital swelling is not improved, d/w ID, consulted Gen. Surgery, Dr. Yip on 11/29/18 and U/S arm did not show abscess. s/c home on PO Keflex 500 mg QID + PO Doxycycline 100 mg BID, last day 12/04/18. Sepsis, poa. Patient meets criteria given the leukocytosis, tachycardia and diagnosis of cellulitis. Continue IV antibiotics and follow-up blood cultures. Left arm cellulitis. CT scan of the left upper extremity reveals subcutaneous induration of the proximal and distal portions of the left extremity suggesting cellulitis. There is swelling of the muscles of the upper arm which could be due to myositis. There is no discrete subcutaneous or intramuscular mass or fluid collection to suggest hematoma or abscess. Upper extremity Doppler negative for DVT. Continue IV antibiotics and consider ID consultation. Improved with the change iv clinda to iv vancomycin and consulted ID, input noted Psychosis/bipolar 1 disorder. Mental health evaluation pending. History of DVT/PE. Continue anticoagulation. Patient has been noncompliant with Coumadin therapy. Patient was started on Lovenox twice a day on admission. Coumadin per pharmacy. Obesity. Patient will need to be counseled on diet and exercise prior to discharge. Seizure disorder. Seizure precautions. History CAD status post stent placement. Diastolic CHF. Compensated. Continue lisinopril and Lasix. Vaginal discharge, yeast per patient: use mycostatin instead of diflucan due to side effects with other medication According to [place] bowling pin refinisher aware she 11/04/18 Oxycodone 20 mg quantity of [address] Michell Almonte; and 10/02/18 Oxycodone 20 mg quantity of [address] Michell Almonte Disposition: Medical stable to be discharge to Psych unit===>psych has rescinded 1013, will d/c her home. Disposition: DC- TO HOME OR SELFCARE Time spent for discharge: 34 minutes Core Measure Documentation - Palliative Care Palliative Care/ Comfort Measures: Not Applicable - Core Measures Any of the following diagnoses?: none - VTE Discharge Requirements Deep Vein Thrombosis/Pulmonary Embolism Present on Admission: No Has pt received <5 days of overlap therapy or INR<2.0: No Anticoagulant overlap therapy prescribed at discharge: No Contraindication No Overlap Therapy order at DC: Not Indicated Exam - Physical Exam Narrative exam: Gen: WDWN, NAD, Awake, Alert, Orientated x 3, BMI 40.3 HEENT: NCAT, EOMI, PERRL, OP Clear Neck: supple, no adenopathy, no thyromegaly, no JVD CVS/Heart: RRR, normal S1S2, pulses present bilaterally Chest/Lungs: CTA B, Symmetrical chest exddfpansion, good air entry bilaterally GI/Abdomen: soft, NTND, good bowel sounds, no guarding or rebound /Bladder: no suprapubic tenderness, no CVA or paraspinal tenderness Extermity/Skin: resolving 90% left circumferential bicep to wrist red, tender, warm and erythematous and formed swelling left antecubital area MSK: FROM x 4 Neuro: CN 2-12 grossly intact, no new focal deficits Psych: calm, denies SI - Constitutional Vitals: Temp Pulse Resp BP Pulse Ox 98.3 F 91 H 16 166/96 91 11/30/18 12:53 11/30/18 12:53 11/30/18 12:53 11/30/18 12:53 11/30/18 12:53 Plan Activity: other (no strenous activity unless cleared by PCP) Diet: low salt Special Instructions: smoking cessation Follow up with: [facility] [Provider Group] - 3-5 Days [facility] [Outside] - 7 Days (Sunday - Sunday 8:00am - 5:00pm. Walk-In only Must arrive at 7:45 as available slots are first come, first served. To be eligible for services, you must bring the following with you: 1. Proof of Identity 2. Proof of Residence 3. Proof of Income 4. Insurance Cards 5. Referral documents and/or hospital discharge papers.) LILY ESQUEDA MD [Staff Physician] - 3-5 Days FRANCIS TORRES MD [Staff Physician] - 3-5 Days [facility] [Primary Care Provider] - 3-5 Days Forms: Warfarin Discharge Instruction Prescriptions: Doxycycline Monohydrate [Doxycycline Monohydrate CAP] 100 mg PO BID #10 capsule Mometasone/Formoterol [Dulera 200 Mcg/5 Mcg Inhaler] 2 puff IH BID #1 hfa.aer.ad cephALEXin [Keflex] 500 mg PO QID #20 capsule Nystatin Oint [Mycostatin Oint] 1 applic TP TID 7 Days #1 tube oxyCODONE /ACETAMINOPHEN [Percocet 5/325 mg] 2 tab PO Q4H PRN #4 tablet PRN Reason: Pain , Severe (7-10) Ondansetron [Zofran Odt] 4 mg PO Q8HR PRN #20 tab.rapdis PRN Reason: Nausea
[2018-11-30] MEDS: COUMADIN PO SCH (16:28)
--- NOTE | 2018-11-30 19:44 | Progress Note ---
Subjective - Reason for Consult Consult date: 11/30/18 Reason for consult: follow up - Chief Complaint Chief complaint: "I want to live." 53 y.o. white female who presented to the ER for several complaints. Psychiatry was consulted to see the patient for possible psychosis. She stated that she wasn't allowed to attend her daughter's . She stated, "I didn't have closure." She denies SI/HI's and AVH's. She denies any side effects of her medications. She is insistent she wants to live. She is living in a hotel but denies this to be affecting her outlook on life. 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 She states she thanked God for the 35 years she had with her daughter. She talked about how her daughter was murdered and wants to see justice served. She denies homicidal ideation. She reports being with her significant other for 20 years and says he is good to her. She denies him to be abusive, but she states he might be a narcissist. She also states she is and says she loves herself very much. Staff say her family has been to see her today. Mental Status Exam - Vital signs Last Vital Signs Temp 98.3 F 11/30/18 12:53 Pulse 91 H 11/30/18 12:53 Resp 16 11/30/18 12:53 BP 166/96 11/30/18 12:53 Pulse Ox 91 11/30/18 12:53 - Exam Narrative exam: MSE: Appearance: calm Behavior: regular eye contact Speech: regular rate and tone Mood: depressed Affect: congruent to mood Thought Process: circumstantial Thought Content: denies SI/HI's and AVH's Motor Activity: sitting up in bed Cognition: A/O x3 Insight: variable Judgment: variable Assessment and Plan Impression: Unspecified Anxiety DO. Hx of bipolar disorder. Complicated Grieving. She is medically cleared per the record. Recommendation/Plan: Continue 1013, Seroquel 200 mg PO HS for mood, Xanax 1 mg PO TID for anxiety, Wellbutrin 150 mg POO daily for depression., and Melatonin 5 mg PO HS for sleep. LINH Taylor discussed possible metabolic side effects of Seroquel with the patient. she verbalized understanding. Discussed possible loreto cidality/medication induced emery with the patient reference Wellbutrin, she verbalized understanding. Educated the patient on risks/benefits of benzos, she verbalized understanding. Do not admin Xanax and Percocet concurrently. Dispo: Psych will evaluate in 24 hours to determine suicide risk and will consider PHP or outpatient psychiatric treatment at the [facility]. Family will need to pick her up if the 1013 is rescinded. Staffed with Dr Felicita Donaldson.
[2018-11-30] MEDS: MYCOSTATIN TP SCH (22:05)
[2018-11-30] MEDS: PRAVACHOL PO SCH (22:06)
[2018-11-30] MEDS: VANCOMYCIN 1,250 MG in NACL 0.9% 250ML 250 ML IV SCH (22:06)
[2018-11-30] MEDS: HABITROL TD SCH (22:11)
[2018-12-01] MEDS: PERCOCET 5/325 PO PRN ×4 (03:52→20:50)
[2018-12-01] MEDS: VANCOMYCIN 1,250 MG in NACL 0.9% 250ML 250 ML IV SCH ×3 (05:23→21:02)
[2018-12-01] MEDS: NEURONTIN PO SCH ×3 (05:24→21:01)
[2018-12-01] MEDS: MORPHINE IV PRN ×2 (06:44→12:59)
[2018-12-01 07:29] LABS: INR 2.65 (0.87-1.13)
[2018-12-01] MEDS: XANAX PO SCH ×3 (08:37→20:00)
[2018-12-01] MEDS: ZESTRIL PO SCH (09:26)
[2018-12-01] MEDS: PROTONIX PO SCH (09:26)
[2018-12-01] MEDS: WELLBUTRIN SR PO SCH (09:26)
[2018-12-01] MEDS: VALTREX PO SCH (09:27)
[2018-12-01] MEDS: SODIUM CHLORIDE FLUSH SYRINGE 10 ML IV SCH ×2 (09:27→21:03)
[2018-12-01] MEDS: FLONASE NS SCH (09:27)
[2018-12-01] MEDS: LASIX PO SCH (09:27)
[2018-12-01] MEDS: FOLVITE PO SCH (09:27)
[2018-12-01] MEDS: MYCOSTATIN TP SCH ×3 (09:31→20:06)
--- NOTE | 2018-12-01 09:35 | Progress Note ---
Assessment and Plan Cultures: 11/24/2018 blood culture: No growth A/P: 53-year-old female with morbid obesity, hypertension, coronary artery disease status post stents, obstructive sleep apnea, seizure disorder, bipolar disorder, COPD, h/o DVT/PE but non compliant with anticoagulation presented to the [facility] on 11/24/2018 with complaints of left arm pain and swelling. 1) Sepsis, Resolved. likely secondary to left arm cellulitis: Diffuse cellulitis with CT evidence of some myositis. Sensation appears intact, no anesthesia, hypo or hyperesthesia, clinically does not seem to be concerning for compartment syndrome or necrotizing fasciitis. Left extremity ultrasound shows subcutaneous edema. No focal solid or cystic abnormality identified. No fever, no tachycardia.. CK on admission was normal.Meanwhile, continue IV Vancomycin while inpatient. Patient denies nausea/vomiting with oral keflex challenge. Anticipate discharge on PO Keflex 500 mg QID + PO Doxycycline 100 mg BID x 5 more days. 2) Morbid obesity Recs: Continue vancomycin, target vancomycin trough between 10-15 g per m, D6 Continue Limb elevation Clinically stable, patient denies nausea/vomiting with oral keflex challenge. Anticipate discharge on Keflex 500mg PO QID and Doxycycline 100mg PO BID for 5 d ays. Marifer Herrera NP [facility] M: [phone] O:[phone] Subjective Date of service: 12/01/18 Interval history: Patient seen and examined. Sitter at bedside. Reports continued pain in left arm. Denies reaction to Keflex. Objective - Exam Narrative Exam: Constitutional: Alert, cooperative. tearful. Morbidly obese Head, Ears, Nose: Normocephalic, atraumatic. External ears, nose normal Eyes: Conjunctivae/corneas clear. No icterus. No ptosis. Neck: Supple, no meningeal signs Oral: no thrush, no ulcers Cardiovascular: S1, S2 normal. Respiratory: Good air entry, clear to auscultation bilaterally GI: Soft, non-tender; bowel sounds normal. No peritoneal signs Musculoskeletal: left upper arm swelling, redness and tenderness improved. no open wound, no purulence. Has previous scars on wrist. Skin: No rash or abscess Hem/Lymphatic: No palpable cervical or supraclavicular nodes. No lymphangitis Psych: mood good, Neurological: Awake, alert, oriented. No gross abnormality - Constitutional Vitals: Vital Signs Temp Pulse Resp BP Pulse Ox 97.8 F 84 18 131/76 92 12/01/18 05:41 12/01/18 05:41 12/01/18 06:44 12/01/18 05:41 12/01/18 05:41 Temperature -Last 24 Hours Temperature 97.8 F Temperature 98.0 F Temperature 98.3 F - Labs CBC & Chem 7: 11/27/18 Unknown 11/27/18 Unknown Labs: Abnormal lab results 12/01/18 Range/Units 06:49 PT 30.1 H (12.2-14.9) Sec. INR 2.65 H (0.87-1.13)
--- NOTE | 2018-12-01 13:17 | Progress Note ---
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 Patient expressed SI and hallucinations to Mental health staff and was put on a 1013. When I sat down and spoke with patient, with RN Italia present, she denies SI when I told her that I may have to stop IV narcotic due to potential side effects of confusion and hallucinations. She retracted ever having hallucination or suicidal ideations. She is very manipulative and narcotic seeking. Once ID transition to oral anti biotics then she can be discharge to Psych. The left antecubital swelling is not improved, d/w ID, consulted Gen. Surgery, Dr. Yip on 11/29/18 and U/S arm did not show abscess. Sepsis, poa. Patient meets criteria given the leukocytosis, tachycardia and diagnosis of cellulitis. Continue IV antibiotics and follow-up blood cultures. Left arm cellulitis. CT scan of the left upper extremity reveals subcutaneous induration of the proximal and distal portions of the left extremity suggesting cellulitis. There is swelling of the muscles of the upper arm which could be due to myositis. There is no discrete subcutaneous or intramuscular mass or fluid collection to suggest hematoma or abscess. Upper extremity Doppler negative for DVT. Continue IV antibiotics and consider ID consultation. Improved with the change iv clinda to iv vancomycin and consulted ID, input noted Psychosis/bipolar 1 disorder. Mental health evaluation pending. History of DVT/PE. Continue anticoagulation. Patient has been noncompliant with Coumadin therapy. Patient was started on Lovenox twice a day on admission. Coumadin per pharmacy. Obesity. Patient will need to be counseled on diet and exercise prior to discharge. Seizure disorder. Seizure precautions. History CAD status post stent placement. Diastolic CHF. Compensated. Continue lisinopril and Lasix. 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 Michell Almonte; and 10/02/18 Oxycodone 20 mg quantity of [address] Michell Almonte Disposition: Medical stable to be discharge to Psych unit. History Interval history: Patient was seen and examined. Follow-up on current diagnosis of Left Upper cellulitis. No overnight events reported to me. Patient denies any chest pain, shortness breath, nausea/vomiting or severe headaches. Imaging, nursing note, chart, labs and old chart reviewed. Discussed with patient. Hospitalist Physical - Physical exam Narrative exam: Gen: WDWN, NAD, Awake, Alert, Orientated x 3, BMI 40.3 HEENT: NCAT, EOMI, PERRL, OP Clear Neck: supple, no adenopathy, no thyromegaly, no JVD CVS/Heart: RRR, normal S1S2, pulses present bilaterally Chest/Lungs: CTA B, Symmetrical chest exddfpansion, good air entry bilaterally GI/Abdomen: soft, NTND, good bowel sounds, no guarding or rebound /Bladder: no suprapubic tenderness, no CVA or paraspinal tenderness Extermity/Skin: left circumferential bicep to wrist red, tender, warm and erythe matous, still with formed swelling left antecubital area MSK: FROM x 4 Neuro: CN 2-12 grossly intact, no new focal deficits Psych: anxious - Constitutional Vitals: Temp Pulse Resp BP Pulse Ox 97.9 F 85 12 146/80 93 12/01/18 11:51 12/01/18 11:51 12/01/18 11:51 12/01/18 11:51 12/01/18 11:51 General appearance: Present: no acute distress, obese Results - Labs CBC & Chem 7: 11/27/18 Unknown 11/27/18 Unknown Labs: Laboratory Last Values WBC 5.8 K/mm3 (4.5-11.0) 11/27/18 Unknown RBC 3.90 M/mm3 (3.65-5.03) 11/27/18 Unknown Hgb 12.6 gm/dl (10.1-14.3) 11/27/18 Unknown Hct 36.7 % (30.3-42.9) 11/27/18 Unknown MCV 94 fl (79-97) 11/27/18 Unknown MCH 32 pg (28-32) 11/27/18 Unknown MCHC 34 % (30-34) 11/27/18 Unknown RDW 13.7 % (13.2-15.2) 11/27/18 Unknown Plt Count 191 K/mm3 (140-440) 11/27/18 Unknown Lymph % (Auto) 13.7 % (13.4-35.0) 11/26/18 06:40 [place] % (Auto) 7.8 % (0.0-7.3) H 11/26/18 06:40 Eos % (Auto) 2.8 % (0.0-4.3) 11/26/18 06:40 Baso % (Auto) 1.1 % (0.0-1.8) 11/26/18 06:40 Lymph # 1.5 K/mm3 (1.2-5.4) 11/26/18 06:40 Kane # 0.8 K/mm3 (0.0-0.8) 11/26/18 06:40 Eos # 0.3 K/mm3 (0.0-0.4) 11/26/18 06:40 Baso # 0.1 K/mm3 (0.0-0.1) 11/26/18 06:40 Seg Neutrophils % 74.6 % (40.0-70.0) H 11/26/18 06:40 Seg Neutrophils # 8.0 K/mm3 (1.8-7.7) H 11/26/18 06:40 PT 30.1 Sec. (12.2-14.9) H 12/01/18 06:49 INR 2.65 (0.87-1.13) H 12/01/18 06:49 APTT 26.8 Sec. (24.2-36.6) 11/24/18 13:05 193.21 ng/mlDDU (0-234) 11/24/18 13:05 Sodium 139 mmol/L (137-145) 11/27/18 Unknown Potassium 3.6 mmol/L (3.6-5.0) 11/27/18 Unknown Chloride 102.8 mmol/L (98-107) 11/27/18 Unknown Carbon Dioxide 24 mmol/L (22-30) 11/27/18 Unknown 16 mmol/L 11/27/18 Unknown BUN 6 mg/dL (7-17) L 11/27/18 Unknown 0.4 mg/dL (0.7-1.2) L 11/27/18 Unknown Estimated GFR > 60 ml/min 11/27/18 Unknown 15 % 11/27/18 Unknown Glucose 161 mg/dL (65-100) H 11/27/18 Unknown Lactic Acid 1.80 mmol/L (0.7-2.0) 11/24/18 17:05 Calcium 8.2 mg/dL (8.4-10.2) L 11/27/18 Unknown < 0.20 mg/dL (0.1-1.2) 11/27/18 Unknown AST 13 units/L (5-40) 11/27/18 Unknown ALT 12 units/L (7-56) 11/27/18 Unknown 76 units/L (35-129) 11/27/18 Unknown 40 units/L (30-135) 11/24/18 13:26 < 0.010 ng/mL (0.00-0.029) 11/24/18 17:05 6.2 g/dL (6.3-8.2) L 11/27/18 Unknown 3.0 g/dL (3.9-5) L 11/27/18 Unknown 0.9 % 11/27/18 Unknown Yellow (Yellow) 11/27/18 12:30 Slightly-cloudy (Clear) 11/27/18 12:30 6.0 (5.0-7.0) 11/27/18 12:30 Ur Specific [place] 1.005 (1.003-1.030) 11/27/18 12:30 <15 mg/dl mg/dL (Negative) 11/27/18 12:30 Neg mg/dL (Negative) 11/27/18 12:30 Neg mg/dL (Negative) 11/27/18 12:30 Neg (Negative) 11/27/18 12:30 Neg (Negative) 11/27/18 12:30 Neg (Negative) 11/27/18 12:30 < 2.0 mg/dL (<2.0) 11/27/18 12:30 Ur Leukocyte Esterase Tr (Negative) 11/27/18 12:30 2.0 /HPF (0.0-6.0) 11/27/18 12:30 1.0 /HPF (0.0-6.0) 11/27/18 12:30 U Epithel Cells (Auto) 11.0 /HPF (0-13.0) 11/27/18 12:30 1+ /HPF (Negative) 11/27/18 12:30 Few /HPF 11/27/18 12:30 Vancomycin Trough 9.3 ug/mL (5.0-20.0) 11/29/18 13:15 Active Medications - Current Medications Current Medications: Generic Name Dose Route Start Last Admin Trade Name Freq PRN Reason Stop Dose Admin Albuterol 2.5 mg 11/24/18 22:50 11/27/18 07:49 Proventil IH 2.5 mg Q4HRT PRN Administration Shortness Of Breath Alprazolam 1 mg 11/25/18 22:00 12/01/18 08:37 Xanax PO 1 mg TID ANGELINA Administration Benzonatate 100 mg 11/24/18 22:52 Tessalon Perles PO Q8H PRN Cough Bupropion HCl 150 mg 11/26/18 15:30 12/01/18 09:26 Wellbutrin Sr PO 150 mg DAILY ANGELINA Administration Cyanocobalamin 1,000 mcg 11/26/18 10:00 11/29/18 14:51 Vitamin B-12 IM 1,000 mcg Tu ANGELINA Administration Cyanocobalamin 1,000 mcg 11/29/18 10:00 11/29/18 14:00 Vitamin B-12 IM 1,000 mcg Fr ANGELINA Administration Fluticasone Propionate 50 mcg 11/25/18 10:00 12/01/18 09:27 Flonase NS 50 mcg QDAY ANGELINA Administration Folic Acid 1 mg 11/25/18 10:00 12/01/18 09:27 Folvite PO 1 mg DAILY ANGELINA Administration Furosemide 40 mg 11/25/18 10:00 12/01/18 09:27 Lasix PO 40 mg DAILY ANGELINA Administration Gabapentin 300 mg 11/25/18 06:00 12/01/18 05:24 Neurontin PO 300 mg Q8HR ANGELINA Administration Vancomycin HCl 1,250 mg/ 275 mls @ 166.667 mls/hr 11/30/18 22:00 12/01/18 05:23 Sodium Chloride IV 166.667 mls/hr Q8H ANGELINA Administration Lisinopril 40 mg 11/25/18 10:00 12/01/18 09:26 Zestril PO 40 mg DAILY ANGELINA Administration Melatonin 5 mg 11/28/18 10:15 11/29/18 22:17 Melatonin PO 5 mg QHS PRN Administration Sleep Morphine Sulfate 2 mg 11/26/18 15:12 12/01/18 12:59 Morphine IV 2 mg Q4H PRN Administration Pain , Severe (7-10) Nicotine 21 mg 11/24/18 23:00 11/30/18 22:11 Habitrol TD 21 mg Q24H ANGELINA Administration Nystatin 1 applic 11/30/18 20:00 12/01/18 09:31 Mycostatin TP 12/06/18 20:01 1 applic TID ANGELINA Administration Ondansetron HCl 4 mg 11/24/18 22:50 Zofran IV Q8H PRN Nausea And Vomiting Ondansetron HCl 8 mg 11/24/18 23:45 Zofran Odt PO Q8H PRN Nausea Oxycodone/Acetaminophen 2 tab 11/26/18 15:11 12/01/18 09:26 Percocet 5/325 PO 2 tab Q4H PRN Administration Pain , Severe (7-10) Pantoprazole Sodium 40 mg 11/25/18 10:00 12/01/18 09:26 Protonix PO 40 mg DAILY ANGELINA Administration Pravastatin Sodium 80 mg 11/25/18 22:00 11/30/18 22:06 Pravachol PO 80 mg QHS ANGELINA Administration Quetiapine Fumarate 200 mg 11/25/18 22:00 11/30/18 22:06 Seroquel PO 200 mg QHS ANGELINA Administration Sodium Chloride 10 ml 11/25/18 10:00 12/01/18 09:27 Sodium Chloride Flush Syringe 10 Ml IV 10 ml BID ANGELINA Administration Sodium Chloride 10 ml 11/24/18 22:50 11/29/18 23:19 Sodium Chloride Flush Syringe 10 Ml IV 10 ml PRN PRN Administration LINE FLUSH Valacyclovir HCl 1,000 mg 11/25/18 10:00 12/01/18 09:27 Valtrex PO 1,000 mg DAILY ANGELINA Administration Warfarin Sodium 5 mg 11/29/18 17:00 11/30/18 16:28 Coumadin PO 5 mg DAILY@1700 ANGELINA Administration Nutrition/Malnutrition Assess - Dietary Evaluation Nutrition/Malnutrition Findings: Nutrition Notes Start: 11/25/18 12:34 Freq: Status: Active Protocol: Document 11/29/18 17:06 RM (Rec: 11/29/18 17:07 RM [email or web address]) Nutrition Notes Initial or Follow up Brief Note Current Diagnosis COPD,Hypertension,Heart Failure Other Pertinent Diagnosis SIRS, Psychosis Current Diet Regular Height 5 ft 5 in Weight 116.6 kg [place] Body Weight (kg) 56.81 BMI 42.7 Subjective/Other Information Recorded PO intake 100% X 4 meals. Nutrition Intervention Revisit per MD consult or patient Sign Off request:
[2018-12-01] MEDS: COUMADIN PO SCH (16:32)
--- NOTE | 2018-12-01 19:05 | Progress Note ---
Subjective - Reason for Consult Consult date: 12/01/18 Reason for consult: follow up - Chief Complaint Chief complaint: "I'd like to go home" 53 y.o. white female who presented to the ER for several complaints. Psychiatry was consulted to see the patient for possible psychosis. She stated that she wasn't allowed to attend her daughter's . She stated, "I didn't have closure." She says she initially was angry with her daughter's father but has since realized he probably knew she could not handle it. She states her sister wants her to move in but she will not because she does not want to be around drugs. She states she knows everyone in the motel and has a good friend there was stays with her sometimes. She says the owners will bring her food sometimes. She denies SI/HI's and AVH's. She denies any side effects of her medications. She is insistent she wants to live. She reports being with her significant other for years and says he is good to her. She says she is hopeful and wants to participate in outpatient counseling and peer groups for grief support. Mental Status Exam - Vital signs Last Vital Signs Temp 98.5 F 12/01/18 16:06 Pulse 91 H 12/01/18 16:06 Resp 16 12/01/18 16:06 BP 144/86 12/01/18 16:06 Pulse Ox 93 12/01/18 16:06 - Exam Narrative exam: MSE: Appearance: calm Behavior: regular eye contact Speech: regular rate and tone Mood: depressed Affect: congruent to mood Thought Process: circumstantial Thought Content: denies SI/HI's and AVH's Motor Activity: sitting up in bed Cognition: A/O x3 Insight: variable Judgment: variable Assessment and Plan Impression: Unspecified Anxiety DO. Hx of bipolar disorder. Complicated Grieving. She is medically cleared per the record. Recommendation/Plan: Continue 1013, Seroquel 200 mg PO HS for mood, Xanax 1 mg PO TID for anxiety, Wellbutrin 150 mg POO daily for depression., and Melatonin 5 mg PO HS for sleep. LINH Taylor discussed possible metabolic side effects of Seroquel with the patient. she verbalized understanding. Discussed possible suicidality/medication induced emery with the patient reference Wellbutrin, she verbalized understanding. Educated the patient on risks/benefits of benzos, she verbalized understanding. Do not admin Xanax and Percocet concurrently. No acute safety concerns were identified. Her outlook is positive and she has goal oriented thinking and planning. She has support of her boyfriend, protestant, and friends. Dispo: rescind 1013 dispo: outpatient psychiatric treatment at the [facility]. 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
[2018-12-01] MEDS: PRAVACHOL PO SCH (21:01)
[2018-12-01] MEDS: HABITROL TD SCH ×2 (21:03→23:04)
[2018-12-02] MEDS: PERCOCET 5/325 PO PRN ×2 (04:46→08:45)
[2018-12-02] MEDS: NEURONTIN PO SCH (05:01)
[2018-12-02] MEDS: VANCOMYCIN 1,250 MG in NACL 0.9% 250ML 250 ML IV SCH (05:26)
[2018-12-02 05:39] VITALS: BP 118/57
[2018-12-02 05:57] LABS: INR 2.66 (0.87-1.13)
[2018-12-02] MEDS: XANAX PO SCH (08:45)
[2018-12-02] MEDS: VALTREX PO SCH (09:25)
[2018-12-02] MEDS: ZESTRIL PO SCH (09:25)
[2018-12-02] MEDS: WELLBUTRIN SR PO SCH (09:26)
[2018-12-02] MEDS: FOLVITE PO SCH (09:26)
[2018-12-02] MEDS: LASIX PO SCH (09:26)
[2018-12-02] MEDS: FLONASE NS SCH (09:27)
[2018-12-02] MEDS: SODIUM CHLORIDE FLUSH SYRINGE 10 ML IV SCH (09:27)
[2018-12-02] MEDS: MYCOSTATIN TP SCH (09:28)
--- NOTE | 2018-12-02 10:20 | Progress Note ---
Subjective - Reason for Consult Consult date: 12/02/18 Reason for consult: Psychiatry Follow-up - Chief Complaint Chief complaint: "Hello" 53 y.o. white female who presented to the ER for several complaints. Psychiatry was consulted to see the patient for possible psychosis. Today the patient was calm and cooperative during the assessment. She stated that she want to live and will follow up with outpatient psy services when discharged. She denies SI/HI's and AVH's. She denies any side effects of her medications. Mental Status Exam - Vital signs Last Vital Signs Temp 97.4 F L 12/02/18 05:04 Pulse 84 12/02/18 09:25 Resp 20 12/02/18 05:04 BP 118/57 12/02/18 09:25 Pulse Ox 93 12/02/18 05:04 - Exam Narrative exam: MSE: Appearance: calm, cooperative Behavior: regular eye contact Speech: regular rate and tone Mood: emotional Affect: congruent to mood Thought Process: linear Thought Content: denies SI/HI's and AVH's Motor Activity: sitting up in bed Cognition: A/O x3 Insight: appropriate Judgment: appropriate Assessment and Plan Impression: Unspecified Anxiety DO. Hx of Mood DO. Complicated Grieving. Today the patient was calm and cooperative during the assessment. The patient is no threat to self. DDx: MDD Recommendation/Plan: The patient's 1013 was rescinded 12/01/2018. Continue Seroquel 200 mg PO HS for mood, Xanax 1 mg PO TID for anxiety, and Wellbutrin 150 mg PO daily for depression. Discussed possible metabolic side effects of Seroquel with the patient. she verbalized understanding. Discussed possible suicidality/medication induiced emery with the patient reference Wellbutrin, she verbalized understanding. Educated the patient on risks/benefits of benzos, she verbalized understanding. Do not admin Xanax and Percocet concurrently. Dispo: The patient was given outpatient patient psy services referral. Will staff with Dr Felicita Donaldson.
--- NOTE | 2018-12-02 10:41 | Progress Note ---
Assessment and Plan Cultures: 11/24/2018 blood culture: No growth A/P: 53-year-old female with morbid obesity, hypertension, coronary artery disease status post stents, obstructive sleep apnea, seizure disorder, bipolar disorder, COPD, h/o DVT/PE but non compliant with anticoagulation presented to the [facility] on 11/24/2018 with complaints of left arm pain and swelling. 1) Sepsis, Resolved. likely secondary to left arm cellulitis: Diffuse cellulitis with CT evidence of some myositis. Sensation appears intact, no anesthesia, hypo or hyperesthesia, clinically does not seem to be concerning for compartment syndrome or necrotizing fasciitis. Left extremity ultrasound shows subcutaneous edema. No focal solid or cystic abnormality identified. No fever, no tachycardia.. CK on admission was normal. Meanwhile, continue IV Vancomycin while inpatient. Patient denies nausea/vomiting with oral keflex challenge. Anticipate discharge on PO Keflex 500 mg QID + PO Doxycycline 100 mg BID x 5 more days. 2) Morbid obesity Recs: Continue vancomycin, target vancomycin trough between 10-15 g per m, D7 Continue Limb elevation Clinically stable, Anticipate discharge on Keflex 500mg PO QID and Doxycycline 100mg PO BID for 5 days. Follow-up ID clinic in 2 weeks. (sent to front elevator operator) Marifer Herrera NP [facility] M: [phone] O:[phone] Subjective Date of service: 12/02/18 Interval history: Patient seen and examined. Continue left arm pain, but improved. States that she wants to go home. No fevers. Objective - Exam Narrative Exam: Constitutional: Alert, cooperative. No acute distress. Head, Ears, Nose: Normocephalic, atraumatic. External ears, nose normal Eyes: Conjunctivae/corneas clear. No icterus. No ptosis. Neck: Supple, no meningeal signs Oral: no thrush, no ulcers Cardiovascular: S1, S2 normal. Respiratory: Good air entry, clear to auscultation bilaterally GI: Soft, non-tender; bowel sounds normal. No peritoneal signs Musculoskeletal: left upper arm swelling, redness and tenderness improved. no open wound, no purulence. Has previous scars on wrist. Skin: No rash or abscess Hem/Lymphatic: No palpable cervical or supraclavicular nodes. No lymphangitis Psych: mood good, Neurological: Awake, alert, oriented. No gross abnormality - Constitutional Vitals: Vital Signs Temp Pulse Resp BP Pulse Ox 97.4 F L 84 20 118/57 93 12/02/18 05:04 12/02/18 09:25 12/02/18 05:04 12/02/18 09:25 12/02/18 05:04 Temperature -Last 24 Hours Temperature 97.4 F Temperature 97.9 F Temperature 98.5 F Temperature 97.9 F - Labs CBC & Chem 7: 11/27/18 Unknown 11/27/18 Unknown Labs: Abnormal lab results 12/02/18 Range/Units 05:19 PT 30.2 H (12.2-14.9) Sec. INR 2.66 H (0.87-1.13)
== END 2018-12-02 10:30 | disposition home or self-care (01) | DRG 872 ==
LOC: ED 12:43 → 3A 22:51
PROVIDERS: ADMIT Internal Medicine; ATTEND Internal Medicine
DX: A41.9 Sepsis, unspecified organism (principal); L03.114 Cellulitis of left upper limb; I50.32 Chronic diastolic (congestive) heart failure; I11.0 Hypertensive heart disease with heart failure; J44.9 Chronic obstructive pulmonary disease, unspecified; M19.90 Unspecified osteoarthritis, unspecified site; F31.9 Bipolar disorder, unspecified; G89.29 Other chronic pain; F17.210 Nicotine dependence, cigarettes, uncomplicated; F20.9 Schizophrenia, unspecified; M60.9 Myositis, unspecified; I25.10 Atherosclerotic heart disease of native coronary artery without angina pectoris; G40.909 Epilepsy, unspecified, not intractable, without status epilepticus; E66.01 Morbid (severe) obesity due to excess calories; G47.33 Obstructive sleep apnea (adult) (pediatric); M60.822 Other myositis, left upper arm; I25.2 Old myocardial infarction; Z68.41 Body mass index [BMI] 40.0-44.9, adult; Z86.711 Personal history of pulmonary embolism; Z86.718 Personal history of other venous thrombosis and embolism; Z95.5 Presence of coronary angioplasty implant and graft; Z90.49 Acquired absence of other specified parts of digestive tract; Z90.710 Acquired absence of both cervix and uterus; Z79.01 Long term (current) use of anticoagulants
CPT/HCPCS: 36415; 71045; 74177; 80048; 80053; 80202; 81001; 82140; 82550; 84484; 85025; 85027; 85379; 85610; 85730; 87040; 87086; 93005; 93010; 94640; 99406; G0378; A9270-GY; J1170; J1630; J1650; J1885; J2270; J3370; J3420; J3486; J7030; J7040; J7050; Q9967

== ENCOUNTER 2019-01-15 11:04 | Inpatient (IN) | payer MEDICAID ==
[2019-01-15] MEDS ORDERED: BABY ASPIRIN PO ONE (11:16)
[2019-01-15] MEDS ORDERED: NITROSTAT SL ONE (11:16)
[2019-01-15 11:37] LABS: Basophils # (Auto) 0.1 K/mm3 (0.0-0.1); Eosinophils # (Auto) 0.1 K/mm3 (0.0-0.4); Hematocrit 42.9 % (30.3-42.9); Hemoglobin 14.6 gm/dl (10.1-14.3); Lymphocytes # (Auto) 1.8 K/mm3 (1.2-5.4); Lymphocytes % (Auto) 25.4 % (13.4-35.0); Mean Corpuscular HGB Conc 34 % (30-34); Mean Corpuscular Volume 93 fl (79-97); Monocytes # (Auto) 0.6 K/mm3 (0.0-0.8); Monocytes % (Auto) 8.6 % (0.0-7.3); Platelet Count 263 K/mm3 (140-440); Red Cell Distribution Width 14.6 % (13.2-15.2)
--- NOTE | 2019-01-15 11:39 | XRay Report ---
CHEST 1 VIEW 01/15/2019 11:19 AM INDICATION / CLINICAL INFORMATION: Chest Pain. COMPARISON: None available. FINDINGS: SUPPORT DEVICES: None. HEART / MEDIASTINUM: No significant abnormality. LUNGS / PLEURA: No significant pulmonary or pleural abnormality. No pneumothorax. ADDITIONAL FINDINGS: No significant additional findings. IMPRESSION: 1. No acute findings. Signer Name: Ramirez Prieto MD Signed: 01/15/2019 11:35 AM Workstation Name: [employer] [facility]
[2019-01-15 11:42] LABS: INR 1.05 (0.87-1.13)
--- NOTE | 2019-01-15 11:52 | Emergency Department Report ---
ED General Adult HPI - General Chief complaint: Chest Pain Stated complaint: CHEST PAIN Time Seen by Provider: 01/15/19 11:07 Source: patient, EMS Mode of arrival: Stretcher Limitations: Physical Limitation - History of Present Illness Initial comments: Disposition presents similar supposed to complain of left-sided chest pain that started this morning. Patient denies any radiation of the chest pain. Patient states she has a history of 2 MIs and 2 cardiac arrest. -: Sudden Location: chest Radiation: non-radiation Severity scale (0 -10): 9 Quality: other (pressure) Consistency: constant Improves with: none Worsens with: none Associated Symptoms: denies other symptoms Treatments Prior to Arrival: none - Related Data Previous Rx's Medication Instructions Recorded Last Taken Type Gabapentin [Neurontin] 300 mg PO Q8HR #30 capsule 09/19/17 09/01/18 Rx Simvastatin 40 mg PO QDAY #30 tablet 09/19/17 09/01/18 Rx Nicotine [Habitrol] 21 mg TD Q24H #30 patch 07/12/18 09/01/18 Rx ALBUTEROL Inhaler (OR & NICU) 2 puff IH Q4HR PRN #1 inhalation 10/15/18 Unknown Rx [ProAir HFA Inhaler] Benzonatate [Tessalon Perles] 100 mg PO Q8HR PRN #20 capsule 10/15/18 Unknown Rx Fluticasone [Flonase] 1 spray NS QDAY #1 bottle 10/15/18 Unknown Rx Ondansetron [Zofran Odt] 4 mg PO Q8HR PRN #20 tab.rapdis 11/24/18 Unknown Rx ALBUTEROL NEB's [Proventil 0.083% 2.5 mg IH Q4HRT PRN #15 nebu 11/30/18 Unknown Rx NEBS] ALPRAZolam [Xanax TAB] 1 mg PO TID PRN #15 tablet 11/30/18 Unknown Rx Cyanocobalamin [Vitamin B-12] 1,000 mcg IM Fr #4 vial 11/30/18 Unknown Rx Doxycycline Monohydrate 100 mg PO BID #10 capsule 11/30/18 Unknown Rx [Doxycycline Monohydrate CAP] Folic Acid [Folvite] 1 mg PO DAILY #30 11/30/18 09/01/18 Rx Furosemide [Lasix TAB] 40 mg PO DAILY #30 tablet 11/30/18 Unknown Rx Lisinopril [Zestril TAB] 40 mg PO DAILY #30 tablet 11/30/18 Unknown Rx Melatonin [Melatonin 5MG TAB] 5 mg PO QHS PRN #30 tablet 11/30/18 Unknown Rx Mometasone/Formoterol [Dulera 200 2 puff IH BID #1 hfa.aer.ad 11/30/18 Unknown Rx Mcg/5 Mcg Inhaler] Nystatin Oint [Mycostatin Oint] 1 applic TP TID 7 Days #1 tube 11/30/18 Unknown Rx Pantoprazole [Protonix TAB] 40 mg PO DAILY #30 11/30/18 09/01/18 Rx QUEtiapine [SEROquel] 200 mg PO QHS #30 tablet 11/30/18 Unknown Rx Valacyclovir HCl [Valtrex] 1,000 mg PO DAILY #30 11/30/18 09/01/18 Rx Warfarin [Coumadin] 5 mg PO DAILY@1700 #30 tablet 11/30/18 Unknown Rx buPROPion SR [Wellbutrin SR] 150 mg PO DAILY #30 tablet 11/30/18 Unknown Rx cephALEXin [Keflex] 500 mg PO QID #20 capsule 11/30/18 Unknown Rx oxyCODONE /ACETAMINOPHEN [Percocet 2 tab PO Q4H PRN #4 tablet 11/30/18 Unknown Rx 5/325 mg] Allergies Allergy/AdvReac Type Severity Reaction Status Date / Time hydrocodone bitartrate Allergy Hives Verified 08/01/18 13:12 [From Vicodin] metoclopramide HCl Allergy Anaphylaxis Verified 08/01/18 13:12 [From Reglan] Penicillins Allergy Swelling Verified 08/01/18 13:12 hydrocodone AdvReac Itching Verified 09/01/18 12:08 naproxen AdvReac Itching Verified 08/01/18 13:12 ED Review of Systems ROS: Stated complaint: CHEST PAIN Other details as noted in HPI Constitutional: denies: chills, fever Eyes: denies: eye pain, eye discharge, vision change ENT: denies: ear pain, throat pain Respiratory: shortness of breath. denies: cough, wheezing Cardiovascular: chest pain. denies: palpitations Endocrine: no symptoms reported Gastrointestinal: denies: abdominal pain, nausea, diarrhea Genitourinary: denies: urgency, dysuria, discharge Musculoskeletal: denies: back pain, joint swelling, arthralgia Skin: denies: rash, lesions Neurological: denies: headache, weakness, paresthesias Psychiatric: denies: anxiety, depression Hematological/Lymphatic: denies: easy bleeding, easy bruising ED Past Medical Hx - Past Medical History Hx Hypertension: Yes Hx Heart Attack/AMI: Yes Hx Congestive Heart Failure: Yes Hx Diabetes: No Hx Deep Vein Thrombosis: Yes Hx Pulmonary Embolism: Yes Hx Arthritis: Yes Hx Seizures: Yes (child) Hx Psychiatric Treatment: Yes (bipolar and anxiety) Hx Asthma: Yes Hx COPD: Yes Additional medical history: Chronic pain, cardiac arrest per pt - Surgical History Hx Coronary Stent: Yes Hx Cholecystectomy: Yes Additional Surgical History: R thumb surgery. Right leg [facility] in 1985 [facility] hysterectomy. bowel resection (secondary to MRSA 10+ yrs ago). neck surgery - Social History Smoking Status: Current Every Day Smoker - Medications Home Medications: Home Medications Medication Instructions Recorded Confirmed Last Taken Type Gabapentin [Neurontin] 300 mg PO Q8HR #30 capsule 09/19/17 11/25/18 09/01/18 Rx Simvastatin 40 mg PO QDAY #30 tablet 09/19/17 11/25/18 09/01/18 Rx Nicotine [Habitrol] 21 mg TD Q24H #30 patch 07/12/18 11/25/18 09/01/18 Rx ALBUTEROL Inhaler (OR & NICU) 2 puff IH Q4HR PRN #1 inhalation 10/15/18 11/25/18 Unknown Rx [ProAir HFA Inhaler] Benzonatate [Tessalon Perles] 100 mg PO Q8HR PRN #20 capsule 10/15/18 11/25/18 Unknown Rx Fluticasone [Flonase] 1 spray NS QDAY #1 bottle 10/15/18 11/25/18 Unknown Rx Ondansetron [Zofran Odt] 4 mg PO Q8HR PRN #20 tab.rapdis 11/24/18 Unknown Rx ALBUTEROL NEB's [Proventil 0.083% 2.5 mg IH Q4HRT PRN #15 nebu 11/30/18 Unknown Rx NEBS] ALPRAZolam [Xanax TAB] 1 mg PO TID PRN #15 tablet 11/30/18 Unknown Rx Cyanocobalamin [Vitamin B-12] 1,000 mcg IM Fr #4 vial 11/30/18 Unknown Rx Doxycycline Monohydrate 100 mg PO BID #10 capsule 11/30/18 Unknown Rx [Doxycycline Monohydrate CAP] Folic Acid [Folvite] 1 mg PO DAILY #30 11/30/18 11/25/18 09/01/18 Rx Furosemide [Lasix TAB] 40 mg PO DAILY #30 tablet 11/30/18 Unknown Rx Lisinopril [Zestril TAB] 40 mg PO DAILY #30 tablet 11/30/18 Unknown Rx Melatonin [Melatonin 5MG TAB] 5 mg PO QHS PRN #30 tablet 11/30/18 Unknown Rx Mometasone/Formoterol [Dulera 200 2 puff IH BID #1 hfa.aer.ad 11/30/18 Unknown Rx Mcg/5 Mcg Inhaler] Nystatin Oint [Mycostatin Oint] 1 applic TP TID 7 Days #1 tube 11/30/18 Unknown Rx Pantoprazole [Protonix TAB] 40 mg PO DAILY #30 11/30/18 11/25/18 09/01/18 Rx QUEtiapine [SEROquel] 200 mg PO QHS #30 tablet 11/30/18 Unknown Rx Valacyclovir HCl [Valtrex] 1,000 mg PO DAILY #30 11/30/18 11/25/18 09/01/18 Rx Warfarin [Coumadin] 5 mg PO DAILY@1700 #30 tablet 11/30/18 Unknown Rx buPROPion SR [Wellbutrin SR] 150 mg PO DAILY #30 tablet 11/30/18 Unknown Rx cephALEXin [Keflex] 500 mg PO QID #20 capsule 11/30/18 Unknown Rx oxyCODONE /ACETAMINOPHEN [Percocet 2 tab PO Q4H PRN #4 tablet 11/30/18 Unknown Rx 5/325 mg] ED Physical Exam - General Limitations: Physical Limitation General appearance: alert, in no apparent distress, anxious - Head Head exam: Present: atraumatic, normocephalic - Eye Eye exam: Present: normal appearance - ENT ENT exam: Present: mucous membranes moist - Neck Neck exam: Present: normal inspection - Respiratory Respiratory exam: Present: normal lung sounds bilaterally. Absent: respiratory distress - Cardiovascular Cardiovascular Exam: Present: regular rate, normal rhythm. Absent: systolic murmur, diastolic murmur, rubs, gallop - GI/Abdominal GI/Abdominal exam: Present: soft, normal bowel sounds. Absent: distended, tenderness - Extremities Exam Extremities exam: Present: normal inspection - Back Exam Back exam: Present: normal inspection - Neurological Exam Neurological exam: Present: alert, oriented X3, CN II-XII intact. Absent: motor sensory deficit - Psychiatric Psychiatric exam: Present: normal affect, normal mood - Skin Skin exam: Present: warm, dry, intact, normal color. Absent: rash ED Course Vital Signs 01/15/19 01/15/19 01/15/19 11:37 11:48 11:56 Temperature 98.1 F 98.1 F Pulse Rate 83 83 83 Respiratory 20 20 Rate Blood Pressure 149/98 Blood Pressure 149/98 [Left] O2 Sat by Pulse 96 96 Oximetry ED Medical Decision Making - Lab Data Result diagrams: 01/15/19 11:20 01/15/19 11:20 Lab Results 01/15/19 01/15/19 01/15/19 Range/Units 11:20 11:20 11:20 WBC 7.2 (4.5-11.0) K/mm3 RBC 4.60 (3.65-5.03) M/mm3 Hgb 14.6 H (10.1-14.3) gm/dl Hct 42.9 (30.3-42.9) % MCV 93 (79-97) fl MCH 32 (28-32) pg MCHC 34 (30-34) % RDW 14.6 (13.2-15.2) % Plt Count 263 (140-440) K/mm3 Lymph % (Auto) 25.4 (13.4-35.0) % [place] % (Auto) 8.6 H (0.0-7.3) % Eos % (Auto) 1.0 (0.0-4.3) % Baso % (Auto) 1.0 (0.0-1.8) % Lymph # 1.8 (1.2-5.4) K/mm3 [place] # 0.6 (0.0-0.8) K/mm3 Eos # 0.1 (0.0-0.4) K/mm3 Baso # 0.1 (0.0-0.1) K/mm3 Seg Neutrophils % 64.0 (40.0-70.0) % Seg Neutrophils # 4.6 (1.8-7.7) K/mm3 PT 13.4 (12.2-14.9) Sec. INR 1.05 (0.87-1.13) APTT 24.0 L (24.2-36.6) Sec. Sodium 137 (137-145) mmol/L Potassium 4.0 (3.6-5.0) mmol/L Chloride 100.9 (98-107) mmol/L Carbon Dioxide 25 (22-30) mmol/L Anion Gap 15 mmol/L BUN 7 (7-17) mg/dL Creatinine 0.4 L (0.7-1.2) mg/dL Estimated GFR > 60 ml/min BUN/Creatinine Ratio 18 % Glucose 130 H (65-100) mg/dL Calcium 9.1 (8.4-10.2) mg/dL Total Bilirubin 0.50 (0.1-1.2) mg/dL AST 28 (5-40) units/L ALT 42 (7-56) units/L Alkaline Phosphatase 97 (35-129) units/L Troponin T < 0.010 (0.00-0.029) ng/mL Total Protein 7.4 (6.3-8.2) g/dL Albumin 4.0 (3.9-5) g/dL Albumin/Globulin Ratio 1.2 % Lipase 11 L (13-60) units/L - EKG Data -: EKG Interpreted by Vt EKG shows normal: sinus rhythm Rate: normal - Radiology Data Radiology results: report reviewed - Medical Decision Making CTA-Pending will be followed by admitting physician EKG sent to Dr. Nye and reviewed and appears similar to prior EKGs Critical care attestation.: If time is entered above; I have spent that time in minutes in the direct care of this critically ill patient, excluding procedure time. ED Disposition Clinical Impression: Chest pain Disposition: -09 OP ADMIT IP TO THIS HOSP Is pt being admited?: Yes Does the pt Need Aspirin: No Condition: Fair Instructions: Chest Pain (ED) Referrals: PRIMARY CARE, [Primary Care Provider] - 3-5 Days Time of Disposition: 12:08
[2019-01-15 11:57] LABS: Alanine Aminotransferase 42 units/L (7-56); BUN/Creatinine Ratio 18; Blood Urea Nitrogen 7 mg/dL (7-17); Calcium 9.1 mg/dL (8.4-10.2); Hemolysis Index 6
[2019-01-15] MEDS ORDERED: MORPHINE ONE (12:14)
[2019-01-15] MEDS ORDERED: ZOFRAN ONE (12:14)
[2019-01-15] MEDS ORDERED: MORPHINE IV ONE (12:27)
[2019-01-15] MEDS ORDERED: ZOFRAN IV ONE (12:28)
--- NOTE | 2019-01-15 12:30 | History and Physical Report ---
History of Present Illness Chief complaint: My chest hurts, and im short of breath History of present illness: 54 YO Female with HTN, NV, Diastolic CHF, DVT/PE not currently on Therapeutic Anticoagulation, Medication Noncompliance, OA, Obesity, Seizure DO, Bipolar DO, Asthma, COPD, CAD S/P Stent Placement, Nicotine Dependence, Fibromyalgia, Chronic Pain presents to ED for evaluation. Pt states that she has experienced pain in her chest over the past 5 hours. Pt pain began this morning shortly after awakening from sleep. Pt states that pain is 9/10, localized to the left chest, nonradiating, constant, not worsened with exertion, not relieved with rest. Pt acknowledges shortness of breath, diaphoresis, decreased exercise tolerance. Pt denies hemoptysis, BRBPR, productive cough, recent ill contacts, unintentional weight loss, night sweats. EMS notified, and upon arrival the patient found to be in distress. Pt transported to [facility]. Pt seen and evaluated in ED and found to have symptoms consistent with Angina, Diastolic CHF. Cardiology consulted in ED. Pt admitted to telemetry and initiated on ACS protocol. Pt initiated on therapeutic anticoagulation. Pt acknowledges depressed mood, but denies SI/HI/Plan. Mental Health consulted. Prior admission on 11/24/18 reviewed. All listed medication reconciled at time of admission. Past History Past Medical History: acute NV, COPD, hypertension, hyperlipidemia, pulmonary embolism Past Surgical History: hysterectomy, bowel surgery Social history: single. denies: smoking, alcohol abuse, prescription drug abuse Family history: CAD, hypertension Medications and Allergies Allergies Allergy/AdvReac Type Severity Reaction Status Date / Time hydrocodone bitartrate Allergy Hives Verified 08/01/18 13:12 [From Vicodin] metoclopramide HCl Allergy Anaphylaxis Verified 08/01/18 13:12 [From Reglan] Penicillins Allergy Swelling Verified 08/01/18 13:12 hydrocodone AdvReac Itching Verified 09/01/18 12:08 naproxen AdvReac Itching Verified 08/01/18 13:12 Home Medications Medication Instructions Recorded Confirmed Last Taken Type Gabapentin [Neurontin] 300 mg PO Q8HR #30 capsule 09/19/17 11/25/18 09/01/18 Rx Simvastatin 40 mg PO QDAY #30 tablet 09/19/17 11/25/18 09/01/18 Rx Nicotine [Habitrol] 21 mg TD Q24H #30 patch 01/18/19 06/03/19 03/10/19 Rx ALBUTEROL Inhaler (OR & NICU) 2 puff IH Q4HR PRN #1 inhalation 10/15/18 11/25/18 Unknown Rx [ProAir HFA Inhaler] Benzonatate [Tessalon Perles] 100 mg PO Q8HR PRN #20 capsule 10/15/18 11/25/18 Unknown Rx Fluticasone [Flonase] 1 spray NS QDAY #1 bottle 10/15/18 11/25/18 Unknown Rx Ondansetron [Zofran Odt] 4 mg PO Q8HR PRN #20 tab.rapdis 11/24/18 Unknown Rx ALBUTEROL NEB's [Proventil 0.083% 2.5 mg IH Q4HRT PRN #15 nebu 11/30/18 Unknown Rx NEBS] ALPRAZolam [Xanax TAB] 1 mg PO TID PRN #15 tablet 11/30/18 Unknown Rx Cyanocobalamin [Vitamin B-12] 1,000 mcg IM Fr #4 vial 11/30/18 Unknown Rx Doxycycline Monohydrate 100 mg PO BID #10 capsule 11/30/18 Unknown Rx [Doxycycline Monohydrate CAP] Folic Acid [Folvite] 1 mg PO DAILY #30 11/30/18 11/25/18 09/01/18 Rx Furosemide [Lasix TAB] 40 mg PO DAILY #30 tablet 11/30/18 Unknown Rx Lisinopril [Zestril TAB] 40 mg PO DAILY #30 tablet 11/30/18 Unknown Rx Melatonin [Melatonin 5MG TAB] 5 mg PO QHS PRN #30 tablet 11/30/18 Unknown Rx Mometasone/Formoterol [Dulera 200 2 puff IH BID #1 hfa.aer.ad 11/30/18 Unknown Rx Mcg/5 Mcg Inhaler] Nystatin Oint [Mycostatin Oint] 1 applic TP TID 7 Days #1 tube 11/30/18 Unknown Rx Pantoprazole [Protonix TAB] 40 mg PO DAILY #30 11/30/18 11/25/18 09/01/18 Rx QUEtiapine [SEROquel] 200 mg PO QHS #30 tablet 11/30/18 Unknown Rx Valacyclovir HCl [Valtrex] 1,000 mg PO DAILY #30 11/30/18 11/25/18 09/01/18 Rx Warfarin [Coumadin] 5 mg PO DAILY@1700 #30 tablet 11/30/18 Unknown Rx buPROPion SR [Wellbutrin SR] 150 mg PO DAILY #30 tablet 11/30/18 Unknown Rx cephALEXin [Keflex] 500 mg PO QID #20 capsule 11/30/18 Unknown Rx oxyCODONE /ACETAMINOPHEN [Percocet 2 tab PO Q4H PRN #4 tablet 11/30/18 Unknown Rx 5/325 mg] Review of Systems Constitutional: no weight loss, no weight gain, no fever, no chills Ears, nose, mouth and throat: no ear pain, no ear discharge, no tinnitis, no decreased hearing, no nose pain, no nasal congestion Breasts: no change in shape, no swelling, no mass Cardiovascular: chest pain, shortness of breath, dyspnea on exertion, decreased exercise tolerance, no orthopnea, no paroxysmal nocturnal dyspnea Respiratory: no cough, no cough with sputum, no excessive sputum, no hemoptysis Gastrointestinal: no nausea, no vomiting, no diarrhea, no constipation Genitourinary Female: no pelvic pain, no flank pain, no menorrhagia, no dysuria, no urinary frequency, no urgency Rectal: no pain, no incontinence, no bleeding Musculoskeletal: no neck pain, no shooting arm pain, no arm numbness/tingling, no low back pain, no shooting leg pain Integumentary: no rash, no pruritis, no redness, no sores, no wounds, no jaundice Neurological: no paralysis, no weakness, no parathesias, no tingling, no seizures, no syncope Psychiatric: no anxiety, no memory loss, no sleep disturbances, no insomnia, no hypersomnia, no change in libido Endocrine: no heat intolerance, no polyphagia, no polydipsia, no polyuria, no nocturia Hematologic/Lymphatic: no easy bruising, no easy bleeding, no lymphadenopathy Allergic/Immunologic: no urticaria, no allergic rhinitis, no wheezing, no persistent infections, no anaphylaxis Exam - Constitutional Vitals: Temp Pulse Resp BP Pulse Ox 98.1 F 83 20 149/98 96 01/15/19 11:56 01/15/19 11:56 01/15/19 11:56 01/15/19 11:56 01/15/19 11:56 General appearance: Present: mild distress - EENT Eyes: Present: PERRL ENT: hearing intact, clear oral mucosa - Neck Neck: Present: supple, normal ROM - Respiratory Respiratory effort: normal Respiratory: bilateral: CTA - Cardiovascular Heart Sounds: Present: S1 & S2. Absent: rub, click - Extremities Extremities: pulses symmetrical, No edema Peripheral Pulses: within normal limits - Abdominal General gastrointestinal: Present: soft, non-tender, non-distended, normal bowel sounds Female genitourinary: Present: normal - Integumentary Integumentary: Present: clear, warm, dry - Musculoskeletal Musculoskeletal: gait normal, strength equal bilaterally - Psychiatric Psychiatric: appropriate mood/affect, intact judgment & insight - Neurologic Neurologic: CNII-XII intact, moves all extremities Results - Labs CBC & Chem 7: 01/15/19 11:20 01/15/19 11:20 Labs: Abnormal lab results 01/15/19 01/15/19 01/15/19 Range/Units 11:20 11:20 11:20 Hgb 14.6 H (10.1-14.3) gm/dl [place] % (Auto) 8.6 H (0.0-7.3) % APTT 24.0 L (24.2-36.6) Sec. Creatinine 0.4 L (0.7-1.2) mg/dL Glucose 130 H (65-100) mg/dL Lipase 11 L (13-60) units/L Assessment and Plan - Patient Problems (1) CHF (congestive heart failure) Current Visit: No Status: Acute Qualifiers: Heart failure type: diastolic Heart failure chronicity: acute Qualified Code(s): I50.31 - Acute diastolic (congestive) heart failure Plan to address problem: Admit to telemetry, echo, strict I/O, daily weight, monitor uop q shift, supplem ental oxygen, chest x ray, BNP, afterload reduction, blood pressure control (2) Angina at rest Current Visit: Yes Status: Acute Plan to address problem: Serial cardiac enzymes, ekg, telemetry, cardiology consulted in ED, (3) CAD (coronary artery disease) Current Visit: No Status: Acute Qualifiers: Associated angina: with stable angina Plan to address problem: Admit to telemetry, serial cardiac enzymes, ekg, low cholesterol diet, (4) COPD (chronic obstructive pulmonary disease) Current Visit: No Status: Acute Qualifiers: Chronic bronchitis type: mixed simple and mucopurulent Plan to address problem: Supportive care, (5) Hyperlipidemia Current Visit: No Status: Chronic Qualifiers: Hyperlipidemia type: mixed hyperlipidemia Qualified Code(s): E78.2 - Mixed hyperlipidemia Plan to address problem: lipid panel, statin therapy, low cholesterol diet, (6) Depressed mood Current Visit: Yes Status: Acute Plan to address problem: Mental health consulted, (7) DVT prophylaxis Current Visit: No Status: Acute Plan to address problem: SCD to BLE while in bed, therapeutic anticoagulation
[2019-01-15] MEDS ORDERED: SODIUM CHLORIDE FLUSH SYRINGE 10 ML IV PRN ×2 (13:00)
[2019-01-15] MEDS ORDERED: PROVENTIL IH PRN (13:00)
[2019-01-15] MEDS ORDERED: TYLENOL PO PRN (13:00)
[2019-01-15] MEDS ORDERED: ZOFRAN IV PRN (13:00)
--- NOTE | 2019-01-15 13:23 | Consultation ---
History of Present Illness Consult date: 01/15/19 Consult reason: chest pain History of present illness: This is a 54-year old woman with a history of hypertension, COPD, and continued tobacco abuse. Patient presents to the emergency department, admitted with chest pain. Patient reports chest pain came on suddenly associated with shortness of breath. Chest x-ray is negative. Troponins are negative thus far and a 12-lead ECG shows a normal sinus rhythm. Cardiac consultation has been requested for further evaluation. There is no history of coronary artery disease. In fact, patient has had extensive cardiac work-up in the past including 2 cardiac cath in 2010 and in 2015 showing normal coronaries. In April 2017, she had a negative thallium stress test and an echocardiogram a year ago showed a normal left ventricular systolic function with an ejection fraction 55-60%. Past History Past Medical History: COPD, hypertension, hyperlipidemia, pulmonary embolism Past Surgical History: hysterectomy, bowel surgery Social history: single. denies: smoking, alcohol abuse, prescription drug abuse Family history: CAD, hypertension Medications and Allergies Allergies Allergy/AdvReac Type Severity Reaction Status Date / Time hydrocodone bitartrate Allergy Hives Verified 08/01/18 13:12 [From Vicodin] metoclopramide HCl Allergy Anaphylaxis Verified 08/01/18 13:12 [From Reglan] Penicillins Allergy Swelling Verified 08/01/18 13:12 hydrocodone AdvReac Itching Verified 09/01/18 12:08 naproxen AdvReac Itching Verified 08/01/18 13:12 Home Medications Medication Instructions Recorded Confirmed Last Taken Type Gabapentin [Neurontin] 300 mg PO Q8HR #30 capsule 09/19/17 11/25/18 09/01/18 Rx Simvastatin 40 mg PO QDAY #30 tablet 09/19/17 11/25/18 09/01/18 Rx Nicotine [Habitrol] 21 mg TD Q24H #30 patch 07/12/18 11/25/18 09/01/18 Rx ALBUTEROL Inhaler (OR & NICU) 2 puff IH Q4HR PRN #1 inhalation 10/15/18 11/25/18 Unknown Rx [ProAir HFA Inhaler] Benzonatate [Tessalon Perles] 100 mg PO Q8HR PRN #20 capsule 10/15/18 11/25/18 Unknown Rx Fluticasone [Flonase] 1 spray NS QDAY #1 bottle 10/15/18 11/25/18 Unknown Rx Ondansetron [Zofran Odt] 4 mg PO Q8HR PRN #20 tab.rapdis 11/24/18 Unknown Rx ALBUTEROL NEB's [Proventil 0.083% 2.5 mg IH Q4HRT PRN #15 nebu 11/30/18 Unknown Rx NEBS] ALPRAZolam [Xanax TAB] 1 mg PO TID PRN #15 tablet 11/30/18 Unknown Rx Cyanocobalamin [Vitamin B-12] 1,000 mcg IM Fr #4 vial 11/30/18 Unknown Rx Doxycycline Monohydrate 100 mg PO BID #10 capsule 11/30/18 Unknown Rx [Doxycycline Monohydrate CAP] Folic Acid [Folvite] 1 mg PO DAILY #30 11/30/18 11/25/18 09/01/18 Rx Furosemide [Lasix TAB] 40 mg PO DAILY #30 tablet 11/30/18 Unknown Rx Lisinopril [Zestril TAB] 40 mg PO DAILY #30 tablet 11/30/18 Unknown Rx Melatonin [Melatonin 5MG TAB] 5 mg PO QHS PRN #30 tablet 11/30/18 Unknown Rx Mometasone/Formoterol [Dulera 200 2 puff IH BID #1 hfa.aer.ad 11/30/18 Unknown Rx Mcg/5 Mcg Inhaler] Nystatin Oint [Mycostatin Oint] 1 applic TP TID 7 Days #1 tube 11/30/18 Unknown Rx Pantoprazole [Protonix TAB] 40 mg PO DAILY #30 11/30/18 11/25/18 09/01/18 Rx QUEtiapine [SEROquel] 200 mg PO QHS #30 tablet 11/30/18 Unknown Rx Valacyclovir HCl [Valtrex] 1,000 mg PO DAILY #30 11/30/18 11/25/18 09/01/18 Rx Warfarin [Coumadin] 5 mg PO DAILY@1700 #30 tablet 11/30/18 Unknown Rx buPROPion SR [Wellbutrin SR] 150 mg PO DAILY #30 tablet 11/30/18 Unknown Rx cephALEXin [Keflex] 500 mg PO QID #20 capsule 11/30/18 Unknown Rx oxyCODONE /ACETAMINOPHEN [Percocet 2 tab PO Q4H PRN #4 tablet 11/30/18 Unknown Rx 5/325 mg] Active Meds: Active Medications Acetaminophen (Tylenol) 650 mg PO Q4H PRN PRN Reason: Pain MILD(1-3)/Fever >100.5/[place] Albuterol (Proventil) 2.5 mg IH Q4HRT PRN PRN Reason: Shortness Of Breath Atorvastatin Calcium (Lipitor) 40 mg PO QHS [place]GEL[place] Ondansetron HCl (Zofran) 4 mg IV Q8H PRN PRN Reason: Nausea And Vomiting Sodium Chloride (Sodium Chloride Flush Syringe 10 Ml) 10 ml IV BID ANGELINA Sodium Chloride (Sodium Chloride Flush Syringe 10 Ml) 10 ml IV PRN PRN PRN Reason: LINE FLUSH Physical Examination Vital Signs Temp Pulse Resp Pulse Ox 98.1 F 83 20 96 01/15/19 11:37 01/15/19 11:37 01/15/19 11:37 01/15/19 11:37 General appearance: mild distress HEENT: Positive: PERRL Cardiac: Positive: Reg Rate and Rhythm Lungs: Positive: Decreased Breath Sounds, Wheezes Neuro: Positive: Grossly Intact Results 01/15/19 11:20 01/15/19 11:20 Cardiac Enzymes 01/15/19 Range/Units 11:20 AST 28 (5-40) units/L Coagulation 01/15/19 Range/Units 11:20 PT 13.4 (12.2-14.9) Sec. INR 1.05 (0.87-1.13) APTT 24.0 L (24.2-36.6) Sec. CBC 01/15/19 Range/Units 11:20 WBC 7.2 (4.5-11.0) K/mm3 RBC 4.60 (3.65-5.03) M/mm3 Hgb 14.6 H (10.1-14.3) gm/dl Hct 42.9 (30.3-42.9) % Plt Count 263 (140-440) K/mm3 Lymph # 1.8 (1.2-5.4) K/mm3 [place] # 0.6 (0.0-0.8) K/mm3 Eos # 0.1 (0.0-0.4) K/mm3 Baso # 0.1 (0.0-0.1) K/mm3 Comprehensive Metabolic Panel 01/15/19 Range/Units 11:20 Sodium 137 (137-145) mmol/L Potassium 4.0 (3.6-5.0) mmol/L Chloride 100.9 (98-107) mmol/L Carbon Dioxide 25 (22-30) mmol/L BUN 7 (7-17) mg/dL Creatinine 0.4 L (0.7-1.2) mg/dL Glucose 130 H (65-100) mg/dL Calcium 9.1 (8.4-10.2) mg/dL AST 28 (5-40) units/L ALT 42 (7-56) units/L Alkaline Phosphatase 97 (35-129) units/L Total Protein 7.4 (6.3-8.2) g/dL Albumin 4.0 (3.9-5) g/dL Assessment and Plan Atypical chest pain COPD exacerbation Hypertension Tobacco abuse Cardiac cath in 2010 and in 2015 showing normal coronaries. April 2017, she had a negative thallium stress test. Echocardiogram 08/2017 months ago showed a normal left ventricular systolic function with an ejection fraction 55-60%. Recommend: PE protocol due to shortness of breath and chest pain. Echocardiogram for LVEF reassessment.
[2019-01-15] MEDS ORDERED: ELIQUIS PO SCH (13:32)
[2019-01-15 13:39] LABS: Chol/HDL Ratio 2.55 %
--- NOTE | 2019-01-15 14:55 | Cat Scan Report ---
CTA CHEST WITH IV CONTRAST INDICATION: Shortness of breath, chest pain. TECHNIQUE: Axial CT images were obtained through the chest after injection of 100 mL of Omnipaque 350 IV contras t. 3 plane MIP reconstructions were produced. All CT scans at this location are performed using CT do se reduction for ALARA by means of automated exposure control. COMPARISON: None available. FINDINGS: Pulmonary Arteries: No pulmonary emboli. Lungs: No significant abnormality. Trachea and Bronchi: No significant abnormality. Heart and Pericardium: Mild coronary atherosclerotic calcifications. Vasculature: Atherosclerotic but not aneurysmal thoracic aorta. Lymphatics: No lymphadenopathy. Additional Findings: None. Upper Abdomen: No acute findings. Skeletal Structures: No significant osseous abnormality. IMPRESSION: 1. No CT evidence for pulmonary embolism. 2. No acute findings. Signer Name: Ramirez Prieto MD Signed: 01/15/2019 2:51 PM Workstation Name: [id number]
[2019-01-15] MEDS: MORPHINE IV PRN ×2 (15:28→20:29)
[2019-01-15 20:25] VITALS: BP 138/78
[2019-01-15] MEDS ORDERED: SODIUM CHLORIDE FLUSH SYRINGE 10 ML IV SCH (22:00)
== END 2019-01-15 20:30 | disposition left against medical advice (07) | DRG 302 ==
LOC: ED 11:04 → 4A 12:32
PROVIDERS: ADMIT Internal Medicine; ATTEND Internal Medicine
DX: I25.118 Atherosclerotic heart disease of native coronary artery with other forms of angina pectoris (principal); I50.31 Acute diastolic (congestive) heart failure; J44.1 Chronic obstructive pulmonary disease with (acute) exacerbation; I11.0 Hypertensive heart disease with heart failure; Z68.41 Body mass index [BMI] 40.0-44.9, adult; M19.90 Unspecified osteoarthritis, unspecified site; F41.9 Anxiety disorder, unspecified; G89.29 Other chronic pain; F17.200 Nicotine dependence, unspecified, uncomplicated; E66.9 Obesity, unspecified; E78.2 Mixed hyperlipidemia; Z95.5 Presence of coronary angioplasty implant and graft; I25.2 Old myocardial infarction; Z88.0 Allergy status to penicillin; Z88.5 Allergy status to narcotic agent; Z86.718 Personal history of other venous thrombosis and embolism; Z86.711 Personal history of pulmonary embolism; Z90.49 Acquired absence of other specified parts of digestive tract; Z90.710 Acquired absence of both cervix and uterus; Z79.899 Other long term (current) drug therapy; Z82.49 Family history of ischemic heart disease and other diseases of the circulatory system
CPT/HCPCS: 36415; 71045; 71275; 80053; 80061; 83690; 84484; 85025; 85610; 85730; 93005; 93010; 94640; 94760; 96374; 96375; 99406; G0378; J2270; J2405; Q9967

== ENCOUNTER 2020-12-23 20:44 | Emergency (ER) | payer MEDICAID ==
[2020-12-24] MEDS ORDERED: ALBUTEROL 2.5 MG/3 ML NEBU IH ONE (03:59)
[2020-12-24] MEDS ORDERED: predniSONE 20 MG TAB PO ONE (03:59)
[2020-12-24] MEDS ORDERED: AZITHROMYCIN 250 MG TAB PO ONE (03:59)
[2020-12-24] MEDS ORDERED: ACETAMINOPHEN 500 MG TAB PO ONE (04:01)
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
[2020-12-24 05:27] VITALS: BP 142/78
[2020-12-24] MEDS ORDERED: CIPROFLOXACIN/DEXAMETH OTIC SUSP 7.5ML AD SCH (10:00)
== END 2020-12-24 04:55 | disposition home or self-care (01) ==
LOC: ED 20:44
DX: H66.91 Otitis media, unspecified, right ear (principal); R06.2 Wheezing; I11.0 Hypertensive heart disease with heart failure; I50.9 Heart failure, unspecified; I25.2 Old myocardial infarction; M19.91 Primary osteoarthritis, unspecified site; R56.9 Unspecified convulsions; J44.9 Chronic obstructive pulmonary disease, unspecified; Z86.718 Personal history of other venous thrombosis and embolism; Z86.711 Personal history of pulmonary embolism; Z90.49 Acquired absence of other specified parts of digestive tract; Z98.890 Other specified postprocedural states; Z79.2 Long term (current) use of antibiotics; Z79.899 Other long term (current) drug therapy; Z88.0 Allergy status to penicillin; Z88.8 Allergy status to other drugs, medicaments and biological substances
CPT/HCPCS: 94640; 99282; J7512; 94644

== ENCOUNTER 2021-03-23 20:04 | Emergency (ER) | payer MEDICAID ==
[2021-03-23] MEDS ORDERED: KETOROLAC 30 MG/1 ML INJ IV ONE (20:53)
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
[2021-03-23 21:14] LABS: Basophils % (Auto) 0.3 % (0.0-1.8); Eosinophils % (Auto) 0.5 % (0.0-4.3); Hematocrit 37.4 % (30.3-42.9); Lymphocytes % (Auto) 11.5 % (13.4-35.0); Mean Corpuscular HGB Conc 35 % (30-34); Mean Corpuscular Volume 93 fl (79-97); Monocytes # (Auto) 0.8 K/mm3 (0.0-0.8); Monocytes % (Auto) 9.6 % (0.0-7.3); Platelet Count 168 K/mm3 (140-440); Red Blood Count 4.03 M/mm3 (3.65-5.03); Red Cell Distribution Width 13.7 % (13.2-15.2)
[2021-03-23 21:18] VITALS: BP 140/75
[2021-03-23 21:35] LABS: Alanine Aminotransferase 25 units/L (7-56); Albumin 4.3 g/dL (3.9-5); Blood Urea Nitrogen 11 mg/dL (7-17); Calcium 8.8 mg/dL (8.4-10.2); Hemolysis Index 4
[2021-03-23 21:39] LABS: BUN/Creatinine Ratio 28
[2021-03-23] MEDS ORDERED: SODIUM CHLORIDE 0.9% 1000 ML 1,000 ML IV ONE (21:43)
--- NOTE | 2021-03-23 22:41 | Cat Scan Report ---
CT ABDOMEN AND PELVIS WITH CONTRAST INDICATION: Pt states RIGHT sided flank pain. Hx of recurrent U.T.I.'s CONTRAST: 100 cc Omnipaque 300 IV COMPARISON: 11/24/[address] scans at this location are performed using CT dose reduction for ALARA by means of automated e xposure control. FINDINGS: Lung bases are clear. No pneumoperitoneum is seen. Abdominal wall surgical changes are agai n noted. Midline protrusion with transverse colon is unchanged. Small fatty infraumbilical hernias ar e again noted. Gallbladder has been removed. Biliary prominence is stable. Liver shows mild fatty infiltration and i s enlarged. Hepatic length measures 20.2 cm. Spleen is also enlarged. Shape is elongated but length i s quite prominent at 19.6 cm. No masses are seen. No lymphadenopathy is noted. No evidence of bowel obstruction is seen. Appendix is not visualized. Minimal colonic diverticulosis is seen without evidence of diverticulitis. No free fluid is noted. No urinary obstructive changes are seen no renal masses are noted. Asymmetric right perinephric and p aranephric stranding is seen. No focal defects are noted. No significant asymmetry in the nephrogram is seen. This is a change from study in 2019 however. Ureters appear within normal limits. Urinary bl adder shows no abnormalities. No pelvic masses are seen. IMPRESSION: 1. Development of mild edema/inflammation of the right kidney without obstructive change seen. Findin gs are of concern for mild hilar nephritis. 2. Moderate hepatosplenomegaly Signer Name: Reji Faith MD Signed: 03/23/2021 10:37 PM Workstation Name: [id number]
[2021-03-24 00:11] LABS: Bilirubin,Urine NEG (Negative); Blood,Urine SM (Negative); Color,Urine Yellow (Yellow); Mucus,Urine FEW /HPF; Protein,Urine <15 mg/dL mg/dL (Negative); Urobilinogen,Urine < 2.0 mg/dL (<2.0)
[2021-03-24] MEDS ORDERED: PROCHLORPERAZINE EDISYLATE 10 MG/2 ML VIAL IV ONE (00:57)
[2021-03-24] MEDS ORDERED: diphenhydrAMINE 50 MG/ML VIAL IV ONE (00:57)
== END 2021-03-24 01:30 | disposition home or self-care (01) ==
LOC: ED 20:04
DX: N12 Tubulo-interstitial nephritis, not specified as acute or chronic (principal); I11.0 Hypertensive heart disease with heart failure; J44.9 Chronic obstructive pulmonary disease, unspecified; M19.90 Unspecified osteoarthritis, unspecified site; R56.9 Unspecified convulsions; F31.9 Bipolar disorder, unspecified; F41.8 Other specified anxiety disorders; Z88.0 Allergy status to penicillin; Z88.5 Allergy status to narcotic agent; Z88.6 Allergy status to analgesic agent; Z88.8 Allergy status to other drugs, medicaments and biological substances
CPT/HCPCS: 36415; 74177; 80053; 81001; 83735; 85025; 87086; 96361; 96365; 96375; 99284; J0780; J1200; J1885; J1956; J7030; Q9967

== ENCOUNTER 2021-06-09 14:10 | Emergency (ER) | payer MEDICAID ==
[2021-06-09 14:38] VITALS: BP 132/76
[2021-06-09] MEDS ORDERED: ACETAMINOPHEN 500 MG TAB PO ONE (14:41)
[2021-06-09] MEDS ORDERED: LIDOCAINE-MPF (1%) 10 MG/1 ML VIAL 5 ML INFILTRATI ONE (14:41)
[2021-06-09] MEDS ORDERED: ONDANSETRON 4 MG ODT TAB PO ONE (14:42)
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
== END 2021-06-09 15:56 | disposition home or self-care (01) ==
LOC: ED 14:10
DX: K02.9 Dental caries, unspecified (principal); I11.0 Hypertensive heart disease with heart failure; I50.9 Heart failure, unspecified; Z86.711 Personal history of pulmonary embolism; M19.90 Unspecified osteoarthritis, unspecified site; J44.9 Chronic obstructive pulmonary disease, unspecified; F31.9 Bipolar disorder, unspecified; F41.9 Anxiety disorder, unspecified; Z86.718 Personal history of other venous thrombosis and embolism; Z88.0 Allergy status to penicillin; Z88.5 Allergy status to narcotic agent; Z79.899 Other long term (current) drug therapy
CPT/HCPCS: 96372; 99282; J0696; J3490; Q0162

== ENCOUNTER 2021-08-16 14:58 | Emergency (ER) | payer MEDICAID | END 2021-08-16 17:45 | disposition left against medical advice (07) | LOC: ED 14:58 | DX: N39.0 Urinary tract infection, site not specified (principal); Z53.21 Procedure and treatment not carried out due to patient leaving prior to being seen by health care provider ==

== ENCOUNTER 2021-10-15 03:35 | Emergency (ER) | payer MEDICAID ==
[2021-10-15] MEDS ORDERED: ALBUTEROL 2.5 MG/3 ML NEBU IH ONE ×2 (03:46→04:15)
[2021-10-15] MEDS ORDERED: ALBUTEROL 8.5 GM MDI INHALATION IH ONE (03:46)
[2021-10-15] MEDS ORDERED: IPRATROPIUM 0.02% NEBU 2.5 ML IH ONE ×2 (03:55→04:15)
--- NOTE | 2021-10-15 04:27 | XRay Report ---
CHEST 1 VIEW 10/15/2021 3:56 AM INDICATION / CLINICAL INFORMATION: Dyspnea. COMPARISON: One view of the chest from 01/15/2019. FINDINGS: SUPPORT DEVICES: None. HEART / MEDIASTINUM: No significant abnormality. LUNGS / PLEURA: No significant pulmonary abnormality. No significant pleural effusion. No pneumothora x. ADDITIONAL FINDINGS: No significant additional findings. IMPRESSION: 1. No acute abnormality of the chest. Signer Name: Fabien Espino MD Signed: 10/15/2021 4:23 AM Workstation Name: [id number]
[2021-10-15 04:37] LABS: Basophils % (Auto) 0.2 % (0.0-1.8); Eosinophils % (Auto) 0.1 % (0.0-4.3); Hematocrit 41.2 % (30.3-42.9); Hemoglobin 13.5 gm/dl (10.1-14.3); Lymphocytes # (Auto) 2.1 K/mm3 (1.2-5.4); Lymphocytes % (Auto) 21.5 % (13.4-35.0); Mean Corpuscular HGB Conc 33 % (30-34); Mean Corpuscular Volume 99 fl (79-97); Monocytes # (Auto) 0.7 K/mm3 (0.0-0.8); Monocytes % (Auto) 7.1 % (0.0-7.3); Platelet Count 228 K/mm3 (140-440); Red Blood Count 4.15 M/mm3 (3.65-5.03); Red Cell Distribution Width 13.7 % (13.2-15.2)
[2021-10-15 04:44] LABS: ABG Base Excess -2.9 mmol/L (-2.0-3.0); ABG HCO3 23.4 mmol/L (20.0-26.0); ABG Methemoglobin 0.5 % (0.0-1.5); ABG Oxygen Saturation 96.7 % (95.0-99.0); ABG PCO2 46.4 mm Hg; ABG PH 7.32 pH Units (7.350-7.450); ABG PO2 86.2 mm Hg (80.0-90.0)
[2021-10-15 04:47] LABS: INR 0.91 (0.87-1.13)
[2021-10-15 04:59] LABS: Creatine Kinase MB 3.8 ng/mL (0.0-4.0)
[2021-10-15 05:02] LABS: Alanine Aminotransferase 26 units/L (7-56); Albumin 4.5 g/dL (3.9-5); Blood Urea Nitrogen 18 mg/dL (7-17); Calcium 9.2 mg/dL (8.4-10.2); Hemolysis Index 4
[2021-10-15 05:09] LABS: BUN/Creatinine Ratio 60
[2021-10-15] MEDS ORDERED: cloNIDine 0.1 MG TAB PO ONE (05:24)
[2021-10-15] MEDS ORDERED: HYDROcodone/ACETAMINOPHEN 5-325 MG TAB PO ONE (05:49)
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
[2021-10-15 06:08] VITALS: BP 137/62
--- NOTE | 2021-10-16 10:42 | Electrocardiograph Report ---
[facility] Test Date: 2021-10-15 Test Time: 05:12:11 Pat Name: GWEN LUGO Department: Room: Gender: F Almond Grinder: LUISA : 1965 Requested By: WESTON GUEVARA Order Number: [id number] Reading MD: Phil Denise Measurements Intervals [place] Rate: 88 P: 48 CO: 139 QRS: 56 QRSD: 105 T: 76 QT: 361 QTc: 438 Interpretive Statements Sinus rhythm No previous ECG available for comparison Electronically Signed On 10-16-2021 10:41:40 EDT by Phil Denise
== END 2021-10-15 06:20 | disposition home or self-care (01) ==
LOC: ED 03:35
DX: J44.9 Chronic obstructive pulmonary disease, unspecified (principal); I10 Essential (primary) hypertension; I11.0 Hypertensive heart disease with heart failure; I50.9 Heart failure, unspecified; I21.9 Acute myocardial infarction, unspecified; Z86.718 Personal history of other venous thrombosis and embolism; I26.99 Other pulmonary embolism without acute cor pulmonale; M19.90 Unspecified osteoarthritis, unspecified site; R56.9 Unspecified convulsions; F31.9 Bipolar disorder, unspecified; Z90.49 Acquired absence of other specified parts of digestive tract; Z98.890 Other specified postprocedural states; Z79.899 Other long term (current) drug therapy; Z88.6 Allergy status to analgesic agent; Z88.1 Allergy status to other antibiotic agents; Z88.0 Allergy status to penicillin; Z91.09 Other allergy status, other than to drugs and biological substances
CPT/HCPCS: 36415; 71045; 80053; 82140; 82550; 82553; 82803; 83690; 83735; 84484; 85025; 85610; 93005; 94640; 94644; 99284

== ENCOUNTER 2021-10-23 14:41 | Emergency (ER) | payer MEDICAID ==
[2021-10-23] MEDS ORDERED: IPRATROPIUM 0.02% NEBU 2.5 ML IH ONE (14:48)
[2021-10-23] MEDS ORDERED: methylPREDNISolone Sod Succinate 125 MG/2 ML INJ IV ONE (14:48)
[2021-10-23] MEDS ORDERED: ALBUTEROL 2.5 MG/3 ML NEBU IH ONE (14:48)
--- NOTE | 2021-10-23 15:35 | XRay Report ---
CHEST 1 VIEW 10/23/2021 3:02 PM INDICATION / CLINICAL INFORMATION: Dyspnea. COMPARISON: 10/15/2021 FINDINGS: SUPPORT DEVICES: None. HEART / MEDIASTINUM: Stable. LUNGS / PLEURA: No significant pulmonary or pleural abnormality. No pneumothorax. ADDITIONAL FINDINGS: No significant additional findings. IMPRESSION: 1. No acute findings. Stable exam from 10/15/2021. Signer Name: Angel Lock MD Signed: 10/23/2021 3:31 PM Workstation Name: [id number]
[2021-10-23 15:46] LABS: INR 0.87 (0.87-1.13)
[2021-10-23 15:55] LABS: Creatine Kinase MB 2.1 ng/mL (0.0-4.0)
[2021-10-23 15:57] LABS: Alanine Aminotransferase 30 units/L (7-56); Albumin 4.6 g/dL (3.9-5); Blood Urea Nitrogen 10 mg/dL (7-17); Calcium 9.4 mg/dL (8.4-10.2)
[2021-10-23 15:58] LABS: Hemolysis Index 12
[2021-10-23 16:18] LABS: BUN/Creatinine Ratio 20
[2021-10-23 17:04] LABS: Hematocrit 45.1 % (30.3-42.9); Hemoglobin 14.8 gm/dl (10.1-14.3); Mean Corpuscular HGB Conc 33 % (30-34); Mean Corpuscular Volume 98 fl (79-97); Platelet Count 267 K/mm3 (140-440); Red Blood Count 4.63 M/mm3 (3.65-5.03); Red Cell Distribution Width 13.3 % (13.2-15.2)
[2021-10-23 17:38] VITALS: BP 170/79
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
--- NOTE | 2021-10-24 13:48 | Electrocardiograph Report ---
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
== END 2021-10-23 19:02 | disposition home or self-care (01) ==
LOC: ED 14:41
DX: R06.02 Shortness of breath (principal); J44.9 Chronic obstructive pulmonary disease, unspecified; F19.10 Other psychoactive substance abuse, uncomplicated; I11.0 Hypertensive heart disease with heart failure; I50.9 Heart failure, unspecified; I26.99 Other pulmonary embolism without acute cor pulmonale; Z86.718 Personal history of other venous thrombosis and embolism; M19.90 Unspecified osteoarthritis, unspecified site; R56.9 Unspecified convulsions; F31.9 Bipolar disorder, unspecified; Z90.49 Acquired absence of other specified parts of digestive tract; Z79.899 Other long term (current) drug therapy
CPT/HCPCS: 36415; 71045; 80053; 82140; 82550; 82553; 83690; 83735; 83880; 84484; 85025; 85610; 93005; 94640; 96374; 99284; J2930; 94644

== ENCOUNTER 2022-01-19 19:15 | Emergency (ER) | payer MEDICAID ==
[2022-01-19] MEDS ORDERED: ONDANSETRON 4 MG/2 ML INJ IV ONE (21:14)
[2022-01-19] MEDS ORDERED: MORPHINE 4 MG/1 ML INJ IV ONE (21:14)
[2022-01-19] MEDS ORDERED: SODIUM CHLORIDE 0.9% 1000 ML 1,000 ML IV ONE (21:15)
[2022-01-19 21:43] LABS: Basophils % (Auto) 0.7 % (0.0-1.8); Eosinophils # (Auto) 0.2 K/mm3 (0.0-0.4); Eosinophils % (Auto) 2.5 % (0.0-4.3); Hematocrit 42.2 % (30.3-42.9); Lymphocytes # (Auto) 1.9 K/mm3 (1.2-5.4); Lymphocytes % (Auto) 30.4 % (13.4-35.0); Mean Corpuscular HGB Conc 33 % (30-34); Mean Corpuscular Volume 98 fl (79-97); Monocytes # (Auto) 0.4 K/mm3 (0.0-0.8); Platelet Count 210 K/mm3 (140-440); Red Blood Count 4.32 M/mm3 (3.65-5.03); Red Cell Distribution Width 13.8 % (13.2-15.2)
[2022-01-19 22:02] LABS: Alanine Aminotransferase 39 units/L (7-56); Albumin 4.2 g/dL (3.9-5); Blood Urea Nitrogen 11 mg/dL (7-17); Calcium 10.1 mg/dL (8.4-10.2); Hemolysis Index 8
[2022-01-19 22:06] LABS: BUN/Creatinine Ratio 22
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
[2022-01-19] MEDS ORDERED: oxyCODONE /ACETAMINOPHEN 5-325MG TAB PO ONE (23:45)
--- NOTE | 2022-01-20 00:07 | Cat Scan Report ---
CT ABDOMEN AND PELVIS WITHOUT CONTRAST INDICATION / CLINICAL INFORMATION: flank pain. TECHNIQUE: Axial CT images were obtained through the abdomen and pelvis without IV contrast. All CT scans at this location are performed using CT dose reduction for ALARA by means of automated exposure control. COMPARISON: CT abdomen and pelvis 03/23/2021; CT of the abdomen and pelvis 04/16/2012 FINDINGS: LOWER CHEST: No significant abnormality of the imaged chest. LIVER: No focal lesion. No acute findings. GALLBLADDER / BILE DUCTS: Cholecystectomy. Common bile duct is enlarged, finding is stable compared to prior study. Nonspecific finding the setting of previous cholecystectomy. SPLEEN: No significant abnormality. PANCREAS: No significant abnormality. ADRENALS: No significant abnormality. KIDNEYS/URETERS: No stones or hydronephrosis. No solid renal lesion. STOMACH / DUODENUM / SMALL BOWEL: The stomach, duodenum, and small bowel demonstrate no significant a bnormality. No specific abnormality of the mesentery demonstrated. COLON: Diverticulosis without acute inflammation. APPENDIX: Not clearly identified. Possibly absent. PERITONEUM: Prior mesh application along the anterior peritoneal cavity. No evidence of complication. Small fat-containing infraumbilical hernia image #114 to the right of midline. LYMPH NODES: No significant adenopathy. AORTA / ARTERIES: No significant abnormality. IVC / VEINS: No significant abnormality. URINARY BLADDER: No significant abnormality. REPRODUCTIVE ORGANS: Uterus is absent. No significant adnexal abnormality. Multiple intrapelvic calci fied phleboliths. SKELETAL SYSTEM: Moderate degenerative changes of the mid lumbar spine. ADDITIONAL ABDOMINAL/PELVIC FINDINGS: Nodular soft tissue focus of attenuation adjacent to the coccyx image #148 measures 22 x 16 mm. This finding stable compared to prior study. IMPRESSION: 1. No specific findings to suggest etiology of low back pain. Moderate degenerative changes of the marino mbar spine are present. No urolithiasis. 2. Soft tissue nodule adjacent to the coccyx within the left pelvis is stable compared to previous st udies dating to 2011. Signer Name: Dave Wright II, MD Signed: 01/20/2022 12:02 AM Workstation Name: [id number]
[2022-01-20 00:15] VITALS: BP 125/68
[2022-01-20 00:52] LABS: Hyaline Casts,Urine 1 /LPF; Mucus,Urine FEW /HPF
[2022-01-20 01:35] LABS: Color,Urine Orange (Yellow)
== END 2022-01-20 01:00 | disposition home or self-care (01) ==
LOC: ED 19:15
DX: R10.9 Unspecified abdominal pain (principal); F10.20 Alcohol dependence, uncomplicated; Z88.8 Allergy status to other drugs, medicaments and biological substances; Z88.0 Allergy status to penicillin; Z88.6 Allergy status to analgesic agent; I10 Essential (primary) hypertension; J45.909 Unspecified asthma, uncomplicated; F17.200 Nicotine dependence, unspecified, uncomplicated
CPT/HCPCS: 36415; 74176; 80053; 81001; 85025; 96361; 96374; 96375; 99284; J2270; J2405; J7030

== ENCOUNTER 2022-02-17 15:55 | Emergency (ER) | payer MEDICAID ==
[2022-02-17 16:29] VITALS: BP 122/72
== END 2022-02-17 18:30 | disposition left against medical advice (07) ==
LOC: ED 15:55
DX: F10.129 Alcohol abuse with intoxication, unspecified (principal); Z53.21 Procedure and treatment not carried out due to patient leaving prior to being seen by health care provider; Y90.9 Presence of alcohol in blood, level not specified